=== PATIENT | male | born 1980 | race Caucasian/White ===

== ENCOUNTER 2016-04-21 20:40 | Inpatient (IN) | payer OTHER ==
[~2016-04-21] VITALS: Ht 172.7 cm; Wt 69.8 kg
[~2016-04-21 20:40] MED LIST: ATOR40TA49 PO; CONTOUR1 XX; GEMF600T PO; GLIP5 OR; HYDR50 PO; LANTUS2P SC; LISI-588 PO; METH750T2 PO; NOVORP2 SQ; TRAZ50TA4 PO; [UNRECOGNIZED DRUG - OTHER] SQ
[2016-04-21 20:42] VITALS: BP 148/93; PULSE 117; RESP 16; TEMP 97.6; O2SAT 99
[2016-04-21] MEDS ORDERED: LANTUS2P SQ (22:33)
[2016-04-21] MEDS ORDERED: NOVOLOGP2 SQ (22:33)
[2016-04-21] MEDS ORDERED: SODIUM CHLOR 0.9% 1000 ML INJ 1,000 ML IV SCH (22:53)
--- NOTE | 2016-04-21 22:57 | PD ---
HPI Chief Complaint: Abdominal Pain Time Seen by Provider: 22:53 Travel History International Travel<30 days: No Contact w/Intl Traveler<30days: No Traveled to known affect area: No History of Present Illness HPI Patient is a 35-year-old male with history of insulin-dependent diabetes, presents to emergency room with complaints of abdominal pain. Patient reports that he was discharged from [facility] about one week ago as he was admitted for hyperglycemia as well as an infection to his buttocks. Patient reports that he was sent home on antibiotics and completed a full course of antibiotics 3 days ago. Patient reports that ever since he was discharged from the hospital, he has been feeling nauseous. Reports that he has also been having increased abdominal pain. Patient reports that his blood sugars have been controlled, blood sugars have been in the 200s. Patient does report history of diabetes and is taking Lantus as well as NovoLog for his diabetes. Denies fevers or chills, denies chest pain or shortness of breath. Patient reports increased pains to his right lower abdomen. Denies dysuria, urinary urgency or frequency. PFSH Past Medical History Depression: Yes Cancer: No Cardiovascular Problems: Yes Diabetes: Yes Patient Takes Glucophage: No Genitourinary: No Hypertension: Yes Musculoskeletal: Yes Neurologic: No Psychiatric: No Reproductive: No Respiratory: No Past Surgical History Other Surgery: Yes (right knee ligament repaired) Social History Alcohol Use: No Tobacco Use: No Substance Use: No Allergies-Medications (Allergen,Severity, Reaction): Coded Allergies: Metformin (Verified Allergy, Intermediate, Hives, 04/21/16) Flexeril (Verified Adverse Reaction, Intermediate, syncope, 04/21/16) Reported Meds & Prescriptions Reported Meds & Active Scripts Active Reported Novolog Inj (Insulin Aspart) 1,000 Unit/10 Ml Vial 0 SQ DIRECTED Sliding Scale as directed. Lantus Inj (Insulin Glargine) 1,000 Unit/10 Ml Vial 20 Units SQ HS Review of Systems Except as stated in HPI: all other systems reviewed are Neg General / Constitutional: No: Fever Eyes: No: Visual changes HENT: No: Headaches Cardiovascular: No: Chest Pain or Discomfort Respiratory: No: Shortness of Breath Gastrointestinal: Positive: Nausea, Abdominal Pain Genitourinary: No: Dysuria Musculoskeletal: No: Pain Skin: No Rash Neurologic: No: Weakness Psychiatric: No: Depression Endocrine: No: Polydipsia Hematologic/Lymphatic: No: Easy Bruising Physical Exam Narrative GENERAL: No acute distress, nontoxic SKIN: Warm and dry. HEAD: Atraumatic. Normocephalic. EYES: Pupils equal and round. No scleral icterus. No injection or drainage. ENT: No nasal bleeding or discharge. Mucous membranes pink and moist. NECK: Trachea midline. No JVD. CARDIOVASCULAR: Regular rate and rhythm. No murmur appreciated. RESPIRATORY: No accessory muscle use. Clear to auscultation. Breath sounds equal bilaterally. GASTROINTESTINAL: Abdomen soft, patient with increased tenderness to right lower quadrant, no rebound or guarding on exam. Patient with healing bug bite to left buttocks, no signs of induration or cellulitis or drainage, exam performed with RN at bedside MUSCULOSKELETAL: No obvious deformities. No clubbing. No cyanosis. No edema. NEUROLOGICAL: Awake and alert. No obvious cranial nerve deficits. Motor grossly within normal limits. Normal speech. PSYCHIATRIC: Appropriate mood and affect; insight and judgment normal. Data Data Last Documented VS Vital Signs Date Time Temp Pulse Resp B/P Pulse Ox O2 Delivery O2 Flow Rate FiO2 04/21/16 23:12 16 04/21/16 20:42 97.6 117 148/93 99 Orders Complete Blood Count With Diff (04/21/16 22:53) Comprehensive Metabolic Panel (04/21/16 22:53) Lipase (04/21/16 22:53) Prothrombin Time / Inr (Pt) (04/21/16 22:53) Act Partial Throm Time (Ptt) (04/21/16 22:53) Urinalysis - C+S If Indicated (04/21/16 22:53) Ct Abd/Pel W Iv Contrast(Rout) (04/21/16 22:53) Iv Access Insert/Monitor (04/21/16 22:53) NPO (04/21/16 22:53) Morphine Inj (Morphine Inj) (04/21/16 23:00) Ondansetron Inj (Zofran Inj) (04/21/16 23:00) Sodium Chlor 0.9% 1000 Ml Inj (Ns 1000 M (04/21/16 22:53) Sodium Chloride 0.9% Flush (Ns Flush) (04/21/16 23:00) Arterial Blood Gas (Abg) (04/22/16 ) Beta Hydroxybutyrate (Acetone) (04/22/16 00:02) Sodium Chlor 0.9% 1000 Ml Inj (Ns 1000 M (04/22/16 00:15) Sodium Chlor 0.9% 1000 Ml Inj (Ns 1000 M (04/22/16 00:15) Iohexol 350 Inj (Omnipaque 350 Inj) (04/22/16 00:16) Morphine Inj (Morphine Inj) (04/22/16 00:45) Blood Glucose (04/22/16 01:25) Blood Glucose (04/22/16 02:25) Blood Glucose (04/22/16 01:25) Admit Order (Ed Use Only) (04/22/16 01:45) Labs Laboratory Tests Test 04/21/16 04/21/16 04/22/16 23:05 23:30 00:45 White Blood Count 8.3 TH/MM3 Red Blood Count 5.72 MIL/MM3 Hemoglobin 16.1 GM/DL Hematocrit 47.0 % Mean Corpuscular Volume 82.1 FL Mean Corpuscular Hemoglobin 28.1 PG Mean Corpuscular Hemoglobin 34.2 % Concent Red Cell Distribution Width 12.6 % Platelet Count 333 TH/MM3 Mean Platelet Volume 9.8 FL Neutrophils (%) (Auto) 48.9 % Lymphocytes (%) (Auto) 38.6 % Monocytes (%) (Auto) 10.8 % Eosinophils (%) (Auto) 0.8 % Basophils (%) (Auto) 0.9 % Neutrophils # (Auto) 4.1 TH/MM3 Lymphocytes # (Auto) 3.2 TH/MM3 Monocytes # (Auto) 0.9 TH/MM3 Eosinophils # (Auto) 0.1 TH/MM3 Basophils # (Auto) 0.1 TH/MM3 CBC Comment DIFF FINAL Differential Comment Prothrombin Time 10.9 SEC Prothromb Time International 1.0 RATIO Ratio Activated Partial 22.3 SEC Thromboplast Time Sodium Level 135 MEQ/L Potassium Level 4.5 MEQ/L Chloride Level 87 MEQ/L Carbon Dioxide Level 28.1 MEQ/L Anion Gap 20 MEQ/L Blood Urea Nitrogen 27 MG/DL Creatinine 1.10 MG/DL Estimat Glomerular Filtration 75 ML/MIN Rate Random Glucose 735 MG/DL Calcium Level 9.6 MG/DL Total Bilirubin 1.0 MG/DL Aspartate Amino Transf 44 U/L (AST/SGOT) Alanine Aminotransferase 59 U/L (ALT/SGPT) Alkaline Phosphatase 166 U/L Total Protein 8.0 GM/DL Albumin 3.6 GM/DL Lipase 138 U/L B-Hydroxybutyrate 3.67 MMOL/L Urine Color COLORLESS Urine Turbidity CLEAR Urine pH 5.0 Urine Specific [place] 1.028 Urine Protein TRACE mg/dL Urine Glucose (UA) 1000 mg/dL Urine Ketones 40 mg/dL Urine Occult Blood NEG Urine Nitrite NEG Urine Bilirubin NEG Urine Urobilinogen LESS THAN 2.0 MG/DL Urine Leukocyte Esterase NEG Urine WBC 1 /hpf Urine Transitional Epithelial <1 /hpf Cells Microscopic Urinalysis Comment CULT NOT INDICATED Blood Gas Puncture Site RT RADIAL Blood Gas Patient Temperature 98.6 Blood Gas HCO3 24 mmol/L Blood Gas Base Excess 0.6 mmol/L Blood Gas Oxygen Saturation 95 % Arterial Blood pH 7.44 Arterial Blood Partial 37 mmHg Pressure CO2 Arterial Blood Partial 88 mmHG Pressure O2 Arterial Blood Oxygen Content 19.1 Vol % Arterial Blood 1.6 % Carboxyhemoglobin Arterial Blood Methemoglobin 0.8 % Blood Gas Hemoglobin 14.3 G/DL Oxygen Delivery Device ROOM AIR Blood Gas Inspired Oxygen 21 % MDM Medical Decision Making Medical Screen Exam Complete: Yes Emergency Medical Condition: Yes Interpretation(s) Vital Signs Date Time Temp Pulse Resp B/P Pulse Ox O2 Delivery O2 Flow Rate FiO2 04/21/16 20:42 97.6 117 16 148/93 99 Laboratory Tests Test 04/21/16 04/21/16 04/22/16 23:05 23:30 00:45 White Blood Count 8.3 TH/MM3 (4.0-11.0) Red Blood Count 5.72 MIL/MM3 (4.50-5.90) Hemoglobin 16.1 GM/DL (13.0-17.0) Hematocrit 47.0 % (39.0-51.0) Mean Corpuscular Volume 82.1 FL (80.0-100.0) Mean Corpuscular Hemoglobin 28.1 PG (27.0-34.0) Mean Corpuscular Hemoglobin 34.2 % Concent (32.0-36.0) Red Cell Distribution Width 12.6 % (11.6-17.2) Platelet Count 333 TH/MM3 (150-450) Mean Platelet Volume 9.8 FL (7.0-11.0) Neutrophils (%) (Auto) 48.9 % (16.0-70.0) Lymphocytes (%) (Auto) 38.6 % (9.0-44.0) Monocytes (%) (Auto) 10.8 % (0.0-8.0) Eosinophils (%) (Auto) 0.8 % (0.0-4.0) Basophils (%) (Auto) 0.9 % (0.0-2.0) Neutrophils # (Auto) 4.1 TH/MM3 (1.8-7.7) Lymphocytes # (Auto) 3.2 TH/MM3 (1.0-4.8) Monocytes # (Auto) 0.9 TH/MM3 (0-0.9) Eosinophils # (Auto) 0.1 TH/MM3 (0-0.4) Basophils # (Auto) 0.1 TH/MM3 (0-0.2) CBC Comment DIFF FINAL Differential Comment Prothrombin Time 10.9 SEC (9.8-11.6) Prothromb Time International 1.0 RATIO Ratio Activated Partial 22.3 SEC Thromboplast Time (24.3-30.1) Sodium Level 135 MEQ/L (136-145) Potassium Level 4.5 MEQ/L (3.5-5.1) Chloride Level 87 MEQ/L (98-107) Carbon Dioxide Level 28.1 MEQ/L (21.0-32.0) Anion Gap 20 MEQ/L (5-15) Blood Urea Nitrogen 27 MG/DL (7-18) Creatinine 1.10 MG/DL (0.60-1.30) Estimat Glomerular Filtration 75 ML/MIN (>89) Rate Random Glucose 735 MG/DL (74-106) Calcium Level 9.6 MG/DL (8.5-10.1) Total Bilirubin 1.0 MG/DL (0.2-1.0) Aspartate Amino Transf 44 U/L (15-37) (AST/SGOT) Alanine Aminotransferase 59 U/L (12-78) (ALT/SGPT) Alkaline Phosphatase 166 U/L (45-117) Total Protein 8.0 GM/DL (6.4-8.2) Albumin 3.6 GM/DL (3.4-5.0) Lipase 138 U/L (73-393) B-Hydroxybutyrate 3.67 MMOL/L (0.00-0.39) Urine Color COLORLESS (YELLW/STRAW) Urine Turbidity CLEAR (CLEAR) Urine pH 5.0 (5.0-8.5) Urine Specific [place] 1.028 (1.002-1.035) Urine Protein TRACE mg/dL (NEG-TRACE) Urine Glucose (UA) 1000 mg/dL (NEG) Urine Ketones 40 mg/dL (NEG) Urine Occult Blood NEG (NEG) Urine Nitrite NEG (NEG) Urine Bilirubin NEG (NEG) Urine Urobilinogen LESS THAN 2.0 MG/DL (LESS THAN 2.0) Urine Leukocyte Esterase NEG (NEG) Urine WBC 1 /hpf (0-5) Urine Transitional Epithelial <1 /hpf (NONE) Cells Microscopic Urinalysis Comment CULT NOT INDICATED Blood Gas Puncture Site RT RADIAL Blood Gas Patient Temperature 98.6 Blood Gas HCO3 24 mmol/L (22-26) Blood Gas Base Excess 0.6 mmol/L (-2-2) Blood Gas Oxygen Saturation 95 % (90-100) Arterial Blood pH 7.44 (7.380-7.420) Arterial Blood Partial 37 mmHg (38-42) Pressure CO2 Arterial Blood Partial 88 mmHG Pressure O2 (61-120) Arterial Blood Oxygen Content 19.1 Vol % (12.0-20.0) Arterial Blood 1.6 % (0-4) Carboxyhemoglobin Arterial Blood Methemoglobin 0.8 % (0-2) Blood Gas Hemoglobin 14.3 G/DL (12.0-16.0) Oxygen Delivery Device ROOM AIR Blood Gas Inspired Oxygen 21 % Differential Diagnosis Appendicitis, hyperglycemia, electrolyte abnormality, DKA, UTI, cholecystitis Narrative Course Patient is a 35-year-old male who presents to emergency room with complaints of right lower quadrant abdominal pain. Patient reports that he has been having increased abdominal pain for the past week, reports that he has been feeling nauseous, denies vomiting. Reports pain diffusely but worse today right lower quadrant. reports that he was recently admitted and discharged from [facility] hospital 1 [facility] ago after he was admitted for hyperglycemia as well as infection to his buttocks. Reports that his infection has healed and he is currently not on any antibiotics at this time, reports that his blood sugar is also under control as been in the 200s. Patient does complain of abdominal pain, pain is located to the right lower quadrant. Labs as well as CAT scan of the abdomen and pelvis ordered to eval for possible appendicitis. Will hydrate patient with IV fluids and give him pain medications for pain. CBC & BMP Diagram 04/21/16 23:[address] nuñez who accepts pt to service Diagnosis Primary Impression: Hyperglycemia due to type 2 diabetes mellitus Qualified Code: E11.65 - Type 2 diabetes mellitus with hyperglycemia, with long-term current use of insulin Admitting Information Admitting Physician Requests: Observation Hannah Roper DO Apr 21, 2016 22:57
[2016-04-21] MEDS ORDERED: MORPHINE SULFATE 4 MG/ML INJ IV PUSH ONE (23:00)
[2016-04-21] MEDS ORDERED: ONDANSETRON HCL 4 MG/2 ML VIAL IVP ONE (23:00)
[2016-04-21] MEDS ORDERED: SODIUM CHLORIDE 0.9% FLUSH 5 ML FLUSH IVF PRN (23:00)
[2016-04-21 23:25] LABS: AUTOMATED NEUTROPHIL # 4.1 TH/MM3 (1.8-7.7); BASOPHIL # 0.1 TH/MM3 (0-0.2); BASOPHIL % 0.9 % (0.0-2.0); EOSINOPHIL # 0.1 TH/MM3 (0-0.4); EOSINOPHIL % 0.8 % (0.0-4.0); HEMO FLAGS DIFF FINAL; LYMPH % 38.6 % (9.0-44.0); LYMPHOCYTE # 3.2 TH/MM3 (1.0-4.8); MEAN CELL VOLUME 82.1 FL (80.0-100.0); MEAN CORPUSCULAR HEMOGLOBIN 28.1 PG (27.0-34.0); MEAN CORPUSCULAR HGB CONC 34.2 % (32.0-36.0); MONO % 10.8 % (0.0-8.0); NEUT % 48.9 % (16.0-70.0); PLATELET COUNT 333 TH/MM3 (150-450); RED BLOOD COUNT 5.72 MIL/MM3 (4.50-5.90); RED CELL DISTRIBUTION WIDTH 12.6 % (11.6-17.2); WHITE BLOOD COUNT 8.3 TH/MM3 (4.0-11.0)
[2016-04-21 23:34] LABS: APTT (PATIENT) 22.3 SEC (24.3-30.1); PROTHROMBIN TIME - PATIENT 10.9 SEC (9.8-11.6)
[2016-04-21 23:43] LABS: BLOOD, URINE NEG (NEG); GLUCOSE,URINE 1000 mg/dL (NEG); KETONE, URINE 40 mg/dL (NEG); NITRITE,URINE NEG (NEG); TRANSITIONAL EPI CELLS, URINE <1 /hpf; URINE COLOR COLORLESS (YELLW/STRAW)
[2016-04-21 23:49] LABS: COMMENT (UR) CULT NOT INDICATED; CULTURE IF INDICATED CULT NOT INDICATED
[2016-04-21 23:56] LABS: ALKALINE PHOSPHATASE 166 U/L (45-117); ALT (GPT) 59 U/L (12-78); ANION GAP 20 MEQ/L (5-15); AST (GOT) 44 U/L (15-37); BICARBONATE 28.1 MEQ/L (21.0-32.0); CHLORIDE 87 MEQ/L (98-107); GLOMERULAR FILTRATION RATE 75 ML/MIN (>89); SODIUM (NA) 135 MEQ/L (136-145)
[2016-04-22] VITALS (10 sets, daily range): BP systolic 123–154; BP diastolic 67–92; PULSE 85–106; RESP 18–22; TEMP 96.5–98.5; O2SAT 96–98
[2016-04-22] LABS: BLOOD UREA NITROGEN 27 MG/DL (7-18); POTASSIUM 4.5 MEQ/L (3.5-5.1)
[2016-04-22] MEDS ORDERED: SODIUM CHLOR 0.9% 1000 ML INJ 1,000 ML IV ONE ×2 (00:15)
[2016-04-22] MEDS ORDERED: IOHEXOL 350 MG/ML 10 ML VIAL (for RAD DIAG) IV ONE (00:16)
[2016-04-22] MEDS ORDERED: MORPHINE SULFATE 4 MG/ML INJ IV PUSH ONE (00:45)
[2016-04-22 00:56] LABS: BLOOD GAS BASE EXCESS 0.6 mmol/L (-2-2); BLOOD GAS CARBOXYHEMOGLOBIN 1.6 % (0-4); BLOOD GAS HCO3 24 mmol/L (22-26); BLOOD GAS METHEMOGLOBIN 0.8 % (0-2); BLOOD GAS O2 HGB SATURATION 95 % (90-100); BLOOD GAS OXYGEN CONTENT 19.1 Vol % (12.0-20.0); BLOOD GAS PCO2 37 mmHg (38-42); BLOOD GAS PO2 88 mmHG (61-120); BLOOD GAS TOTAL HGB 14.3 G/DL (12.0-16.0); CRITICAL VALUE NO; DRAW SITE RT RADIAL; FIO2 21 %; NUMBER OF ARTERIAL PUNCTURES 2; OXYGEN DEVICE ROOM AIR; STAT YES; TEMP CORR TO 98.6; ULNAR PULSE PRESENT
--- NOTE | 2016-04-22 01:27 | RADRPT ---
EXAM DATE/TIME: 04/22/2016 00:15 [place] COMPARISON: No previous studies available for comparison. INDICATIONS : Abdominal pain IV CONTRAST: 70 cc Omnipaque 350 (iohexol) IV ORAL CONTRAST: No oral contrast ingested. RADIATION DOSE: 6.97 CTDIvol (mGy) MEDICAL HISTORY : Cardiovascular disease. Hypertension. Diabetes mellitus type 2. SURGICAL HISTORY : None. ENCOUNTER: Initial ACUITY: 1 day PAIN SCALE: 3/10 LOCATION: Abdomen TECHNIQUE: Volumetric scanning of the abdomen and pelvis was performed. Using automated exposure control and ad justment of the mA and/or kV according to patient size, radiation dose was kept as low as reasonably achievable to obtain optimal diagnostic quality images. FINDINGS: LOWER LUNGS: The visualized lower lungs are clear. LIVER: 4.2 x 3.0 cm lesion in the posterior right lobe of the liver with peripheral nodular discontinuous en hancement indicating a hemangioma. The liver is otherwise within normal limits. Gallbladder within no rmal limits. SPLEEN: Normal size without lesion. PANCREAS: Within normal limits. KIDNEYS: 1.1 cm hypodensity in the lateral lower pole of the left kidney likely represents a cyst. Kidneys oth erwise within normal limits. No evidence of hydronephrosis. ADRENAL GLANDS: Within normal limits. VASCULAR: There is no aortic aneurysm. BOWEL/MESENTERY: Result of prominent wall thickening of the gastric antrum indicating possible gastritis. No evidence of bowel dilatation. No free air or free fluid. Appendix within normal limits. ABDOMINAL WALL: Within normal limits. RETROPERITONEUM: There is no lymphadenopathy. BLADDER: No wall thickening or mass. REPRODUCTIVE: Within normal limits. INGUINAL: There is no lymphadenopathy or hernia. MUSCULOSKELETAL: Within normal limits for patient age. CONCLUSION: 1. Mild wall thickening and mucosal enhancement of the distal stomach indicating possible gastritis. 2. Cavernous hemangiomas in the liver. Juan Ramon Brito MD on April 22, 2016 at 1:17 Board Certified Radiologist. This report was verified electronically.
--- NOTE | 2016-04-22 03:47 | HHI.HP ---
[facility] Service [facility] Primary Care Physician No Primary Care Physician Admission Diagnosis Diabetic Hyperglycemia Diagnoses: Chief Complaint: abdominal pain Travel History International Travel<30 Days: No Contact w/Intl Traveler <30 Da: No Traveled to Known Affected Are: No History of Present Illness 35 y/o male with a history of DM, neuropathy, and chronic back pain presented with abdominal cramping. Patient states he was seen in [facility] 1 week ago for hyperglycemia, and ever since he was discharge he has been having abdominal cramping. He states the pain is severe throughout his abdomen, and he has been unable to eat much. He although has been able to take in liquids. He complains of feeling dizzy, and states his blood sugars at home have been under 200 according to his meter. Because of the reading he has not been taking his short acting insulin because he states he will drop too much. He denies any chest pain, sob, fever or chills. Review of Systems Constitutional: COMPLAINS OF: Weight loss, Dizziness, DENIES: Fever, Chills Endocrine: COMPLAINS OF: Polydipsia, Polyuria Respiratory: DENIES: Cough, Shortness of breath Cardiovascular: DENIES: Chest pain, Lower Extremity Edema Gastrointestinal: COMPLAINS OF: Nausea, DENIES: Constipation, Diarrhea, Vomiting Genitourinary: DENIES: Dysuria Musculoskeletal: DENIES: Back pain, Neck pain Integumentary: DENIES: Rash Hematologic/lymphatic: DENIES: Lymphadenopathy Immunologic/allergic: DENIES: Urticaria Neurologic: COMPLAINS OF: Headache Past Family Social History Past Medical History Hypertension Diabetes Depression Hyperlipidemia Past Surgical History Right knee surgery Reported Medications Reported Meds & Active Scripts Active Reported Novolog Inj (Insulin Aspart) 1,000 Unit/10 Ml Vial 0 SQ DIRECTED Sliding Scale as directed. Lantus Inj (Insulin Glargine) 1,000 Unit/10 Ml Vial 20 Units SQ HS Allergies: Coded Allergies: Metformin (Verified Allergy, Intermediate, Hives, 04/21/16) Flexeril (Verified Adverse Reaction, Intermediate, syncope, 04/21/16) Active Ordered Medications Current Medications Medications (Trade) Dose Ordered Sig/Cuauhtemoc Route Start Time Stop Time Status Last Admin (NS Flush) 2 ml UNSCH PRN IVF 04/21/16 23:00 Family History Kidney disease Epilepsy Social History Tobacco use: quit 1 year ago Alcohol use: occasionally Illicit drug use: marijuana Physical Exam Vital Signs Vital Signs Date Time Temp Pulse Resp B/P Pulse Ox O2 Delivery O2 Flow Rate FiO2 04/22/16 00:54 16 04/21/16 23:12 16 04/21/16 20:42 97.6 117 16 148/93 99 Physical Exam GENERAL: This is a well-nourished, well-developed patient, in no apparent distress. SKIN: No rashes, ecchymoses or lesions. Cool and dry. HEAD: Atraumatic. Normocephalic. EYES: Pupils equal round and reactive. Extraocular motions intact. ENT: Nose without bleeding, purulent drainage or septal hematoma. Airway patent. NECK: Trachea midline. No JVD CARDIOVASCULAR: Regular rate and rhythm without murmurs, gallops, or rubs. RESPIRATORY: Clear to auscultation. Breath sounds equal bilaterally. No wheezes , rales, or rhonchi. GASTROINTESTINAL: Abdomen soft, diffuse tenderness, nondistended. No hepato- splenomegaly, or palpable masses. No guarding. MUSCULOSKELETAL: Extremities without clubbing, cyanosis, or edema. No calf tenderness. NEUROLOGICAL: Awake and alert. . Motor and sensory grossly within normal limits. . Normal speech. Laboratory Laboratory Tests Test 04/21/16 04/21/16 04/22/16 23:05 23:30 00:45 White Blood Count 8.3 Red Blood Count 5.72 Hemoglobin 16.1 Hematocrit 47.0 Mean Corpuscular Volume 82.1 Mean Corpuscular Hemoglobin 28.1 Mean Corpuscular Hemoglobin 34.2 Concent Red Cell Distribution Width 12.6 Platelet Count 333 Mean Platelet Volume 9.8 Neutrophils (%) (Auto) 48.9 Lymphocytes (%) (Auto) 38.6 Monocytes (%) (Auto) 10.8 Eosinophils (%) (Auto) 0.8 Basophils (%) (Auto) 0.9 Neutrophils # (Auto) 4.1 Lymphocytes # (Auto) 3.2 Monocytes # (Auto) 0.9 Eosinophils # (Auto) 0.1 Basophils # (Auto) 0.1 CBC Comment DIFF FINAL Differential Comment Prothrombin Time 10.9 Prothromb Time International 1.0 Ratio Activated Partial 22.3 Thromboplast Time Sodium Level 135 Potassium Level 4.5 Chloride Level 87 Carbon Dioxide Level 28.1 Anion Gap 20 Blood Urea Nitrogen 27 Creatinine 1.10 Estimat Glomerular Filtration 75 Rate Random Glucose 735 Calcium Level 9.6 Total Bilirubin 1.0 Aspartate Amino Transf 44 (AST/SGOT) Alanine Aminotransferase 59 (ALT/SGPT) Alkaline Phosphatase 166 Total Protein 8.0 Albumin 3.6 Lipase 138 B-Hydroxybutyrate 3.67 Urine Color COLORLESS Urine Turbidity CLEAR Urine pH 5.0 Urine Specific [place] 1.028 Urine Protein TRACE Urine Glucose (UA) 1000 Urine Ketones 40 Urine Occult Blood NEG Urine Nitrite NEG Urine Bilirubin NEG Urine Urobilinogen LESS THAN 2.0 Urine Leukocyte Esterase NEG Urine WBC 1 Urine Transitional Epithelial <1 Cells Microscopic Urinalysis Comment CULT NOT INDICATED Blood Gas Puncture Site RT RADIAL Blood Gas Patient Temperature 98.6 Blood Gas HCO3 24 Blood Gas Base Excess 0.6 Blood Gas Oxygen Saturation 95 Arterial Blood pH 7.44 Arterial Blood Partial 37 Pressure CO2 Arterial Blood Partial 88 Pressure O2 Arterial Blood Oxygen Content 19.1 Arterial Blood 1.6 Carboxyhemoglobin Arterial Blood Methemoglobin 0.8 Blood Gas Hemoglobin 14.3 Oxygen Delivery Device ROOM AIR Blood Gas Inspired Oxygen 21 Result Diagram: 04/21/165 04/21/162304 Imaging Last Impressions Abdomen/Pelvis CT 04/21/162252 Signed Impressions: Service Date/Time: Friday, April 22, 2016 00:15 - CONCLUSION: 1. Mild wall thickening and mucosal enhancement of the distal stomach indicating possible gastritis. 2. Cavernous hemangiomas in the liver. Juan Ramon Brito MD Assessment and Plan Problem List: (1) Gastroenteritis ICD Code: K52.9 Status: Acute (2) DKA (diabetic ketoacidoses) ICD Code: E13.10 Status: Acute Assessment and Plan 35 y/o male with a history of DM, neuropathy, and chronic back pain presented with abdominal cramping. Gastroenteritis Images reviewed: Abdominal CT shows mild wall thickening and mucosal enhancement of the distal stomach indicating possible gastritis. Cavernous hemangiomas in the liver. -Pain management with IV Morphine -IVF hydration DKA Labs: Glucose 735, anion gap 20, beta hydroxybutyrate 3.67 -DKA protocol -Admit to ICU DVT prophylaxis: Heparin Written by Darline DUMONT, acting as scribe for Dr. Blum on 04/22/16 at 0340. All or portions of this note were transcribed by TIM Choi. I, Dr. Taye Blum personally performed the history, physical exam, and medical decision making; and confirmed the accuracy of the information in the transcribed note. Authenticated by Dr. Taye Blum on 04/22/16 at 05:58. Code Status Full Discussed Condition With Patient and RN Physician Certification 2 Midnight Certification Type: Admission for Inpatient Services Order for Inpatient Services The services are ordered in accordance with Medicare regulations or non- Medicare payer requirements, as applicable. In the case of services not specified as inpatient-only, they are appropriately provided as inpatient services in accordance with the 2-midnight benchmark. Estimated LOS (days): 3 days is the estimated time the patient will need to remain in the hospital, assuming treatment plan goals are met and no additional complications. Post-Hospital Plan: Home Darline Hutton Apr 22, 2016 03:47 Taye Blum MD Apr 22, 2016 05:59
[2016-04-22] MEDS: DEXT 5%-NACL 0.9% 1000 ML INJ 1,000 ML IV SCH ×4 (03:53→23:53)
[2016-04-22] MEDS ORDERED: MORPHINE SULFATE 4 MG/ML INJ IV PUSH PRN (04:00)
[2016-04-22] MEDS: CHLORHEXIDINE GLUCONATE 2 % 1 PACK (2 CLOTHS) TOP SCH (04:00)
[2016-04-22] MEDS ORDERED: MISCELLANEOUS NURSING INFORMATION XX SCH (04:00)
[2016-04-22] MEDS ORDERED: INSULIN REGULAR (IV INFUSION) 100 UNITS in SODIUM CHLORIDE 0.9% INJ 99 ML IV SCH (04:00)
[2016-04-22] MEDS ORDERED: CHLORHEXIDINE GLUCONATE 2 % 1 PACK (2 CLOTHS) TOP PRN (04:00)
[2016-04-22] MEDS ORDERED: SODIUM PHOSPHATE INJ 15 MMOL in SODIUM CHLORIDE 0.9% INJ 100 ML IV PRN (04:00)
[2016-04-22] MEDS ORDERED: POTASSIUM CHLOR 40 MEQ PREMIX 100 ML IV PRN ×4 (04:00→11:45)
[2016-04-22] MEDS ORDERED: SODIUM BICARBONATE 8.4% SOLN 50 MEQ/50 ML VIAL IV PRN ×2 (04:00)
[2016-04-22] MEDS ORDERED: POTASSIUM CHLOR 20 MEQ PREMIX 100 ML IV PRN ×8 (04:00→11:45)
[2016-04-22] MEDS: MORPHINE SULFATE 4 MG/ML INJ IV PUSH PRN ×5 (04:38→21:11)
[2016-04-22] MEDS: SODIUM CHLOR 0.9% 1000 ML INJ 1,000 ML IV SCH (04:38)
[2016-04-22 08:29] LABS: BICARBONATE 30.3 MEQ/L (21.0-32.0); MAGNESIUM 1.2 MG/DL (1.5-2.5); POTASSIUM 3.2 MEQ/L (3.5-5.1)
[2016-04-22] MEDS: HEPARIN SODIUM - SQ 10,000 UNITS/ML VIAL SQ SCH ×2 (09:00→21:12)
[2016-04-22] MEDS: MAGNESIUM SULFATE 1 GM PREMIX 100 ML IV SCH ×2 (11:00→13:38)
[2016-04-22] MEDS ORDERED: POTASSIUM PHOSPHATE INJ 30 MMOL in SODIUM CHLOR 0.9% 250 ML INJ 250 ML IV ONE (11:00)
[2016-04-22] MEDS ORDERED: GLUCAGON 1 MG/ML VIAL OTHER PRN (11:30)
[2016-04-22] MEDS ORDERED: DEXTROSE 50% IN WATER 50 ML VIAL(D50) IV PUSH PRN (11:30)
[2016-04-22] MEDS ORDERED: POTASSIUM PHOSPHATE MONOBASIC 500 MG TAB PO PRN (11:45)
[2016-04-22] MEDS ORDERED: MAGNESIUM SULFATE INJ 2 GM in SODIUM CHLORIDE 0.9% INJ 96 ML IV PRN (11:45)
[2016-04-22] MEDS ORDERED: MAGNESIUM SULFATE INJ 4 GM in SODIUM CHLORIDE 0.9% INJ 92 ML IV PRN (11:45)
[2016-04-22] MEDS ORDERED: POTASSIUM PHOSPHATE INJ 30 MMOL in SODIUM CHLOR 0.9% 250 ML INJ 250 ML IV PRN (11:45)
[2016-04-22] MEDS ORDERED: MAGNESIUM OXIDE 400 MG TAB PO PRN (11:45)
[2016-04-22] MEDS ORDERED: SODIUM PHOSPHATE INJ 30 MMOL in SODIUM CHLOR 0.9% 250 ML INJ 240 ML IV PRN (11:45)
[2016-04-22] MEDS ORDERED: POTASSIUM PHOSPHATE MONOBASIC 500 MG TAB PO/TUBE PRN (11:45)
[2016-04-22] MEDS: MAGNESIUM OXIDE 400 MG TAB PO SCH (12:42)
[2016-04-22] MEDS: INSULIN ASPART SUPPLEMENTAL SCALE SQ SCH ×2 (13:27→16:54)
[2016-04-22 15:37] LABS: BETA-HYDROXYBUTYRATE 0.61 MMOL/L (0.00-0.39); BICARBONATE 25.7 MEQ/L (21.0-32.0); MAGNESIUM 1.8 MG/DL (1.5-2.5); POTASSIUM 4.1 MEQ/L (3.5-5.1)
[2016-04-22] MEDS ORDERED: INSULIN DETEMIR 100 UNITS/ML VIAL SQ ONE (17:45)
[2016-04-22] MEDS ORDERED: INSULIN DETEMIR 100 UNITS/ML VIAL SQ SCH (21:00)
[2016-04-22] MEDS: MEDIUM DOSE INSULIN NOVOLOG SUPPLEMENTAL SCALE SQ SCH (21:15)
[2016-04-22 21:18] LABS: BICARBONATE 25.3 MEQ/L (21.0-32.0); MAGNESIUM 1.5 MG/DL (1.5-2.5); POTASSIUM 3.9 MEQ/L (3.5-5.1)
[2016-04-22 23:39] LABS: POTASSIUM 3.5 MEQ/L (3.5-5.1)
[2016-04-23] VITALS (12 sets, daily range): BP systolic 135–158; BP diastolic 72–98; PULSE 83–107; RESP 17–22; TEMP 97.8–98.6; O2SAT 95–100
[2016-04-23] MEDS: MORPHINE SULFATE 4 MG/ML INJ IV PUSH PRN ×3 (02:27→11:45)
[2016-04-23] MEDS: DEXT 5%-NACL 0.9% 1000 ML INJ 1,000 ML IV SCH (02:41)
[2016-04-23] MEDS: SODIUM CHLOR 0.9% 1000 ML INJ 1,000 ML IV SCH ×2 (03:53→20:29)
[2016-04-23] MEDS: CHLORHEXIDINE GLUCONATE 2 % 1 PACK (2 CLOTHS) TOP SCH (04:00)
[2016-04-23 04:04] LABS: AUTOMATED NEUTROPHIL # 2.5 TH/MM3 (1.8-7.7); BASOPHIL # 0.1 TH/MM3 (0-0.2); EOSINOPHIL # 0.5 TH/MM3 (0-0.4); EOSINOPHIL % 5.9 % (0.0-4.0); HEMATOCRIT 37.3 % (39.0-51.0); HEMO FLAGS DIFF FINAL; LYMPH % 54.6 % (9.0-44.0); LYMPHOCYTE # 4.2 TH/MM3 (1.0-4.8); MEAN CELL VOLUME 81.2 FL (80.0-100.0); MEAN CORPUSCULAR HEMOGLOBIN 27.8 PG (27.0-34.0); MEAN CORPUSCULAR HGB CONC 34.3 % (32.0-36.0); MONO % 5.7 % (0.0-8.0); NEUT % 32.8 % (16.0-70.0); PLATELET COUNT 278 TH/MM3 (150-450); RED CELL DISTRIBUTION WIDTH 12.7 % (11.6-17.2); WHITE BLOOD COUNT 7.7 TH/MM3 (4.0-11.0)
[2016-04-23 04:28] LABS: BETA-HYDROXYBUTYRATE 0.1 MMOL/L (0.00-0.39); BICARBONATE 26.5 MEQ/L (21.0-32.0); MAGNESIUM 1.3 MG/DL (1.5-2.5); POTASSIUM 3.4 MEQ/L (3.5-5.1); POTASSIUM 3.5 MEQ/L (3.5-5.1)
[2016-04-23] MEDS: MEDIUM DOSE INSULIN NOVOLOG SUPPLEMENTAL SCALE SQ SCH ×4 (07:00→20:27)
[2016-04-23] MEDS: MAGNESIUM OXIDE 400 MG TAB PO SCH (08:42)
[2016-04-23] MEDS: HEPARIN SODIUM - SQ 10,000 UNITS/ML VIAL SQ SCH ×2 (08:42→20:27)
--- NOTE | 2016-04-23 10:38 | HHI.PR ---
Subjective Remarks Feels improving. Able to eat some breakfast no nausea or vomiting however complained of abd discomfort with breakfast. No fever or chills. Says she run out of meds. Objective Vitals Vital Signs Date Time Temp Pulse Resp B/P Pulse Ox O2 Delivery O2 Flow Rate FiO2 04/23/16 06:00 107 04/23/16 04:00 83 04/23/16 04:00 98.2 83 22 135/72 97 04/23/16 02:32 22 04/23/16 02:00 104 04/23/16 00:00 97.8 84 20 136/72 95 04/23/16 00:00 84 04/22/16 23:00 103 04/22/16 20:00 97.0 100 22 127/67 97 04/22/16 18:00 98 04/22/16 16:00 85 04/22/16 16:00 97.4 85 18 154/80 98 04/22/16 14:00 94 04/22/16 12:00 96.7 106 22 140/83 97 04/22/16 12:00 106 I/O 04/22/16 04/22/16 04/22/16 04/23/16 04/23/16 04/23/16 07:00 15:00 23:00 07:00 15:00 23:00 Intake Total 1000 ml 480 ml 673 ml Output Total 600 ml 600 ml 800 ml Balance 400 ml -120 ml -127 ml Intake Oral 1000 ml 480 ml 350 ml IV Total 323 ml Output Urine Total 600 ml 600 ml 800 ml # Bowel Movements 0 0 Result Diagram: 04/23/16 0319 04/23/16 0319 Imaging Last Impressions Abdomen/Pelvis CT 04/21/16 0583 Signed Impressions: Service Date/Time: Friday, April 22, 2016 00:15 - CONCLUSION: 1. Mild wall thickening and mucosal enhancement of the distal stomach indicating possible gastritis. 2. Cavernous hemangiomas in the liver. Juan Ramon Brito MD Objective Remarks GENERAL: Pleasant 35 yo male, in bed, not in acute distress. SKIN: Warm and dry. HEAD: Atraumatic. Normocephalic. EYES: Pupils equal and round. No scleral icterus. No injection or drainage. ENT: No nasal bleeding or discharge. Mucous membranes pink and moist. NECK: Trachea midline. No JVD. CARDIOVASCULAR: Regular rate and rhythm. RESPIRATORY: No accessory muscle use. Clear to auscultation. Breath sounds equal bilaterally. GASTROINTESTINAL: Abdomen soft, mild tenderness on epigastric area, nondistended. Hepatic and splenic margins not palpable. MUSCULOSKELETAL: Extremities without clubbing, cyanosis, or edema. No obvious deformities. NEUROLOGICAL: Awake and alert. No obvious cranial nerve deficits. Motor grossly within normal limits. Five out of 5 muscle strength in the arms and legs. Normal speech. PSYCHIATRIC: Appropriate mood and affect; insight and judgment normal. A/P Problem List: (1) Gastroenteritis ICD Code: K52.9 Status: Acute (2) DKA (diabetic ketoacidoses) ICD Code: E13.10 Status: Acute Assessment and Plan 35 y/o male with a history of DM, neuropathy, and chronic back pain presented with abdominal cramping. Gastroenteritis Images reviewed: Abdominal CT shows mild wall thickening and mucosal enhancement of the distal stomach indicating possible gastritis. Cavernous hemangiomas in the liver. -Pain management with IV Morphine. Add PO pain meds -IVF hydration -Consult GI if persistent abd pain and not able to tolerate food DKA Labs: Glucose 735, anion gap 20, beta hydroxybutyrate 3.67 -DKA protocol. BS better controlled. Start long acting insulin, ISS , accuchecks. -Admit to ICU DVT prophylaxis: Heparin Full Discussed Condition With Patient and the nurse Discharge when tolerates food, no abd pain and if BS stable Discharge Planning DC home in stable condition to follow up as OP with PCP Meds per med reconciliations. Diabetic diet. Adviced compliance with meds, diet and follow up appointments. Activity ad tika Edith Aggarwal MD Apr 23, 2016 10:38
[2016-04-23] MEDS ORDERED: LANTUS2P SQ (10:43)
[2016-04-23] MEDS ORDERED: NOVOLOGP2 SQ (10:43)
[2016-04-23] MEDS ORDERED: PANT40TA3 PO (10:43)
[2016-04-23] MEDS ORDERED: NALOXONE HCL 0.4 MG/ML AMP IV PRN (10:45)
[2016-04-23] MEDS ORDERED: PANTOPRAZOLE SOD 40 MG DELAYED RELEASE TAB PO ONE (11:00)
[2016-04-23] MEDS: ACETAMINOPHEN/HYDROcodone 325 MG/5 MG TAB PO PRN ×3 (14:42→22:57)
[2016-04-23] MEDS: INSULIN DETEMIR 100 UNITS/ML VIAL SQ SCH (20:27)
[2016-04-24] VITALS (9 sets, daily range): BP systolic 124–173; BP diastolic 67–91; PULSE 79–110; RESP 17–25; TEMP 97.8–99.1; O2SAT 98–100
[2016-04-24] MEDS: ACETAMINOPHEN/HYDROcodone 325 MG/5 MG TAB PO PRN ×6 (03:17→23:26)
[2016-04-24] MEDS: CHLORHEXIDINE GLUCONATE 2 % 1 PACK (2 CLOTHS) TOP SCH (04:00)
[2016-04-24] MEDS: MEDIUM DOSE INSULIN NOVOLOG SUPPLEMENTAL SCALE SQ SCH ×4 (07:00→20:04)
[2016-04-24] MEDS: PANTOPRAZOLE SOD 40 MG DELAYED RELEASE TAB PO SCH (08:10)
[2016-04-24] MEDS: MAGNESIUM OXIDE 400 MG TAB PO SCH ×4 (08:10→19:49)
[2016-04-24] MEDS: HEPARIN SODIUM - SQ 10,000 UNITS/ML VIAL SQ SCH ×2 (08:11→19:49)
[2016-04-24] MEDS: SODIUM CHLOR 0.9% 1000 ML INJ 1,000 ML IV SCH (09:30)
[2016-04-24 12:19] LABS: WHITE BLOOD COUNT 7.1 TH/MM3 (4.0-11.0)
[2016-04-24 12:20] LABS: AUTOMATED NEUTROPHIL # 3.2 TH/MM3 (1.8-7.7); BASOPHIL % 0.5 % (0.0-2.0); EOSINOPHIL # 0.3 TH/MM3 (0-0.4); EOSINOPHIL % 4.6 % (0.0-4.0); HEMATOCRIT 35.7 % (39.0-51.0); HEMO FLAGS DIFF FINAL; LYMPH % 41.8 % (9.0-44.0); MEAN CELL VOLUME 81.4 FL (80.0-100.0); MEAN CORPUSCULAR HEMOGLOBIN 27.4 PG (27.0-34.0); MEAN CORPUSCULAR HGB CONC 33.7 % (32.0-36.0); MONO % 7.8 % (0.0-8.0); NEUT % 45.3 % (16.0-70.0); PLATELET COUNT 254 TH/MM3 (150-450); RED BLOOD COUNT 4.38 MIL/MM3 (4.50-5.90); RED CELL DISTRIBUTION WIDTH 12.5 % (11.6-17.2)
[2016-04-24 12:49] LABS: BICARBONATE 27.6 MEQ/L (21.0-32.0); MAGNESIUM 1.1 MG/DL (1.5-2.5); POTASSIUM 3.7 MEQ/L (3.5-5.1)
--- NOTE | 2016-04-24 14:03 | HHI.PR ---
Subjective Remarks Patient doesn't have any nausea or vomiting he was able to eat . Abdominal pain is more epigastric area and say sis not controlled. No fever or chills. No diarrhea,. he did have 2normal colored BM in the morning. Will consult GI Objective Vitals Vital Signs Date Time Temp Pulse Resp B/P Pulse Ox O2 Delivery O2 Flow Rate FiO2 04/24/16 06:00 99 04/24/16 04:17 20 04/24/16 04:00 98.3 79 22 124/70 98 04/24/16 04:00 79 04/24/16 02:00 101 04/24/16 00:00 97.8 87 20 144/75 99 04/24/16 00:00 87 04/23/16 22:00 89 04/23/16 20:00 107 04/23/16 20:00 98.2 102 22 150/89 100 04/23/16 18:00 96 04/23/16 16:00 92 04/23/16 16:00 98.6 92 19 145/85 99 I/O 04/23/16 04/23/16 04/23/16 04/24/16 04/24/16 04/24/16 07:00 15:00 23:00 07:00 15:00 23:00 Intake Total 673 ml 1292 ml 1260 ml 1969 ml Output Total 800 ml Balance -127 ml 1292 ml 1260 ml 1969 ml Intake Oral 350 ml 720 ml 600 ml 800 ml IV Total 323 ml 572 ml 660 ml 1169 ml Output Urine Total 800 ml # Voids 1 2 4 # Bowel Movements 0 1 0 0 Result Diagram: 04/24/16 1135 04/24/16 1135 Imaging Last Impressions Abdomen/Pelvis CT 04/21/16 3920 Signed Impressions: Service Date/Time: Friday, April 22, 2016 00:15 - CONCLUSION: 1. Mild wall thickening and mucosal enhancement of the distal stomach indicating possible gastritis. 2. Cavernous hemangiomas in the liver. Juan Ramon Brito MD Objective Remarks GENERAL: Pleasant 35 yo male, in bed, not in acute distress. SKIN: Warm and dry. HEAD: Atraumatic. Normocephalic. EYES: Pupils equal and round. No scleral icterus. No injection or drainage. ENT: No nasal bleeding or discharge. Mucous membranes pink and moist. NECK: Trachea midline. No JVD. CARDIOVASCULAR: Regular rate and rhythm. RESPIRATORY: No accessory muscle use. Clear to auscultation. Breath sounds equal bilaterally. GASTROINTESTINAL: Abdomen soft, mild tenderness on epigastric area, nondistended. Hepatic and splenic margins not palpable. MUSCULOSKELETAL: Extremities without clubbing, cyanosis, or edema. No obvious deformities. NEUROLOGICAL: Awake and alert. No obvious cranial nerve deficits. Motor grossly within normal limits. Five out of 5 muscle strength in the arms and legs. Normal speech. PSYCHIATRIC: Appropriate mood and affect; insight and judgment normal. A/P Problem List: (1) Gastroenteritis ICD Code: K52.9 Status: Acute (2) DKA (diabetic ketoacidoses) ICD Code: E13.10 Status: Acute Assessment and Plan 35 y/o male with a history of DM, neuropathy, and chronic back pain presented with abdominal cramping. Gastroenteritis Abdominal pain Images reviewed: Abdominal CT shows mild wall thickening and mucosal enhancement of the distal stomach indicating possible gastritis. Cavernous hemangiomas in the liver. -Pain management with IV Morphine. PO pain meds per pain scale. Continue pantoprazole. Consider carafate -IVF hydration -Consult GI as patient with persistent abd pain DKA Labs on admission: Glucose 735, anion gap 20, beta hydroxybutyrate 3.67 -Was admitted to ICU and placed on DKA protocol. BS better controlled.Continue long acting insulin, ISS, accuchecks. BS better controlled. Hypomagnesemia: Replaced PO and IV. Monitor and replace as need. DVT prophylaxis: Heparin Full Discussed Condition With Patient and the nurse Discharge when improved tolerates food, no abd pain. Consulted GI as abd pain not improving. Transfer to med/surg floor Discharge Planning DC home in stable condition to follow up as OP with PCP Meds per med reconciliations. Diabetic diet. Adviced compliance with meds, diet and follow up appointments. Activity ad tika Edith Aggarwal MD Apr 24, 2016 14:03
[2016-04-24] MEDS: MAGNESIUM SULFATE 1 GM PREMIX 100 ML IV SCH ×2 (16:23→17:30)
[2016-04-24] MEDS: INSULIN DETEMIR 100 UNITS/ML VIAL SQ SCH (20:04)
[2016-04-25] VITALS (7 sets, daily range): BP systolic 111–142; BP diastolic 74–89; PULSE 68–105; RESP 16–22; TEMP 97.1–97.9; O2SAT 95–98
[2016-04-25] MEDS: SODIUM CHLOR 0.9% 1000 ML INJ 1,000 ML IV SCH ×2 (00:24→11:15)
[2016-04-25] MEDS: CHLORHEXIDINE GLUCONATE 2 % 1 PACK (2 CLOTHS) TOP SCH (04:00)
[2016-04-25] MEDS: ACETAMINOPHEN/HYDROcodone 325 MG/5 MG TAB PO PRN ×5 (05:05→23:04)
[2016-04-25] MEDS: MEDIUM DOSE INSULIN NOVOLOG SUPPLEMENTAL SCALE SQ SCH ×4 (05:07→20:28)
[2016-04-25] MEDS: MAGNESIUM OXIDE 400 MG TAB PO SCH ×3 (09:00→20:28)
[2016-04-25] MEDS: PANTOPRAZOLE SOD 40 MG DELAYED RELEASE TAB PO SCH (09:12)
[2016-04-25] MEDS: HEPARIN SODIUM - SQ 10,000 UNITS/ML VIAL SQ SCH ×2 (09:13→20:28)
[2016-04-25 11:31] LABS: BICARBONATE 28.2 MEQ/L (21.0-32.0); MAGNESIUM 1.3 MG/DL (1.5-2.5); POTASSIUM 3.7 MEQ/L (3.5-5.1)
--- NOTE | 2016-04-25 11:31 | HHI.PR ---
Subjective Remarks Still with abdominal pain. No nausea or vomiting. Pain is worse with eating but can occur at any time. No fever or chills. No diarrhea or constipation. Objective Vitals Vital Signs Date Time Temp Pulse Resp B/P Pulse Ox O2 Delivery O2 Flow Rate FiO2 04/25/16 08:30 97.1 100 18 141/81 98 04/25/16 04:00 97.3 91 22 142/89 98 04/25/16 00:00 97.6 95 18 132/81 95 04/24/16 22:00 98 04/24/16 20:00 99.1 110 20 169/79 98 04/24/16 20:00 110 04/24/16 16:00 99.1 100 20 173/91 99 04/24/16 12:00 98.5 95 17 154/87 99 I/O 04/24/16 04/24/16 04/24/16 04/25/16 04/25/16 04/25/16 07:00 15:00 23:00 07:00 15:00 23:00 Intake Total 1969 ml 1325 ml 1140 ml 240 ml Output Total 2000 ml 3250 ml Balance 1969 ml -675 ml -2110 ml 240 ml Intake Oral 800 ml 900 ml 540 ml 240 ml IV Total 1169 ml 425 ml 600 ml Output Urine Total 2000 ml 3250 ml # Voids 4 4 5 # Bowel Movements 0 1 Result Diagram: 04/24/16 1135 04/24/16 1135 Imaging Last Impressions Abdomen/Pelvis CT 04/21/16 9983 Signed Impressions: Service Date/Time: Friday, April 22, 2016 00:15 - CONCLUSION: 1. Mild wall thickening and mucosal enhancement of the distal stomach indicating possible gastritis. 2. Cavernous hemangiomas in the liver. Juan Ramon Brito MD Objective Remarks GENERAL: Pleasant 35 yo male, in bed, not in acute distress. SKIN: Warm and dry. HEAD: Atraumatic. Normocephalic. EYES: Pupils equal and round. No scleral icterus. No injection or drainage. ENT: No nasal bleeding or discharge. Mucous membranes pink and moist. NECK: Trachea midline. No JVD. CARDIOVASCULAR: Regular rate and rhythm. RESPIRATORY: No accessory muscle use. Clear to auscultation. Breath sounds equal bilaterally. GASTROINTESTINAL: Abdomen soft, mild tenderness on epigastric area, nondistended. Hepatic and splenic margins not palpable. MUSCULOSKELETAL: Extremities without clubbing, cyanosis, or edema. No obvious deformities. NEUROLOGICAL: Awake and alert. No obvious cranial nerve deficits. Motor grossly within normal limits. Five out of 5 muscle strength in the arms and legs. Normal speech. PSYCHIATRIC: Appropriate mood and affect; insight and judgment normal. A/P Problem List: (1) Gastroenteritis ICD Code: K52.9 Status: Acute (2) DKA (diabetic ketoacidoses) ICD Code: E13.10 Status: Acute Assessment and Plan 35 y/o male with a history of DM, neuropathy, and chronic back pain presented with abdominal cramping. Gastroenteritis Abdominal pain Images reviewed: Abdominal CT shows mild wall thickening and mucosal enhancement of the distal stomach indicating possible gastritis. Cavernous hemangiomas in the liver. -Pain management with IV Morphine. PO pain meds per pain scale. Continue pantoprazole. Consider carafate -IVF hydration -Consult GI as patient with persistent abd pain - Plan for EGD on Thursday 04/27 if doesn't improve DKA Labs on admission: Glucose 735, anion gap 20, beta hydroxybutyrate 3.67 -Was admitted to ICU and placed on DKA protocol. BS better controlled.Continue long acting insulin, ISS, accuchecks. BS better controlled. Hypomagnesemia: Replaced PO and IV. Monitor and replace as need. DVT prophylaxis: Heparin Full Discussed Condition With Patient and the nurse Discharge when improved tolerates food, no abd pain. Consulted GI as abd pain not improving. Transfer to med/surg floor Discharge Planning DC home when cleared by GI, plan for poss EGD on Wednesday Meds per med reconciliations. Diabetic diet. Adviced compliance with meds, diet and follow up appointments. Activity ad tika Edith Aggarwal MD Apr 25, 2016 11:31
--- NOTE | 2016-04-25 17:00 | PD.CONS ---
HPI History of Present Illness This is a 35 year old male with type 2 diabetes who is currently hospitalized for DKA and abdominal pain. His DKA has resolved, but he has continued to have abdominal pain and therefore GI has been consulted for further evaluation. The patient reports that he's had multiple hospitalizations for his diabetes and abdominal pain. He reports that in the past he was told that he needed to follow up with GI as outpatient, but that she becomes sick before he can ever be seen. He states that he was hospitalized a little over a week ago at [facility]. He has been having abdominal pain since he was released from that facility. He states that initially this was a diffuse abdominal pain that was sharp and constant with associated nausea and vomiting. He tried just taking jello/clear liquids/soups, but had no improvement. He came to this facility for further evaluation on 04/21/16. His LFTs were mildly elevated at that time with a total bilirubin of 1.0, AST 44, ALT 59, alkaline phosphatase 166. His lipase was normal at 138. CT scan abdomen and pelvis (04/21/16) revealed mild wall thickening and mucosal enhancement of the distal stomach indicating possible gastritis, cavernous hemangiomas in the liver. He was started on Protonix and he reports that his nausea and vomiting has subsided. He also states that his pain has improved and that he has no longer having diffuse abdominal pain. However he does continue to have intermittent abdominal pain in his left upper quadrant which she describes as a sharp pain that occasionally radiates to his back. This is associated with food intake at times, but at other times he has it at rest. He denies any heartburn or reflux. He denies any bowel changes such as constipation or diarrhea. He is not having any melena or hematochezia. He does report a remote history of peptic ulcer disease and reports that he had an EGD last about 2-3 years ago. He does not recall who did this. He does report that he's lost about 100 pounds over the past year. He reports that about 80 pounds of this was intentional, but the last 20 pounds was unintentional. Currently, he is tolerating his diet. However, he is very concerned that if he is discharged he will develop his symptoms again before he can be seen as outpatient and would like to have an endoscopy while he is here in the hospital. (Magalys Bateman) PFSH Past Medical History Hypertension Type II Diabetes Depression Hyperlipidemia Remote hx of PUD Past Surgical History Right knee surgery EGD (Magalys Bateman) Coded Allergies: Metformin (Verified Allergy, Intermediate, Hives, 04/21/16) Flexeril (Verified Adverse Reaction, Intermediate, syncope, 04/21/16) Medications Allergies Coded Allergies Type Severity Reaction Last Updated Verified Metformin Allergy Intermediate Hives 04/21/16 Yes Flexeril Adverse Reaction Intermediate syncope 04/21/16 Yes Active Scripts Medications Dose Route/Sig Days Date Category Dose Instructions Pantoprazole (Pantoprazole Sodium) 40 Mg Tab 40 Mg PO DAILY 04/23/16 Rx Novolog Inj (Insulin Aspart) 1,000 Unit/10 Ml Vial 0 SQ DIRECTED 04/21/16 Reported Sliding Scale as directed. Lantus Inj (Insulin Glargine) 1,000 Unit/10 Ml Vial 20 Units SQ HS 04/21/16 Reported Family History Kidney disease in brother and sister, both passed Epilepsy in mother Social History Tobacco use: quit 1 year ago Alcohol use: occasionally Illicit drug use: marijuana (Magalys Bateman) Review of Systems Constitutional: COMPLAINS OF: Fatigue, Weight loss, Change in appetite, DENIES : Fever, Chills Respiratory: DENIES: Cough Cardiovascular: DENIES: Chest pain Gastrointestinal: COMPLAINS OF: Abdominal pain, Nausea, Vomiting, DENIES: Black stools, Bloody stools, Constipation, Diarrhea, Swelling of Abdomen, Heartburn Musculoskeletal: COMPLAINS OF: Back pain Integumentary: DENIES: Rash, Jaundice Hematologic/lymphatic: DENIES: Bruising Neurologic: DENIES: Headache Psychiatric: DENIES: Confusion (Magalys Bateman) GI Exam Vitals I&O Vital Signs Date Time Temp Pulse Resp B/P Pulse Ox O2 Delivery O2 Flow Rate FiO2 04/25/16 16:02 97.4 96 16 132/82 98 04/25/16 12:30 97.9 105 18 131/74 98 04/25/16 08:30 97.1 100 18 141/81 98 04/25/16 04:00 97.3 91 22 142/89 98 04/25/16 00:00 97.6 95 18 132/81 95 04/24/16 22:00 98 04/24/16 20:00 99.1 110 20 169/79 98 04/24/16 20:00 110 I/O 04/24/16 04/24/16 04/24/16 04/25/16 04/25/16 04/25/16 07:00 15:00 23:00 07:00 15:00 23:00 Intake Total 1969 ml 1325 ml 1140 ml 240 ml Output Total 2000 ml 3250 ml Balance 1969 ml -675 ml -2110 ml 240 ml Intake Oral 800 ml 900 ml 540 ml 240 ml IV Total 1169 ml 425 ml 600 ml Output Urine Total 2000 ml 3250 ml # Voids 4 4 5 # Bowel Movements 0 1 Imaging Last Impressions Abdomen/Pelvis CT 04/21/16 0533 Signed Impressions: Service Date/Time: Friday, April 22, 2016 00:15 - CONCLUSION: 1. Mild wall thickening and mucosal enhancement of the distal stomach indicating possible gastritis. 2. Cavernous hemangiomas in the liver. Juan Ramon Brito MD Laboratory Test 04/25/16 09:50 Sodium Level 141 MEQ/L Potassium Level 3.7 MEQ/L Chloride Level 104 MEQ/L Carbon Dioxide Level 28.2 MEQ/L Anion Gap 9 MEQ/L Blood Urea Nitrogen 12 MG/DL Creatinine 0.62 MG/DL Estimat Glomerular Filtration 146 ML/MIN Rate Random Glucose 181 MG/DL Calcium Level 8.5 MG/DL Magnesium Level 1.3 MG/DL Physical Examination HEENT: Normocephalic; atraumatic; no jaundice. CHEST: CTA CARDIAC: RRR. ABDOMEN: Soft, nondistended, mild epigastric tenderness; no hepatosplenomegaly ; bowel sounds are present in all four quadrants. EXTREMITIES: No clubbing, cyanosis, or edema. SKIN: Normal; no rash; no jaundice. GROUNDS CLEANER: No focal deficits; alert and oriented times three. (Magalys Bateman) Assessment and Plan Plan ASSESSMENT: - Abdominal pain, nausea, vomiting. Was discharged from [facility] about a week ago for DKA. He has since had ongoing abdominal pain with nausea/ vomiting, only able to eat clear liquids and jello/soup. On admission, he was noted to have mildly elevated LFTs of 1.0, AST 44, ALT 59, alkaline phosphatase 166. His lipase was normal at 138. CT scan revealed mild wall thickening and mucosal enhancement of distal stomach, indicating possible gastritis. He was started on PPI and his nausea/ vomiting resolved and although his pain has improved some, he continues to have intermittent sharp pain in LUQ. This is aggravated by po intake although he also has it without food at times. He reports that he has been told to follow up with GI as outpatient, but can never stay out of the hospital long enough to have this done and therefore is requesting workup prior to d/c. Remote hx of PUD per patient. Of note, uncontrolled DM. Tolerating diet. PPI. Gastritis vs. gastroparesis vs. gb etiology vs. other. - Abn. imaging on CT. CT scan abdomen and pelvis (04/21/16) revealed mild wall thickening and mucosal enhancement of the distal stomach indicating possible gastritis, cavernous hemangiomas in the liver. - Mild elevation LFTs on admission. T. Bili 1.0, AST 44, ALT 59, alkaline phosphatase 166. CT unremarkable as far as biliary dilatation/gb. Will get US and repeat. - Weight loss. Pt reports a planned weight loss of 80 lbs, but states he has lost another additional 20 lbs without trying. - DKA, Type II DM. IMPROVED. PLAN: - Diabetic diet - Cont. PPI - RUQ US - LFT in am - Supportive care - Consider EGD on Wednesday if no improvement. This could be done as outpatient, but the patient states he can never stay out of the hospital long enough to follow up as outpatient and is requesting that this be done here. - Further recommendations to follow based on results of above - Pt seen and examined by Dr. Manzano and myself and this note is written on his behalf (Magalys Bateman) Physician Comments Patient seen and examined Agree with above Continue with current supportive care Monitor labs Plan for endoscopy on Wednesday And patient is advised tight diabetes control (Carlos Manuel Manzano MD) Magalys Bateman Apr 25, 2016 17:00 Carlos Manuel Manzano MD Apr 25, 2016 17:49
[2016-04-25] MEDS: INSULIN DETEMIR 100 UNITS/ML VIAL SQ SCH (20:28)
[2016-04-26] MEDS: ACETAMINOPHEN/HYDROcodone 325 MG/5 MG TAB PO PRN ×5 (03:25→20:52)
[2016-04-26 04:00] VITALS: BP_SYST 113; BP_SYST 118; BP_DIAS 72; BP_DIAS 76; PULSE 108; PULSE 98; RESP 18; RESP 20; TEMP 96.5; TEMP 97.1; O2SAT 97; O2SAT 98
[2016-04-26] MEDS: MEDIUM DOSE INSULIN NOVOLOG SUPPLEMENTAL SCALE SQ SCH ×4 (06:49→20:53)
[2016-04-26 08:00] VITALS: BP 107/67; PULSE 94; RESP 16; TEMP 96.1; O2SAT 97
[2016-04-26] MEDS: HEPARIN SODIUM - SQ 10,000 UNITS/ML VIAL SQ SCH ×2 (08:19→20:53)
[2016-04-26] MEDS: MAGNESIUM OXIDE 400 MG TAB PO SCH ×3 (08:19→20:51)
[2016-04-26] MEDS: PANTOPRAZOLE SOD 40 MG DELAYED RELEASE TAB PO SCH (08:19)
[2016-04-26 09:23] LABS: AUTOMATED NEUTROPHIL # 1.8 TH/MM3 (1.8-7.7); BASOPHIL # 0.1 TH/MM3 (0-0.2); EOSINOPHIL # 0.4 TH/MM3 (0-0.4); EOSINOPHIL % 6.4 % (0.0-4.0); HEMATOCRIT 39.6 % (39.0-51.0); HEMO FLAGS DIFF FINAL; LYMPH % 53.6 % (9.0-44.0); LYMPHOCYTE # 3.2 TH/MM3 (1.0-4.8); MEAN CORPUSCULAR HEMOGLOBIN 28.2 PG (27.0-34.0); MEAN CORPUSCULAR HGB CONC 34.8 % (32.0-36.0); MONO % 8.7 % (0.0-8.0); NEUT % 30.3 % (16.0-70.0); PLATELET COUNT 300 TH/MM3 (150-450); RED BLOOD COUNT 4.88 MIL/MM3 (4.50-5.90); RED CELL DISTRIBUTION WIDTH 12.6 % (11.6-17.2)
--- NOTE | 2016-04-26 09:36 | RADRPT ---
EXAM DATE/TIME: 04/26/2016 08:18 [facility] COMPARISON: CT ABDOMEN & PELVIS W CONTRAST, April 22, 2016, 0:15. INDICATIONS : Nausea and vomiting. MEDICAL HISTORY : Hypertension. Polyuria. Diabetes. Hyperlipidemia. SURGICAL HISTORY : Right knee ligament repair. ENCOUNTER: Initial ACUITY: 1 day PAIN SCORE: 6/10 LOCATION: Right upper quadrant MEASUREMENTS: LIVER: 16.9 cm length COMMON DUCT: 4 mm RIGHT KIDNEY: 9.7 x 4.5 x 5.1 cm FINDINGS: LIVER: Normal echotexture without ductal dilatation. Hyperechoic lesion right lobe measures 48 x 27 x 35 mm. COMMON DUCT: No intraluminal mass or stone visualized. GALLBLADDER: Contains no stones, demonstrates no wall thickening or pericholecystic fluid. PANCREAS: Not well seen due to overlying bowel gas. RIGHT KIDNEY: A simple cyst measures 8 x 6 x 8 mm in the upper pole. Echogenic focus right mid kidney likely renal sinus fat. CONCLUSION: 1. Echogenic lesion in the liver measures 4.8 cm consistent with hemangioma. 2. Right renal cyst. 3. Nonvisualization of pancreas. Mark Avilez MD on April 26, 2016 at 9:31 Board Certified Radiologist. This report was verified electronically.
--- NOTE | 2016-04-26 10:28 | HHI.PR ---
Subjective Remarks In bed. Still with epigastric pain. No n/v/d/c. No fever or chills. Had a normal BM no blood in it. Plan for EGD on Wednesday Objective Vitals Vital Signs Date Time Temp Pulse Resp B/P Pulse Ox O2 Delivery O2 Flow Rate FiO2 04/26/16 08:50 18 04/26/16 08:00 96.1 94 16 107/67 97 04/26/16 04:00 96.5 108 18 113/72 98 04/25/16 23:16 97.8 78 20 111/76 98 04/25/16 20:00 97.4 68 16 122/86 96 04/25/16 16:02 97.4 96 16 132/82 98 04/25/16 12:30 97.9 105 18 131/74 98 I/O 04/25/16 04/25/16 04/25/16 04/26/16 04/26/16 04/26/16 07:00 15:00 23:00 07:00 15:00 23:00 Intake Total 720 ml 240 ml Balance 720 ml 240 ml Intake Oral 720 ml 240 ml # Voids 5 3 1 # Bowel Movements 0 Result Diagram: 04/26/16 0732 04/25/16 0950 Imaging Last Impressions Gall Bladder Ultrasound 04/26/16 0000 Signed Impressions: Service Date/Time: Tuesday, April 26, 2016 08:18 - CONCLUSION: 1. Echogenic lesion in the liver measures 4.8 cm consistent with hemangioma. 2. Right renal cyst. 3. Nonvisualization of pancreas. Mark Avilez MD Abdomen/Pelvis CT 04/21/16 2255 Signed Impressions: Service Date/Time: Friday, April 22, 2016 00:15 - CONCLUSION: 1. Mild wall thickening and mucosal enhancement of the distal stomach indicating possible gastritis. 2. Cavernous hemangiomas in the liver. Juan Ramon Brito MD Objective Remarks GENERAL: Pleasant 35 yo male, in bed, not in acute distress. SKIN: Warm and dry. HEAD: Atraumatic. Normocephalic. EYES: Pupils equal and round. No scleral icterus. No injection or drainage. ENT: No nasal bleeding or discharge. Mucous membranes pink and moist. NECK: Trachea midline. No JVD. CARDIOVASCULAR: Regular rate and rhythm. RESPIRATORY: No accessory muscle use. Clear to auscultation. Breath sounds equal bilaterally. GASTROINTESTINAL: Abdomen soft, mild tenderness on epigastric area, nondistended. Hepatic and splenic margins not palpable. MUSCULOSKELETAL: Extremities without clubbing, cyanosis, or edema. No obvious deformities. NEUROLOGICAL: Awake and alert. No obvious cranial nerve deficits. Motor grossly within normal limits. Five out of 5 muscle strength in the arms and legs. Normal speech. PSYCHIATRIC: Appropriate mood and affect; insight and judgment normal. A/P Problem List: (1) Gastroenteritis ICD Code: K52.9 Status: Acute (2) DKA (diabetic ketoacidoses) ICD Code: E13.10 Status: Acute Assessment and Plan 35 y/o male with a history of DM, neuropathy, and chronic back pain presented with abdominal cramping. Gastroenteritis Abdominal pain Images reviewed: Abdominal CT shows mild wall thickening and mucosal enhancement of the distal stomach indicating possible gastritis. Cavernous hemangiomas in the liver. -Pain management with IV Morphine. PO pain meds per pain scale. Continue pantoprazole. Consider carafate -IVF hydration -Consult GI as patient with persistent abd pain - Plan for EGD on Thursday 04/27. DKA Labs on admission: Glucose 735, anion gap 20, beta hydroxybutyrate 3.67 -Was admitted to ICU and placed on DKA protocol. BS better controlled.Continue long acting insulin, ISS, accuchecks. BS better controlled. Hypomagnesemia: Replaced PO and IV. Monitor and replace as need. DVT prophylaxis: Heparin Full Discussed Condition With Patient and the nurse Discharge when improved tolerates food, no abd pain. Consulted GI as abd pain not improving. Plan for EGD on Wednesday, poss DC after EGD Discharge Planning DC home when cleared by GI, plan for poss EGD on Wednesday Meds per med reconciliations. Diabetic diet. Adviced compliance with meds, diet and follow up appointments. Activity ad tika Edith Aggarwal MD Apr 26, 2016 10:28
[2016-04-26 10:37] LABS: BICARBONATE 28.1 MEQ/L (21.0-32.0); MAGNESIUM 1.3 MG/DL (1.5-2.5); POTASSIUM 3.7 MEQ/L (3.5-5.1)
[2016-04-26 10:39] LABS: INDIRECT BILIRUBIN 0.5 MG/DL (0.0-0.8); TOTAL BILIRUBIN ADULT 0.6 MG/DL (0.2-1.0)
[2016-04-26 12:21] VITALS: BP 120/77; PULSE 109; RESP 18; TEMP 98.2; O2SAT 97
--- NOTE | 2016-04-26 14:38 | HHI.GIFU ---
Subjective Remarks Pt reports that he is still having LUQ abd pain sporadically. It is not necessarily related to food intake. Reports that he is moving his bowels without difficulty (Hannah Holman) Objective Vitals I&O Vital Signs Date Time Temp Pulse Resp B/P Pulse Ox O2 Delivery O2 Flow Rate FiO2 04/26/16 12:21 98.2 109 18 120/77 97 04/26/16 08:50 18 04/26/16 08:00 96.1 94 16 107/67 97 04/26/16 04:00 96.5 108 18 113/72 98 04/25/16 23:16 97.8 78 20 111/76 98 04/25/16 20:00 97.4 68 16 122/86 96 04/25/16 16:02 97.4 96 16 132/82 98 I/O 04/25/16 04/25/16 04/25/16 04/26/16 04/26/16 04/26/16 07:00 15:00 23:00 07:00 15:00 23:00 Intake Total 720 ml 240 ml 480 ml Balance 720 ml 240 ml 480 ml Intake Oral 720 ml 240 ml 480 ml # Voids 5 3 1 3 # Bowel Movements 0 2 Laboratory Laboratory Tests Test 04/26/16 07:32 White Blood Count 6.0 Red Blood Count 4.88 Hemoglobin 13.8 Hematocrit 39.6 Mean Corpuscular Volume 81.0 Mean Corpuscular Hemoglobin 28.2 Mean Corpuscular Hemoglobin 34.8 Concent Red Cell Distribution Width 12.6 Platelet Count 300 Mean Platelet Volume 9.8 Neutrophils (%) (Auto) 30.3 Lymphocytes (%) (Auto) 53.6 Monocytes (%) (Auto) 8.7 Eosinophils (%) (Auto) 6.4 Basophils (%) (Auto) 1.0 Neutrophils # (Auto) 1.8 Lymphocytes # (Auto) 3.2 Monocytes # (Auto) 0.5 Eosinophils # (Auto) 0.4 Basophils # (Auto) 0.1 CBC Comment DIFF FINAL Differential Comment Sodium Level 140 Potassium Level 3.7 Chloride Level 102 Carbon Dioxide Level 28.1 Anion Gap 10 Blood Urea Nitrogen 16 Creatinine 0.64 Estimat Glomerular Filtration 141 Rate Random Glucose 187 Calcium Level 9.0 Magnesium Level 1.3 Total Bilirubin 0.6 Direct Bilirubin 0.1 Indirect Bilirubin 0.5 Aspartate Amino Transf 43 (AST/SGOT) Alanine Aminotransferase 60 (ALT/SGPT) Alkaline Phosphatase 140 Total Protein 6.3 Albumin 2.7 Imaging Last Impressions Gall Bladder Ultrasound 04/26/16 0000 Signed Impressions: Service Date/Time: Tuesday, April 26, 2016 08:18 - CONCLUSION: 1. Echogenic lesion in the liver measures 4.8 cm consistent with hemangioma. 2. Right renal cyst. 3. Nonvisualization of pancreas. Mark Avilez MD Abdomen/Pelvis CT 04/21/16 2253 Signed Impressions: Service Date/Time: Friday, April 22, 2016 00:15 - CONCLUSION: 1. Mild wall thickening and mucosal enhancement of the distal stomach indicating possible gastritis. 2. Cavernous hemangiomas in the liver. Juan Ramon Brito MD Physical Exam HEENT: Pupils round and reactive to light; normocephalic; atraumatic; no jaundice. Throat is clear. NECK: Neck is supple, no JVD, no lymphadenopathy. CHEST: CTA CARDIAC: Regular, tachy ABDOMEN: +BS, soft, nondistended, left sided tenderness with voluntary guarding EXTREMITIES: No clubbing, cyanosis, or edema. SKIN: Normal; no rash; no jaundice. DISTRICT SUPERINTENDENT: No focal deficits; alert and oriented times three. (Hannah Holman) Assessment and Plan Plan ASSESSMENT: - Abdominal pain, nausea, vomiting. Gastritis vs. gastroparesis vs. other. Was discharged from [facility] about a week ago for DKA. He has since had ongoing abdominal pain with nausea/vomiting, only able to eat clear liquids and jello /soup. On admission, he was noted to have mildly elevated LFTs of 1.0, AST 44, ALT 59, alkaline phosphatase 166. His lipase was normal at 138. CT scan revealed mild wall thickening and mucosal enhancement of distal stomach, indicating possible gastritis. He was started on PPI and his nausea/vomiting resolved and although his pain has improved some, he continues to have intermittent sharp pain in LUQ. This is aggravated by po intake although he also has it without food at times. He reports that he has been told to follow up with GI as outpatient, but can never stay out of the hospital long enough to have this done and therefore is requesting workup prior to d/c. Remote hx of PUD per patient. GB US (04/26/16) --> 1. Echogenic lesion in the liver measures 4.8 cm consistent with hemangioma. 2. Right renal cyst. 3. Nonvisualization of pancreas. Of note, uncontrolled DM. Tolerating diet. PPI. - Abn. imaging on CT. CT scan abdomen and pelvis (04/21/16) revealed mild wall thickening and mucosal enhancement of the distal stomach indicating possible gastritis, cavernous hemangiomas in the liver. - Mild elevation LFTs on admission. T. Bili 1.0, AST 44, ALT 59, alkaline phosphatase 166. CT unremarkable as far as biliary dilatation/gb. GB US () --> 1. Echogenic lesion in the liver measures 4.8 cm consistent with hemangioma. 2. Right renal cyst. 3. Nonvisualization of pancreas. Repeat LFTs (04/26) have improved, Tbili 0.6, DBili 0.5, AST 43, ALT 60, AlkPhos 140. - Weight loss. Pt reports a planned weight loss of 80 lbs, but states he has lost another additional 20 lbs without trying. - DKA, Type II DM. IMPROVED. PLAN: - Diabetic diet - Cont. PPI - Supportive care - EGD planned for tomorrow - NPO after MN except meds - Further recommendations to follow based on results of above - Pt seen and examined by Dr. Manzano and myself and this note is written on his behalf (Hannah Holman) Physician Comments Patient seen and examined Agree with above Continue with current supportive care Monitor labs Plan for an EGD tomorrow (Carlos Manuel Manzano MD) Hannah Holman Apr 26, 2016 14:37 Carlos Manuel Manzano MD Apr 26, 2016 16:32
[2016-04-26 15:58] VITALS: BP 99/65; PULSE 117; RESP 17; TEMP 96.3; O2SAT 98
[2016-04-26 20:36] VITALS: BP 101/70; PULSE 107; RESP 20; TEMP 97.2; O2SAT 97
[2016-04-26] MEDS: INSULIN DETEMIR 100 UNITS/ML VIAL SQ SCH (20:52)
[2016-04-26 23:53] VITALS: BP 113/72; PULSE 83; RESP 18; TEMP 96.8; O2SAT 96
[2016-04-27] MEDS: ACETAMINOPHEN/HYDROcodone 325 MG/5 MG TAB PO PRN ×3 (01:27→13:01)
[2016-04-27 04:44] VITALS: BP 99/63; PULSE 103; RESP 18; TEMP 96.5; O2SAT 98
[2016-04-27] MEDS: MEDIUM DOSE INSULIN NOVOLOG SUPPLEMENTAL SCALE SQ SCH ×2 (05:53→10:56)
[2016-04-27 07:21] LABS: AUTOMATED NEUTROPHIL # 2.3 TH/MM3 (1.8-7.7); BASOPHIL # 0.1 TH/MM3 (0-0.2); BASOPHIL % 0.8 % (0.0-2.0); EOSINOPHIL # 0.4 TH/MM3 (0-0.4); EOSINOPHIL % 5.7 % (0.0-4.0); HEMATOCRIT 39.8 % (39.0-51.0); HEMO FLAGS DIFF FINAL; LYMPH % 50.8 % (9.0-44.0); LYMPHOCYTE # 3.5 TH/MM3 (1.0-4.8); MEAN CELL VOLUME 82.2 FL (80.0-100.0); MEAN CORPUSCULAR HEMOGLOBIN 27.7 PG (27.0-34.0); MEAN CORPUSCULAR HGB CONC 33.7 % (32.0-36.0); MONO % 9.1 % (0.0-8.0); NEUT % 33.6 % (16.0-70.0); PLATELET COUNT 308 TH/MM3 (150-450); RED BLOOD COUNT 4.84 MIL/MM3 (4.50-5.90); RED CELL DISTRIBUTION WIDTH 12.8 % (11.6-17.2); WHITE BLOOD COUNT 6.8 TH/MM3 (4.0-11.0)
[2016-04-27] MEDS: HEPARIN SODIUM - SQ 10,000 UNITS/ML VIAL SQ SCH (07:31)
[2016-04-27 08:10] LABS: BICARBONATE 28.5 MEQ/L (21.0-32.0); POTASSIUM 3.8 MEQ/L (3.5-5.1)
[2016-04-27 08:13] VITALS: BP 112/77; PULSE 109; RESP 18; TEMP 96.9; O2SAT 97
[2016-04-27] MEDS: MAGNESIUM OXIDE 400 MG TAB PO SCH ×2 (08:29→08:30)
[2016-04-27] MEDS: PANTOPRAZOLE SOD 40 MG DELAYED RELEASE TAB PO SCH (08:30)
[2016-04-27] MEDS ORDERED: METOPROLOL TARTRATE 25 MG TAB PO PRN (09:30)
[2016-04-27] MEDS ORDERED: INSULIN HUMAN REGULAR 1,000 UNITS/10 ML VIAL SQ PRN (09:30)
[2016-04-27 09:53] VITALS: BP 112/77; PULSE 109; RESP 18; TEMP 96.9; O2SAT 97
[2016-04-27] MEDS ORDERED: SODIUM CHLORID 0.9% 500 ML IV SCH (10:00)
[2016-04-27] MEDS ORDERED: LACTATED RINGER'S 1000 ML IV SCH (10:00)
--- NOTE | 2016-04-27 11:16 | HHI.PR ---
Subjective Remarks 1:15 pm - back from EGD- tolerated procedure well no pain, nausea or vomiting tolerating po Objective Vitals Vital Signs Date Time Temp Pulse Resp B/P Pulse Ox O2 Delivery O2 Flow Rate FiO2 04/27/16 09:53 96.9 109 18 112/77 97 04/27/16 08:13 96.9 109 18 112/77 97 04/27/16 04:44 96.5 103 18 99/63 98 04/26/16 23:53 96.8 83 18 113/72 96 04/26/16 20:36 97.2 107 20 101/70 97 04/26/16 15:58 96.3 117 17 99/65 98 04/26/16 12:21 98.2 109 18 120/77 97 I/O 04/26/16 04/26/16 04/26/16 04/27/16 04/27/16 04/27/16 07:00 15:00 23:00 07:00 15:00 23:00 Intake Total 240 ml 480 ml 720 ml Output Total 50 ml Balance 240 ml 480 ml 720 ml -50 ml Intake Oral 240 ml 480 ml 720 ml Emesis 50 ml # Voids 1 3 3 # Bowel Movements 0 2 2 Result Diagram: 04/27/16 0534 04/27/16 0534 Imaging Last Impressions Gall Bladder Ultrasound 04/26/16 0000 Signed Impressions: Service Date/Time: Tuesday, April 26, 2016 08:18 - CONCLUSION: 1. Echogenic lesion in the liver measures 4.8 cm consistent with hemangioma. 2. Right renal cyst. 3. Nonvisualization of pancreas. Mark Avilez MD Abdomen/Pelvis CT 04/21/16 2253 Signed Impressions: Service Date/Time: Friday, April 22, 2016 00:15 - CONCLUSION: 1. Mild wall thickening and mucosal enhancement of the distal stomach indicating possible gastritis. 2. Cavernous hemangiomas in the liver. Juan Ramon Brito MD Objective Remarks awake and alert, NAD anicteric lungs clear regular rhythm abdomen - soft good bowel sounds extremities no edema Procedures 04/27- EGD- gastritis, esophagitis, duodenitis, biopsy performed A/P Problem List: (1) Gastroenteritis ICD Code: K52.9 Status: Acute (2) DKA (diabetic ketoacidoses) ICD Code: E13.10 Status: Acute Assessment and Plan 35 y/o male with a history of DM, neuropathy, and chronic back pain presented with abdominal cramping. Abdominal pain - Gastritis/Esophagitis Images reviewed: Abdominal CT shows mild wall thickening and mucosal enhancement of the distal stomach indicating possible gastritis. Cavernous hemangiomas in the liver. -Pain management with IV Morphine. PO pain meds per pain scale. Continue pantoprazole. advised patient on EGD findings- no NSAIDs- Aleve, Motrin, Ibuprofen- etc states he takes Aleve for foot pain- -patient advised advised him to have his PCP- refer him to podiatry Protonix 40 mg daily OP ff up with GI Foot pain- good exam- good pulses advise to be refrred to Podiatry as OP -no NSAIDs, tylenol prn for pain. DKA- resolved Labs on admission: Glucose 735, anion gap 20, beta hydroxybutyrate 3.67 restarted on Lantus 40 units (as OP on 80 units) continue on Novolog sliding scale Hypomagnesemia: Replaced DC today PCP- ff up with Dr. Martinez FF up with GI in 2 weeks Juan F Kwok MD Apr 27, 2016 11:16
[2016-04-27 12:11] VITALS: TEMP 98.6
--- NOTE | 2016-04-27 12:22 | GIPROC ---
[facility] [address] [facility]. [facility] [place], [address] EGD PROCEDURE REPORT EXAM DATE: 04/27/2016 PATIENT NAME: Jose Messina MR #: [id number] BIRTHDATE: 1980 ATTENDING: Libby Mckenna MD ORDER #: [id number] HOUSING CASE MANAGER: Severino Keith and Antonia Mckeon STATUS: inpatient INDICATIONS: The patient is a 35 yr old male here for an EGD due to abdominal pain, abnormal ct, nausea, vomiting PROCEDURE PERFORMED: EGD w/ biopsy MEDICATIONS: None and Per Anesthesia. TOPICAL ANESTHETIC: none CONSENT: The patient understands the risks and benefits of the procedure and understands that these risks include, but are not limited to: sedation, allergic reaction, infection, perforation and/or bleeding. Alternative means of evaluation and treatment include, among others: physical exam, x-rays, and/or surgical intervention. The patient elects to proceed with this endoscopic procedure. medical equipment was checked for proper function. Hand hygiene and appropriate measures for infection prevention was taken. After the risks, benefits and alternatives of the procedure were thoroughly explained, Informed consent was verified, confirmed and timeout was successfully executed by the treatment team. The patient was anesthetized with topical anesthesia and the Pentax EG-[id number] endoscope was introduced through the mouth and advanced to the second portion of the duodenum. Retroflexed views revealed The gastroscope was then slowly withdrawn and removed. Gastritis antrum-biopsy esophagitis distal esophagus duodenitis second portion-biopsy. ADVERSE EVENTS: There were no complications. IMPRESSIONS: 1. Gastritis antrum-biopsy esophagitis distal esophagus duodenitis second portion-biopsy 2. Retroflexed views revealed a hiatal hernia RECOMMENDATIONS: 1. Await biopsy results. Biopsy results will not be ready for 7-10 days. If you don't hear from us in two weeks, call our office for biopsy results. 2. Anti-reflux regimen 3. Continue PPI 4. Avoid NSAIDS 5. Ok to dc home from gi point PATIENT CONDITION: stable DISPOSITION: Inpatient REPEAT EXAM: EGD pending biopsy results Libby Mckenna MD eSigned: Libby Mckenna MD 04/27/2016 12:22 PM cc: PATIENT NAME: Jose Messina MR#: [id number]
[2016-04-27 12:31] VITALS: BP 102/78; PULSE 103
--- NOTE | 2016-04-27 13:31 | HHI.DS ---
Discharge Summary Admission Date Apr 22, 2016 at 01:46 Discharge Date: Apr 27, 2016 Admitting Diagnosis Diabetic Hyperglycemia (1) DKA (diabetic ketoacidoses) ICD Code: E13.10 Diagnosis: Principal (2) Gastritis and duodenitis ICD Code: K29.90 Diagnosis: Principal Procedures 04/27- EGD- gastritis, esophagitis, duodenitis, biopsy performed Brief History - From Admission 35 y/o male with a history of DM, neuropathy, and chronic back pain presented with abdominal cramping. Patient states he was seen in [facility] 1 week ago for hyperglycemia, and ever since he was discharge he has been having abdominal cramping. He states the pain is severe throughout his abdomen, and he has been unable to eat much. He although has been able to take in liquids. He complains of feeling dizzy, and states his blood sugars at home have been under 200 according to his meter. Because of the reading he has not been taking his short acting insulin because he states he will drop too much. He denies any chest pain, sob, fever or chills. CBC/BMP: 04/27/16 0534 04/27/16 0534 Significant Findings Laboratory Tests Test 04/25/16 04/26/16 04/27/16 09:50 07:32 05:34 Random Glucose 181 MG/DL 187 MG/DL 267 MG/DL (74-106) (74-106) (74-106) Magnesium Level 1.3 MG/DL 1.3 MG/DL (1.5-2.5) (1.5-2.5) Lymphocytes (%) (Auto) 53.6 % 50.8 % (9.0-44.0) (9.0-44.0) Monocytes (%) (Auto) 8.7 % (0.0-8.0) 9.1 % (0.0-8.0) Eosinophils (%) (Auto) 6.4 % (0.0-4.0) 5.7 % (0.0-4.0) Aspartate Amino Transf 43 U/L (15-37) (AST/SGOT) Alkaline Phosphatase 140 U/L (45-117) Total Protein 6.3 GM/DL (6.4-8.2) Albumin 2.7 GM/DL (3.4-5.0) Blood Urea Nitrogen 20 MG/DL (7-18) Imaging Last Impressions Gall Bladder Ultrasound 04/26/16 0000 Signed Impressions: Service Date/Time: Tuesday, April 26, 2016 08:18 - CONCLUSION: 1. Echogenic lesion in the liver measures 4.8 cm consistent with hemangioma. 2. Right renal cyst. 3. Nonvisualization of pancreas. aMrk Avilez MD Abdomen/Pelvis CT 04/21/16 2253 Signed Impressions: Service Date/Time: Friday, April 22, 2016 00:15 - CONCLUSION: 1. Mild wall thickening and mucosal enhancement of the distal stomach indicating possible gastritis. 2. Cavernous hemangiomas in the liver. Juan Ramon Brito MD PE at Discharge awake and alert, NAD anicteric lungs clear regular rhythm abdomen - soft good bowel sounds extremities no edema, good peripheral pulses, no open wounds Pt update on day of discharge tolerating po well d/w goals of blood glucose OP ff up with PCP with referral to podiatry Hospital Course 35 y/o male with a history of DM, neuropathy, and chronic back pain presented with abdominal cramping. Abdominal pain - Gastritis/Esophagitis Images reviewed: Abdominal CT shows mild wall thickening and mucosal enhancement of the distal stomach indicating possible gastritis. Cavernous hemangiomas in the liver. -Pain management with IV Morphine. PO pain meds per pain scale. Continue pantoprazole. advised patient on EGD findings- no NSAIDs- Aleve, Motrin, Ibuprofen- etc states he takes Aleve for foot pain- -patient advised advised him to have his PCP- refer him to podiatry Protonix 40 mg daily OP ff up with GI Foot pain- good exam- good pulses advise to be refrred to Podiatry as OP -no NSAIDs, tylenol prn for pain. DKA- resolved Labs on admission: Glucose 735, anion gap 20, beta hydroxybutyrate 3.67 restarted on Lantus 40 units (as OP on 80 units) continue on Novolog sliding scale Hypomagnesemia: Replaced DC today PCP- ff up with Dr. Martinez FF up with GI in 2 weeks Pt Condition on Discharge: Stable Discharge Disposition: Discharge Home Discharge Time: <= 30 minutes Discharge Instructions DIET: Follow Instructions for: Diabetic Diet Speech Therapy-Diet Recommends: Regular Activities you can perform: Regular-No Restrictions, Weight Bearing as Suresh Follow up Referrals: Gastroenterology - 2 Weeks with Libby Mckenna MD PCP Follow-up - 3-5 Days New Medications: Pantoprazole (Pantoprazole) 40 Mg Tab 40 MG PO DAILY Reflux #30 Ref 0 TAB Changed Medications: Insulin Glargine Inj (Lantus Inj) 1,000 Unit/10 Ml Vial 40 UNITS SQ HS Blood Sugar Management #30 Ref 0 VIAL (Changed from: 20 UNITS) Continued Medications: Insulin Aspart Inj (Novolog Inj) 1,000 Unit/10 Ml Vial 0 SQ DIRECTED Sliding Scale as directed. Blood Sugar Management #10 Ref 0 ML (This prescription has been renewed) Juan F Kwok MD Apr 27, 2016 13:31
[2016-04-27] MEDS ORDERED: ACURKIT (13:36)
[2016-04-27] MEDS ORDERED: PROPOFOL 200 MG/20 ML AMP IV ONE (13:52)
[2016-04-27 13:57] VITALS: RESP 16; O2SAT 99
[2016-04-27] MEDS ORDERED: ULTR37.55 PO (15:51)
[2016-08-06] MEDS ORDERED: VIST50CA PO (11:06)
[2016-08-06] MEDS ORDERED: ATOR40TA16 PO (11:06)
[2016-08-06] MEDS ORDERED: GABA800T PO (11:06)
[2016-08-06] MEDS ORDERED: ROBA750T PO (11:10)
== END 2016-04-27 16:50 | disposition home or self-care (01) | DRG 639 ==
LOC: NEPE 20:40 → NEDA 04-22 01:46 → NEDH 04-22 07:51 → HIMW 04-22 09:00 → N05A 04-24 23:42
PROVIDERS: ADMIT Internal Medicine; ATTEND Internal Medicine
PROC: 0DB68ZX Excision of Stomach, Via Natural or Artificial Opening Endoscopic, Diagnostic (ICD-10-PCS; 2016-04-27)
PROC: 0DB38ZX Excision of Lower Esophagus, Via Natural or Artificial Opening Endoscopic, Diagnostic (ICD-10-PCS; 2016-04-27)
PROC: 0DB98ZX Excision of Duodenum, Via Natural or Artificial Opening Endoscopic, Diagnostic (ICD-10-PCS; principal; 2016-04-27 12:00)
DX: E13.10 Other specified diabetes mellitus with ketoacidosis without coma (principal); E83.42 Hypomagnesemia; I10 Essential (primary) hypertension; E11.40 Type 2 diabetes mellitus with diabetic neuropathy, unspecified; Z79.4 Long term (current) use of insulin; M54.9 Dorsalgia, unspecified; K44.9 Diaphragmatic hernia without obstruction or gangrene; K20.9 Esophagitis, unspecified; K29.70 Gastritis, unspecified, without bleeding; K29.80 Duodenitis without bleeding; G89.29 Other chronic pain; E78.5 Hyperlipidemia, unspecified; Z88.8 Allergy status to other drugs, medicaments and biological substances; Z87.891 Personal history of nicotine dependence; F12.90 Cannabis use, unspecified, uncomplicated; K52.9 Noninfective gastroenteritis and colitis, unspecified; D18.03 Hemangioma of intra-abdominal structures; Z87.11 Personal history of peptic ulcer disease; F32.9 Major depressive disorder, single episode, unspecified; N28.1 Cyst of kidney, acquired
CPT/HCPCS: 36600; 74177; 76705; 80048; 80053; 80076; 81001; 82010; 82805; 82948; 83690; 83735; 84100; 84132; 85025; 85610; 85730; 87641; 88305; 88312; 96361; 96374; 96375; 96376; J1644; J1815; J1817; J2270; J2405; J3475; J3480; J7030; J7042; J7050; J7120; Q9967

== ENCOUNTER 2016-06-08 10:16 | Inpatient (IN) | payer OTHER ==
[~2016-06-08] VITALS: Ht 177.8 cm; Wt 68.1 kg
[~2016-06-08 10:16] MED LIST changes: +ACURKIT; -ATOR40TA49 PO; -CONTOUR1 XX; -GEMF600T PO; -GLIP5 OR; -HYDR50 PO; -LANTUS2P SC; +LANTUS2P SQ; -LISI-588 PO; -METH750T2 PO; +NOVOLOGP2 SQ; -NOVORP2 SQ; +PANT40TA3 PO; -TRAZ50TA4 PO; +ULTR37.55 PO; -[UNRECOGNIZED DRUG - OTHER] SQ
[2016-06-08 10:18] VITALS: BP 133/90; PULSE 140; RESP 20; TEMP 98.8; O2SAT 99
[2016-06-08 11:36] VITALS: BP 117/83; PULSE 125; RESP 14; TEMP 98.4; O2SAT 100
--- NOTE | 2016-06-08 11:50 | PD ---
HPI Chief Complaint: Diabetic Time Seen by Provider: 11:45 Travel History International Travel<30 days: No Contact w/Intl Traveler<30days: No Traveled to known affect area: No History of Present Illness HPI 35-year-old male presents to the emergency department for evaluation of hyperglycemia. Patient stated 2 diabetic. He states that his blood sugar has been running high for the past week. He states he had 2 syncopal episodes, 1 week ago and one this morning. He states they were witnessed and he did not hit his head. He states that when his blood glucose gets high, he will get syncopal episodes. He does complain of left rib pain from hitting his ribs during the syncopal episodes. Patient also reports history of hypertension. He states that he took his insulin this morning at 8 AM, 30 units of NovoLog. He also took his Lantus last night. The patient states that he feels dizzy which is typical when his blood sugar becomes high. Patient denies any weakness. No fevers or chills. No shortness of breath. Patient states that he is trying to get back in to see the community clinic and get financial assistance to get better management of his blood glucose. He states that he has changed his diet in hopes to better maintain his blood sugars. PFSH Past Medical History Bipolar Disorder: Yes Depression: Yes Cancer: No Cardiovascular Problems: Yes High Cholesterol: Yes Diabetes: Yes Patient Takes Glucophage: No Genitourinary: No Hypertension: Yes Insomnia: Yes Musculoskeletal: Yes Neurologic: No Psychiatric: No Reproductive: No Respiratory: No Tetanus Vaccination: Unknown Influenza Vaccination: No Past Surgical History Abdominal Surgery: No Other Surgery: Yes (right knee ligament repaired) Social History Alcohol Use: No Tobacco Use: No Substance Use: No Allergies-Medications (Allergen,Severity, Reaction): Coded Allergies: Metformin (Verified Allergy, Intermediate, Hives, 06/08/16) Flexeril (Verified Adverse Reaction, Intermediate, syncope, 06/08/16) Reported Meds & Prescriptions Reported Meds & Active Scripts Active Ultracet (Tramadol-Acetaminophen) 37.5-325 mg Tab 1 Tab PO Q6HR PRN [employer] Blood Glucose Monit W/Device (Device) 1 Kit Kit 1 Kit .ROUTE DIRECTED Pantoprazole (Pantoprazole Sodium) 40 Mg Tab 40 Mg PO DAILY Novolog Inj (Insulin Aspart) 1,000 Unit/10 Ml Vial 0 SQ DIRECTED Sliding Scale as directed. Lantus Inj (Insulin Glargine) 1,000 Unit/10 Ml Vial 40 Units SQ HS Review of Systems Except as stated in HPI: all other systems reviewed are Neg Physical Exam Narrative GENERAL: Well-nourished, well-developed male patient, ambulatory. Afebrile. SKIN: Focused skin assessment warm/dry. HEAD: Normocephalic. Atraumatic. ENT: Mucosa pink and moist. No erythema or exudates. No uvular edema. No uvular , palatal, or tonsillar deviation. Airway patent. Nasal turbinates appear normal without nasal blood, purulent drainage or septal hematoma. EYES: No scleral icterus. No injection or drainage. PERRLA. EOM intact. NECK: Supple, trachea midline. No JVD or lymphadenopathy. CARDIOVASCULAR: Regular rate and rhythm without murmurs, gallops, or rubs. RESPIRATORY: Breath sounds equal bilaterally. No accessory muscle use. Lungs sounds are clear to auscultation. GASTROINTESTINAL: Abdomen soft, non-tender, nondistended. No abdominal pain to palpation. MUSCULOSKELETAL: No cyanosis, or edema. Patient has tenderness over left lateral ribs. BACK: Nontender without obvious deformity. No CVA tenderness. Data Data Last Documented VS Vital Signs Date Time Temp Pulse Resp B/P Pulse Ox O2 Delivery O2 Flow Rate FiO2 06/08/16 11:36 98.4 125 14 117/83 100 Room Air Orders Complete Blood Count With Diff (06/08/16 11:42) Comprehensive Metabolic Panel (06/08/16 11:42) Magnesium (Mg) (06/08/16 11:42) Beta Hydroxybutyrate (Acetone) (06/08/16 11:42) Sodium Chlor 0.9% 1000 Ml Inj (Ns 1000 M (06/08/16 11:42) Urinalysis - C+S If Indicated (06/08/16 11:42) Chest, Single Ap (06/08/16 ) Blood Gas Venous (Vbg) (06/08/16 11:42) Electrocardiogram (06/08/16 ) Insulin Human Regular Inj (Novolin R Inj (06/08/16 13:00) Sodium Chlor 0.9% 1000 Ml Inj (Ns 1000 M (06/08/16 13:00) Ketorolac Inj (Toradol Inj) (06/08/16 13:00) Labs Laboratory Tests Test 06/08/16 06/08/16 06/08/16 11:43 11:50 12:20 Blood Gas Puncture Site RN Blood Gas Patient Temperature 98.6 Venous Blood pH 7.44 Venous Blood Partial Pressure 32 mmHg CO2 Venous Blood Partial Pressure 45 mmHg O2 Venous Blood HCO3 21 mmol/L Venous Blood Oxygen Saturation 82 % Venous Blood Oxygen Content 17.3 Vol % Venous Blood Base Excess -2.2 mmol/L Blood Gas Inspired Oxygen 21 % White Blood Count 9.2 TH/MM3 Red Blood Count 5.61 MIL/MM3 Hemoglobin 15.5 GM/DL Hematocrit 46.0 % Mean Corpuscular Volume 82.0 FL Mean Corpuscular Hemoglobin 27.7 PG Mean Corpuscular Hemoglobin 33.7 % Concent Red Cell Distribution Width 12.8 % Platelet Count 308 TH/MM3 Mean Platelet Volume 9.8 FL Neutrophils (%) (Auto) 64.0 % Lymphocytes (%) (Auto) 27.1 % Monocytes (%) (Auto) 7.7 % Eosinophils (%) (Auto) 0.7 % Basophils (%) (Auto) 0.5 % Neutrophils # (Auto) 5.9 TH/MM3 Lymphocytes # (Auto) 2.5 TH/MM3 Monocytes # (Auto) 0.7 TH/MM3 Eosinophils # (Auto) 0.1 TH/MM3 Basophils # (Auto) 0.0 TH/MM3 CBC Comment DIFF FINAL Differential Comment Sodium Level 131 MEQ/L Potassium Level 4.0 MEQ/L Chloride Level 90 MEQ/L Carbon Dioxide Level 24.4 MEQ/L Anion Gap 17 MEQ/L Blood Urea Nitrogen 16 MG/DL Creatinine 1.00 MG/DL Estimat Glomerular Filtration 84 ML/MIN Rate Random Glucose 599 MG/DL Calcium Level 9.2 MG/DL Magnesium Level 1.1 MG/DL Total Bilirubin 1.4 MG/DL Aspartate Amino Transf 11 U/L (AST/SGOT) Alanine Aminotransferase 23 U/L (ALT/SGPT) Alkaline Phosphatase 93 U/L Total Protein 7.5 GM/DL Albumin 3.8 GM/DL B-Hydroxybutyrate 2.95 MMOL/L Urine Color LIGHT-YELLOW Urine Turbidity CLEAR Urine pH 5.0 Urine Specific [place] 1.031 Urine Protein NEG mg/dL Urine Glucose (UA) 1000 mg/dL Urine Ketones 40 mg/dL Urine Occult Blood NEG Urine Nitrite NEG Urine Bilirubin NEG Urine Urobilinogen LESS THAN 2.0 MG/DL Urine Leukocyte Esterase NEG Urine RBC LESS THAN 1 /hpf Urine WBC 1 /hpf Urine Mucus FEW /lpf Microscopic Urinalysis Comment CULT NOT INDICATED MDM Medical Decision Making Medical Screen Exam Complete: Yes Emergency Medical Condition: Yes Medical Record Reviewed: Yes Interpretation(s) Last Impressions Chest X-Ray 06/08/16 0000 Signed Impressions: Service Date/Time: Wednesday, June 08, 2016 12:15 - CONCLUSION: No acute disease. Mark Avilez MD Differential Diagnosis Diabetic hyperglycemia versus DKA versus dehydration versus electrolyte abnormality Narrative Course 35-year-old male presents to the emergency department for evaluation of elevated blood glucose for 1 week. Patient is type II diabetic. He has multiple admissions for hyperglycemia/DKA. Blood glucose in triage was 509. EKG, CBC, CMP, magnesium, beta hydroxybutyrate, UA are ordered and pending. VBG is ordered and pending. Chest x-ray is ordered and pending. Patient is given normal saline 1 L IV bolus 2. EKG shows ST, HR 112. CBC shows no acute abnormality. CMP shows hyponatremia 131, anion gap 17, glucose 599. Magnesium is 1.1. Beta hydroxybutyrate is 2.95. VBG shows pH 7.44, CO2 32, bicarbonate 21. UA shows 1000 glucose, 40 ketones. Chest x-ray shows no acute disease. Patient is given 10 units of regular insulin subcutaneous and a third liter normal saline IV bolus. I discussed the case with my attending physician, Dr. Thomas, who recommends admission for diabetic hyperglycemia. Dr. Valdes accepted admission. Diagnosis Primary Impression: Hyperglycemia due to type 2 diabetes mellitus Qualified Code: E11.65 - Type 2 diabetes mellitus with hyperglycemia, with long-term current use of insulin Additional Impression: Syncopal episodes Qualified Code: R55 - Syncope, unspecified syncope type Admitting Information Admitting Physician Requests: Admit Delmy Hernandez June 08, 2016 11:50
[2016-06-08 11:54] LABS: BLOOD GAS VENOUS BASE EXCESS -2.2 mmol/L (-2-2); BLOOD GAS VENOUS HCO3 21 mmol/L (22-26); BLOOD GAS VENOUS O2 CONTENT 17.3 Vol % (9.0-17.0); BLOOD GAS VENOUS O2 HGB SAT 82 % (70-76); BLOOD GAS VENOUS PCO2 32 mmHg (44-48); BLOOD GAS VENOUS PO2 45 mmHg (35-40); BLOOD GAS VENOUS pH 7.44 (7.360-7.400); CRITICAL VALUE NO; DRAW SITE RN; FIO2 21 %; STAT YES; TEMP CORR TO 98.6
[2016-06-08] MEDS: SODIUM CHLOR 0.9% 1000 ML INJ 1,000 ML IV SCH ×2 (11:55→13:38)
[2016-06-08 12:13] LABS: AUTOMATED NEUTROPHIL # 5.9 TH/MM3 (1.8-7.7); BASOPHIL % 0.5 % (0.0-2.0); EOSINOPHIL # 0.1 TH/MM3 (0-0.4); EOSINOPHIL % 0.7 % (0.0-4.0); HEMO FLAGS DIFF FINAL; LYMPH % 27.1 % (9.0-44.0); LYMPHOCYTE # 2.5 TH/MM3 (1.0-4.8); MEAN CORPUSCULAR HEMOGLOBIN 27.7 PG (27.0-34.0); MEAN CORPUSCULAR HGB CONC 33.7 % (32.0-36.0); MONO % 7.7 % (0.0-8.0); PLATELET COUNT 308 TH/MM3 (150-450); RED BLOOD COUNT 5.61 MIL/MM3 (4.50-5.90); RED CELL DISTRIBUTION WIDTH 12.8 % (11.6-17.2); WHITE BLOOD COUNT 9.2 TH/MM3 (4.0-11.0)
[2016-06-08 12:35] LABS: ALKALINE PHOSPHATASE 93 U/L (45-117); ALT (GPT) 23 U/L (12-78); ANION GAP 17 MEQ/L (5-15); AST (GOT) 11 U/L (15-37); BETA-HYDROXYBUTYRATE 2.95 MMOL/L (0.00-0.39); BICARBONATE 24.4 MEQ/L (21.0-32.0); BLOOD UREA NITROGEN 16 MG/DL (7-18); CHLORIDE 90 MEQ/L (98-107); GLOMERULAR FILTRATION RATE 84 ML/MIN (>89); MAGNESIUM 1.1 MG/DL (1.5-2.5); SODIUM (NA) 131 MEQ/L (136-145); TOTAL BILIRUBIN ADULT 1.4 MG/DL (0.2-1.0)
--- NOTE | 2016-06-08 12:35 | RADRPT ---
EXAM DATE/TIME: 06/08/2016 12:15 [facility] COMPARISON: No previous studies available for comparison. INDICATIONS : Pain left anterior ribs, short of breath, fell today, fell one week ago MEDICAL HISTORY : diabetic SURGICAL HISTORY : None. ENCOUNTER: Initial ACUITY: 1 week PAIN SCORE: 6/10 LOCATION: Left chest FINDINGS: A single view of the chest demonstrates the lungs to be symmetrically aerated without evidence of mas s, infiltrate or effusion. The cardiomediastinal contours are unremarkable. Osseous structures are intact. CONCLUSION: No acute disease. Mark Avilez MD on June 08, 2016 at 12:33 Board Certified Radiologist. This report was verified electronically.
[2016-06-08 12:39] LABS: BLOOD, URINE NEG (NEG); COMMENT (UR) CULT NOT INDICATED; CULTURE IF INDICATED CULT NOT INDICATED; GLUCOSE,URINE 1000 mg/dL (NEG); KETONE, URINE 40 mg/dL (NEG); MUCUS URINE FEW /lpf (OCC); NITRITE,URINE NEG (NEG); URINE COLOR LIGHT-YELLOW (YELLW/STRAW)
[2016-06-08] MEDS ORDERED: INSULIN HUMAN REGULAR 1,000 UNITS/10 ML VIAL SQ ONE (13:00)
[2016-06-08] MEDS ORDERED: SODIUM CHLOR 0.9% 1000 ML INJ 1,000 ML IV ONE (13:00)
[2016-06-08] MEDS ORDERED: KETOROLAC TROMETHAMINE 30 MG/ML (IVP) VIAL IV PUSH ONE (13:00)
[2016-06-08] MEDS ORDERED: SODIUM BICARBONATE 8.4% SOLN 50 MEQ/50 ML VIAL IV PRN ×2 (13:30)
[2016-06-08] MEDS ORDERED: CHLORHEXIDINE GLUCONATE 2 % 1 PACK (2 CLOTHS) TOP PRN (13:30)
[2016-06-08] MEDS ORDERED: SODIUM PHOSPHATE INJ 15 MMOL in SODIUM CHLORIDE 0.9% INJ 100 ML IV PRN (13:30)
[2016-06-08] MEDS ORDERED: POTASSIUM CHLOR 20 MEQ PREMIX 100 ML IV PRN ×6 (13:30)
[2016-06-08] MEDS ORDERED: SODIUM CHLOR 0.9% 1000 ML INJ 1,000 ML IV SCH (13:30)
[2016-06-08] MEDS ORDERED: INSULIN HUMAN REGULAR 1,000 UNITS/10 ML VIAL IV PUSH ONE (13:30)
[2016-06-08] MEDS ORDERED: POTASSIUM CHLOR 40 MEQ PREMIX 100 ML IV PRN ×2 (13:30)
[2016-06-08] MEDS ORDERED: DEXT 5%-NACL 0.9% 1000 ML INJ 1,000 ML IV SCH (13:30)
[2016-06-08] MEDS ORDERED: INSULIN REGULAR (IV INFUSION) 100 UNITS in SODIUM CHLORIDE 0.9% INJ 99 ML IV SCH (13:30)
[2016-06-08] MEDS ORDERED: MISCELLANEOUS NURSING INFORMATION XX SCH (13:30)
[2016-06-08] MEDS ORDERED: NOVORP2 SQ (13:43)
[2016-06-08 13:44] VITALS: BP 123/91; PULSE 90; RESP 14; O2SAT 100
[2016-06-08] MEDS ORDERED: ATOR40TA16 PO (13:47)
[2016-06-08] MEDS ORDERED: VIST50CA PO (13:47)
[2016-06-08] MEDS ORDERED: GEMF600T PO (13:47)
[2016-06-08] MEDS ORDERED: TRAZ100T4 PO (13:47)
[2016-06-08] MEDS ORDERED: LISI2.5T3 PO (13:47)
[2016-06-08] MEDS ORDERED: ROBA750T PO (13:47)
--- NOTE | 2016-06-08 15:42 | HHI.HP ---
HPI Service [facility] Hospitalists Primary Care Physician Taryn Martinez MD Admission Diagnosis diabetic hyperglycemia, syncopal episodes Diagnoses: Chief Complaint: Dizziness Recurrent falls Rib pain Hyperglycemia Travel History International Travel<30 Days: No Contact w/Intl Traveler <30 Da: No Traveled to Known Affected Are: No History of Present Illness This is a 35-year-old male with past medical history significant for type 2 diabetes mellitus, diabetic neuropathy, hypertension and dyslipidemia who presents to [facility] with complaints of elevated blood sugar readings on his meter for the past 3-4 days. He also reports recurrent dizziness with subsequent falls x 2 and injury to the left sided ribs. Patient reports 2 falls the first of which was a week and a half ago and the other which was today. Both times he has fallen onto his left side injuring his ribs. Patient's normal insulin regimen at home consist of 30 units of NovoLog TID and 40 units of Lantus each evening. Patient denies any recent illness. He does however admit that he has been out of his medications for the past several months due to insurance issues. He denies any fever/chills, nausea/vomiting, diarrhea, shortness of breath, chest pain or abdominal pain. He states that he is hungry and is requesting to eat. In the ED, his blood sugar was 599, anion gap is 17 and beta hydroxybutyrate is 2.95. Review of Systems Except as stated in HPI: all other systems reviewed are Neg Past Family Social History Past Medical History DM type 2 HTN Dyslipidemia Diabetic neuropathy Chronic back pain Past Surgical History Right knee surgery Reported Medications Ultracet (Tramadol-Acetaminophen) 37.5-325 mg Tab 1 Tab PO Q6HR PRN [employer] Blood Glucose Monit W/Device (Device) 1 Kit Kit 1 Kit .ROUTE DIRECTED Pantoprazole (Pantoprazole Sodium) 40 Mg Tab 40 Mg PO DAILY Novolog Inj (Insulin Aspart) 1,000 Unit/10 Ml Vial SQ DIRECTED Sliding Scale as directed. Lantus Inj (Insulin Glargine) 1,000 Unit/10 Ml Vial 40 Units SQ HS Lisinopril 2.5mg po daily Trazodone 100mg po qhs Vistaril 50mg BID Robaxin 750mg po QID Gemfibrozil 600mg po BIDAC Atorvastatin 40mg po qhs Allergies: Coded Allergies: Metformin (Verified Allergy, Intermediate, Hives, 06/08/16) Flexeril (Verified Adverse Reaction, Intermediate, syncope, 06/08/16) Active Ordered Medications Current Medications Medications (Trade) Dose Ordered Sig/Cuauhtemoc Route Start Time Stop Time Status Last Admin Sodium Chloride 1,000 ml @ 250 mls/hr Q4H IV 06/08/16 13:30 Dextrose/Sodium Chloride 1,000 ml @ 200 mls/hr Q5H IV 06/08/16 13:30 Insulin Human Regular 100 units/ Sodium Chloride 100 ml @ 0 mls/hr TITRATE IV 06/08/16 13:30 Potassium Chloride 100 ml @ 100 mls/hr Q1H PRN IV 06/08/16 13:30 Potassium Chloride 100 ml @ 50 mls/hr Q2H PRN IV 06/08/16 13:30 Potassium Chloride 100 ml @ 100 mls/hr Q1H PRN IV 06/08/16 13:30 Potassium Chloride 100 ml @ 100 mls/hr Q1H PRN IV 06/08/16 13:30 Potassium Chloride 100 ml @ 50 mls/hr Q2H PRN IV 06/08/16 13:30 Potassium Chloride 100 ml @ 50 mls/hr Q2H PRN IV 06/08/16 13:30 Potassium Chloride 100 ml @ 50 mls/hr Q2H PRN IV 06/08/16 13:30 (KCl 20 Meq Premix Inj) 100 ml @ 50 mls/hr Q2H PRN IV 06/08/16 13:30 (Sodium Bicarbonate 8.4% Inj) 100 meq UNSCH PRN IV 06/08/16 13:30 Sodium Bicarbonate 50 meq 50 meq UNSCH PRN IV 06/08/16 13:30 (Sodium Phosphate Inj/NS Inj) 105 ml @ 25 mls/hr UNSCH PRN IV 06/08/16 13:30 Miscellaneous Information 1 Q361D XX 06/08/16 13:30 (Chlorhexidine 2% Cloth) 3 pack Taper DAILY@04 TOP 06/09/16 04:00 06/05/17 03:59 (Chlorhexidine 2% Cloth) 3 pack UNSCH PRN TOP 06/08/16 13:30 Family History Mom, , seizure, DM Brother and sister, , DM and kidney failure Social History Quit smoking 9 months ago Denies any EtOH consumption Denies any illicit drug use Physical Exam Vital Signs Vital Signs Date Time Temp Pulse Resp B/P Pulse Ox O2 Delivery O2 Flow Rate FiO2 06/08/16 13:44 90 14 123/91 100 Room Air 06/08/16 11:36 98.4 125 14 117/83 100 Room Air 06/08/16 11:36 120 14 100 Room Air 06/08/16 10:18 98.8 140 20 133/90 99 Room Air Physical Exam GENERAL: This is a well-nourished, well-developed patient, in no apparent distress. SKIN: No rashes, ecchymoses or lesions. Cool and dry. HEAD: Atraumatic. Normocephalic. No temporal or scalp tenderness. EYES: Pupils equal round and reactive. Extraocular motions intact. No scleral icterus. No injection or drainage. ENT: Nose without bleeding, purulent drainage or septal hematoma. Throat without erythema, tonsillar hypertrophy or exudate. Uvula midline. Airway patent. NECK: Trachea midline. No JVD or lymphadenopathy. Supple, nontender, no meningeal signs. CARDIOVASCULAR: Regular rate and rhythm without murmurs, gallops, or rubs. RESPIRATORY: Clear to auscultation. Breath sounds equal bilaterally. No wheezes , rales, or rhonchi. GASTROINTESTINAL: Abdomen soft, non-tender, nondistended. No hepato-splenomegaly , or palpable masses. No guarding. MUSCULOSKELETAL: Extremities without clubbing, cyanosis, or edema. No joint tenderness, effusion, or edema noted. No calf tenderness. Negative Homans sign bilaterally. NEUROLOGICAL: Awake and alert. Cranial nerves II through XII intact. Motor and sensory grossly within normal limits. Five out of 5 muscle strength in all muscle groups. Normal speech. Laboratory Laboratory Tests Test 06/08/16 06/08/16 06/08/16 11:43 11:50 12:20 Blood Gas Puncture Site RN Blood Gas Patient Temperature 98.6 Venous Blood pH 7.44 Venous Blood Partial Pressure 32 CO2 Venous Blood Partial Pressure 45 O2 Venous Blood HCO3 21 Venous Blood Oxygen Saturation 82 Venous Blood Oxygen Content 17.3 Venous Blood Base Excess -2.2 Blood Gas Inspired Oxygen 21 White Blood Count 9.2 Red Blood Count 5.61 Hemoglobin 15.5 Hematocrit 46.0 Mean Corpuscular Volume 82.0 Mean Corpuscular Hemoglobin 27.7 Mean Corpuscular Hemoglobin 33.7 Concent Red Cell Distribution Width 12.8 Platelet Count 308 Mean Platelet Volume 9.8 Neutrophils (%) (Auto) 64.0 Lymphocytes (%) (Auto) 27.1 Monocytes (%) (Auto) 7.7 Eosinophils (%) (Auto) 0.7 Basophils (%) (Auto) 0.5 Neutrophils # (Auto) 5.9 Lymphocytes # (Auto) 2.5 Monocytes # (Auto) 0.7 Eosinophils # (Auto) 0.1 Basophils # (Auto) 0.0 CBC Comment DIFF FINAL Differential Comment Sodium Level 131 Potassium Level 4.0 Chloride Level 90 Carbon Dioxide Level 24.4 Anion Gap 17 Blood Urea Nitrogen 16 Creatinine 1.00 Estimat Glomerular Filtration 84 Rate Random Glucose 599 Calcium Level 9.2 Magnesium Level 1.1 Total Bilirubin 1.4 Aspartate Amino Transf 11 (AST/SGOT) Alanine Aminotransferase 23 (ALT/SGPT) Alkaline Phosphatase 93 Total Protein 7.5 Albumin 3.8 B-Hydroxybutyrate 2.95 Urine Color LIGHT-YELLOW Urine Turbidity CLEAR Urine pH 5.0 Urine Specific L[place]in 1.031 Urine Protein NEG Urine Glucose (UA) 1000 Urine Ketones 40 Urine Occult Blood NEG Urine Nitrite NEG Urine Bilirubin NEG Urine Urobilinogen LESS THAN 2.0 Urine Leukocyte Esterase NEG Urine RBC LESS THAN 1 Urine WBC 1 Urine Mucus FEW Microscopic Urinalysis Comment CULT NOT INDICATED Result Diagram: 06/08/16 1150 06/08/16 1150 Assessment and Plan Assessment and Plan 35-year-old male with past medical history significant for type 2 diabetes mellitus, diabetic neuropathy, hypertension and dyslipidemia who presents to [facility] with complaints of elevated blood sugar readings on his meter for the past 3-4 days. He also reports recurrent dizziness with subsequent falls x 2 and injury to the left sided ribs. //DKA Admit Repeat BMP reveals anion gap is closed at 10 Studies including chemistry panel and ABG indicative of acidosis with underlying respiratory alkalosis 1800 ADA diabetic diet Aggressive IV fluids with potassium Continue to monitor electrolytes Serial BMPs Accuchecks ISS Begin Levemir 25u nightly and Novolog 6u before meals Diabetic education //Hypokalemia Potassium repletion continue to monitor K //Pseudohyponatremia Secondary to DKA Sodium 131 in ED, repeat BMP shows sodium of 140 //HTN Resume previously prescribed lisinopril Monitor BP Adjust treatment as indicated //Diabetic neuropathy Gabapentin //Left-sided rib pain status post fall Falls likely related to orthostatic hypotension from hyperglycemia Chest x-ray personally interpreted unremarkable including no evidence of osseous abnormality Tramadol when necessary pain //Dyslipidemia Resume home atorvastatin and gemfibrozil //DVT prophylaxis SCD/REN hose Written by Danay Sheikh PA-C acting as scribe for Dr. Valdes on 06/08/16 at 17 :34. This note was transcribed by scribe Danay Sheikh PA-C. I, Dr. Dov Valdes personally performed the history, physical exam, and medical decision making; and confirmed the accuracy of the information in the transcribed note. Authenticated by Dr. Dov Valdes on 06/09/16 at 00:53. Discussed Condition With patient, nursing staff and ED physician Physician Certification 2 Midnight Certification Type: Admission for Inpatient Services Order for Inpatient Services The services are ordered in accordance with Medicare regulations or non- Medicare payer requirements, as applicable. In the case of services not specified as inpatient-only, they are appropriately provided as inpatient services in accordance with the 2-midnight benchmark. Estimated LOS (days): 2 days is the estimated time the patient will need to remain in the hospital, assuming treatment plan goals are met and no additional complications. Post-Hospital Plan: Home Alta Valdes DO June 08, 2016 15:42 Danay Sheikh June 08, 2016 16:29
[2016-06-08 16:13] VITALS: BP 138/92; PULSE 109; RESP 18; O2SAT 100
[2016-06-08 17:10] VITALS: BP 153/88; PULSE 110; RESP 20; TEMP 97.7; O2SAT 100
[2016-06-08 17:14] LABS: BICARBONATE 25.5 MEQ/L (21.0-32.0); POTASSIUM 3.3 MEQ/L (3.5-5.1)
[2016-06-08] MEDS ORDERED: PILL SPLITTER OTHER PRN (17:45)
[2016-06-08] MEDS: GABAPENTIN 100 MG CAP PO SCH (17:56)
[2016-06-08] MEDS: traMADol HCL 50 MG TAB PO PRN (17:56)
[2016-06-08] MEDS ORDERED: DEXTROSE 50% IN WATER 50 ML VIAL(D50) IV PUSH PRN (18:15)
[2016-06-08] MEDS ORDERED: POTASSIUM CHLORIDE 10 MEQ CONTROLLED RELEASE TAB PO SCH (18:15)
[2016-06-08] MEDS ORDERED: GLUCAGON 1 MG/ML VIAL OTHER PRN (18:15)
--- NOTE | 2016-06-08 18:26 | EKG ---
Date Performed: 06/08/2016 Time Performed: 12:00:00 PTAGE: 35 years EKG: SINUS TACHYCARDIA ABNORMAL RHYTHM ECG PREVIOUS TRACING : 03/10/2015 14.47 No significant change from previous tracing noted. DOCTOR: Luke Manzano Interpretating Date/Time 06/08/2016 18:24:43
[2016-06-08] MEDS ORDERED: POTASSIUM CHLORIDE INJ 20 MEQ in SODIUM CHLOR 0.9% 1000 ML INJ 1,000 ML IV SCH (19:00)
[2016-06-08] MEDS ORDERED: POTASSIUM CHLORIDE 10 MEQ CONTROLLED RELEASE TAB PO ONE (19:00)
[2016-06-08 20:00] VITALS: BP 127/85; PULSE 103; RESP 18; TEMP 97.9; O2SAT 99
[2016-06-08] MEDS: INSULIN ASPART SUPPLEMENTAL SCALE SQ SCH (21:00)
[2016-06-08] MEDS ORDERED: ATORVASTATIN 40 MG TAB PO SCH (21:00)
[2016-06-08] MEDS ORDERED: traZODone HCL 100 MG TAB PO SCH (21:00)
[2016-06-08] MEDS ORDERED: INSULIN DETEMIR 100 UNITS/ML VIAL SQ SCH (21:00)
[2016-06-08 21:22] LABS: MAGNESIUM 0.9 MG/DL (1.5-2.5); POTASSIUM 3.3 MEQ/L (3.5-5.1)
[2016-06-08] MEDS: NS + KCL 20 MEQ INJ 1,000 ML IV SCH (22:58)
[2016-06-09] VITALS: BP 142/77; PULSE 96; RESP 18; TEMP 98; O2SAT 96
[2016-06-09] MEDS: traMADol HCL 50 MG TAB PO PRN ×3 (00:36→13:19)
[2016-06-09 02:02] LABS: BETA-HYDROXYBUTYRATE 1.12 MMOL/L (0.00-0.39); MAGNESIUM 0.9 MG/DL (1.5-2.5); POTASSIUM 3.7 MEQ/L (3.5-5.1)
[2016-06-09 02:23] LABS: CALCIUM-PROTEIN CORRECTED 8.3 MG/DL (8.5-10.1)
[2016-06-09 04:00] VITALS: BP 125/71; PULSE 90; RESP 16; TEMP 97.5; O2SAT 99
[2016-06-09] MEDS ORDERED: CHLORHEXIDINE GLUCONATE 2 % 1 PACK (2 CLOTHS) TOP SCH (04:00)
[2016-06-09] MEDS: NS + KCL 20 MEQ INJ 1,000 ML IV SCH (05:43)
[2016-06-09] MEDS: INSULIN ASPART SUPPLEMENTAL SCALE SQ SCH ×2 (06:47→11:00)
[2016-06-09] MEDS ORDERED: GEMFIBROZIL 600 MG TAB PO SCH (07:00)
[2016-06-09 08:00] VITALS: BP 124/80; PULSE 101; RESP 22; TEMP 97.3; O2SAT 99
[2016-06-09] MEDS: INSULIN ASPART 1,000 UNITS/10 ML VIAL SQ SCH ×2 (08:00→12:00)
[2016-06-09 08:40] VITALS: PULSE 96
[2016-06-09] MEDS: GABAPENTIN 100 MG CAP PO SCH ×2 (09:00→13:20)
[2016-06-09] MEDS ORDERED: LISINOPRIL 5 MG TAB PO SCH (09:00)
[2016-06-09 09:22] LABS: BICARBONATE 24.9 MEQ/L (21.0-32.0); POTASSIUM 3.7 MEQ/L (3.5-5.1)
[2016-06-09] MEDS ORDERED: TRAZ100T4 PO (10:11)
[2016-06-09] MEDS ORDERED: NOVOLOGP2 SQ ×2 (10:11)
[2016-06-09] MEDS ORDERED: ROBA750T PO (10:11)
[2016-06-09] MEDS ORDERED: LEVEMIR SQ (10:11)
[2016-06-09] MEDS ORDERED: ATOR40TA16 PO (10:11)
[2016-06-09] MEDS ORDERED: LISI2.5T3 PO (10:11)
[2016-06-09] MEDS ORDERED: GEMF600T PO (10:11)
[2016-06-09] MEDS ORDERED: VIST50CA PO (10:11)
--- NOTE | 2016-06-09 10:12 | HHI.DS ---
Discharge Summary Admission Date June 08, 2016 at 13:26 Discharge Date: June 09, 2016 Admitting Diagnosis diabetic hyperglycemia, syncopal episodes (1) Syncopal episodes ICD Code: R55 (2) Diabetes mellitus ICD Code: E11.9 (3) DKA (diabetic ketoacidoses) ICD Code: E13.10 Diagnosis: Principal Procedures None. Brief History - From Admission This is a 35-year-old male with past medical history significant for type 2 diabetes mellitus, diabetic neuropathy, hypertension and dyslipidemia who presents to [facility] with complaints of elevated blood sugar readings on his meter for the past 3-4 days. He also reports recurrent dizziness with subsequent falls x 2 and injury to the left sided ribs. Patient reports 2 falls the first of which was a week and a half ago and the other which was today. Both times he has fallen onto his left side injuring his ribs. Patient's normal insulin regimen at home consist of 30 units of NovoLog TID and 40 units of Lantus each evening. Patient denies any recent illness. He does however admit that he has been out of his medications for the past several months due to insurance issues. He denies any fever/chills, nausea/vomiting, diarrhea, shortness of breath, chest pain or abdominal pain. He states that he is hungry and is requesting to eat. In the ED, his blood sugar was 599, anion gap is 17 and beta hydroxybutyrate is 2.95. CBC/BMP: 06/08/16 1150 06/09/16 0818 Significant Findings Laboratory Tests Test 06/08/16 06/08/16 06/08/16 06/08/16 11:43 11:50 12:20 16:12 Venous Blood pH 7.44 (7.360-7.400) Venous Blood Partial Pressure 32 mmHg (44-48) CO2 Venous Blood Partial Pressure 45 mmHg (35-40) O2 Venous Blood HCO3 21 mmol/L (22-26) Venous Blood Oxygen Saturation 82 % (70-76) Venous Blood Oxygen Content 17.3 Vol % (9.0-17.0) Venous Blood Base Excess -2.2 mmol/L (-2-2) Sodium Level 131 MEQ/L (136-145) Chloride Level 90 MEQ/L (98-107) Anion Gap 17 MEQ/L (5-15) Estimat Glomerular Filtration 84 ML/MIN (>89) Rate Random Glucose 599 MG/DL 210 MG/DL (74-106) (74-106) Magnesium Level 1.1 MG/DL (1.5-2.5) Total Bilirubin 1.4 MG/DL (0.2-1.0) Aspartate Amino Transf 11 U/L (15-37) (AST/SGOT) B-Hydroxybutyrate 2.95 MMOL/L (0.00-0.39) Urine Glucose (UA) 1000 mg/dL (NEG) Urine Ketones 40 mg/dL (NEG) Urine Mucus FEW /lpf (OCC) Potassium Level 3.3 MEQ/L (3.5-5.1) Calcium Level 8.1 MG/DL (8.5-10.1) Test 06/08/16 06/09/16 06/09/16 19:44 00:33 08:18 Potassium Level 3.3 MEQ/L (3.5-5.1) Random Glucose 135 MG/DL 285 MG/DL (74-106) (74-106) Calcium Level 7.8 MG/DL 7.4 MG/DL 7.9 MG/DL (8.5-10.1) (8.5-10.1) (8.5-10.1) Magnesium Level 0.9 MG/DL 0.9 MG/DL 1.0 MG/DL (1.5-2.5) (1.5-2.5) (1.5-2.5) Chloride Level 109 MEQ/L (98-107) Protein Corrected Calcium 8.3 MG/DL (8.5-10.1) Total Protein 5.4 GM/DL (6.4-8.2) B-Hydroxybutyrate 1.12 MMOL/L (0.00-0.39) Imaging Last Impressions Chest X-Ray 06/08/16 0000 Signed Impressions: Service Date/Time: Wednesday, June 08, 2016 12:15 - CONCLUSION: No acute disease. Mark Avilez MD PE at Discharge GENERAL: AOx3, NAD. SKIN: Warm and dry. HEAD: Normocephalic. EYES: No scleral icterus. No injection or drainage. NECK: Supple, trachea midline. No JVD or lymphadenopathy. CARDIOVASCULAR: Regular rate and rhythm without murmurs, gallops, or rubs. RESPIRATORY: Breath sounds equal bilaterally. No accessory muscle use. GASTROINTESTINAL: Abdomen soft, non-tender, nondistended. MUSCULOSKELETAL: No cyanosis, or edema. BACK: Nontender without obvious deformity. No CVA tenderness. Pt update on day of discharge Patient is currently doing well. Tolerating diet well. No acute concerns. Anion gap improved from 17 to 6. Glucose is well controlled. Hospital Course 35-year-old male with past medical history significant for type 2 diabetes mellitus, diabetic neuropathy, hypertension and dyslipidemia who presents to [facility] with complaints of elevated blood sugar readings on his meter for the past 3-4 days. He also reports recurrent dizziness with subsequent falls x 2 and injury to the left sided ribs. //Syncope //DKA Repeat BMP reveals anion gap is closed at 10 Studies including chemistry panel and ABG indicative of acidosis with underlying respiratory alkalosis 1800 ADA diabetic diet Aggressive IV fluids with potassium Continue to monitor electrolytes Levemir 25u nightly and Novolog 6u before meals Diabetic education Syncopal episode maybe due to volume depletion from hyperglycemia. No further syncope. //Hypokalemia Potassium repletion. Hypokalemia resolved. //Pseudohyponatremia Secondary to DKA Sodium 131 in ED, repeat BMP shows sodium of 140 //HTN Resume previously prescribed lisinopril //Diabetic neuropathy Gabapentin //Left-sided rib pain status post fall Falls likely related to orthostatic hypotension from hyperglycemia Chest x-ray personally interpreted unremarkable including no evidence of osseous abnormality Tramadol when necessary pain //Dyslipidemia Resume home atorvastatin and gemfibrozil //DVT prophylaxis SCD/REN hose Pt Condition on Discharge: Good Discharge Disposition: Discharge Home Discharge Time: > 30 minutes Discharge Instructions DIET: Follow Instructions for: Diabetic Diet Activities you can perform: Regular-No Restrictions Follow up Referrals: PCP Follow-up - 1 Week New Medications: Insulin Aspart Inj (Novolog Inj) 1,000 Unit/10 Ml Vial 1-9 UNITS SQ ACHS Max dose at bedtime:( )units; sugars less than 70,(0)units; sugars 150-199,(1) unit; sugars 200-249,(3) units; sugars 250-299,(5) units; sugars 300-349,(7) units; sugars greater than 349,(9) units Blood Sugar Management #10 Ref 0 ML Tramadol (Tramadol) 50 Mg Tab 50 MG PO Q8H PRN PAIN #21 Ref 0 TAB Insulin Aspart Inj (Novolog Inj) 1,000 Unit/10 Ml Vial 6 UNITS SQ TIDAC Blood Sugar Management #30 INJECTION Insulin Detemir Inj (Levemir Inj) 1,000 unit/ 10 ML Vial 25 UNITS SQ HS Blood Sugar Management #30 INJECTION Changed Medications: Hydroxyzine Pamoate (Vistaril) 50 Mg Cap 50 MG PO BID PRN ALLERGIES #30 Ref 0 CAP (Medication details modified) Continued Medications: Atorvastatin (Atorvastatin) 40 Mg Tab 40 MG PO HS Cholesterol Management #30 Ref 0 TAB (This prescription has been renewed) Gemfibrozil (Gemfibrozil) 600 Mg Tab 600 MG PO BIDAC Take 30 minutes prior to breakfast and dinner. neuropathy #60 Ref 0 TAB (This prescription has been renewed) Lisinopril (Lisinopril) 2.5 Mg Tab 2.5 MG PO DAILY #30 Ref 0 TAB (This prescription has been renewed) Methocarbamol (Robaxin) 750 Mg Tab 750 MG PO QID Muscle Spasm #20 Ref 0 TAB (This prescription has been renewed) Trazodone (Trazodone) 100 Mg Tab 100 MG PO HS Control Depression #30 Ref 0 TAB (This prescription has been renewed) Discontinued Medications: Insulin Glargine Inj (Lantus Inj) 1,000 Unit/10 Ml Vial 40 UNITS SQ HS Blood Sugar Management #30 Ref 0 VIAL Insulin Human Regular Inj (Novolin R Inj) 1,000 Unit/10 Ml Vial 30 UNITS SQ TIDAC Blood Sugar Management #1 Ref 0 INJECTION Alta Valdes DO June 09, 2016 10:12
[2016-06-09 11:54] VITALS: BP 126/78; PULSE 100; RESP 20; TEMP 97.3; O2SAT 99
[2016-06-09] MEDS ORDERED: TRAM50TA PO (12:23)
[2016-06-09 14:10] LABS: BETA-HYDROXYBUTYRATE 0.12 MMOL/L (0.00-0.39); BICARBONATE 26.7 MEQ/L (21.0-32.0); MAGNESIUM 0.9 MG/DL (1.5-2.5); POTASSIUM 3.8 MEQ/L (3.5-5.1)
[2016-08-06] MEDS ORDERED: VIST50CA PO (11:06)
[2016-08-06] MEDS ORDERED: GABA800T PO (11:06)
[2016-08-06] MEDS ORDERED: ATOR40TA16 PO (11:06)
[2016-08-06] MEDS ORDERED: ROBA750T PO (11:10)
== END 2016-06-09 18:49 | disposition home or self-care (01) | DRG 639 ==
LOC: NEPC 10:16 → NEDA 13:26 → N04B 17:02
PROVIDERS: ADMIT Hospitalist; ATTEND Hospitalist
DX: E13.10 Other specified diabetes mellitus with ketoacidosis without coma (principal); E11.40 Type 2 diabetes mellitus with diabetic neuropathy, unspecified; Z91.14 Patient's other noncompliance with medication regimen; Z79.4 Long term (current) use of insulin; E78.5 Hyperlipidemia, unspecified; I10 Essential (primary) hypertension; R42 Dizziness and giddiness; M54.9 Dorsalgia, unspecified; G89.29 Other chronic pain; E87.6 Hypokalemia; R07.81 Pleurodynia; R29.6 Repeated falls; Z87.891 Personal history of nicotine dependence
CPT/HCPCS: 71010; 80048; 80053; 81001; 82010; 82805; 82948; 83735; 84100; 84155; 85025; 93005; 96360; J1815; J1885; J3480; J7030

== ENCOUNTER 2016-07-14 17:43 | Inpatient (IN) | payer OTHER ==
[~2016-07-14] VITALS: Ht 172.7 cm; Wt 65.0 kg
[~2016-07-14 17:43] MED LIST changes: -ACURKIT; +ATOR40TA16 PO; +GEMF600T PO; -LANTUS2P SQ; +LEVEMIR SQ; +LISI2.5T3 PO; -PANT40TA3 PO; +ROBA750T PO; +TRAM50TA PO; +TRAZ100T4 PO; -ULTR37.55 PO; +VIST50CA PO
[2016-07-14 17:47] VITALS: BP 156/78; PULSE 122; RESP 20; TEMP 98.2; O2SAT 99
[2016-07-14] MEDS ORDERED: SODIUM CHLOR 0.9% 1000 ML INJ 1,000 ML IV SCH ×3 (18:19→19:27)
[2016-07-14] MEDS ORDERED: TRAZ50TA12 PO (18:28)
--- NOTE | 2016-07-14 18:28 | PD ---
HPI Chief Complaint: Diabetic Time Seen by Provider: 18:28 Travel History International Travel<30 days: No Contact w/Intl Traveler<30days: No Traveled to known affect area: No History of Present Illness HPI 35-year-old male with a history of diabetes, hypertension, dyslipidemia, diabetic neuropathy presents to the emergency department for evaluation of elevated blood sugars and abdominal pain for 3 days. Patient states that he has had a difficult time controlling his blood sugar. He was recently prescribed Levemir at night but was unable to afford this medication and was waiting for an authorization for the medication to be paid for. States he supposed to pecan picker his Levemir tomorrow but could not wait as his abdominal pain and sugars have worsened. Complains of nausea but no vomiting. He also complains of lightheadedness and weakness. States that over the past 2 days he has had intermittent tingling in the left arm, states that the last time he had this it was associated with chest pain. He denies any chest pain, shortness of breath, difficulty breathing, vomiting, diarrhea, constipation, dysuria. Denies any prior abdominal surgeries. No other complaints. PCP Dr. Martinez. [facility] Past Medical History Arthritis: Yes Bipolar Disorder: Yes Anxiety: Yes Depression: Yes Cancer: No Cardiovascular Problems: Yes High Cholesterol: Yes Diabetes: Yes Patient Takes Glucophage: No Endocrine: Yes Genitourinary: No Hypertension: Yes Immune Disorder: No Implanted Vascular Access Dvce: No Insomnia: Yes Musculoskeletal: Yes Neurologic: Yes Psychiatric: No Reproductive: No Respiratory: Yes Migraines: Yes Thyroid Disease: No Tetanus Vaccination: > 5 Years Past Surgical History Abdominal Surgery: No Other Surgery: Yes (right knee ligament repaired) Social History Alcohol Use: No Tobacco Use: No Substance Use: No Allergies-Medications (Allergen,Severity, Reaction): Coded Allergies: Metformin (Verified Allergy, Intermediate, Hives, 07/14/16) Flexeril (Verified Adverse Reaction, Intermediate, syncope, 07/14/16) Reported Meds & Prescriptions Reported Meds & Active Scripts Active Novolog Inj (Insulin Aspart) 1,000 Unit/10 Ml Vial 1-9 Units SQ ACHS Max dose at bedtime:( )units; sugars less than 70,(0)units; sugars 150-199,(1) unit; sugars 200-249,(3) units; sugars 250-299,(5) units; sugars 300-349,(7) units; sugars greater than 349,(9) units Levemir Inj (Insulin Detemir) 1,000 unit/ 10 ML Vial 25 Units SQ HS Robaxin (Methocarbamol) 750 Mg Tab 750 Mg PO QID Vistaril (Hydroxyzine Pamoate) 50 Mg Cap 50 Mg PO BID PRN Gemfibrozil 600 Mg Tab 600 Mg PO BIDAC Take 30 minutes prior to breakfast and dinner. Atorvastatin (Atorvastatin Calcium) 40 Mg Tab 40 Mg PO HS Lisinopril 2.5 Mg Tab 2.5 Mg PO DAILY Reported Trazodone (Trazodone HCl) 50 Mg Tab 100 Mg PO HS Review of Systems Except as stated in HPI: all other systems reviewed are Neg Physical Exam Narrative GENERAL: Well-nourished and well-developed pleasant male patient in no acute distress who is nontoxic appearing. SKIN: Warm and dry. HEAD: Normocephalic and atraumatic. EYES: No injection, drainage, or hyphema noted. PERRLA. EOMI. ENT: No nasal drainage noted. Oropharynx is clear. NECK: Supple and the trachea is midline. CARDIOVASCULAR: Regular rate and rhythm. RESPIRATORY: Breath sounds are equal bilaterally with no accessory muscle use, wheezing, rhonchi, or crackles. GASTROINTESTINAL: Mild generalized tenderness to palpation of abdomen. No rebound tenderness or guarding. Abdomen is soft and nondistended. MUSCULOSKELETAL: No obvious deformities, swelling, cyanosis, or ecchymosis is present throughout the upper and lower extremities. Patient has full range of motion without any signs of neurovascular compromise. NEUROLOGICAL: Awake, alert, and oriented. Normal speech and gait. Cranial nerves are grossly intact. Data Data Last Documented VS Vital Signs Date Time Temp Pulse Resp B/P Pulse Ox O2 Delivery O2 Flow Rate FiO2 07/14/16 18:30 98 Room Air 07/14/16 17:47 98.2 122 20 156/78 Orders Complete Blood Count With Diff (07/14/16 18:19) Comprehensive Metabolic Panel (07/14/16 18:19) Lipase (07/14/16 18:19) Urinalysis - C+S If Indicated (07/14/16 18:19) Iv Access Insert/Monitor (07/14/16 18:19) Ecg Monitoring (07/14/16 18:19) Oximetry (07/14/16 18:19) Sodium Chlor 0.9% 1000 Ml Inj (Ns 1000 M (07/14/16 18:19) Sodium Chloride 0.9% Flush (Ns Flush) (07/14/16 18:30) Electrocardiogram (07/14/16 18:26) Ckmb (Isoenzyme) Profile (07/14/16 18:26) Troponin I (07/14/16 18:26) Chest, Single Ap (07/14/16 18:26) Sodium Chloride 0.9% Flush (Ns Flush) (07/14/16 18:30) Sodium Chlor 0.9% 1000 Ml Inj (Ns 1000 M (07/14/16 19:20) Dext 5%-Nacl 0.9% 1000 Ml Inj (D5w-Ns 10 (07/14/16 19:20) Insulin Human Regular Inj (Novolin R Inj (07/14/16 19:30) Insulin Regular (Iv Infusion) (Novolin R (07/14/16 19:30) Potassium Chlor 20 Meq Premix (Kcl 20 Me (07/14/16 19:30) Potassium Chlor 20 Meq Premix (Kcl 20 Me (07/14/16 19:30) Potassium Chlor 20 Meq Premix (Kcl 20 Me (07/14/16 19:30) Potassium Chlor 20 Meq Premix (Kcl 20 Me (07/14/16 19:30) Sodium Chlor 0.9% 1000 Ml Inj (Ns 1000 M (07/14/16 19:27) Admit Order (Ed Use Only) (07/14/16 19:48) Labs Laboratory Tests Test 07/14/16 18:20 White Blood Count 7.6 TH/MM3 Red Blood Count 5.80 MIL/MM3 Hemoglobin 16.1 GM/DL Hematocrit 48.7 % Mean Corpuscular Volume 84.0 FL Mean Corpuscular Hemoglobin 27.8 PG Mean Corpuscular Hemoglobin 33.1 % Concent Red Cell Distribution Width 12.4 % Platelet Count 347 TH/MM3 Mean Platelet Volume 10.7 FL Neutrophils (%) (Auto) 50.8 % Lymphocytes (%) (Auto) 39.0 % Monocytes (%) (Auto) 8.9 % Eosinophils (%) (Auto) 0.8 % Basophils (%) (Auto) 0.5 % Neutrophils # (Auto) 3.8 TH/MM3 Lymphocytes # (Auto) 2.9 TH/MM3 Monocytes # (Auto) 0.7 TH/MM3 Eosinophils # (Auto) 0.1 TH/MM3 Basophils # (Auto) 0.0 TH/MM3 CBC Comment DIFF FINAL Differential Comment Urine Color STRAW Urine Turbidity CLEAR Urine pH 5.0 Urine Specific [place] 1.027 Urine Protein NEG mg/dL Urine Glucose (UA) 1000 mg/dL Urine Ketones TRACE mg/dL Urine Occult Blood NEG Urine Nitrite NEG Urine Bilirubin NEG Urine Urobilinogen LESS THAN 2.0 MG/DL Urine Leukocyte Esterase NEG Urine RBC LESS THAN 1 /hpf Urine WBC LESS THAN 1 /hpf Microscopic Urinalysis Comment CULT NOT INDICATED Sodium Level 120 MEQ/L Potassium Level 4.2 MEQ/L Chloride Level 81 MEQ/L Carbon Dioxide Level 28.8 MEQ/L Anion Gap 10 MEQ/L Blood Urea Nitrogen 27 MG/DL Creatinine 1.48 MG/DL Estimat Glomerular Filtration 53 ML/MIN Rate Random Glucose 927 MG/DL Calcium Level 10.1 MG/DL Total Bilirubin 0.8 MG/DL Aspartate Amino Transf 6 U/L (AST/SGOT) Alanine Aminotransferase 16 U/L (ALT/SGPT) Alkaline Phosphatase 102 U/L Total Creatine Kinase 26 U/L Troponin I LESS THAN 0.02 NG/ML Total Protein 8.4 GM/DL Albumin 4.1 GM/DL Lipase 1057 U/L [facility] Medical Decision Making Medical Screen Exam Complete: Yes Emergency Medical Condition: Yes Differential Diagnosis Hyperglycemia versus DKA versus dehydration versus electrolyte abnormality versus neuropathy Narrative Course 35-year-old male presents to the emergency department for evaluation of hyperglycemia and abdominal pain for 3 days. Patient is afebrile, vital signs are stable. He has generalized abdominal tenderness but no peritoneal signs. Likely secondary to hyperglycemia or DKA. IV access is obtained, labs were drawn and sent. Patient is administered IV fluids. EKG shows normal sinus tachycardia with ventricular rate of 118 bpm, no acute ST elevations or depressions. Chest x-ray is negative. CBC is unremarkable. CMP shows sodium of 120 which corrected based on glucose is 132. Significant hyperglycemia with glucose of 927. Acute kidney injury with a creatinine of 1.48, BUN 27, GFR 53. Lipase is elevated at 1057. Cardiac enzymes are negative. Urinalysis shows glucosuria and trace ketones. Based on the labs patient has pancreatitis, acute kidney injury and hyperosmolar nonketotic hyperglycemia. Patient has been administered 2 L of IV fluid, is on maintenance fluid, 6 units of insulin IV and is placed on an insulin drip. He will be admitted to medicine service. I discussed the case with my attending physician Dr. Rico who is aware of the patients history, physical examination findings, and treatment plan. Physician Communication Physician Communication I spoke with Dr. Dumont [facility] who agrees to admit the patient to his service. Diagnosis Primary Impression: Uncontrolled type 2 DM with hyperosmolar nonketotic hyperglycemia Additional Impression: Pancreatitis Qualified Code: K85.90 - Acute pancreatitis, unspecified complication status, unspecified pancreatitis type Admitting Information Admitting Physician Requests: Admit Ursula Dan Jul 14, 2016 18:28
[2016-07-14 18:30] VITALS: O2SAT 98
[2016-07-14] MEDS ORDERED: SODIUM CHLORIDE 0.9% FLUSH 10 ML FLUSH IVF PRN ×2 (18:30→20:00)
[2016-07-14] MEDS ORDERED: SODIUM CHLORIDE 0.9% FLUSH 10 ML FLUSH IV FLUSH PRN (18:30)
[2016-07-14 18:40] LABS: AUTOMATED NEUTROPHIL # 3.8 TH/MM3 (1.8-7.7); BASOPHIL % 0.5 % (0.0-2.0); EOSINOPHIL # 0.1 TH/MM3 (0-0.4); EOSINOPHIL % 0.8 % (0.0-4.0); HEMATOCRIT 48.7 % (39.0-51.0); HEMO FLAGS DIFF FINAL; LYMPHOCYTE # 2.9 TH/MM3 (1.0-4.8); MEAN CORPUSCULAR HEMOGLOBIN 27.8 PG (27.0-34.0); MEAN CORPUSCULAR HGB CONC 33.1 % (32.0-36.0); MONO % 8.9 % (0.0-8.0); NEUT % 50.8 % (16.0-70.0); PLATELET COUNT 347 TH/MM3 (150-450); RED CELL DISTRIBUTION WIDTH 12.4 % (11.6-17.2); WHITE BLOOD COUNT 7.6 TH/MM3 (4.0-11.0)
[2016-07-14 18:51] LABS: BLOOD, URINE NEG (NEG); GLUCOSE,URINE 1000 mg/dL (NEG); KETONE, URINE TRACE mg/dL (NEG); NITRITE,URINE NEG (NEG)
[2016-07-14 18:52] LABS: COMMENT (UR) CULT NOT INDICATED; CULTURE IF INDICATED CULT NOT INDICATED; URINE COLOR STRAW (YELLW/STRAW)
[2016-07-14 19:11] LABS: ALKALINE PHOSPHATASE 102 U/L (45-117); ALT (GPT) 16 U/L (12-78); ANION GAP 10 MEQ/L (5-15); AST (GOT) 6 U/L (15-37); BICARBONATE 28.8 MEQ/L (21.0-32.0); BLOOD UREA NITROGEN 27 MG/DL (7-18); CHLORIDE 81 MEQ/L (98-107); GLOMERULAR FILTRATION RATE 53 ML/MIN (>89); POTASSIUM 4.2 MEQ/L (3.5-5.1); TOTAL BILIRUBIN ADULT 0.8 MG/DL (0.2-1.0)
[2016-07-14 19:14] LABS: SODIUM (NA) 120 MEQ/L (136-145)
--- NOTE | 2016-07-14 19:16 | RADRPT ---
EXAM DATE/TIME: 07/14/2016 19:07 [place] COMPARISON: CHEST SINGLE AP, June 08, 2016, 12:15. INDICATIONS : Epigastric pain and high blood sugar levels for several days. MEDICAL HISTORY : Hypertension. Polyuria. Diabetes. Hyperlipidemia. SURGICAL HISTORY : Right knee ligament repair. ENCOUNTER: Initial ACUITY: 2 days PAIN SCORE: 3/10 LOCATION: Bilateral chest FINDINGS: A single view of the chest demonstrates the lungs to be symmetrically aerated without evidence of mas s, infiltrate or effusion. The cardiomediastinal contours are unremarkable. Osseous structures are intact. CONCLUSION: No acute disease. Mark Avilez MD on July 14, 2016 at 19:14 Board Certified Radiologist. This report was verified electronically.
[2016-07-14] MEDS ORDERED: DEXT 5%-NACL 0.9% 1000 ML INJ 1,000 ML IV SCH (19:20)
[2016-07-14 19:21] LABS: CREATINE KINASE 26 U/L (39-308)
[2016-07-14] MEDS ORDERED: INSULIN REGULAR (IV INFUSION) 100 UNITS in SODIUM CHLORIDE 0.9% INJ 99 ML IV SCH (19:30)
[2016-07-14] MEDS ORDERED: INSULIN HUMAN REGULAR 1,000 UNITS/10 ML VIAL IV PUSH ONE (19:30)
[2016-07-14] MEDS ORDERED: POTASSIUM CHLOR 20 MEQ PREMIX 100 ML IV PRN ×4 (19:30)
--- NOTE | 2016-07-14 19:46 | PD ---
Physical Exam Narrative I, Dr. Rico, have reviewed the advance practice practitioner's documentation and am in agreement, met with the patient face to face, made the diagnosis, and the medical decision making was done by me. *My assessment and Findings: DKA vs. hyperosmolar nonketonic hyperglycemia vs. dehydration 35yo M with IDDM, diabetic neuropathy here with c/o high sugar. States he has not been taking levemir because of insurance issues. Pt has been feeling dizzy , generalized weakness and knows that his sugar is really high from his previous experience. Labs reviewed, no leukocytosis. Glucose is elevated at 927 and corrected sodium is 132. BUN/creatinine also elevated at 27/1.48 which is elevated from baseline. CO2 is normal at 28.8 with no increased anion gap. K: 4.2. Impression is more hyperosmolar nonketonic hyperglycemia although urine had trace ketone. Pt given NS IVF x2. Will give pt 6 units of insulin and start pt on insulin drip and potassium replacement since he is still not eating. Abdominal exam is unremarkable and abdominal pain may be due to elevated glucose. Lipase elevated at 1057, cannot exclude pancreatitis although exam was not too remarkable. Accepted to Dr. Dumont's service. Data Data Last Documented VS Vital Signs Date Time Temp Pulse Resp B/P Pulse Ox O2 Delivery O2 Flow Rate FiO2 07/14/16 18:30 98 Room Air 07/14/16 17:47 98.2 122 20 156/78 Orders Complete Blood Count With Diff (07/14/16 18:19) Comprehensive Metabolic Panel (07/14/16 18:19) Lipase (07/14/16 18:19) Urinalysis - C+S If Indicated (07/14/16 18:19) Iv Access Insert/Monitor (07/14/16 18:19) Ecg Monitoring (07/14/16 18:19) Oximetry (07/14/16 18:19) Sodium Chlor 0.9% 1000 Ml Inj (Ns 1000 M (07/14/16 18:19) Sodium Chloride 0.9% Flush (Ns Flush) (07/14/16 18:30) Electrocardiogram (07/14/16 18:26) Ckmb (Isoenzyme) Profile (07/14/16 18:26) Troponin I (07/14/16 18:26) Chest, Single Ap (07/14/16 18:26) Sodium Chloride 0.9% Flush (Ns Flush) (07/14/16 18:30) Sodium Chlor 0.9% 1000 Ml Inj (Ns 1000 M (07/14/16 19:20) Dext 5%-Nacl 0.9% 1000 Ml Inj (D5w-Ns 10 (07/14/16 19:20) Insulin Human Regular Inj (Novolin R Inj (07/14/16 19:30) Insulin Regular (Iv Infusion) (Novolin R (07/14/16 19:30) Potassium Chlor 20 Meq Premix (Kcl 20 Me (07/14/16 19:30) Potassium Chlor 20 Meq Premix (Kcl 20 Me (07/14/16 19:30) Potassium Chlor 20 Meq Premix (Kcl 20 Me (07/14/16 19:30) Potassium Chlor 20 Meq Premix (Kcl 20 Me (07/14/16 19:30) Sodium Chlor 0.9% 1000 Ml Inj (Ns 1000 M (07/14/16 19:27) Admit Order (Ed Use Only) (07/14/16 19:48) Labs Laboratory Tests Test 07/14/16 18:20 White Blood Count 7.6 TH/MM3 Red Blood Count 5.80 MIL/MM3 Hemoglobin 16.1 GM/DL Hematocrit 48.7 % Mean Corpuscular Volume 84.0 FL Mean Corpuscular Hemoglobin 27.8 PG Mean Corpuscular Hemoglobin 33.1 % Concent Red Cell Distribution Width 12.4 % Platelet Count 347 TH/MM3 Mean Platelet Volume 10.7 FL Neutrophils (%) (Auto) 50.8 % Lymphocytes (%) (Auto) 39.0 % Monocytes (%) (Auto) 8.9 % Eosinophils (%) (Auto) 0.8 % Basophils (%) (Auto) 0.5 % Neutrophils # (Auto) 3.8 TH/MM3 Lymphocytes # (Auto) 2.9 TH/MM3 Monocytes # (Auto) 0.7 TH/MM3 Eosinophils # (Auto) 0.1 TH/MM3 Basophils # (Auto) 0.0 TH/MM3 CBC Comment DIFF FINAL Differential Comment Urine Color STRAW Urine Turbidity CLEAR Urine pH 5.0 Urine Specific [place] 1.027 Urine Protein NEG mg/dL Urine Glucose (UA) 1000 mg/dL Urine Ketones TRACE mg/dL Urine Occult Blood NEG Urine Nitrite NEG Urine Bilirubin NEG Urine Urobilinogen LESS THAN 2.0 MG/DL Urine Leukocyte Esterase NEG Urine RBC LESS THAN 1 /hpf Urine WBC LESS THAN 1 /hpf Microscopic Urinalysis Comment CULT NOT INDICATED Sodium Level 120 MEQ/L Potassium Level 4.2 MEQ/L Chloride Level 81 MEQ/L Carbon Dioxide Level 28.8 MEQ/L Anion Gap 10 MEQ/L Blood Urea Nitrogen 27 MG/DL Creatinine 1.48 MG/DL Estimat Glomerular Filtration 53 ML/MIN Rate Random Glucose 927 MG/DL Calcium Level 10.1 MG/DL Phosphorus Level 4.1 MG/DL Magnesium Level 1.5 MG/DL Total Bilirubin 0.8 MG/DL Aspartate Amino Transf 6 U/L (AST/SGOT) Alanine Aminotransferase 16 U/L (ALT/SGPT) Alkaline Phosphatase 102 U/L Total Creatine Kinase 26 U/L Troponin I LESS THAN 0.02 NG/ML Total Protein 8.4 GM/DL Albumin 4.1 GM/DL Lipase 1057 U/L B-Hydroxybutyrate 0.31 MMOL/L MDM Supervised Visit with KATERINE: Yes Critical Care Narrative Aggregate critical care time was 35 minutes. Time to perform other separately billable procedures was not included in the critical care time. My time did not include minutes spent treating any other patients simultaneously or on activities that did not directly contribute to the patient's treatment. The services I provided to this patient were to treat and/or prevent clinically significant deterioration that could result in: cardiovascular collapse or . I provided critical care services requiring my management, as noted below: Chart data review, documentation time, medication orders and management, vital sign assessments/reviewing monitor data, ordering and reviewing lab tests, ordering and interpreting/reviewing x-rays and diagnostic studies, care of the patient and discussion of the patient with the admitting physicians. Diagnosis Primary Impression: Uncontrolled type 2 DM with hyperosmolar nonketotic hyperglycemia Additional Impression: Pancreatitis Qualified Code: K85.90 - Acute pancreatitis, unspecified complication status, unspecified pancreatitis type Admitting Information Admitting Physician Requests: it Denise Rico DO Jul 14, 2016 19:46
[2016-07-14] MEDS ORDERED: ONDANSETRON HCL 4 MG/2 ML VIAL IV PUSH ONE (20:00)
[2016-07-14] MEDS ORDERED: SODIUM CHLOR 0.9% 1000 ML INJ 1,000 ML IV ONE (20:00)
[2016-07-14 21:20] VITALS: BP 152/88; PULSE 112; RESP 16; O2SAT 98
[2016-07-14] MEDS ORDERED: NALOXONE HCL 0.4 MG/ML AMP IV PRN (21:45)
[2016-07-14 21:48] LABS: BETA-HYDROXYBUTYRATE 0.31 MMOL/L (0.00-0.39); MAGNESIUM 1.5 MG/DL (1.5-2.5)
[2016-07-14 21:49] VITALS: O2SAT 97
--- NOTE | 2016-07-14 22:46 | HHI.HP ---
HPI Service [facility] Primary Care Physician Taryn Martinez MD Admission Diagnosis Hyperosmolar Nonketotic Hyperglycemia, Pancreatitis, PEDRO Diagnoses: Chief Complaint: Abdominal pain nausea vomiting, elevated blood sugar Travel History International Travel<30 Days: No Contact w/Intl Traveler <30 Da: No Traveled to Known Affected Are: No History of Present Illness 5 years old male with history of diabetes mellitus hypertension dyslipidemia diabetic neuropathy presented to the ED with elevation of his blood sugar 927 about 3 days ago along with nausea vomiting and abdominal pain, difficulty can controlling his blood sugar which he attributed it to not being able to get his prescription of Levemir due to insurance issue. Patient stated he has a appointment with Dr. Santo tomorrow morning to get prescription since he got his insurance now. Patient denied any chest pain short of breath diarrhea or constipation or dysuria. Patient started on profuse iv fluid then insulin drip , patient did not have an anion gap or positive ketones Review of Systems Except as stated in HPI: all other systems reviewed are Neg All systems reviewed and was positive for what is mentioned in history of present illness otherwise negative Past Family Social History Past Medical History DM type 2 HTN Dyslipidemia Diabetic neuropathy Chronic back pain Allergies: Coded Allergies: Metformin (Verified Allergy, Intermediate, Hives, 07/14/16) Flexeril (Verified Adverse Reaction, Intermediate, syncope, 07/14/16) Family History Brother and father had diabetes mellitus and kidney failure Social History Quit smoking 10 months ago, denied alcohol or illicit drug abuse Physical Exam Vital Signs Vital Signs Date Time Temp Pulse Resp B/P Pulse Ox O2 Delivery O2 Flow Rate FiO2 07/14/16 21:49 97 07/14/16 21:20 112 16 152/88 98 Room Air 07/14/16 18:30 98 Room Air 07/14/16 17:47 98.2 122 20 156/78 99 Physical Exam GENERAL: This is a well-nourished, well-developed patient, in no apparent distress. SKIN: No rashes, warm and dry HEAD: Atraumatic. Normocephalic. EYES: Pupils equal round and reactive. Extraocular motions intact. No scleral icterus. ENT: Nose without bleeding, or drainage, Airway patent. NECK: Trachea midline. Supple CARDIOVASCULAR: Regular rate and rhythm without murmurs, gallops, or rubs. RESPIRATORY: Fair air entry bilaterally. No wheezes, rales, or rhonchi. GASTROINTESTINAL: Abdomen soft, tender to palpation mostly in the epigastric area, nondistended. Positive bowel sounds MUSCULOSKELETAL: Extremities without clubbing, cyanosis, or edema. Pedal pulses appreciated NEUROLOGICAL: Awake and alert. Moves all extremity. Normal speech.no focal neurological deficit Laboratory Laboratory Tests Test 07/14/16 18:20 White Blood Count 7.6 Red Blood Count 5.80 Hemoglobin 16.1 Hematocrit 48.7 Mean Corpuscular Volume 84.0 Mean Corpuscular Hemoglobin 27.8 Mean Corpuscular Hemoglobin 33.1 Concent Red Cell Distribution Width 12.4 Platelet Count 347 Mean Platelet Volume 10.7 Neutrophils (%) (Auto) 50.8 Lymphocytes (%) (Auto) 39.0 Monocytes (%) (Auto) 8.9 Eosinophils (%) (Auto) 0.8 Basophils (%) (Auto) 0.5 Neutrophils # (Auto) 3.8 Lymphocytes # (Auto) 2.9 Monocytes # (Auto) 0.7 Eosinophils # (Auto) 0.1 Basophils # (Auto) 0.0 CBC Comment DIFF FINAL Differential Comment Urine Color STRAW Urine Turbidity CLEAR Urine pH 5.0 Urine Specific [place] 1.027 Urine Protein NEG Urine Glucose (UA) 1000 Urine Ketones TRACE Urine Occult Blood NEG Urine Nitrite NEG Urine Bilirubin NEG Urine Urobilinogen LESS THAN 2.0 Urine Leukocyte Esterase NEG Urine RBC LESS THAN 1 Urine WBC LESS THAN 1 Microscopic Urinalysis Comment CULT NOT INDICATED Sodium Level 120 Potassium Level 4.2 Chloride Level 81 Carbon Dioxide Level 28.8 Anion Gap 10 Blood Urea Nitrogen 27 Creatinine 1.48 Estimat Glomerular Filtration 53 Rate Random Glucose 927 Calcium Level 10.1 Phosphorus Level 4.1 Magnesium Level 1.5 Total Bilirubin 0.8 Aspartate Amino Transf 6 (AST/SGOT) Alanine Aminotransferase 16 (ALT/SGPT) Alkaline Phosphatase 102 Total Creatine Kinase 26 Troponin I LESS THAN 0.02 Total Protein 8.4 Albumin 4.1 Lipase 1057 B-Hydroxybutyrate 0.31 Result Diagram: 07/14/16181907/14/161819 Imaging Last Impressions Chest X-Ray 07/14/161825 Signed Impressions: Service Date/Time: Thursday, July 14, 2016 19:07 - CONCLUSION: No acute disease. Mark Avilez MD Assessment and Plan Assessment and Plan 35 years old male with history of hypertension diabetes mellitus type, hyperlipidemia came with HHS: Blood sugar 990 Abdominal epigastric pain with nausea and vomiting due to HHS and acute pancreatitis Severe dehydration due to HHS Pseudohyponatremia Prerenal azotemia with PEDRO Acute pancreatitis with increased lipase 1057 Hypertension Hyperlipidemia Diabetic neuropathy DVT prophylaxis Plan: Patient admitted to the ICU for close monitoring Started on bolus normal saline iv fluid 2 L, then maintenance 1 50 cc/h BG every hour BMP mag and phosphorus every 6 hours Close monitoring with replacement of the electrolyte with iv magnesium sulfate and K-Phos Keep on clear liquid due to acute pancreatitis Patient was discharged recently on 25 of Levemir daily at bedtime, will give only 5 units and cover with high-level insulin sliding scale considering patient is only on clear liquid Repeat lipase in a.m. Critical care time 60 minutes Discussed Condition With Patient in ED physician Physician Certification 2 Midnight Certification Type: Admission for Inpatient Services Order for Inpatient Services The services are ordered in accordance with Medicare regulations or non- Medicare payer requirements, as applicable. In the case of services not specified as inpatient-only, they are appropriately provided as inpatient services in accordance with the 2-midnight benchmark. Estimated LOS (days): 2 days is the estimated time the patient will need to remain in the hospital, assuming treatment plan goals are met and no additional complications. Post-Hospital Plan: Not yet determined Radha Dumont MD Jul 14, 2016 22:46
[2016-07-14 23:02] LABS: BICARBONATE 26.2 MEQ/L (21.0-32.0); MAGNESIUM 1.3 MG/DL (1.5-2.5); POTASSIUM 3.8 MEQ/L (3.5-5.1)
[2016-07-14] MEDS: MAGNESIUM SULFATE 1 GM PREMIX 100 ML IV SCH (23:19)
[2016-07-14] MEDS: SODIUM CHLOR 0.9% 1000 ML INJ 1,000 ML IV SCH (23:19)
[2016-07-15] VITALS (14 sets, daily range): BP systolic 110–141; BP diastolic 67–91; PULSE 84–116; RESP 15–18; TEMP 97–98.6; O2SAT 95–100
[2016-07-15] MEDS ORDERED: POTASSIUM PHOSPHATE INJ 30 MMOL in SODIUM CHLOR 0.9% 250 ML INJ 250 ML IV ONE ×2
[2016-07-15] MEDS: MAGNESIUM SULFATE 1 GM PREMIX 100 ML IV SCH (00:40)
[2016-07-15] MEDS ORDERED: MORPHINE SULFATE 4 MG/ML INJ IV PUSH ONE (04:30)
[2016-07-15] MEDS ORDERED: DEXTROSE 50% IN WATER 50 ML VIAL(D50) IV PRN (04:30)
[2016-07-15] MEDS: INSULIN DETEMIR 100 UNITS/ML VIAL SQ SCH ×3 (04:30→20:18)
[2016-07-15] MEDS ORDERED: GLUCAGON 1 MG/ML VIAL OTHER PRN (04:30)
[2016-07-15] MEDS: SODIUM CHLOR 0.9% 1000 ML INJ 1,000 ML IV SCH ×3 (04:54→20:24)
[2016-07-15] MEDS: HEPARIN SODIUM - SQ 10,000 UNITS/ML VIAL SQ SCH ×3 (05:09→23:26)
[2016-07-15] MEDS ORDERED: CHLORHEXIDINE GLUCONATE 2 % 1 PACK (2 CLOTHS)(extra cloths) TOPICAL PRN (05:15)
[2016-07-15 05:40] LABS: AUTOMATED NEUTROPHIL # 2.1 TH/MM3 (1.8-7.7); BASOPHIL # 0.1 TH/MM3 (0-0.2); BASOPHIL % 0.8 % (0.0-2.0); EOSINOPHIL # 0.1 TH/MM3 (0-0.4); EOSINOPHIL % 1.8 % (0.0-4.0); HEMATOCRIT 36.2 % (39.0-51.0); LYMPH % 57.3 % (9.0-44.0); LYMPHOCYTE # 3.7 TH/MM3 (1.0-4.8); MEAN CELL VOLUME 80.5 FL (80.0-100.0); MEAN CORPUSCULAR HEMOGLOBIN 27.6 PG (27.0-34.0); MEAN CORPUSCULAR HGB CONC 34.3 % (32.0-36.0); MONO % 7.4 % (0.0-8.0); NEUT % 32.7 % (16.0-70.0); PLATELET COUNT 237 TH/MM3 (150-450); RED BLOOD COUNT 4.49 MIL/MM3 (4.50-5.90); RED CELL DISTRIBUTION WIDTH 12.5 % (11.6-17.2); WHITE BLOOD COUNT 6.5 TH/MM3 (4.0-11.0)
[2016-07-15 05:44] LABS: HEMO FLAGS AUTO DIFF
[2016-07-15 06:03] LABS: BICARBONATE 25.6 MEQ/L (21.0-32.0); POTASSIUM 4.2 MEQ/L (3.5-5.1)
[2016-07-15 06:59] LABS: SCAN/DIFF AUTO DIFF CONFIRMED
[2016-07-15] MEDS ORDERED: INSULIN ASPART SUPPLEMENTAL SCALE SQ SCH (07:00)
[2016-07-15] MEDS: POTASSIUM PHOSPHATE MONOBASIC 500 MG TAB PO SCH ×2 (08:08→20:15)
[2016-07-15] MEDS: MORPHINE SULFATE 4 MG/ML INJ IV PUSH PRN ×4 (08:57→23:29)
[2016-07-15 09:36] LABS: BICARBONATE 25.7 MEQ/L (21.0-32.0); MAGNESIUM 1.3 MG/DL (1.5-2.5); POTASSIUM 3.5 MEQ/L (3.5-5.1)
[2016-07-15] MEDS: INSULIN ASPART SUPPLEMENTAL SCALE SQ SCH ×3 (11:18→20:18)
[2016-07-15] MEDS ORDERED: POTASSIUM PHOSPHATE MONOBASIC 500 MG TAB PO/TUBE PRN (12:45)
[2016-07-15] MEDS ORDERED: MAGNESIUM SULFATE INJ 4 GM in SODIUM CHLORIDE 0.9% INJ 92 ML IV PRN (12:45)
[2016-07-15] MEDS ORDERED: MAGNESIUM SULFATE INJ 2 GM in SODIUM CHLORIDE 0.9% INJ 96 ML IV PRN (12:45)
[2016-07-15] MEDS ORDERED: POTASSIUM CHLORIDE 25 MEQ EFFERVESCENT TAB PO PRN (12:45)
[2016-07-15] MEDS ORDERED: SODIUM PHOSPHATE INJ 30 MMOL in SODIUM CHLOR 0.9% 250 ML INJ 240 ML IV PRN (12:45)
[2016-07-15] MEDS ORDERED: MAGNESIUM OXIDE 400 MG TAB PO PRN (12:45)
[2016-07-15] MEDS ORDERED: POTASSIUM PHOSPHATE MONOBASIC 500 MG TAB PO PRN (12:45)
[2016-07-15] MEDS ORDERED: POTASSIUM CHLOR 40 MEQ PREMIX 100 ML IV PRN ×2 (12:45)
[2016-07-15] MEDS ORDERED: POTASSIUM CHLOR 20 MEQ PREMIX 100 ML IV PRN ×2 (12:45)
[2016-07-15] MEDS ORDERED: POTASSIUM PHOSPHATE INJ 30 MMOL in SODIUM CHLOR 0.9% 250 ML INJ 250 ML IV PRN (12:45)
[2016-07-15 13:29] LABS: POTASSIUM 3.5 MEQ/L (3.5-5.1)
--- NOTE | 2016-07-15 14:04 | HHI.PR ---
Subjective Remarks Patient stated his abdominal pain is improving. Deny nausea vomiting. He stated that he wants to try a more solid diet. He stated that pain does not worsen with his clear liquid diet Patient stated that he was not able to get Levemir because he could not afford it. He stated that he needs a refill on all his medication and diet diabetes supply. 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 Objective Vitals Vital Signs Date Time Temp Pulse Resp B/P Pulse Ox O2 Delivery O2 Flow Rate FiO2 07/15/16 12:00 98.6 95 15 130/89 95 07/15/16 12:00 95 07/15/16 10:00 103 07/15/16 09:45 98 07/15/16 09:30 18 07/15/16 08:00 97.6 102 15 130/86 98 07/15/16 08:00 102 07/15/16 06:00 101 07/15/16 04:00 98.4 96 18 124/74 99 07/15/16 04:00 96 07/15/16 02:28 98.4 99 16 139/85 100 07/15/16 01:15 96 17 110/67 96 Room Air 07/14/16 21:49 97 07/14/16 21:20 112 16 152/88 98 Room Air 07/14/16 18:30 98 Room Air 07/14/16 17:47 98.2 122 20 156/78 99 I/O 07/14/16 07/14/16 07/14/16 07/15/16 07/15/16 07/15/16 07:00 15:00 23:00 07:00 15:00 23:00 Intake Total 1510 ml Output Total 1000 ml 550 ml Balance -1000 ml 960 ml Intake Oral 240 ml IV Total 1270 ml Output Urine Total 1000 ml 550 ml # Voids 2 Result Diagram: 07/15/16 0513 07/15/16 1230 Objective Remarks GENERAL: in NAD CARDIOVASCULAR: Regular rate and rhythm without murmurs, gallops, or rubs. RESPIRATORY: Breath sounds equal bilaterally. No accessory muscle use. GASTROINTESTINAL: Abdomen soft, mild epigastric pain, nondistended. MUSCULOSKELETAL: No cyanosis, or edema. BACK: Nontender without obvious deformity. No CVA tenderness. A/P Assessment and Plan 35 years old male with history of hypertension diabetes mellitus type, hyperlipidemia came with HHS mild: - Blood sugar 990 and improved drastically with insulin. -Secondary to noncompliance with medication. Per patient he did not have money just got assistance. He stated he is not able to get Levemir. -Will adjust insulin and dose Levemir 5 units SQ twice a day. Will also continue with high-dose insulin sliding scale and adjust accordingly. -Extensive education given on compliance. Acute pancreatitis -Improving. -Advanced diet as tolerated. -Continue supportive care. Continue with IV fluids. Hypomagnesemia/hypophosphatemia -Replaced as needed. Pseudohyponatremia -Resolved. Prerenal azotemia with PEDRO -Resolved quickly after giving IV fluids. Hypertension/Hyperlipidemia/Diabetic neuropathy -Resume home medication. DVT prophylaxis -On heparin Discharge Planning Clinically patient is improving. He can be transferred out of the ICU. Britni Lainez MD Jul 15, 2016 14:03
[2016-07-15] MEDS ORDERED: PILL SPLITTER OTHER PRN (14:15)
[2016-07-15] MEDS: GEMFIBROZIL 600 MG TAB PO SCH (16:00)
--- NOTE | 2016-07-15 19:15 | EKG ---
Date Performed: 07/14/2016 Time Performed: 18:37:06 PTAGE: 35 years EKG: SINUS TACHYCARDIA NON-SPECIFIC ST/T WAVE CHANGES ABNORMAL RHYTHM ECG Compared to the PREVIOUS TRACING from 06/08/16, no significant change DOCTOR: Bert Pierce Interpretating Date/Time 07/15/2016 19:14:46
[2016-07-15] MEDS: traZODone HCL 100 MG TAB PO SCH (20:14)
[2016-07-15] MEDS: ATORVASTATIN 40 MG TAB PO SCH (20:15)
[2016-07-16] VITALS (9 sets, daily range): BP systolic 117–128; BP diastolic 71–83; PULSE 86–108; RESP 14–20; TEMP 96.5–98.8; O2SAT 97–99
[2016-07-16] MEDS: CHLORHEXIDINE GLUCONATE 2 % 1 PACK (2 CLOTHS)(taper/protocol) TOPICAL SCH (04:00)
[2016-07-16] MEDS: MORPHINE SULFATE 4 MG/ML INJ IV PUSH PRN ×5 (04:01→21:53)
[2016-07-16] MEDS: HEPARIN SODIUM - SQ 10,000 UNITS/ML VIAL SQ SCH ×3 (05:48→21:53)
[2016-07-16] MEDS: GEMFIBROZIL 600 MG TAB PO SCH ×2 (05:48→18:12)
[2016-07-16] MEDS: INSULIN ASPART SUPPLEMENTAL SCALE SQ SCH ×4 (05:55→21:56)
[2016-07-16] MEDS: SODIUM CHLOR 0.9% 1000 ML INJ 1,000 ML IV SCH ×3 (06:46→21:56)
[2016-07-16] MEDS: LISINOPRIL 5 MG TAB PO SCH (08:03)
[2016-07-16] MEDS: INSULIN DETEMIR 100 UNITS/ML VIAL SQ SCH ×2 (08:11→21:55)
[2016-07-16 08:54] LABS: MEAN CELL VOLUME 81.6 FL (80.0-100.0); MEAN CORPUSCULAR HEMOGLOBIN 28.2 PG (27.0-34.0); MEAN CORPUSCULAR HGB CONC 34.6 % (32.0-36.0); PLATELET COUNT 271 TH/MM3 (150-450); RED BLOOD COUNT 4.53 MIL/MM3 (4.50-5.90); RED CELL DISTRIBUTION WIDTH 12.6 % (11.6-17.2); REVIEW FLAG FINAL; WHITE BLOOD COUNT 7.2 TH/MM3 (4.0-11.0)
[2016-07-16 09:20] LABS: BICARBONATE 26.6 MEQ/L (21.0-32.0); MAGNESIUM 1.1 MG/DL (1.5-2.5); POTASSIUM 3.4 MEQ/L (3.5-5.1)
[2016-07-16] MEDS ORDERED: POTASSIUM CHLORIDE 10 MEQ CONTROLLED RELEASE TAB PO ONE (16:00)
--- NOTE | 2016-07-16 16:01 | HHI.PR ---
Subjective Remarks Follow-up for uncontrolled diabetes and pancreatitis Patient stated that he wasn't able to tolerate regular diet and that he had to go back to soft diet. He continues abdominal pain with oral intake. Denied nausea or vomiting. He remains afebrile. Otherwise he has no complaints. Objective Vitals Vital Signs Date Time Temp Pulse Resp B/P Pulse Ox O2 Delivery O2 Flow Rate FiO2 07/16/16 13:07 18 07/16/16 12:00 97.7 100 14 128/83 98 07/16/16 10:30 97 21 07/16/16 08:11 89 07/16/16 08:00 97.4 86 20 124/82 99 07/16/16 04:00 96.5 92 16 120/74 98 07/16/16 00:22 98 07/16/16 00:00 97.3 89 16 117/71 98 07/15/16 20:54 116 07/15/16 19:34 99 21 07/15/16 18:55 97.0 100 18 141/83 99 07/15/16 18:00 84 07/15/16 16:00 98.4 85 15 127/91 99 07/15/16 16:00 85 I/O 07/15/16 07/15/16 07/15/16 07/16/16 07/16/16 07/16/16 07:00 15:00 23:00 07:00 15:00 23:00 Intake Total 1510 ml 2359 ml 480 ml 360 ml 960 ml Output Total 550 ml 1125 ml 1700 ml 2660 ml 1925 ml Balance 960 ml 1234 ml -1220 ml -2300 ml -965 ml Intake Oral 240 ml 1200 ml 480 ml 360 ml 960 ml IV Total 1270 ml 1159 ml Output Urine Total 550 ml 1125 ml 1700 ml 2660 ml 1925 ml # Bowel Movements 0 1 1 Result Diagram: 07/16/1683207/16/1633 Objective Remarks GENERAL: in NAD CARDIOVASCULAR: Regular rate and rhythm without murmurs, gallops, or rubs. RESPIRATORY: Breath sounds equal bilaterally. No accessory muscle use. GASTROINTESTINAL: Abdomen soft, mild epigastric pain, nondistended. MUSCULOSKELETAL: No cyanosis, or edema. BACK: Nontender without obvious deformity. No CVA tenderness. Medications and IVs Current Medications Sodium Chloride (NS 1000 ml Inj) 1,000 ml @ 1,000 mls/hr Q1H IV Last administered on 07/14/16 18:30; Start 07/14/16 at 18:19; Stop 07/14/16 at 19:18; Status DC Sodium Chloride (NS Flush) 2 ml UNSCH PRN IV FLUSH FLUSH AFTER USING IV ACCESS ; Start 07/14/16 at 18:30; Stop 07/15/16 at 00:05; Status DC Sodium Chloride 2 ml 2 ml UNSCH PRN IVF FLUSH AFTER USING IV ACCESS; Start 07/14 at 18:30 Sodium Chloride 1,000 ml @ 250 mls/hr Q4H IV Last administered on 07/14/16 19: 39; Start 07/14/16 at 19:20; Stop 07/14/16 at 22:36; Status DC Dextrose/Sodium Chloride (D5W-NS 1000 ml Inj) 1,000 ml @ 200 mls/hr Q5H IV ; Start 07/14/16 at 19:20; Stop 07/14/16 at 22:36; Status DC Insulin Human Regular 6 units 6 units BOLUS ONCE IV PUSH Last administered on 07/14/16 19:40; Start 07/14/16 at 19:30; Stop 07/15/16 at 10:27; Status DC Insulin Human Regular 100 units/ Sodium Chloride 100 ml @ 0 mls/hr TITRATE IV Last administered on 07/14/16 20:01; Start 07/14/16 at 19:30; Stop 07/14/16 at 22: 37; Status DC Potassium Chloride 100 ml @ 50 mls/hr Q2H PRN IV SEE LABEL COMMENTS; Start 07/14/16 at 19:30; Stop 07/14/16 at 22:37; Status DC Potassium Chloride 100 ml @ 50 mls/hr Q2H PRN IV SEE LABEL COMMENTS; Start 07/14/16 at 19:30; Stop 07/14/16 at 22:37; Status DC Potassium Chloride 100 ml @ 50 mls/hr Q2H PRN IV SEE LABEL COMMENTS Last administered on 07/14/16 20:25; Start 07/14/16 at 19:30; Stop 07/14/16 at 22:38; Status DC Potassium Chloride 100 ml @ 50 mls/hr Q2H PRN IV SEE LABEL COMMENTS; Start 07/14/16 at 19:30; Stop 07/14/16 at 22:38; Status DC Sodium Chloride (NS 1000 ml Inj) 1,000 ml @ 1,000 mls/hr Q1H IV Last administered on 07/14/16 19:38; Start 07/14/16 at 19:27; Stop 07/14/16 at 20:26; Status DC Ondansetron HCl 4 mg 4 mg ONCE ONCE IV PUSH Last administered on 07/14/16 20: 00; Start 07/14/16 at 20:00; Stop 07/14/16 at 20:01; Status DC Sodium Chloride (NS 1000 ml Inj) 1,000 ml @ 2,000 mls/hr Q30M ONCE IV Last administered on 07/14/16 20:38; Start 07/14/16 at 20:00; Stop 07/14/16 at 20:29; Status DC Sodium Chloride (NS Flush) 2 ml UNSCH PRN IVF FLUSH AFTER USING IV ACCESS; Start 07/14/16 at 20:00 Heparin Sodium (Porcine) (Heparin Inj) 5,000 units Q8HR SQ Last administered on 07/16/16 05:48; Start 07/15/16 at 06:00 Naloxone HCl 0.4 mg 0.4 mg UNSCH PRN IV SEE LABEL COMMENTS; Start 07/14/16 at 21 :45 Magnesium Sulfate/ Dextrose 100 ml @ 100 mls/hr Q1H IV Last administered on 00:40; Start 07/14/16 at 22:15; Stop 07/15/16 at 00:14; Status DC Sodium Chloride 1,000 ml @ 200 mls/hr Q5H IV Last administered on 07/16/16 06: 46; Start 07/14/16 at 23:00 Potassium Phosphate/Sodium Chloride (Potassium Phosphate Inj/NS 250 ml Inj) 260 ml @ 43.333 mls/ hr ONCE ONCE IV Last administered on 07/15/16 01:15; Start 07/15/16 at 00:00; Stop 07/15/16 at 05:59; Status DC Potassium Phosphate (K-Phos) 500 mg Q12HR PO Last administered on 07/15/16 20: 15; Start 07/15/16 at 09:00; Stop 07/16/16 at 08:59; Status DC Dextrose (D50w (Vial) Inj) 50 ml UNSCH PRN IV HYPOGLYCEMIA-SEE COMMENTS; Start 07/15/16 at 04:30 Glucagon (Glucagon Inj) 1 mg UNSCH PRN OTHER HYPOGLYCEMIA-SEE COMMENTS; Start 07/15/16 at 04:30 Insulin Aspart (NovoLOG SUPPLEMENTAL SCALE) 1 ACHS SLIDING SCALE SQ Last administered on 07/15/16 07:05; Start 07/15/16 at 07:00; Stop 07/15/16 at 10:51; Status DC Insulin Detemir (Levemir Inj) 5 units DAILY SQ Last administered on 07/15/16 08 :09; Start 07/15/16 at 04:30; Stop 07/15/16 at 10:27; Status DC Morphine Sulfate (Morphine Inj) 2 mg Q4H PRN IV PUSH PAIN 1-10 Last administered on 07/16/16 13:01; Start 07/15/16 at 04:30 Morphine Sulfate (Morphine Inj) 4 mg ONCE ONCE IV PUSH Last administered on 04:48; Start 07/15/16 at 04:30; Stop 07/15/16 at 04:35; Status DC Miscellaneous Information Patient in critical care unit? Ass... [id number] .XX Last administered on 07/15/16 05:09; Start 07/15/16 at 05:15 Chlorhexidine Gluconate (Chlorhexidine 2% Cloth) 3 pack DAILY@04 TOPICAL Last administered on 07/16/16 04:00; Start 07/16/16 at 04:00; Stop 07/20/16 at 04:01 Chlorhexidine Gluconate (Chlorhexidine 2% Cloth) 3 pack UNSCH PRN TOPICAL HYGIENIC CARE; Start 07/15/16 at 05:15; Stop 07/20/16 at 05:06 Insulin Aspart (NovoLOG SUPPLEMENTAL SCALE) 1 ACHS SLIDING SCALE SQ Last administered on 07/16/16 13:04; Start 07/15/16 at 11:00 Insulin Detemir 5 units 5 units Q12HR SQ Last administered on 07/16/16 08:11; Start 07/15/16 at 21:00; Stop 07/16/16 at 15:14; Status DC Potassium Chloride 100 ml @ 50 mls/hr Q2H PRN IV For Potassium 2.8 - 3.2 mEq/L ; Start 07/15/16 at 12:45 Potassium Chloride (KCl 20 Meq Premix Inj) 100 ml @ 50 mls/hr Q2H PRN IV For Potassium 2.8 - 3.2 mEq/L; Start 07/15/16 at 12:45 Potassium Bicarb/ Potassium Chloride 50 meq 50 meq UNSCH PRN PO For Potassium 3.3 - 3.5 mEq/L Last administered on 07/15/16 13:43; Start 07/15/16 at 12:45 Potassium Chloride 100 ml @ 25 mls/hr UNSCH PRN IV For Potassium 3.3 - 3.5 mEq /L; Start 07/15/16 at 12:45 Potassium Chloride 100 ml @ 50 mls/hr Q2H PRN IV For Potassium 3.3 - 3.5 mEq/L ; Start 07/15/16 at 12:45 Magnesium Sulfate/ Sodium Chloride (Magnesium Sulfate Inj/NS Inj) 100 ml @ 50 mls/hr UNSCH PRN IV For Magnesium 0.9 - 1.1 mg/dL; Start 07/15/16 at 12:45 Magnesium Oxide 800 mg 800 mg UNSCH PRN PO For Magnesium 1.2 - 1.6 mg/dL Last administered on 07/15/16 13:42; Start 07/15/16 at 12:45 Magnesium Sulfate/ Sodium Chloride (Magnesium Sulfate Inj/NS Inj) 100 ml @ 50 mls/hr UNSCH PRN IV For Magnesium 1.2 - 1.6 mg/dL; Start 07/15/16 at 12:45 Potassium Phosphate 2000 mg 2,000 mg Q4H PRN PO For Phosphorus < 2.5 mg/dL Last administered on 07/15/16 13:42; Start 07/15/16 at 12:45 Sodium Phosphate/ Sodium Chloride (Sodium Phosphate Inj/NS 250 ml Inj) 250 ml @ 42 mls/hr UNSCH PRN IV For Phosphorus < 2.5 mg/dL; Start 07/15/16 at 12:45 Potassium Phosphate 2000 mg 2,000 mg UNSCH PRN PO/TUBE SEE LABEL COMMENTS; Start 07/15/16 at 12:45 Potassium Phosphate/Sodium Chloride (Potassium Phosphate Inj/NS 250 ml Inj) 260 ml @ 42 mls/hr UNSCH PRN IV SEE LABEL COMMENTS; Start 07/15/16 at 12:45; Stop 07/15/16 at 12:45; Status DC Atorvastatin Calcium (Lipitor) 40 mg HS PO Last administered on 07/15/16 20:15 ; Start 07/15/16 at 21:00 Gemfibrozil (Lopid) 600 mg BIDAC PO Last administered on 07/16/16 05:48; Start 07/15/16 at 16:00 Trazodone HCl (Desyrel) 100 mg HS PO Last administered on 07/15/16 20:14; Start 07/15/16 at 21:00 Lisinopril (Prinivil) 2.5 mg DAILY PO Last administered on 07/16/16 08:03; Start 07/16/16 at 09:00 Miscellaneous 1 ea 1 ea UNSCH PRN OTHER SEE LABEL COMMENTS; Start 07/15/16 at 14 :15 Magnesium Sulfate/ Dextrose (Magnesium Sulfate 1 Gm Premix) 100 ml @ 100 mls/ hr Q1H IV ; Start 07/16/16 at 16:00; Stop 07/16/16 at 17:59 Potassium Chloride (KCl) 30 meq ONCE ONCE PO ; Start 07/16/16 at 16:00; Stop 07/16/16 at 16:01 Insulin Detemir (Levemir Inj) 10 units Q12HR SQ ; Start 07/16/16 at 21:00 A/P Assessment and Plan 35 years old male with history of hypertension diabetes mellitus type, hyperlipidemia came with HHS mild: - Blood sugar 990 and improved drastically with insulin. -Secondary to noncompliance with medication. Per patient he did not have money and he just got assistance. He stated he is not able to get Levemir. -Increase Levemir to 10 units SQ twice a day. Will also continue with high- dose insulin sliding scale and adjust accordingly. -Extensive education given on compliance. Acute pancreatitis -Improving but not able to tolerate a solid diet. -Will continue with soft diet and try to advance tomorrow. -Continue supportive care. Continue with IV fluids. Hypomagnesemia/hypophosphatemia -Replaced as needed. Pseudohyponatremia -Resolved. Prerenal azotemia with PEDRO -Resolved quickly after giving IV fluids. Hypertension/Hyperlipidemia/Diabetic neuropathy -Continue home medication. DVT prophylaxis -On heparin Discharge Planning Patient continues to be symptomatic with abdominal pain and unable to tolerate regular diet. He will require continual hospitalization due to decreased oral intake. Britni Lainez MD Jul 16, 2016 16:01
[2016-07-16] MEDS: MAGNESIUM SULFATE 1 GM PREMIX 100 ML IV SCH ×2 (18:12→19:00)
[2016-07-16] MEDS: traZODone HCL 100 MG TAB PO SCH (21:53)
[2016-07-16] MEDS: ATORVASTATIN 40 MG TAB PO SCH (21:53)
[2016-07-17] VITALS (7 sets, daily range): BP systolic 111–128; BP diastolic 67–96; PULSE 62–101; RESP 14–18; TEMP 97.7–98; O2SAT 98–99
[2016-07-17] MEDS: SODIUM CHLOR 0.9% 1000 ML INJ 1,000 ML IV SCH ×2 (03:15→03:45)
[2016-07-17] MEDS: CHLORHEXIDINE GLUCONATE 2 % 1 PACK (2 CLOTHS)(taper/protocol) TOPICAL SCH (03:15)
[2016-07-17] MEDS: MORPHINE SULFATE 4 MG/ML INJ IV PUSH PRN ×3 (03:45→14:34)
[2016-07-17] MEDS: HEPARIN SODIUM - SQ 10,000 UNITS/ML VIAL SQ SCH ×2 (06:26→13:08)
[2016-07-17] MEDS: INSULIN ASPART SUPPLEMENTAL SCALE SQ SCH ×3 (06:26→17:17)
[2016-07-17] MEDS: GEMFIBROZIL 600 MG TAB PO SCH ×2 (06:26→17:16)
[2016-07-17 06:56] LABS: BICARBONATE 24.8 MEQ/L (21.0-32.0); MAGNESIUM 1.2 MG/DL (1.5-2.5); POTASSIUM 3.7 MEQ/L (3.5-5.1)
[2016-07-17] MEDS: LISINOPRIL 5 MG TAB PO SCH (09:31)
[2016-07-17] MEDS: INSULIN DETEMIR 100 UNITS/ML VIAL SQ SCH (09:33)
[2016-07-17] MEDS ORDERED: MAGNESIUM SULFATE 1 GM PREMIX 100 ML IV ONE (13:45)
[2016-07-17] MEDS ORDERED: LISI2.5T3 PO (13:58)
[2016-07-17] MEDS ORDERED: GEMF600T PO (13:58)
[2016-07-17] MEDS ORDERED: LEVEMIR SQ (13:58)
[2016-07-17] MEDS ORDERED: GLUCTES12 (13:58)
[2016-07-17] MEDS ORDERED: TRAZ50TA12 PO (13:58)
[2016-07-17] MEDS ORDERED: LANCETS1 MI1 (13:58)
[2016-07-17] MEDS ORDERED: NOVORP2 SQ (13:58)
[2016-07-17] MEDS ORDERED: ATOR40TA16 PO (13:58)
[2016-07-17] MEDS ORDERED: INSU1MIS15 (13:58)
[2016-07-17] MEDS ORDERED: NORC5TAB PO (14:00)
--- NOTE | 2016-07-17 14:01 | HHI.DCPOC ---
Discharge Care Plan Diagnosis: (1) DKA (diabetic ketoacidoses) (2) Hyperglycemia due to type 2 diabetes mellitus (3) Pancreatitis Goals to Promote Your Health * To prevent worsening of your condition and complications * To maintain your health at the optimal level Directions to Meet Your Goals Take your medications as prescribed Follow your dietary instruction Follow activity as directed Keep your appointments as scheduled Take your immunizations and boosters as scheduled If your symptoms worsen call your PCP, if no PCP go to Urgent Care Center or Emergency Room Smoking is Dangerous to Your Health. Avoid second hand smoke Call the 24-hour hour crisis hotline for domestic abuse at Ida Garduno MD Jul 17, 2016 14:01
--- NOTE | 2016-07-17 14:01 | HHI.DS ---
Discharge Summary Admission Date Jul 14, 2016 at 19:50 Discharge Date: Jul 17, 2016 Admitting Diagnosis Hyperosmolar Nonketotic Hyperglycemia, Pancreatitis, PEDRO (1) Hyperglycemia due to type 2 diabetes mellitus ICD Code: E11.65 (2) DM (diabetes mellitus) ICD Code: E11.9 (3) Pancreatitis ICD Code: K85.90 Procedures None Brief History - From Admission History of present illness from the admitting physician 35 years old male with history of diabetes mellitus hypertension dyslipidemia diabetic neuropathy presented to the ED with elevation of his blood sugar 927 about 3 days ago along with nausea vomiting and abdominal pain, difficulty can controlling his blood sugar which he attributed it to not being able to get his prescription of Levemir due to insurance issue. Patient stated he has a appointment with Dr. Santo tomorrow morning to get prescription since he got his insurance now. Patient denied any chest pain short of breath diarrhea or constipation or dysuria. Patient started on profuse iv fluid then insulin drip , patient did not have an anion gap or positive ketones CBC/BMP: 07/16/16 0833 07/17/16 0615 Significant Findings Laboratory Tests Test 07/14/16 07/14/16 07/15/16 07/15/16 18:20 20:25 05:13 08:49 Monocytes (%) (Auto) 8.9 % (0.0-8.0) Urine Glucose (UA) 1000 mg/dL (NEG) Urine Ketones TRACE mg/dL (NEG) Sodium Level 120 MEQ/L (136-145) Chloride Level 81 MEQ/L 108 MEQ/L (98-107) (98-107) Blood Urea Nitrogen 27 MG/DL (7-18) 20 MG/DL (7-18) Creatinine 1.48 MG/DL 0.57 MG/DL (0.60-1.30) (0.60-1.30) Estimat Glomerular Filtration 53 ML/MIN (>89) Rate Random Glucose 927 MG/DL 260 MG/DL 285 MG/DL 176 MG/DL (74-106) (74-106) (74-106) (74-106) Aspartate Amino Transf 6 U/L (15-37) (AST/SGOT) Total Creatine Kinase 26 U/L (39-308) Troponin I LESS THAN 0.02 NG/ML (0.02-0.05) Total Protein 8.4 GM/DL (6.4-8.2) Lipase 1057 U/L 844 U/L (73-393) (73-393) Calcium Level 7.9 MG/DL 7.8 MG/DL 7.9 MG/DL (8.5-10.1) (8.5-10.1) (8.5-10.1) Phosphorus Level 2.3 MG/DL 2.4 MG/DL (2.5-4.9) (2.5-4.9) Magnesium Level 1.3 MG/DL 1.3 MG/DL (1.5-2.5) (1.5-2.5) Red Blood Count 4.49 MIL/MM3 (4.50-5.90) Hemoglobin 12.4 GM/DL (13.0-17.0) Hematocrit 36.2 % (39.0-51.0) Lymphocytes (%) (Auto) 57.3 % (9.0-44.0) Test 07/15/16 07/16/16 07/17/16 12:30 08:33 06:15 Phosphorus Level 2.4 MG/DL (2.5-4.9) Hemoglobin 12.8 GM/DL (13.0-17.0) Hematocrit 37.0 % (39.0-51.0) Potassium Level 3.4 MEQ/L (3.5-5.1) Creatinine 0.56 MG/DL (0.60-1.30) Random Glucose 112 MG/DL 240 MG/DL (74-106) (74-106) Magnesium Level 1.1 MG/DL 1.2 MG/DL (1.5-2.5) (1.5-2.5) Calcium Level 7.9 MG/DL (8.5-10.1) Imaging Last Impressions Chest X-Ray 07/14/16 6179 Signed Impressions: Service Date/Time: Thursday, July 14, 2016 19:07 - CONCLUSION: No acute disease. Mark Avilez MD PE at Discharge GENERAL: in NAD CARDIOVASCULAR: Regular rate and rhythm without murmurs, gallops, or rubs. RESPIRATORY: Breath sounds equal bilaterally. No accessory muscle use. GASTROINTESTINAL: Abdomen soft, mild epigastric pain, nondistended. MUSCULOSKELETAL: No cyanosis, or edema. BACK: Nontender without obvious deformity. No CVA tenderness. Pt update on day of discharge Patient reports is feeling much better. He tolerated all his mail. Abdominal pain much improved. Lipase have normalized. Hospital Course 35 years old male with history of hypertension diabetes mellitus type, hyperlipidemia admitted with severe hyperglycemia and pancreatitis. Evaluation and treatment course detailed below: HHS mild: - Blood sugar 990 and improved drastically with insulin. -Secondary to noncompliance with medication. Per patient he did not have money and he just got assistance. He stated he is not able to get Levemir. -The patient's insulin were adjusted accordingly. He was seen by the parent educator. He is discharged on Levemir 15 units twice a day and a sliding scale regimen. Patient is to follow-up with Dr. Martinez outpatient for further titration of insulin. He now has patient assistance and should be able to get his medications. Acute pancreatitis: Likely secondary to severe hyperglycemia. Patient treated with supportive care including IV fluid and pain control. Symptoms improved and lipase normalized. Hypomagnesemia/hypophosphatemia -Replaced Pseudohyponatremia -Resolved. Prerenal azotemia with PEDRO -Resolved quickly after giving IV fluids. Hypertension/Hyperlipidemia/Diabetic neuropathy -Continue home medication. Pt Condition on Discharge: Good Discharge Disposition: Discharge Home Discharge Time: <= 30 minutes Discharge Instructions DIET: Follow Instructions for: Diabetic Diet Activities you can perform: Regular-No Restrictions New Medications: Glucocom Test Strips (Glucocom Test Strips) 1 Lorene Lorene 1 EA .ROUTE DIRECTED Blood Sugar Management #1 BOX Hydrocodone-Acetaminophen (Gilman) 5-325 mg Tab 1 TAB PO Q6H PRN severe pain #5 Ref 0 TAB Insulin Human Regular Inj (Novolin R Inj) 1,000 Unit/10 Ml Vial 2-10 UNITS SQ DIRECTED Blood Sugar Management #10 Ref 0 ML Insulin Syringe/U-100/31G X 5/16" 1 ml (Insulin Syringe/U-100/31G X 5/16" 1 ml) 1 Mis Mis 1 EA .ROUTE DIRECTED Blood Sugar Management #1 Ref 0 BOX Lancets (Lancets) 1 Mis Mis 1 EA .ROUTE DIRECTED Blood Sugar Management #1 Ref 0 BOX Changed Medications: Insulin Detemir Inj (Levemir Inj) 1,000 unit/ 10 ML Vial 15 UNITS SQ BID Blood Sugar Management #30 INJECTION (Changed from: 25 UNITS; HS ) Continued Medications: Atorvastatin (Atorvastatin) 40 Mg Tab 40 MG PO HS Cholesterol Management #30 Ref 0 TAB (This prescription has been renewed) Gemfibrozil (Gemfibrozil) 600 Mg Tab 600 MG PO BIDAC Take 30 minutes prior to breakfast and dinner. neuropathy #60 Ref 0 TAB (This prescription has been renewed) Hydroxyzine Pamoate (Vistaril) 50 Mg Cap 50 MG PO BID PRN ALLERGIES #30 Ref 0 CAP Lisinopril (Lisinopril) 2.5 Mg Tab 2.5 MG PO DAILY #30 Ref 0 TAB (This prescription has been renewed) Trazodone (Trazodone) 50 Mg Tab 100 MG PO HS SLEEP #30 Ref 0 TAB (This prescription has been renewed) Discontinued Medications: Insulin Aspart Inj (Novolog Inj) 1,000 Unit/10 Ml Vial 1-9 UNITS SQ ACHS Max dose at bedtime:( )units; sugars less than 70,(0)units; sugars 150-199,(1) unit; sugars 200-249,(3) units; sugars 250-299,(5) units; sugars 300-349,(7) units; sugars greater than 349,(9) units Blood Sugar Management #10 Ref 0 ML Methocarbamol (Robaxin) 750 Mg Tab 750 MG PO QID Muscle Spasm #20 Ref 0 TAB Ida Garduno MD Jul 17, 2016 14:01
[2016-07-18 12:43] LABS: HEMOGLOBIN A1a 1.3 %; HEMOGLOBIN A1b 1.2 %; HEMOGLOBIN Ao 71.4 %; HEMOGLOBIN F 2.5 %; HEMOGLOBIN LA1C 3.7 %; HEMOGLOBIN P3 5.2 %
[2016-08-06] MEDS ORDERED: ATOR40TA16 PO (11:06)
[2016-08-06] MEDS ORDERED: VIST50CA PO (11:06)
[2016-08-06] MEDS ORDERED: GABA800T PO (11:06)
[2016-08-06] MEDS ORDERED: ROBA750T PO (11:10)
== END 2016-07-17 17:30 | disposition home or self-care (01) | DRG 637 ==
LOC: NEPC 17:43 → NEDA 19:50 → HIME 07-15 02:15 → HOCB 07-15 18:49
PROVIDERS: ADMIT Family Medicine; ATTEND Family Medicine
DX: E11.00 Type 2 diabetes mellitus with hyperosmolarity without nonketotic hyperglycemic-hyperosmolar coma (NKHHC) (principal); K85.90 Acute pancreatitis without necrosis or infection, unspecified; N17.9 Acute kidney failure, unspecified; Z79.4 Long term (current) use of insulin; E11.65 Type 2 diabetes mellitus with hyperglycemia; E11.40 Type 2 diabetes mellitus with diabetic neuropathy, unspecified; Z91.120 Patient's intentional underdosing of medication regimen due to financial hardship; I10 Essential (primary) hypertension; E78.5 Hyperlipidemia, unspecified; E83.42 Hypomagnesemia; E83.39 Other disorders of phosphorus metabolism; G89.29 Other chronic pain; Z87.891 Personal history of nicotine dependence
CPT/HCPCS: 71010; 80048; 80053; 81001; 82010; 82550; 82948; 83036; 83690; 83735; 84100; 84132; 84484; 85025; 85027; 87641; 93005; 96374; J1644; J1815; J1817; J2270; J2405; J3475; J3480; J7030; J7050

== ENCOUNTER 2016-09-03 11:20 | Emergency (ER) | payer OTHER ==
[~2016-09-03] VITALS: Ht 172.7 cm; Wt 62.5 kg
[~2016-09-03 11:20] MED LIST changes: +GABA800T PO; +GLUCTES12; +INSU1MIS15; +LANCETS1 MI1; +NORC5TAB PO; -NOVOLOGP2 SQ; +NOVORP2 SQ; -TRAM50TA PO; -TRAZ100T4 PO; +TRAZ50TA12 PO
[2016-09-03 11:21] VITALS: BP 131/85; PULSE 127; RESP 20; TEMP 98.8; O2SAT 99
--- NOTE | 2016-09-03 11:37 | PD ---
Physical Exam Time Seen by Provider: 11:36 Narrative 35 y/o male here with nausea, vomiting, abdominal pain for 3 days. Hx of DM, gastroparesis, he hasn't been checking blood sugar. Vital signs reviewed. Seen at triage desk. Awaiting bed placement. Data Data Last Documented VS Vital Signs Date Time Temp Pulse Resp B/P Pulse Ox O2 Delivery O2 Flow Rate FiO2 09/03/16 11:21 98.8 127 20 131/[address] [facility] Medical Record Reviewed: Yes Supervised Visit with KATERINE: Rodney Paniagua Sep 03, 2016 11:37
--- NOTE | 2016-09-03 11:59 | PD ---
HPI . gastroparesis Chief Complaint: GI Complaint Time Seen by Provider: 11:58 Travel History International Travel<30 days: No Contact w/Intl Traveler<30days: No Traveled to known affect area: No History of Present Illness HPI 35-year-old male with history of diabetes and gastroparesis here with complaints of gastroparesis flare for the past 3 days. Patient tells me that he was unable to keep anything down for the past 3 days. He says that he has not been using his insulin nor has he been eating. Patient denies any vomiting. He says that he feels the urge to vomit, but nothing makes it past his throat. He has follow-up with his primary care provider on Wednesday. He has no other complaints. He is accompanied by his soon to be caregiver Mary. SABA Past Medical History Arthritis: Yes Bipolar Disorder: Yes Anxiety: Yes Depression: Yes Cancer: No Cardiovascular Problems: Yes High Cholesterol: Yes Diabetes: Yes Endocrine: Yes Genitourinary: No Hypertension: Yes Immune Disorder: No Implanted Vascular Access Dvce: No Insomnia: Yes Musculoskeletal: Yes Neurologic: Yes Psychiatric: No Reproductive: No Respiratory: Yes Migraines: Yes Thyroid Disease: No Past Surgical History Abdominal Surgery: No Other Surgery: Yes (right knee ligament repaired) Social History Alcohol Use: No Tobacco Use: No Substance Use: No Allergies-Medications (Allergen,Severity, Reaction): Coded Allergies: Metformin (Verified Allergy, Intermediate, Hives, 09/03/16) Flexeril (Verified Adverse Reaction, Intermediate, syncope, 09/03/16) Reported Meds & Prescriptions Reported Meds & Active Scripts Active Gabapentin 800 Mg Tab 800 Mg PO TID Atorvastatin (Atorvastatin Calcium) 40 Mg Tab 40 Mg PO HS Vistaril (Hydroxyzine Pamoate) 50 Mg Cap 50 Mg PO BID PRN Novolin R Inj (Insulin Human Regular) 1,000 Unit/10 Ml Vial 2-10 Units SQ DIRECTED Glucocom Test Strips (Blood Glucose Test Strips) 1 Lorene Lorene 1 Ea .ROUTE DIRECTED Lancets 1 Mis Mis 1 Ea .ROUTE DIRECTED Insulin Syringe/U-100/31G X 5/16" 1 ml 1 Mis Mis 1 Ea .ROUTE DIRECTED Trazodone (Trazodone HCl) 50 Mg Tab 100 Mg PO HS Levemir Inj (Insulin Detemir) 1,000 unit/ 10 ML Vial 15 Units SQ BID Gemfibrozil 600 Mg Tab 600 Mg PO BIDAC Take 30 minutes prior to breakfast and dinner. Lisinopril 2.5 Mg Tab 2.5 Mg PO DAILY Review of Systems General / Constitutional: No: Fever Eyes: No: Visual changes HENT: No: Headaches Cardiovascular: No: Chest Pain or Discomfort Respiratory: No: Shortness of Breath Gastrointestinal: Positive: Nausea, Vomiting, Abdominal Pain Genitourinary: No: Dysuria Musculoskeletal: No: Pain Skin: No Rash Neurologic: No: Weakness Psychiatric: No: Depression Endocrine: No: Polydipsia Hematologic/Lymphatic: No: Easy Bruising Physical Exam Narrative GENERAL: AAO x 3, no acute distress, Well-nourished, well-developed patient. SKIN: Warm and dry. No visible rashes or bruising. HEAD: Normocephalic and atraumatic. EYES: No scleral icterus. No injection or drainage. EOM intact, PERRLA ENT: No nasal drainage noted. Mucous membranes pink. Airway patent. moist mucous membranes NECK: Supple, trachea midline. No JVD. CARDIOVASCULAR: Regular rate and rhythm without murmurs, gallops, or rubs. RESPIRATORY: Breath sounds equal bilaterally. No accessory muscle use. No rhonchi or rales. GASTROINTESTINAL: Abdomen soft, non-tender, nondistended. EXTREMITIES: No cyanosis or edema. BACK: No obvious deformity. 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 Data Data Last Documented VS Vital Signs Date Time Temp Pulse Resp B/P Pulse Ox O2 Delivery O2 Flow Rate FiO2 09/03/16 15:03 16 09/03/16 15:02 115 119/58 99 Room Air 09/03/16 11:21 98.8 Orders Complete Blood Count With Diff (09/03/16 11:59) Comprehensive Metabolic Panel (09/03/16 11:59) Iv Access Insert/Monitor (09/03/16 11:59) Ecg Monitoring (09/03/16 11:59) Oximetry (09/03/16 11:59) Sodium Chloride 0.9% Flush (Ns Flush) (09/03/16 12:00) Blood Glucose (09/03/16 11:59) Beta Hydroxybutyrate (Acetone) (09/03/16 11:59) Phosphorus (Po4) (09/03/16 11:59) Magnesium (Mg) (09/03/16 11:59) Metoclopramide Inj (Reglan Inj) (09/03/16 12:15) Sodium Chlor 0.9% 1000 Ml Inj (Ns 1000 M (09/03/16 13:15) Ketorolac Inj (Toradol Inj) (09/03/16 13:45) Sodium Chlor 0.9% 1000 Ml Inj (Ns 1000 M (09/03/16 13:45) Electrocardiogram (09/03/16 ) Insulin Human Regular Inj (Novolin R Inj (09/03/16 14:15) Labs Laboratory Tests Test 09/03/16 12:39 White Blood Count 12.4 TH/MM3 Red Blood Count 5.05 MIL/MM3 Hemoglobin 14.1 GM/DL Hematocrit 40.6 % Mean Corpuscular Volume 80.3 FL Mean Corpuscular Hemoglobin 28.0 PG Mean Corpuscular Hemoglobin 34.8 % Concent Red Cell Distribution Width 12.5 % Platelet Count 381 TH/MM3 Mean Platelet Volume 8.7 FL Neutrophils (%) (Auto) 76.5 % Lymphocytes (%) (Auto) 16.1 % Monocytes (%) (Auto) 6.8 % Eosinophils (%) (Auto) 0.1 % Basophils (%) (Auto) 0.5 % Neutrophils # (Auto) 9.5 TH/MM3 Lymphocytes # (Auto) 2.0 TH/MM3 Monocytes # (Auto) 0.8 TH/MM3 Eosinophils # (Auto) 0.0 TH/MM3 Basophils # (Auto) 0.1 TH/MM3 CBC Comment DIFF FINAL Differential Comment Sodium Level 131 MEQ/L Potassium Level 3.6 MEQ/L Chloride Level 95 MEQ/L Carbon Dioxide Level 22.5 MEQ/L Anion Gap 14 MEQ/L Blood Urea Nitrogen 14 MG/DL Creatinine 0.98 MG/DL Estimat Glomerular Filtration 86 ML/MIN Rate Random Glucose 453 MG/DL Calcium Level 8.9 MG/DL Phosphorus Level 3.3 MG/DL Magnesium Level 0.9 MG/DL Total Bilirubin 1.3 MG/DL Aspartate Amino Transf 10 U/L (AST/SGOT) Alanine Aminotransferase 18 U/L (ALT/SGPT) Alkaline Phosphatase 78 U/L Total Protein 7.7 GM/DL Albumin 3.9 GM/DL B-Hydroxybutyrate 1.60 MMOL/L MDM Medical Decision Making Medical Screen Exam Complete: Yes Emergency Medical Condition: Yes Medical Record Reviewed: Yes Differential Diagnosis Gastroparesis, gastroenteritis, uncontrolled diabetic, Narrative Course 35-year-old male here with complaints of gastroparesis. On examination patient is very comfortable and in no signs of distress. IV access has been obtained. Labs have been drawn. Patient given Reglan here in the emergency department for nausea. Laboratory Tests Test 09/03/16 12:39 White Blood Count 12.4 TH/MM3 Red Blood Count 5.05 MIL/MM3 Hemoglobin 14.1 GM/DL Hematocrit 40.6 % Mean Corpuscular Volume 80.3 FL Mean Corpuscular Hemoglobin 28.0 PG Mean Corpuscular Hemoglobin 34.8 % Concent Red Cell Distribution Width 12.5 % Platelet Count 381 TH/MM3 Mean Platelet Volume 8.7 FL Neutrophils (%) (Auto) 76.5 % Lymphocytes (%) (Auto) 16.1 % Monocytes (%) (Auto) 6.8 % Eosinophils (%) (Auto) 0.1 % Basophils (%) (Auto) 0.5 % Neutrophils # (Auto) 9.5 TH/MM3 Lymphocytes # (Auto) 2.0 TH/MM3 Monocytes # (Auto) 0.8 TH/MM3 Eosinophils # (Auto) 0.0 TH/MM3 Basophils # (Auto) 0.1 TH/MM3 CBC Comment DIFF FINAL Differential Comment Sodium Level 131 MEQ/L Potassium Level 3.6 MEQ/L Chloride Level 95 MEQ/L Carbon Dioxide Level 22.5 MEQ/L Anion Gap 14 MEQ/L Blood Urea Nitrogen 14 MG/DL Creatinine 0.98 MG/DL Estimat Glomerular Filtration 86 ML/MIN Rate Random Glucose 453 MG/DL Calcium Level 8.9 MG/DL Phosphorus Level 3.3 MG/DL Magnesium Level 0.9 MG/DL Total Bilirubin 1.3 MG/DL Aspartate Amino Transf 10 U/L (AST/SGOT) Alanine Aminotransferase 18 U/L (ALT/SGPT) Alkaline Phosphatase 78 U/L Total Protein 7.7 GM/DL Albumin 3.9 GM/DL B-Hydroxybutyrate 1.60 MMOL/L Labs have been reviewed. Case has been discussed with Dr. Sena. I went to discuss patient's results with him. He is feeling well, but would like something for pain control. He has an appointment with his primary care provider on Wednesday and will be following up regarding his gastroparesis.He also tells me he is taking reglan. Patient's heart rate remained elevated, I have reviewed his records. His last two heart rates with PCP 116 and 128. He has some rates in the 90-80s. There are additional heart rates > 100. 1414: HR 113 per monitor I provided a total of 2 L of NS. He was also given 5 units SQ insulin. He was instructed to resume his home meds. 1507: case discussed with patient's PCP Dr Martinez. She will follow up with the patient. Patient verbalized understanding of instructions, questions were answered, and thanked me for their care. I advised them if their condition worsens, please return to the nearest emergency room for further care. Diagnosis Primary Impression: Gastroparesis Patient Instructions: General Instructions Additional Instructions: Please follow-up with Dr. Martinez in the community clinic. Continue taking your home medications as prescribed. Disposition: 01 DISCHARGE HOME Condition: Stable Ailyn Sullivan Sep 03, 2016 11:59
[2016-09-03] MEDS ORDERED: SODIUM CHLORIDE 0.9% FLUSH 10 ML FLUSH IV FLUSH PRN (12:00)
[2016-09-03] MEDS ORDERED: METOCLOPRAMIDE HCL 10 MG/2 ML VIAL IV PUSH ONE (12:15)
[2016-09-03 12:25] VITALS: RESP 18; O2SAT 99
[2016-09-03 12:52] LABS: AUTOMATED NEUTROPHIL # 9.5 TH/MM3 (1.8-7.7); BASOPHIL # 0.1 TH/MM3 (0-0.2); BASOPHIL % 0.5 % (0.0-2.0); EOSINOPHIL % 0.1 % (0.0-4.0); HEMATOCRIT 40.6 % (39.0-51.0); HEMO FLAGS DIFF FINAL; LYMPH % 16.1 % (9.0-44.0); MEAN CELL VOLUME 80.3 FL (80.0-100.0); MEAN CORPUSCULAR HGB CONC 34.8 % (32.0-36.0); MONO % 6.8 % (0.0-8.0); NEUT % 76.5 % (16.0-70.0); PLATELET COUNT 381 TH/MM3 (150-450); RED BLOOD COUNT 5.05 MIL/MM3 (4.50-5.90); RED CELL DISTRIBUTION WIDTH 12.5 % (11.6-17.2); WHITE BLOOD COUNT 12.4 TH/MM3 (4.0-11.0)
[2016-09-03 13:15] LABS: ALKALINE PHOSPHATASE 78 U/L (45-117); ALT (GPT) 18 U/L (12-78); ANION GAP 14 MEQ/L (5-15); AST (GOT) 10 U/L (15-37); BICARBONATE 22.5 MEQ/L (21.0-32.0); BLOOD UREA NITROGEN 14 MG/DL (7-18); CHLORIDE 95 MEQ/L (98-107); GLOMERULAR FILTRATION RATE 86 ML/MIN (>89); MAGNESIUM 0.9 MG/DL (1.5-2.5); POTASSIUM 3.6 MEQ/L (3.5-5.1); SODIUM (NA) 131 MEQ/L (136-145); TOTAL BILIRUBIN ADULT 1.3 MG/DL (0.2-1.0)
[2016-09-03] MEDS ORDERED: SODIUM CHLOR 0.9% 1000 ML INJ 1,000 ML IV ONE ×2 (13:15→13:45)
[2016-09-03] MEDS ORDERED: KETOROLAC TROMETHAMINE 30 MG/ML (IVP) VIAL IV PUSH ONE (13:45)
[2016-09-03] MEDS ORDERED: INSULIN HUMAN REGULAR 1,000 UNITS/10 ML VIAL SQ ONE (14:15)
[2016-09-03 15:02] VITALS: BP 119/58; PULSE 115; RESP 22; O2SAT 99
[2016-09-03 15:03] VITALS: RESP 16
--- NOTE | 2016-09-03 17:11 | EKG ---
Date Performed: 09/03/2016 Time Performed: 14:10:09 PTAGE: 35 years EKG: SINUS TACHYCARDIA NONSPECIFIC T-WAVE ABNORMALITY ABNORMAL RHYTHM ECG No significant change from prior electrocardiogram. PREVIOUS TRACING : 07/14/2016 18.37 DOCTOR: Sung Wood Interpretating Date/Time 09/03/2016 17:09:28
== END 2016-09-03 16:19 | disposition home or self-care (01) ==
LOC: NEPC 11:20
DX: E11.43 Type 2 diabetes mellitus with diabetic autonomic (poly)neuropathy (principal); K31.84 Gastroparesis; M13.88 Other specified arthritis, other site; F31.9 Bipolar disorder, unspecified; F41.9 Anxiety disorder, unspecified; E78.00 Pure hypercholesterolemia, unspecified; I10 Essential (primary) hypertension; R00.0 Tachycardia, unspecified; R94.31 Abnormal electrocardiogram [ECG] [EKG]
CPT/HCPCS: 80053; 82010; 83735; 84100; 85025; 93005; 96361; 96372; 96374; 96375; 99284; J1815; J1885; J2765; J7030

== ENCOUNTER 2016-09-17 15:20 | Emergency (ER) | payer OTHER ==
[~2016-09-17] VITALS: Ht 167.6 cm; Wt 65.0 kg
[~2016-09-17 15:20] MED LIST changes: -NORC5TAB PO; -ROBA750T PO
[2016-09-17 15:23] VITALS: BP 123/78; PULSE 123; RESP 18; TEMP 98.7; O2SAT 98
[2016-09-17] MEDS ORDERED: CELE10TA PO (16:32)
[2016-09-17] MEDS ORDERED: SODIUM CHLORIDE 0.9% FLUSH 10 ML FLUSH IVF PRN (16:45)
[2016-09-17] MEDS ORDERED: PHENYTOIN INJ 1,000 MG in SODIUM CHLORIDE 0.9% INJ 100 ML IV ONE (16:45)
[2016-09-17] MEDS ORDERED: MORPHINE SULFATE 4 MG/ML INJ IV PUSH ONE (16:45)
[2016-09-17 16:50] VITALS: RESP 18; O2SAT 100
--- NOTE | 2016-09-17 16:50 | PD ---
HPI Chief Complaint: Fall Time Seen by Provider: 16:47 Travel History International Travel<30 days: No Contact w/Intl Traveler<30days: No Traveled to known affect area: No History of Present Illness HPI 35-year-old male presents to emergency Department with reported possible seizure last evening. Patient does not recall it but states his roommate thought that he may have fallen and had reported seizure-like activity. Patient then got himself back up into his lazy boy chair which she has been sleeping in. She has no history of seizure disorder in the past, but has had seizures secondary to Flexeril in the past. Patient is a type II diabetic on insulin as well as EpiPen 800 mg 3 times a day for lower extremity neuropathy from the diabetes. He now is complaining of right upper shoulder pain and left anterior rib pain with difficulty taking deep breaths due to pain. Patient denies true shortness of breath or difficulty breathing. He is able to speak in normal sentences. States his pain is worse with any type of movement of the trunk. Patient reports headache that he has chronic migraines and this is his typical headache according to the patient. He does not take any specific medication for his migraines. Patient has not been worked up by a neurologist, although he states that is pending for his neuropathy and migraines. He normally sees Dr. Martinez at the community clinic. Patient has known nausea or vomiting. PFSH Past Medical History Arthritis: Yes Bipolar Disorder: Yes Anxiety: Yes Depression: Yes Cancer: No Cardiovascular Problems: Yes High Cholesterol: Yes Diabetes: Yes Patient Takes Glucophage: No Diminished Hearing: No Endocrine: Yes Genitourinary: No Hypertension: Yes Immune Disorder: No Implanted Vascular Access Dvce: No Insomnia: Yes Musculoskeletal: Yes Neurologic: Yes Psychiatric: No Reproductive: No Respiratory: Yes Migraines: Yes Thyroid Disease: No Tetanus Vaccination: > 5 Years Influenza Vaccination: No Past Surgical History Abdominal Surgery: No Other Surgery: Yes (right knee ligament repaired) Social History Alcohol Use: No (pt denies ) Tobacco Use: No (pt denies ) Substance Use: No (pt denies ) Allergies-Medications (Allergen,Severity, Reaction): Coded Allergies: Metformin (Verified Allergy, Intermediate, Hives, 09/17/16) Flexeril (Verified Adverse Reaction, Intermediate, syncope, 09/17/16) Reported Meds & Prescriptions Reported Meds & Active Scripts Active Zofran Odt (Ondansetron Odt) 4 Mg Tab 4 Mg SL Q6HR PRN Lortab (Hydrocodone-Acetaminophen) 5-325 Mg Tab 1 Tab PO Q6H PRN Dilantin (Phenytoin Extended) 100 Mg Cap 100 Mg PO TID Gabapentin 800 Mg Tab 800 Mg PO TID Atorvastatin (Atorvastatin Calcium) 40 Mg Tab 40 Mg PO HS Vistaril (Hydroxyzine Pamoate) 50 Mg Cap 50 Mg PO BID PRN Novolin R Inj (Insulin Human Regular) 1,000 Unit/10 Ml Vial 2-10 Units SQ DIRECTED Trazodone (Trazodone HCl) 50 Mg Tab 100 Mg PO HS Levemir Inj (Insulin Detemir) 1,000 unit/ 10 ML Vial 15 Units SQ BID Gemfibrozil 600 Mg Tab 600 Mg PO BIDAC Take 30 minutes prior to breakfast and dinner. Lisinopril 2.5 Mg Tab 2.5 Mg PO DAILY Reported Celexa (Citalopram Hydrobromide) 10 Mg Tab 10 Mg PO DAILY Review of Systems Except as stated in HPI: all other systems reviewed are Neg General / Constitutional: No: Fever Eyes: No: Visual changes HENT: Positive: Headaches Cardiovascular: No: Chest Pain or Discomfort Respiratory: Positive: Pleuritic Pain, No: Cough, Shortness of Breath, Wheezing Gastrointestinal: No: Abdominal Pain Genitourinary: No: Dysuria Musculoskeletal: No: Pain Skin: No Rash Neurologic: No: Weakness Psychiatric: No: Depression Endocrine: No: Polydipsia Hematologic/Lymphatic: No: Easy Bruising Physical Exam Narrative GENERAL: Patient appears in [id number] distress. No obvious respiratory distress noted. SKIN: Warm and dry. Normal color. Normal turgor. No signs of trauma. No ecchymosis HEAD: Atraumatic. Normocephalic. EYES: Pupils equal and round. No scleral icterus. No injection or drainage. ENT: No nasal bleeding or discharge. Mucous membranes pink and moist. Pharynx is clear. Airway is patent. No dental injury. Injury to the buccal membrane or time. NECK: Trachea midline. Supple and nontender. CARDIOVASCULAR: Regular rate and rhythm. RESPIRATORY: No accessory muscle use. Clear to auscultation. Breath sounds equal bilaterally. Patient has severe tenderness with palpation to the anterior left thorax at the 10 level. No obvious deformity or subcutaneous emphysema noted. No crepitus. GASTROINTESTINAL: Abdomen soft, non-tender, nondistended. Hepatic and splenic margins not palpable. MUSCULOSKELETAL: Extremities without clubbing, cyanosis, or edema. No obvious deformities. Patient has mild tenderness along the right upper shoulder but no other signs of a formerly or fracture. NEUROLOGICAL: Awake and alert. No obvious cranial nerve deficits. Motor grossly within normal limits. Five out of 5 muscle strength in the arms and legs. Normal speech. PSYCHIATRIC: Appropriate mood and affect; insight and judgment normal. Data Data Last Documented VS Vital Signs Date Time Temp Pulse Resp B/P Pulse Ox O2 Delivery O2 Flow Rate FiO2 09/17/16 18:32 97.8 102 17 112/77 98 Room Air Orders Complete Blood Count With Diff (09/17/16 16:42) Drug Screen, Random Urine (09/17/16 16:42) Ct Brain W/O Iv Contrast(Rout) (09/17/16 ) Blood Glucose (09/17/16 16:42) Ecg Monitoring (09/17/16 16:42) Iv Access Insert/Monitor (09/17/16 16:42) Oximetry (09/17/16 16:42) Comprehensive Metabolic Panel (09/17/16 16:42) Sodium Chloride 0.9% Flush (Ns Flush) (09/17/16 16:45) Phenytoin Inj (Dilantin Inj) (09/17/16 16:45) Urinalysis - C+S If Indicated (09/17/16 16:42) Morphine Inj (Morphine Inj) (09/17/16 16:45) Ribs, Uni (W/Exp Cxr-Min 3vw) (09/17/16 16:42) Ondansetron Inj (Zofran Inj) (09/17/16 18:30) Ketorolac Inj (Toradol Inj) (09/17/16 18:45) Labs Laboratory Tests Test 09/17/16 09/17/16 17:00 19:00 White Blood Count 11.6 TH/MM3 Red Blood Count 5.11 MIL/MM3 Hemoglobin 14.2 GM/DL Hematocrit 40.9 % Mean Corpuscular Volume 79.9 FL Mean Corpuscular Hemoglobin 27.9 PG Mean Corpuscular Hemoglobin 34.9 % Concent Red Cell Distribution Width 12.5 % Platelet Count 327 TH/MM3 Mean Platelet Volume 9.2 FL Neutrophils (%) (Auto) 67.0 % Lymphocytes (%) (Auto) 24.5 % Monocytes (%) (Auto) 7.3 % Eosinophils (%) (Auto) 0.7 % Basophils (%) (Auto) 0.5 % Neutrophils # (Auto) 7.8 TH/MM3 Lymphocytes # (Auto) 2.8 TH/MM3 Monocytes # (Auto) 0.8 TH/MM3 Eosinophils # (Auto) 0.1 TH/MM3 Basophils # (Auto) 0.1 TH/MM3 CBC Comment DIFF FINAL Differential Comment Sodium Level 136 MEQ/L Potassium Level 4.1 MEQ/L Chloride Level 98 MEQ/L Carbon Dioxide Level 25.0 MEQ/L Anion Gap 13 MEQ/L Blood Urea Nitrogen 14 MG/DL Creatinine 0.84 MG/DL Estimat Glomerular Filtration 103 ML/MIN Rate Random Glucose 336 MG/DL Calcium Level 9.3 MG/DL Total Bilirubin 1.1 MG/DL Aspartate Amino Transf 14 U/L (AST/SGOT) Alanine Aminotransferase 24 U/L (ALT/SGPT) Alkaline Phosphatase 98 U/L Total Protein 7.9 GM/DL Albumin 3.8 GM/DL Urine Color YELLOW Urine Turbidity CLEAR Urine pH 5.5 Urine Specific [place] 1.035 Urine Protein TRACE mg/dL Urine Glucose (UA) 1000 mg/dL Urine Ketones 40 mg/dL Urine Occult Blood NEG Urine Nitrite NEG Urine Bilirubin NEG Urine Urobilinogen LESS THAN 2.0 MG/DL Urine Leukocyte Esterase NEG Urine WBC 1 /hpf Urine Squamous Epithelial <1 /hpf Cells Microscopic Urinalysis Comment CULT NOT INDICATED MDM Medical Decision Making Medical Screen Exam Complete: Yes Emergency Medical Condition: Yes Medical Record Reviewed: Yes Differential Diagnosis Possible new onset seizures. Right shoulder contusion. Left thoracic rib pain. Possible rib fracture. Narrative Course Patient appears in pain but medically stable. Labs ordered including CBC, CMP. Urine drug screen and also this is ordered. Head CT is ordered. Chest x-ray and rib films are ordered on the left. IV access is obtained patient is given 1000 mg Dilantin IV. Patient is given 4 mg morphine IV. Rib films shows a fracture to the anterior 10th left rib per radiologist. There is no pneumothorax. CBC shows slight leukocytosis of 11.6. There is no shift. Chemistries significant for random glucose of 336 and known diabetic. Total bilirubin is 1.1 and AST is 14. Head CT is negative for acute process. 1825 hrs. patient asked for something for nausea, and he is given 4 mg Zofran IV. Patient is also given Toradol 30 mg IV. Urinalysis is positive for sugar and ketones the patient is a known diabetic. Patient is felt stable for discharge. Patient will be continued on Dilantin 100 mg 3 times a day #90. Patient also given Lortab 5/325 one every 6 hours #20. Patient is given Zofran 4 mg one every 6 hours when necessary 15. Patient is given a mandatory referral to neurology for question new onset seizure. Patient can also follow with Dr. Martinez as needed for his rib fracture. Diagnosis Primary Impression: New onset seizure Additional Impression: Left rib fracture Qualified Code: S22.32XA - Closed fracture of one rib of left side, initial encounter Referrals: [facility] Patient Instructions: General Instructions, Narcotic given in the ED, New- Onset Seizure in Adults (ED), Rib Fracture (ED) Additional Instructions: Patient is felt stable for discharge. Patient will be continued on Dilantin 100 mg 3 times a day #90. Patient also given Lortab 5/325 one every 6 hours #20. Patient is given Zofran 4 mg one every 6 hours when necessary 15. Patient is given a mandatory referral to neurology for question new onset seizure. Patient can also follow with Dr. Martinez as needed for his rib fracture. Med/Other Pt SpecificInfo: Prescription(s) given Scripts Ondansetron Odt (Zofran Odt)4 Mg Tab4 Mg SL Q6HR PRN (Nausea/Vomiting) #15 TAB Prov:Thomas Riddle MD 09/17/16 Hydrocodone-Acetaminophen (Lortab)5-325 Mg Tab1 Tab PO Q6H PRN (PAIN) #20 TAB Ref 0 Prov:Thomas Riddle MD 09/17/16 Phenytoin Extended (Dilantin)100 Mg [id number] Mg PO TID #90 CAP Ref 0 Prov:Thomas Riddle MD 09/17/16 Disposition: 01 DISCHARGE HOME Condition: Stable Bello Ravi Sep 17, 2016 16:50
--- NOTE | 2016-09-17 17:23 | RADRPT ---
EXAM DATE/TIME: 09/17/2016 17:01 [facility] COMPARISON: No previous studies available for comparison. INDICATIONS : Fell last night having left rib pain. MEDICAL HISTORY : None. SURGICAL HISTORY : Heart valve cleaned out. ENCOUNTER: Initial ACUITY: 1 day PAIN SCORE: 10/10 LOCATION: Left Ribs FINDINGS: Multiple views of the left ribs were performed. Probable nondisplaced fracture costochondral junctio n 10th rib. There is no pneumothorax. CONCLUSION: 10th rib fracture without pneumothorax. Matthew Khan MD FACR on September 17, 2016 at 17:20 Board Certified Radiologist. This report was verified electronically.
[2016-09-17 17:24] LABS: AUTOMATED NEUTROPHIL # 7.8 TH/MM3 (1.8-7.7); BASOPHIL # 0.1 TH/MM3 (0-0.2); BASOPHIL % 0.5 % (0.0-2.0); EOSINOPHIL # 0.1 TH/MM3 (0-0.4); EOSINOPHIL % 0.7 % (0.0-4.0); HEMATOCRIT 40.9 % (39.0-51.0); HEMO FLAGS DIFF FINAL; LYMPH % 24.5 % (9.0-44.0); LYMPHOCYTE # 2.8 TH/MM3 (1.0-4.8); MEAN CELL VOLUME 79.9 FL (80.0-100.0); MEAN CORPUSCULAR HEMOGLOBIN 27.9 PG (27.0-34.0); MEAN CORPUSCULAR HGB CONC 34.9 % (32.0-36.0); MONO % 7.3 % (0.0-8.0); PLATELET COUNT 327 TH/MM3 (150-450); RED BLOOD COUNT 5.11 MIL/MM3 (4.50-5.90); RED CELL DISTRIBUTION WIDTH 12.5 % (11.6-17.2); WHITE BLOOD COUNT 11.6 TH/MM3 (4.0-11.0)
[2016-09-17 17:37] LABS: ALT (GPT) 24 U/L (12-78); ANION GAP 13 MEQ/L (5-15); AST (GOT) 14 U/L (15-37); BLOOD UREA NITROGEN 14 MG/DL (7-18); CHLORIDE 98 MEQ/L (98-107); GLOMERULAR FILTRATION RATE 103 ML/MIN (>89); POTASSIUM 4.1 MEQ/L (3.5-5.1); SODIUM (NA) 136 MEQ/L (136-145)
[2016-09-17 17:40] LABS: ALKALINE PHOSPHATASE 98 U/L (45-117); TOTAL BILIRUBIN ADULT 1.1 MG/DL (0.2-1.0)
--- NOTE | 2016-09-17 18:05 | RADRPT ---
EXAM DATE/TIME: 09/17/2016 17:47 [facility] COMPARISON: No previous studies available for comparison. INDICATIONS : Seizure last night. RADIATION DOSE: 56.35 CTDIvol (mGy) MEDICAL HISTORY : Hypertension. Diabetes mellitus type 2. SURGICAL HISTORY : None. ENCOUNTER: Initial ACUITY: 2 days PAIN SCALE: 4/10 LOCATION: Bilateral cranial TECHNIQUE: Multiple contiguous axial images were obtained of the head. Using automated exposure control and adj ustment of the mA and/or kV according to patient size, radiation dose was kept as low as reasonably a chievable to obtain optimal diagnostic quality images. DICOM format image data is available electro nically for review and comparison. FINDINGS: CEREBRUM: The ventricles are normal for age. No evidence of midline shift, mass lesion, hemorrhage or acute in farction. No extra-axial fluid collections are seen. POSTERIOR FOSSA: The cerebellum and brainstem are intact. The 4th ventricle is midline. The cerebellopontine angle i s unremarkable. EXTRACRANIAL: The visualized portion of the orbits is intact. SKULL: The calvaria is intact. No evidence of skull fracture. CONCLUSION: Negative for acute process. Given the history MRI may be of benefit Matthew Khan MD FACR on September 17, 2016 at 18:03 Board Certified Radiologist. This report was verified electronically.
[2016-09-17] MEDS ORDERED: ONDANSETRON HCL 4 MG/2 ML VIAL IV PUSH ONE (18:30)
[2016-09-17 18:32] VITALS: BP 112/77; PULSE 102; RESP 17; TEMP 97.8; O2SAT 98
[2016-09-17] MEDS ORDERED: KETOROLAC TROMETHAMINE 30 MG/ML (IVP) VIAL IV PUSH ONE (18:45)
[2016-09-17] MEDS ORDERED: HYDR-3533 PO ×2 (19:11→19:12)
[2016-09-17] MEDS ORDERED: ZOFR4TAB3 SL ×2 (19:11→19:13)
[2016-09-17] MEDS ORDERED: DILA100C PO ×2 (19:11→19:12)
[2016-09-17 19:14] LABS: BLOOD, URINE NEG (NEG); GLUCOSE,URINE 1000 mg/dL (NEG); KETONE, URINE 40 mg/dL (NEG); NITRITE,URINE NEG (NEG); PH, URINE 5.5 (5.0-8.5); SQUAMOUS EPITHELIAL CELL URINE <1 /hpf (0-5); URINE COLOR YELLOW (YELLW/STRAW)
[2016-09-17 19:15] LABS: COMMENT (UR) CULT NOT INDICATED; CULTURE IF INDICATED CULT NOT INDICATED
[2016-09-17 19:58] VITALS: RESP 16
[2016-09-17 20:03] VITALS: BP 121/63; TEMP 98.4
== END 2016-09-17 20:04 | disposition home or self-care (01) ==
LOC: NEPD 15:20
DX: R56.9 Unspecified convulsions (principal); S22.32XA Fracture of one rib, left side, initial encounter for closed fracture; E11.9 Type 2 diabetes mellitus without complications; W19.XXXA Unspecified fall, initial encounter; Z79.4 Long term (current) use of insulin
CPT/HCPCS: 70450; 71101; 80053; 80307; 81001; 85025; 96365; 96375; 99285; J1165; J1885; J2270; J2405

== ENCOUNTER 2016-09-21 13:16 | Emergency (ER) | payer OTHER ==
[~2016-09-21] VITALS: Ht 172.7 cm; Wt 59.0 kg
[~2016-09-21 13:16] MED LIST changes: +CELE10TA PO; +DILA100C PO; -GLUCTES12; +HYDR-3533 PO; -INSU1MIS15; -LANCETS1 MI1; +ZOFR4TAB3 SL
[2016-09-21 13:17] VITALS: BP 145/91; PULSE 133; RESP 20; TEMP 98.4; O2SAT 98
[2016-09-21] MEDS ORDERED: [UNRECOGNIZED DRUG - REMARK] (13:30)
[2016-09-21] MEDS ORDERED: oxyCODONE/ACETAMINOPHEN 5 MG/325 MG TAB PO ONE (14:00)
[2016-09-21] MEDS ORDERED: SODIUM CHLOR 0.9% 1000 ML INJ 1,000 ML IV ONE (14:00)
[2016-09-21 14:02] VITALS: BP 152/80; PULSE 127; RESP 20; O2SAT 99
[2016-09-21] MEDS ORDERED: ONDANSETRON HCL 4 MG/2 ML VIAL IV ONE (14:15)
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
[2016-09-21 14:24] LABS: AUTOMATED NEUTROPHIL # 5.7 TH/MM3 (1.8-7.7); BASOPHIL # 0.1 TH/MM3 (0-0.2); BASOPHIL % 0.7 % (0.0-2.0); EOSINOPHIL # 0.1 TH/MM3 (0-0.4); EOSINOPHIL % 0.7 % (0.0-4.0); HEMATOCRIT 41.9 % (39.0-51.0); HEMO FLAGS DIFF FINAL; LYMPH % 29.5 % (9.0-44.0); LYMPHOCYTE # 2.7 TH/MM3 (1.0-4.8); MEAN CELL VOLUME 80.5 FL (80.0-100.0); MEAN CORPUSCULAR HEMOGLOBIN 27.5 PG (27.0-34.0); MEAN CORPUSCULAR HGB CONC 34.2 % (32.0-36.0); MONO % 7.2 % (0.0-8.0); NEUT % 61.9 % (16.0-70.0); PLATELET COUNT 372 TH/MM3 (150-450); RED BLOOD COUNT 5.21 MIL/MM3 (4.50-5.90); RED CELL DISTRIBUTION WIDTH 12.5 % (11.6-17.2); WHITE BLOOD COUNT 9.1 TH/MM3 (4.0-11.0)
[2016-09-21 14:39] LABS: BICARBONATE 22.6 MEQ/L (21.0-32.0); POTASSIUM 3.2 MEQ/L (3.5-5.1)
[2016-09-21] MEDS ORDERED: PHENYTOIN INJ 1,000 MG in SODIUM CHLORIDE 0.9% INJ 100 ML IV ONE (15:00)
[2016-09-21] MEDS ORDERED: ONDANSETRON HCL 4 MG/2 ML VIAL IV PUSH ONE (16:15)
== END 2016-09-21 16:41 | disposition home or self-care (01) ==
LOC: NEPD 13:16
DX: R56.9 Unspecified convulsions (principal)
CPT/HCPCS: 80048; 80185; 85025; 96361; 96365; 96375; 96376; 99284; J1165; J2405; J7030

== ENCOUNTER 2016-10-10 02:42 | Observation (INO) | payer OTHER ==
[~2016-10-10 02:42] MED LIST changes: +[UNRECOGNIZED DRUG - REMARK]
[2016-10-10 02:44] VITALS: BP 140/95; PULSE 105; RESP 16; TEMP 98.7; O2SAT 95
[2016-10-10] MEDS ORDERED: METH750T PO (03:20)
[2016-10-10] MEDS ORDERED: SODIUM CHLOR 0.9% 1000 ML INJ 1,000 ML IV ONE ×3 (03:28→03:58)
[2016-10-10] MEDS ORDERED: SODIUM CHLORIDE 0.9% FLUSH 10 ML FLUSH IVF PRN (03:30)
[2016-10-10 03:31] VITALS: O2SAT 99
[2016-10-10 03:43] LABS: BLOOD GAS BASE EXCESS 2.7 mmol/L (-2-2); BLOOD GAS CARBOXYHEMOGLOBIN 1.5 % (0-4); BLOOD GAS HCO3 26 mmol/L (22-26); BLOOD GAS METHEMOGLOBIN 0.5 % (0-2); BLOOD GAS O2 HGB SATURATION 96 % (90-100); BLOOD GAS OXYGEN CONTENT 17.9 Vol % (12.0-20.0); BLOOD GAS PCO2 36 mmHg (38-42); BLOOD GAS PO2 102 mmHG (61-120); BLOOD GAS TOTAL HGB 13.1 G/DL (12.0-16.0); CRITICAL VALUE NO; DRAW SITE LT RADIAL; FIO2 21 %; NUMBER OF ARTERIAL PUNCTURES 1; STAT YES; TEMP CORR TO 98.6; ULNAR PULSE PRESENT
[2016-10-10 03:55] LABS: AUTOMATED NEUTROPHIL # 3.4 TH/MM3 (1.8-7.7); BASOPHIL % 0.6 % (0.0-2.0); EOSINOPHIL # 0.1 TH/MM3 (0-0.4); EOSINOPHIL % 1.6 % (0.0-4.0); HEMATOCRIT 41.5 % (39.0-51.0); HEMO FLAGS DIFF FINAL; LYMPH % 44.2 % (9.0-44.0); LYMPHOCYTE # 3.5 TH/MM3 (1.0-4.8); MEAN CELL VOLUME 81.8 FL (80.0-100.0); MEAN CORPUSCULAR HEMOGLOBIN 27.6 PG (27.0-34.0); MEAN CORPUSCULAR HGB CONC 33.7 % (32.0-36.0); MONO % 10.1 % (0.0-8.0); NEUT % 43.5 % (16.0-70.0); PLATELET COUNT 298 TH/MM3 (150-450); RED BLOOD COUNT 5.08 MIL/MM3 (4.50-5.90); RED CELL DISTRIBUTION WIDTH 12.7 % (11.6-17.2); WHITE BLOOD COUNT 7.9 TH/MM3 (4.0-11.0)
[2016-10-10 04:04] LABS: ALT (GPT) 15 U/L (12-78); ANION GAP 14 MEQ/L (5-15); AST (GOT) 5 U/L (15-37); BICARBONATE 26.2 MEQ/L (21.0-32.0); BLOOD UREA NITROGEN 11 MG/DL (7-18); CHLORIDE 93 MEQ/L (98-107); GLOMERULAR FILTRATION RATE 85 ML/MIN (>89); POTASSIUM 3.4 MEQ/L (3.5-5.1); SODIUM (NA) 133 MEQ/L (136-145)
--- NOTE | 2016-10-10 04:18 | PD ---
HPI Chief Complaint: Diabetic Time Seen by Provider: 03:28 Travel History International Travel<30 days: No Contact w/Intl Traveler<30days: No Traveled to known affect area: No History of Present Illness HPI 35 yo M. Patient is diabetic. He has been noncompliant with insulin for 5 days. He reports his blood glucose was high at home. He reports additionally that he feels suicidal and has access to a gun. He reports prior suicide attempt. Location endocrine neuropsychiatric. Timing constant. He's had no chest pain shortness of breath nausea vomiting or dizziness. Severity moderate. PFSH Past Medical History Arthritis: Yes Bipolar Disorder: Yes Anxiety: Yes Depression: Yes Cancer: No Cardiovascular Problems: Yes High Cholesterol: Yes Diabetes: Yes Patient Takes Glucophage: No Diminished Hearing: No Endocrine: Yes Genitourinary: No Hypertension: Yes Immune Disorder: No Implanted Vascular Access Dvce: No Insomnia: Yes Musculoskeletal: Yes Neurologic: Yes Psychiatric: No Reproductive: No Respiratory: Yes Migraines: Yes Seizures: Yes (started Dilantin last week ) Thyroid Disease: No Past Surgical History Abdominal Surgery: No Other Surgery: Yes (right knee ligament repaired) Social History Alcohol Use: No ( ) Tobacco Use: No ( ) Substance Use: No ( ) Allergies-Medications (Allergen,Severity, Reaction): Coded Allergies: metformin (Unverified Allergy, Intermediate, Hives, 10/10/16) cyclobenzaprine (Unverified Adverse Reaction, Intermediate, syncope, ) Reported Meds & Prescriptions Reported Meds & Active Scripts Active Zofran Odt (Ondansetron Odt) 4 Mg Tab 4 Mg SL Q6HR PRN Dilantin (Phenytoin Extended) 100 Mg Cap 100 Mg PO TID Gabapentin 800 Mg Tab 800 Mg PO TID Atorvastatin (Atorvastatin Calcium) 40 Mg Tab 40 Mg PO HS Novolin R Inj (Insulin Human Regular) 1,000 Unit/10 Ml Vial 2-10 Units SQ DIRECTED Trazodone (Trazodone HCl) 50 Mg Tab 100 Mg PO HS Levemir Inj (Insulin Detemir) 1,000 unit/ 10 ML Vial 15 Units SQ BID Gemfibrozil 600 Mg Tab 600 Mg PO BIDAC Take 30 minutes prior to breakfast and dinner. Lisinopril 2.5 Mg Tab 2.5 Mg PO DAILY Reported Methocarbamol 750 Mg Tab 750 Mg PO QID [unk muscle relaxer] QID Celexa (Citalopram Hydrobromide) 10 Mg Tab 10 Mg PO DAILY Review of Systems Except as stated in HPI: all other systems reviewed are Neg Physical Exam Narrative GENERAL: 35 yo M, WNWD, NAD SKIN: Warm and dry. Occasional try lesions about the face, up to 1cm. HEAD: Atraumatic. Normocephalic. EYES: Pupils equal and round. No scleral icterus. No injection or drainage. ENT: No nasal bleeding or discharge. Mucous membranes pink and moist. NECK: Trachea midline. No JVD. CARDIOVASCULAR: Regular rate and rhythm. RESPIRATORY: No accessory muscle use. Clear to auscultation. Breath sounds equal bilaterally. GASTROINTESTINAL: Abdomen soft, non-tender, nondistended. Hepatic and splenic margins not palpable. MUSCULOSKELETAL: Extremities without clubbing, cyanosis, or edema. No obvious deformities. NEUROLOGICAL: Awake and alert. No obvious cranial nerve deficits. Motor grossly within normal limits. Five out of 5 muscle strength in the arms and legs. Normal speech. PSYCHIATRIC: Appropriate mood and affect; insight and judgment normal. Data Data Last Documented VS Vital Signs Date Time Temp Pulse Resp B/P (MAP) Pulse Ox O2 Delivery O2 Flow Rate FiO2 10/10/16 03:31 99 Room Air 10/10/16 02:44 98.7 105 16 140/95 Orders Orders Electrocardiogram (10/10/16 03:28) Complete Blood Count With Diff (10/10/16 03:28) Comprehensive Metabolic Panel (10/10/16 03:28) Magnesium (Mg) (10/10/16 03:28) Phosphorus (Po4) (10/10/16 03:28) Beta Hydroxybutyrate (Acetone) (10/10/16 03:28) Urinalysis - C+S If Indicated (10/10/16 03:28) Arterial Blood Gas (Abg) (10/10/16 03:28) Blood Glucose (10/10/16 03:28) Blood Glucose (10/10/16 04:28) Ecg Monitoring (10/10/16 03:28) Iv Access Insert/Monitor (10/10/16 03:28) Oximetry (10/10/16 03:28) NPO (10/10/16 03:28) Sodium Chlor 0.9% 1000 Ml Inj (Ns 1000 M (10/10/16 03:28) Sodium Chlor 0.9% 1000 Ml Inj (Ns 1000 M (10/10/16 03:58) Sodium Chloride 0.9% Flush (Ns Flush) (10/10/16 03:30) Sodium Chlor 0.9% 1000 Ml Inj (Ns 1000 M (10/10/16 03:28) Psych Screen (10/10/16 03:31) Consult Psychiatry (10/10/16 ) Admit Order (Ed Use Only) (10/10/16 05:36) Labs Laboratory Tests Test 10/10/16 03:28 10/10/16 03:31 10/10/16 04:15 Blood Gas Puncture Site LT RADIAL Blood Gas Patient Temperature 98.6 Blood Gas HCO3 26 mmol/L Blood Gas Base Excess 2.7 mmol/L Blood Gas Oxygen Saturation 96 % Arterial Blood pH 7.47 Arterial Blood Partial Pressure CO2 36 mmHg Arterial Blood Partial Pressure O2 102 mmHG Arterial Blood Oxygen Content 17.9 Vol % Arterial Blood Carboxyhemoglobin 1.5 % Arterial Blood Methemoglobin 0.5 % Blood Gas Hemoglobin 13.1 G/DL Blood Gas Inspired Oxygen 21 % White Blood Count 7.9 TH/MM3 Red Blood Count 5.08 MIL/MM3 Hemoglobin 14.0 GM/DL Hematocrit 41.5 % Mean Corpuscular Volume 81.8 FL Mean Corpuscular Hemoglobin 27.6 PG Mean Corpuscular Hemoglobin Concent 33.7 % Red Cell Distribution Width 12.7 % Platelet Count 298 TH/MM3 Mean Platelet Volume 9.3 FL Neutrophils (%) (Auto) 43.5 % Lymphocytes (%) (Auto) 44.2 % Monocytes (%) (Auto) 10.1 % Eosinophils (%) (Auto) 1.6 % Basophils (%) (Auto) 0.6 % Neutrophils # (Auto) 3.4 TH/MM3 Lymphocytes # (Auto) 3.5 TH/MM3 Monocytes # (Auto) 0.8 TH/MM3 Eosinophils # (Auto) 0.1 TH/MM3 Basophils # (Auto) 0.0 TH/MM3 CBC Comment DIFF FINAL Differential Comment Blood Urea Nitrogen 11 MG/DL Creatinine 0.99 MG/DL Random Glucose 623 MG/DL Total Protein 7.1 GM/DL Albumin 3.5 GM/DL Calcium Level 8.5 MG/DL Phosphorus Level 3.6 MG/DL Magnesium Level 1.0 MG/DL Alkaline Phosphatase 99 U/L Aspartate Amino Transf (AST/SGOT) 5 U/L Alanine Aminotransferase (ALT/SGPT) 15 U/L Total Bilirubin 0.6 MG/DL Sodium Level 133 MEQ/L Potassium Level 3.4 MEQ/L Chloride Level 93 MEQ/L Carbon Dioxide Level 26.2 MEQ/L Anion Gap 14 MEQ/L Estimat Glomerular Filtration Rate 85 ML/MIN B-Hydroxybutyrate 0.22 MMOL/L Urine Color COLORLESS Urine Turbidity CLEAR Urine pH 6.0 Urine Specific Portia 1.033 Urine Protein NEG mg/dL Urine Glucose (UA) 1000 mg/dL Urine Ketones NEG mg/dL Urine Occult Blood NEG Urine Nitrite NEG Urine Bilirubin NEG Urine Urobilinogen LESS THAN 2.0 MG/DL Urine Leukocyte Esterase NEG Urine RBC LESS THAN 1 /hpf Urine WBC LESS THAN 1 /hpf Microscopic Urinalysis Comment CULT NOT INDICATED MDM Medical Decision Making Medical Screen Exam Complete: Yes Emergency Medical Condition: Yes Medical Record Reviewed: Yes Differential Diagnosis Hyperglycemia, DKA, suicidal ideation Narrative Course CBC & BMP Diagram 10/10/16 03:31 Total Protein 7.1, Albumin 3.5, Calcium Level 8.5, Phosphorus Level 3.6, Magnesium Level 1.0 L, Alkaline Phosphatase 99, Aspartate Amino Transf (AST/SGOT ) 5 L, Alanine Aminotransferase (ALT/SGPT) 15, Total Bilirubin 0.6 AG 14 7. Stoner act completed by the undersigned. Patient will be admitted for hypoglycemia and suicidal ideation. Significant consult placed. Case d/w Dr Miranda. Critical Care Narrative Aggregate critical care time was 35 minutes. Time to perform other separately billable procedures was not included in the critical care time. My time did not include minutes spent treating any other patients simultaneously or on activities that did not directly contribute to the patient's treatment. The services I provided to this patient were to treat and/or prevent clinically significant deterioration that could result in: Cardiopulmonary arrest, arrhythmia, suicide risk I provided critical care services requiring my management, as noted below: Chart data review, documentation time, medication orders and management, vital sign assessments/reviewing monitor data, ordering and reviewing lab tests, ordering and interpreting/reviewing x-rays and diagnostic studies, care of the patient and discussion of the patient with the admitting physicians. Diagnosis Primary Impression: HYPERGLYCEMIA, UNSPECIFIED Additional Impression: SUICIDAL IDEATIONS Admitting Information Admitting Physician Requests: Admit Nelson Pierce. MD Oct 10, 2016 04:18
[2016-10-10 04:36] LABS: BLOOD, URINE NEG (NEG); GLUCOSE,URINE 1000 mg/dL (NEG); KETONE, URINE NEG (NEG); NITRITE,URINE NEG (NEG); URINE COLOR COLORLESS (YELLW/STRAW)
[2016-10-10 04:40] LABS: ALKALINE PHOSPHATASE 99 U/L (45-117); BETA-HYDROXYBUTYRATE 0.22 MMOL/L (0.00-0.39); TOTAL BILIRUBIN ADULT 0.6 MG/DL (0.2-1.0)
[2016-10-10 04:47] LABS: COMMENT (UR) CULT NOT INDICATED; CULTURE IF INDICATED CULT NOT INDICATED
[2016-10-10] MEDS ORDERED: DEXTROSE 50% IN WATER 50 ML VIAL(D50) IV PRN (06:00)
[2016-10-10] MEDS ORDERED: SENNOSIDES 8.6 MG TAB PO PRN (06:00)
[2016-10-10] MEDS ORDERED: GLUCAGON 1 MG/ML VIAL OTHER PRN (06:00)
[2016-10-10] MEDS ORDERED: MAGNESIUM HYDROXIDE SUSP 30 ML CUP PO PRN (06:00)
[2016-10-10] MEDS ORDERED: INSULIN DETEMIR 100 UNITS/ML VIAL SQ ONE (06:00)
[2016-10-10] MEDS ORDERED: SODIUM CHLORIDE 0.9% FLUSH 10 ML FLUSH IV FLUSH PRN (06:00)
[2016-10-10] MEDS ORDERED: BISACODYL 10 MG SUPP RECTAL PRN (06:00)
[2016-10-10] MEDS ORDERED: LACTULOSE SYRUP 20 GM/30 ML CUP PO PRN (06:00)
[2016-10-10] MEDS ORDERED: ONDANSETRON HCL 4 MG/2 ML VIAL IVP PRN (06:00)
[2016-10-10] MEDS: INSULIN ASPART SUPPLEMENTAL SCALE SQ SCH ×3 (07:23→18:19)
[2016-10-10 07:24] VITALS: BP 132/87; PULSE 87; RESP 16; O2SAT 99
--- NOTE | 2016-10-10 09:14 | EKG ---
Date Performed: 10/10/2016 Time Performed: 06:04:31 PTAGE: 35 years EKG: Sinus rhythm NORMAL ECG PREVIOUS TRACING : 09/03/2016 14.10 DOCTOR: Camden William Interpretating Date/Time 10/10/2016 09:13:19
[2016-10-10] MEDS: DOCUSATE SODIUM 50 MG/SENNA 8.6 MG TAB PO SCH ×2 (09:34→21:30)
[2016-10-10] MEDS: PHENYTOIN SODIUM 100 MG CAP PO SCH ×3 (09:34→18:15)
[2016-10-10] MEDS: CITALOPRAM HYDROBROMIDE 20 MG TAB PO SCH (09:35)
[2016-10-10] MEDS: SODIUM CHLORIDE 0.9% FLUSH 10 ML FLUSH IV FLUSH SCH ×2 (09:35→21:00)
--- NOTE | 2016-10-10 10:39 | PD.PSY.CON ---
Provisional Diagnosis Admission Date Oct 10, 2016 at 05:39 [place]. 1. Bipolar depression 2. Cannabis use rule out use disorder [place]. Deferred History of Present Illness Service Psychiatry Consult Requested By Dr. Pierce Reason for Consult Suicidal ideation Primary Care Physician Taryn Martinez MD HPI Mr. Messina is a 35-year-old male with a reported history of bipolar illness who presented voluntarily to the emergency department with hyperglycemia and suicidal ideation. Per the ED provider notes, he was placed under a Stoner act although I see none on the chart. He has been admitted to the CDU for management of his hyperglycemia. Reviewing the electronic medical record, I see no prior psychiatric contact within our system. Patient seen and examined. Chart reviewed. Case discussed with nurse in the CDU. On my examination today, the patient reports that he has been feeling severely depressed for more than a year. He ruminates on a variety of losses including his mother and sister as well as 3 pets. 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 In addition to low mood, the patient endorses sleep disturbance. He appears fatigued and anhedonic. No hypomanic or manic symptoms at this time. Denies audiovisual hallucinations. No delusional material. He is somewhat hopeful about the future. The remainder of the psychiatric ROS is negative. Past psychiatric history: The patient reports a history of bipolar illness. He follows at [facility] and is reportedly prescribed Celexa 10 mg daily. He has done well with Seroquel in the past but says that he has struggled to take this medication more recently secondary to gastroparesis. He denies a history of psychiatric admissions. Most recently he attempted suicide on the first of this year by stopping his antihyperglycemic's and drinking a case of Mountain Dew. Family history: The patient reports a family history of bipolar illness. Chemical dependency history: The patient endorses use of cannabis. Social history: The patient reports that he lives alone. He completed some college studying computer programming. 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 He is single with 2 children although he has no contact with them. Access to gun as noted above. Review of Systems Except as stated in HPI: all other systems reviewed are Neg Past Family Social History Coded Allergies: metformin (Unverified Allergy, Intermediate, Hives, 10/10/16) cyclobenzaprine (Unverified Adverse Reaction, Intermediate, syncope, ) Past Medical History See electronic medical record Active Scripts Ondansetron Odt (Zofran Odt) 4 Mg Tab, 4 MG SL Q6HR Y for Nausea/Vomiting, #15 TAB Prov:Thomas Riddle MD 09/17/16 Phenytoin Extended (Dilantin) 100 Mg Cap, 100 MG PO TID for Control Seizures, # 90 CAP 0 Refills Prov:Thomas Riddle MD 09/17/16 Gabapentin (Gabapentin) 800 Mg Tab, 800 MG PO TID, #90 TAB 4 Refills Prov:Taryn Martinez MD 08/06/16 Atorvastatin (Atorvastatin) 40 Mg Tab, 40 MG PO HS for Cholesterol Management, # 30 TAB 4 Refills Prov:Taryn Martinez MD 08/06/16 Insulin Human Regular Inj (Novolin R Inj) 1,000 Unit/10 Ml Vial, 2-10 UNITS SQ DIRECTED for Blood Sugar Management, #10 ML 0 Refills Prov:Ida Garduno MD 07/17/16 Trazodone (Trazodone) 50 Mg Tab, 100 MG PO HS for SLEEP, #30 TAB 0 Refills Prov:Ida Garduno MD 07/17/16 Insulin Detemir Inj (Levemir Inj) 1,000 unit/ 10 ML Vial, 15 UNITS SQ BID for Blood Sugar Management, #30 INJECTION Prov:Ida Garduno MD 07/17/16 Gemfibrozil (Gemfibrozil) 600 Mg Tab, 600 MG PO BIDAC for neuropathy, #60 TAB 0 Refills Take 30 minutes prior to breakfast and dinner. Prov:Ida Garduno MD 07/17/16 Lisinopril (Lisinopril) 2.5 Mg Tab, 2.5 MG PO DAILY, #30 TAB 0 Refills Prov:Ida Garduno MD 07/17/16 Reported Medications Methocarbamol (Methocarbamol) 750 Mg Tab, 750 MG PO QID for Muscle Spasm, #120 TAB 0 Refills 10/10/16 [unk muscle relaxer] No Conflict Check, QID 09/21/16 Citalopram (Celexa) 10 Mg Tab, 10 MG PO DAILY for Control Depression, #30 TAB 0 Refills 09/17/16 Discontinued Scripts Hydrocodone-Acetaminophen (Lortab) 5-325 Mg Tab, 1 TAB PO Q6H Y for PAIN, #20 TAB 0 Refills Prov:Thomas Riddle MD 09/17/16 Hydroxyzine Pamoate (Vistaril) 50 Mg Cap, 50 MG PO BID Y for ALLERGIES, #60 CAP 3 Refills Prov:Taryn Martinez MD 08/06/16 Current Medications Medications (Trade) Dose Ordered Sig/Cuauhtemoc Route Start Time Stop Time Status Last Admin (D50w (Vial) Inj) 50 ml UNSCH PRN IV 10/10/16 06:00 (Glucagon Inj) 1 mg UNSCH PRN OTHER 10/10/16 06:00 (NovoLOG SUPPLEMENTAL SCALE) 1 ACHS SLIDING SCALE SQ 10/10/16 07:00 10/10/16 07:23 (NS Flush) 2 ml UNSCH PRN IV FLUSH 10/10/16 06:00 (NS Flush) 2 ml BID IV FLUSH 10/10/16 09:00 10/10/16 09:35 (Zofran Inj) 4 mg Q6H PRN IVP 10/10/16 06:00 (Tylenol) 650 mg Q6H PRN PO 10/10/16 06:00 (Sarah-Colace) 1 tab BID PO 10/10/16 09:00 10/10/16 09:34 (Milk Of Magnesia Liq) 30 ml Q12H PRN PO 10/10/16 06:00 (Senokot) 17.2 mg Q12H PRN PO 10/10/16 06:00 (Dulcolax Supp) 10 mg DAILY PRN RECTAL 10/10/16 06:00 (Lactulose Liq) 30 ml DAILY PRN PO 10/10/16 06:00 (CeleXA) 10 mg DAILY PO 10/10/16 09:00 10/10/16 09:35 (Levemir Inj) 15 units BID SQ 10/10/16 21:00 (Dilantin) 100 mg TID PO 10/10/16 09:00 10/10/16 09:34 (Desyrel) 100 mg HS PO 10/10/16 21:00 Patient's Strengths (min. 2) In a monitored setting. Verbally fluent. Physical Exam Physical exam completed by ED provider. On my examination today, the patient appears to be in no acute physical distress. No motor abnormalities noted. Left and vitals reviewed: Vital Signs Vital Signs Date Time Temp Pulse Resp B/P (MAP) Pulse Ox O2 Delivery O2 Flow Rate FiO2 10/10/16 08:02 10/10/16 07:24 87 16 99 Room Air 10/10/16 02:44 98.7 I/O 10/10/16 10/10/16 10/11/16 08:00 16:00 00:00 Intake Total 3000 ml Balance 3000 ml Lab Results Test 10/10/16 03:28 10/10/16 03:31 10/10/16 04:15 Blood Gas Puncture Site LT RADIAL Blood Gas Patient Temperature 98.6 Blood Gas HCO3 26 mmol/L Blood Gas Base Excess 2.7 mmol/L Blood Gas Oxygen Saturation 96 % Arterial Blood pH 7.47 Arterial Blood Partial Pressure CO2 36 mmHg Arterial Blood Partial Pressure O2 102 mmHG Arterial Blood Oxygen Content 17.9 Vol % Arterial Blood Carboxyhemoglobin 1.5 % Arterial Blood Methemoglobin 0.5 % Blood Gas Hemoglobin 13.1 G/DL Blood Gas Inspired Oxygen 21 % White Blood Count 7.9 TH/MM3 Red Blood Count 5.08 MIL/MM3 Hemoglobin 14.0 GM/DL Hematocrit 41.5 % Mean Corpuscular Volume 81.8 FL Mean Corpuscular Hemoglobin 27.6 PG Mean Corpuscular Hemoglobin Concent 33.7 % Red Cell Distribution Width 12.7 % Platelet Count 298 TH/MM3 Mean Platelet Volume 9.3 FL Neutrophils (%) (Auto) 43.5 % Lymphocytes (%) (Auto) 44.2 % Monocytes (%) (Auto) 10.1 % Eosinophils (%) (Auto) 1.6 % Basophils (%) (Auto) 0.6 % Neutrophils # (Auto) 3.4 TH/MM3 Lymphocytes # (Auto) 3.5 TH/MM3 Monocytes # (Auto) 0.8 TH/MM3 Eosinophils # (Auto) 0.1 TH/MM3 Basophils # (Auto) 0.0 TH/MM3 CBC Comment DIFF FINAL Differential Comment Blood Urea Nitrogen 11 MG/DL Creatinine 0.99 MG/DL Random Glucose 623 MG/DL Total Protein 7.1 GM/DL Albumin 3.5 GM/DL Calcium Level 8.5 MG/DL Phosphorus Level 3.6 MG/DL Magnesium Level 1.0 MG/DL Alkaline Phosphatase 99 U/L Aspartate Amino Transf (AST/SGOT) 5 U/L Alanine Aminotransferase (ALT/SGPT) 15 U/L Total Bilirubin 0.6 MG/DL Sodium Level 133 MEQ/L Potassium Level 3.4 MEQ/L Chloride Level 93 MEQ/L Carbon Dioxide Level 26.2 MEQ/L Anion Gap 14 MEQ/L Estimat Glomerular Filtration Rate 85 ML/MIN B-Hydroxybutyrate 0.22 MMOL/L Urine Color COLORLESS Urine Turbidity CLEAR Urine pH 6.0 Urine Specific [place] 1.033 Urine Protein NEG mg/dL Urine Glucose (UA) 1000 mg/dL Urine Ketones NEG mg/dL Urine Occult Blood NEG Urine Nitrite NEG Urine Bilirubin NEG Urine Urobilinogen LESS THAN 2.0 MG/DL Urine Leukocyte Esterase NEG Urine RBC LESS THAN 1 /hpf Urine WBC LESS THAN 1 /hpf Microscopic Urinalysis Comment CULT NOT INDICATED Mental Status Examination No motor abnormalities noted. Appearance In hospital gown. Somewhat ill appearing. Speech: Unremarkable Orientation: x3 Memory: Unremarkable Thought Process: Logical, Linear Thought Content: Unremarkable Language Average Fund of Knowledge Average Hallucination Type: None Attention and Concentration: Easily Distracted Suicidal Ideation: Yes Previous Suicide Attempts: Yes Homicidal Ideation: No Previous Homicide Attempts: No Insight: Fair Judgment: Poor Affect: Other (dysphoric, restricted) Mood: Other (depressed) Assessment & Plan Problem List: (1) Bipolar depression ICD Codes: F31.30 - Bipolar disorder, current episode depressed, mild or moderate severity, unspecified (2) Use of cannabis ICD Codes: F12.90 - Cannabis use, unspecified, uncomplicated Assessment & Plan 35-year-old male with psychiatric history as detailed above who is presently admitted to the CDU. Psychiatry is consulted for suicidal ideation. The patient reports one year of depressive symptomatology in the setting of a reported bipolar illness. Has experienced a variety of losses. Contemplating shooting himself with a friend's gun. Patient certainly requires inpatient psychiatric stabilization. As noted above, I do not see a Stoner act on the chart, and so I have initiated a Stoner act and placed on the patient's chart. Patient would likely be a good candidate for medical psychiatric unit so long as he does not require telemetry monitoring and is otherwise appropriate for the unit. Case discussed with RN. Thank you very much for this consultation. Discharge Planning Stoner act initiated. Transfer to inpatient psychiatry, possibly [facility] Papi Arriaga MD Oct 10, 2016 10:39
--- NOTE | 2016-10-10 11:29 | HHI.HP ---
[facility]ician Taryn Martinez MD Admission Diagnosis Hyperglycemia; Suicidal Ideation Diagnoses: Chief Complaint: high sugars and suicidal thoughts Travel History International Travel<30 Days: No Contact w/Intl Traveler <30 Da: No Traveled to Known Affected Are: No History of Present Illness 35-year-old white male being admitted for hyperglycemia and suicidal ideation. Patient was in his usual state of health until about one week ago when he ran out of his medications and cannot get them refilled due to financial strain. Says that his morning sugars were in the 500s to 600s after running out of his insulin later in the week. He attempts to get his prescriptions filled yesterday after seeking financial help from his roommate but while he was in her apartment he began having suicidal thoughts after he accidentally and unknowingly felt her gun between the pillows while he was lying on her couch. At that point he describes having images of pulling the trigger and envisioning blood splattered on the wall. He said this scared him enough to proceed to the emergency room. Says that he has chronic numbness and tingling pains in his feet and occasionally has to use a cane due to the pain even though he does weight-bear on his own otherwise. Says that he has a diagnosis of gastroparesis but denies any frequent nausea or vomiting, eats meals otherwise without issue. Says that he's lost substantial weight since March and used to be on a 5 units of Lantus at night with sugars still ranging between 400s to 600s in the mornings, says he weighed twice as much then. Says now whenever he has his Levemir 15 units twice a day, his morning sugars are from 200s to 300s. Says that he's a type II diabetic in that he can't take metformin because it gives him hives and swells his throat. He says he falls a lot due to the pain in his feet and has a number of bruises over him including his face head and lower legs. Review of Systems Except as stated in HPI: all other systems reviewed are Neg Past Family Social History Past Medical History Diabetes, hypertension, hypercholesterolemia, muscle spasms, peripheral diabetic neuropathy, seizures Allergies: Coded Allergies: metformin (Unverified Allergy, Intermediate, Hives, 10/10/16) cyclobenzaprine (Unverified Adverse Reaction, Intermediate, syncope, ) Family History Diabetes in multiple family members Social History Lives with a roommate, does not work, seeking disability due to diabetes, says he smokes marijuana, denies cigarettes, denies other illicit drug use, denies alcohol Physical Exam Vital Signs Vital Signs Date Time Temp Pulse Resp B/P (MAP) Pulse Ox O2 Delivery O2 Flow Rate FiO2 10/10/16 08:02 10/10/16 07:24 87 16 132/87 (102) 99 Room Air 10/10/16 03:31 99 Room Air 10/10/16 02:44 98.7 105 16 140/95 (110) 95 Room Air Physical Exam VS: reviewed, stable, afebrile GENERAL: NAD, first seen ambulating towards the bathroom but then ambulated back towards the room when he met me SKIN: Healing scabs on face and lower legs EYES: Pupils equal and round. No scleral icterus. No injection or drainage. ENT: No nasal bleeding or discharge. Mucous membranes pink and moist. CARDIOVASCULAR: Regular rate and rhythm. no murmurs RESPIRATORY: No accessory muscle use. Clear to auscultation. Breath sounds equal bilaterally. GASTROINTESTINAL: Abdomen soft, Mild tenderness noted on left subcostal area, mild diffuse abdominal tenderness noted, no rebound, no distention MUSCULOSKELETAL: Extremities without clubbing, cyanosis, or edema. grossly intact ROM with 5/5 strength in upper and lower extremities proximally NEUROLOGICAL: Awake and alert. No obvious cranial nerve deficits. No facial droop nor slurred speech noted. intact sensation to light touch on pressure points of both feet but appears to have a hyperactive flinching response when he does. Unable to diminished reflexes on both patellas bilaterally, PSYCHIATRIC: Appropriate mood and affect; insight and judgment normal. Laboratory Laboratory Tests Test 10/10/16 03:28 10/10/16 03:31 10/10/16 04:15 Blood Gas Puncture Site LT RADIAL Blood Gas Patient Temperature 98.6 Blood Gas HCO3 26 Blood Gas Base Excess 2.7 Blood Gas Oxygen Saturation 96 Arterial Blood pH 7.47 Arterial Blood Partial Pressure CO2 36 Arterial Blood Partial Pressure O2 102 Arterial Blood Oxygen Content 17.9 Arterial Blood Carboxyhemoglobin 1.5 Arterial Blood Methemoglobin 0.5 Blood Gas Hemoglobin 13.1 Blood Gas Inspired Oxygen 21 White Blood Count 7.9 Red Blood Count 5.08 Hemoglobin 14.0 Hematocrit 41.5 Mean Corpuscular Volume 81.8 Mean Corpuscular Hemoglobin 27.6 Mean Corpuscular Hemoglobin Concent 33.7 Red Cell Distribution Width 12.7 Platelet Count 298 Mean Platelet Volume 9.3 Neutrophils (%) (Auto) 43.5 Lymphocytes (%) (Auto) 44.2 Monocytes (%) (Auto) 10.1 Eosinophils (%) (Auto) 1.6 Basophils (%) (Auto) 0.6 Neutrophils # (Auto) 3.4 Lymphocytes # (Auto) 3.5 Monocytes # (Auto) 0.8 Eosinophils # (Auto) 0.1 Basophils # (Auto) 0.0 CBC Comment DIFF FINAL Differential Comment Blood Urea Nitrogen 11 Creatinine 0.99 Random Glucose 623 Total Protein 7.1 Albumin 3.5 Calcium Level 8.5 Phosphorus Level 3.6 Magnesium Level 1.0 Alkaline Phosphatase 99 Aspartate Amino Transf (AST/SGOT) 5 Alanine Aminotransferase (ALT/SGPT) 15 Total Bilirubin 0.6 Sodium Level 133 Potassium Level 3.4 Chloride Level 93 Carbon Dioxide Level 26.2 Anion Gap 14 Estimat Glomerular Filtration Rate 85 B-Hydroxybutyrate 0.22 Urine Color COLORLESS Urine Turbidity CLEAR Urine pH 6.0 Urine Specific [place] 1.033 Urine Protein NEG Urine Glucose (UA) 1000 Urine Ketones NEG Urine Occult Blood NEG Urine Nitrite NEG Urine Bilirubin NEG Urine Urobilinogen LESS THAN 2.0 Urine Leukocyte Esterase NEG Urine RBC LESS THAN 1 Urine WBC LESS THAN 1 Microscopic Urinalysis Comment CULT NOT INDICATED Result Diagram: 10/10/1633010/10/16330 Caprini VTE Risk Assessment Caprini VTE Risk Assessment: No/Low Risk (score <= 1) Caprini Risk Assessment Model Point Value = 1 Point Value = 2 Point Value = 3 Point Value = 5 Age 41-60 Minor surgery BMI > 25 kg/m2 Swollen legs Varicose veins or History of unexplained or recurrent spontaneous Oral contraceptives or hormone replacement Sepsis (< 1 month) Serious lung disease, including pneumonia (< 1 month) Abnormal pulmonary function Acute myocardial infarction Congestive heart failure (< 1 month) History of inflammatory bowel disease Medical patient at bed rest Age 61-74 Arthroscopic surgery Major open surgery (> 45 min) Laparoscopic surgery (> 45 min) Malignancy Confined to bed (> 72 hours) Immobilizing plaster cast Central venous access Age >= 75 History of VTE Family history of VTE Factor V Leiden Prothrombin [id number] Lupus anticoagulant Anticardiolipin antibodies Elevated serum homocysteine Heparin-induced thrombocytopenia Other congenital or acquired thrombophilia Stroke (< 1 month) Elective arthroplasty Hip, pelvis, or leg fracture Acute spinal cord injury (< 1 month) Prophylaxis Regimen Total Risk Factor Score Risk Level Prophylaxis Regimen 0-1 Low Early ambulation 2 Moderate Order ONE of the following: *Sequential Compression Device (SCD) *Heparin 5000 units SQ BID 3-4 Higher Order ONE of the following medications: *Heparin 5000 units SQ TID *Enoxaparin/Lovenox 40 mg SQ daily (WT < 150 kg, CrCl > 30 mL/min) *Enoxaparin/Lovenox 30 mg SQ daily (WT < 150 kg, CrCl > 10-29 mL/min) *Enoxaparin/Lovenox 30 mg SQ BID (WT < 150 kg, CrCl > 30 mL/min) AND/OR *Sequential Compression Device (SCD) 5 or more Highest Order ONE of the following medications: *Heparin 5000 units SQ TID (Preferred with Epidurals) *Enoxaparin/Lovenox 40 mg SQ daily (WT < 150 kg, CrCl > 30 mL/min) *Enoxaparin/Lovenox 30 mg SQ daily (WT < 150 kg, CrCl > 10-29 mL/min) *Enoxaparin/Lovenox 30 mg SQ BID (WT < 150 kg, CrCl > 30 mL/min) AND *Sequential Compression Device (SCD) Assessment and Plan Problem List: (1) Hyperglycemia due to type 2 diabetes mellitus ICD Code: E11.65 - Type 2 diabetes mellitus with hyperglycemia Status: Acute (2) Gastroparesis ICD Code: K31.84 - Gastroparesis Status: Chronic (3) Seizures ICD Code: R56.9 - Convulsions Status: Chronic Assessment and Plan 35-year-old white male being admitted for suicidal ideation and concurrent hyperglycemia 1) uncontrolled diabetes - significantly improved since admission to the ER after receiving sliding scale being administered 10 units of Levemir. went from 401 to 173 by this morning. We'll continue with 15 units of Levemir twice a day as he is at home and trend his morning sugars to see if he truly does reach the 200s, if not we will maintain this insulin dose. We'll continue with low-dose sliding scale w/ accuchecks. Anion gap of 14, no need for insulin drip. ordering A1c. Received ~ 3 L of fluids. 2) suicidal ideation - consulting psychiatry, meets Stoner act, appreciate recommendations. 3) diabetic peripheral neuropathy - continue gabapentin. We'll consult physical therapy to see if patient needs ambulatory assistive devices or any therapy given hx of falls per patient. Independently reviewed the EKG which shows sinus rhythm. 4) muscle spasms - continue Robaxin 5) mood disorder - continue the citalopram unless indicated otherwise by psychiatry 6) insomnia - continue trazodone unless indicated otherwise by psychiatry. 7) seizures - restart home Dilantin Given low risk, will proceed with early ambulation. Anticipate transfer to med psych today with stabilizing sugars. Physician Certification 2 Midnight Certification Type: Continued Stay Order for Inpatient Services The services are ordered in accordance with Medicare regulations or non- Medicare payer requirements, as applicable. In the case of services not specified as inpatient-only, they are appropriately provided as inpatient services in accordance with the 2-midnight benchmark. Estimated LOS (days): 2 2 days is the estimated time the patient will need to remain in the hospital, assuming treatment plan goals are met and no additional complications. Post-Hospital Plan: Home Tejas Castillo MD Oct 10, 2016 11:29
[2016-10-10] MEDS ORDERED: NON-FORMULARY DRUG (Lisinopril 2.5 MG) PO SCH (11:30)
[2016-10-10] MEDS ORDERED: PILL SPLITTER OTHER PRN (12:15)
[2016-10-10] MEDS: METHOCARBAMOL 500 MG TAB PO SCH ×3 (13:48→21:29)
[2016-10-10] MEDS: GABAPENTIN 400 MG CAP PO SCH ×2 (13:48→18:15)
[2016-10-10] MEDS: GEMFIBROZIL 600 MG TAB PO SCH ×2 (15:31→16:48)
[2016-10-10] MEDS: ACETAMINOPHEN 325 MG TAB PO PRN (15:32)
[2016-10-10 20:14] VITALS: BP 114/73; PULSE 94; RESP 18; TEMP 98.3; O2SAT 99
[2016-10-10] MEDS ORDERED: traZODone HCL 50 MG TAB PO SCH (21:00)
[2016-10-10] MEDS ORDERED: ATORVASTATIN 40 MG TAB PO SCH (21:00)
[2016-10-10] MEDS: INSULIN DETEMIR 100 UNITS/ML VIAL SQ SCH (22:40)
[2016-10-10] MEDS: INSULIN NovoLIN REGULAR SUPPLEMENTAL SCALE SQ SCH (22:41)
[2016-10-11] VITALS: BP 106/70; PULSE 88; RESP 20; TEMP 98.3; O2SAT 99
[2016-10-11 06:33] VITALS: BP 120/93; PULSE 78; RESP 48; TEMP 98.1; O2SAT 100
[2016-10-11] MEDS: GEMFIBROZIL 600 MG TAB PO SCH ×2 (06:35→15:06)
[2016-10-11] MEDS: INSULIN NovoLIN REGULAR SUPPLEMENTAL SCALE SQ SCH ×2 (06:44→12:25)
[2016-10-11 07:53] VITALS: BP 134/83; PULSE 96; RESP 18; TEMP 98.9; O2SAT 98
[2016-10-11] MEDS: ACETAMINOPHEN 325 MG TAB PO PRN (08:42)
[2016-10-11] MEDS: GABAPENTIN 400 MG CAP PO SCH ×2 (08:42→12:28)
[2016-10-11] MEDS: CITALOPRAM HYDROBROMIDE 20 MG TAB PO SCH (08:45)
[2016-10-11] MEDS: METHOCARBAMOL 500 MG TAB PO SCH ×2 (08:48→12:27)
[2016-10-11] MEDS: DOCUSATE SODIUM 50 MG/SENNA 8.6 MG TAB PO SCH (08:48)
[2016-10-11] MEDS: PHENYTOIN SODIUM 100 MG CAP PO SCH ×2 (08:49→12:29)
[2016-10-11] MEDS: SODIUM CHLORIDE 0.9% FLUSH 10 ML FLUSH IV FLUSH SCH (08:49)
[2016-10-11] MEDS: INSULIN DETEMIR 100 UNITS/ML VIAL SQ SCH (08:53)
[2016-10-11] MEDS ORDERED: LISINOPRIL 5 MG TAB PO SCH (09:00)
[2016-10-11] MEDS ORDERED: LEVEMIR SQ (11:40)
--- NOTE | 2016-10-11 11:43 | HHI.DCPOC ---
Discharge Care Plan Diagnosis: (1) Diabetic neuropathy (2) Uncontrolled type 2 DM with hyperosmolar nonketotic hyperglycemia (3) Suicidal ideation (4) Seizures Goals to Promote Your Health * To prevent worsening of your condition and complications * To maintain your health at the optimal level Directions to Meet Your Goals Take your medications as prescribed Follow your dietary instruction Follow activity as directed Keep your appointments as scheduled Take your immunizations and boosters as scheduled If your symptoms worsen call your PCP, if no PCP go to Urgent Care Center or Emergency Room Smoking is Dangerous to Your Health. Avoid second hand smoke Call the 24-hour hour crisis hotline for domestic abuse at Danay Sheikh Oct 11, 2016 11:43
[2016-10-11] MEDS ORDERED: POTASSIUM CHLORIDE 10 MEQ CONTROLLED RELEASE TAB PO ONE (12:00)
[2016-10-11] MEDS ORDERED: diphenhydrAMINE HCL 25 MG CAP PO ONE (12:00)
[2016-10-11] MEDS ORDERED: METOCLOPRAMIDE HCL 10 MG/2 ML VIAL IV PUSH ONE (12:00)
[2016-10-11 12:05] VITALS: BP 117/85; PULSE 82; RESP 16; TEMP 97.9; O2SAT 96
--- NOTE | 2016-10-11 12:05 | HHI.DS ---
Discharge Summary Admission Date Oct 10, 2016 at 05:39 Discharge Date: Oct 11, 2016 Admitting Diagnosis Hyperglycemia; Suicidal Ideation (1) Hyperglycemia due to type 2 diabetes mellitus ICD Code: E11.65 - Type 2 diabetes mellitus with hyperglycemia Status: Acute (2) Suicidal ideation ICD Code: R45.851 - Suicidal ideations (3) Gastroparesis ICD Code: K31.84 - Gastroparesis Status: Chronic (4) Seizures ICD Code: R56.9 - Convulsions Status: Chronic (5) Diabetic neuropathy ICD Code: E11.40 - Type 2 diabetes mellitus with diabetic neuropathy, unspecified Procedures None Brief History - From Admission 35-year-old white male being admitted for hyperglycemia and suicidal ideation. Patient was in his usual state of health until about one week ago when he ran out of his medications and cannot get them refilled due to financial strain. Says that his morning sugars were in the 500s to 600s after running out of his insulin later in the week. He attempts to get his prescriptions filled yesterday after seeking financial help from his roommate but while he was in her apartment he began having suicidal thoughts after he accidentally and unknowingly felt her gun between the pillows while he was lying on her couch. At that point he describes having images of pulling the trigger and envisioning blood splattered on the wall. He said this scared him enough to proceed to the emergency room. Says that he has chronic numbness and tingling pains in his feet and occasionally has to use a cane due to the pain even though he does weight-bear on his own otherwise. Says that he has a diagnosis of gastroparesis but denies any frequent nausea or vomiting, eats meals otherwise without issue. Says that he's lost substantial weight since March and used to be on a 5 units of Lantus at night with sugars still ranging between 400s to 600s in the mornings, says he weighed twice as much then. Says now whenever he has his Levemir 15 units twice a day, his morning sugars are from 200s to 300s. Says that he's a type II diabetic in that he can't take metformin because it gives him hives and swells his throat. He says he falls a lot due to the pain in his feet and has a number of bruises over him including his face head and lower legs. CBC/BMP: 10/10/16 0331 10/10/16 0331 Significant Findings Laboratory Tests Test 10/10/16 03:28 10/10/16 03:31 10/10/16 04:15 Blood Gas Base Excess 2.7 mmol/L (-2-2) Arterial Blood pH 7.47 (7.380-7.420) Arterial Blood Partial Pressure CO2 36 mmHg (38-42) Lymphocytes (%) (Auto) 44.2 % (9.0-44.0) Monocytes (%) (Auto) 10.1 % (0.0-8.0) Random Glucose 623 MG/DL (74-106) Magnesium Level 1.0 MG/DL (1.5-2.5) Aspartate Amino Transf (AST/SGOT) 5 U/L (15-37) Sodium Level 133 MEQ/L (136-145) Potassium Level 3.4 MEQ/L (3.5-5.1) Chloride Level 93 MEQ/L (98-107) Estimat Glomerular Filtration Rate 85 ML/MIN (>89) Urine Glucose (UA) 1000 mg/dL (NEG) PE at Discharge VS: reviewed, stable, afebrile GENERAL: Awake and alert. INAD. Sitting up in hospital bed. SKIN: Healing scabs on face and lower legs EYES: Pupils equal and round. No scleral icterus. No injection or drainage. ENT: No nasal bleeding or discharge. Mucous membranes pink and moist. CARDIOVASCULAR: Regular rate and rhythm. no murmurs RESPIRATORY: No accessory muscle use. Clear to auscultation. Breath sounds equal bilaterally. GASTROINTESTINAL: Abdomen soft, Mild tenderness noted on left subcostal area, no abdominal tenderness noted, no rebound, no distention MUSCULOSKELETAL: Extremities without clubbing, cyanosis, or edema. grossly intact ROM with 5/5 strength in upper and lower extremities proximally NEUROLOGICAL: Awake and alert. Able to move all extremities spontaneously. Normal speech. Pt update on day of discharge Patient seen and examined. Awake and alert. Complaining of migraine headache. Unable to take Ibuprofen secondary to gastroparesis. Patient reports he is chronic migraine sufferer and gets 4 or 5 per month. He denies any fever or chills. Denies any chest pain or shortness of breath. Denies any N/V or abdominal pain. Reports good appetite. Hospital Course 35-year-old white male being admitted for suicidal ideation and concurrent hyperglycemia 1) uncontrolled diabetes - significantly improved since admission to the ER after receiving sliding scale being administered 10 units of Levemir. went from 401 to 173 by this morning. We'll continue with 15 units of Levemir twice a day as he is at home and trend his morning sugars to see if he truly does reach the 200s, if not we will maintain this insulin dose. We'll continue with low-dose sliding scale w/ accuchecks. Anion gap of 14, no need for insulin drip. ordering A1c. Received ~ 3 L of fluids. 10/11 - Blood sugars improved - 238 this am. Continue on increase dose of Levemir 20u BID. Continue with accucheks and ISS. Hgb A1c ordered/pending. 2) suicidal ideation - consulting psychiatry, meets Stoner act, appreciate recommendations. Patient stable to be discharged to med/psych. 3) diabetic peripheral neuropathy - continue gabapentin. We'll consult physical therapy to see if patient needs ambulatory assistive devices or any therapy given hx of falls per patient. PT recs home with no PT. 4) muscle spasms - continue Robaxin 5) mood disorder - continue the citalopram unless indicated otherwise by psychiatry 6) insomnia - continue trazodone unless indicated otherwise by psychiatry. 7) seizures - continue home Dilantin. No seizure activity reported 8) hypokalemia - po repletion given. Monitor response. 9) Migraine - Trial of IV Reglan 5mg and Benadryl 25mg po x 1 Pt Condition on Discharge: Stable Discharge Disposition: Disc to Psych Care Fac Discharge Time: > 30 minutes Discharge Instructions DIET: Follow Instructions for: Heart Healthy Diet, Diabetic Diet Activities you can perform: Regular-No Restrictions Follow up Referrals: PCP Follow-up - 1 Week New Medications: Insulin Detemir Inj (Levemir Inj) 1,000 unit/ 10 ML Vial 20 UNITS SQ BID for DIABETES for 30 Days, #100 INJECTION Do not mix with any other Insulin. Continued Medications: Atorvastatin (Atorvastatin) 40 Mg Tab 40 MG PO HS for Cholesterol Management, #30 TAB 4 Refills Citalopram (Celexa) 10 Mg Tab 10 MG PO DAILY for Control Depression, #30 TAB 0 Refills Gabapentin (Gabapentin) 800 Mg Tab 800 MG PO TID, #90 TAB 4 Refills Gemfibrozil (Gemfibrozil) 600 Mg Tab 600 MG PO BIDAC for neuropathy, #60 TAB 0 Refills Take 30 minutes prior to breakfast and dinner. Lisinopril (Lisinopril) 2.5 Mg Tab 2.5 MG PO DAILY, #30 TAB 0 Refills Methocarbamol (Methocarbamol) 750 Mg Tab 750 MG PO QID for Muscle Spasm, #120 TAB 0 Refills Ondansetron Odt (Zofran Odt) 4 Mg Tab 4 MG SL Q6HR PRN for Nausea/Vomiting, #15 TAB Phenytoin Extended (Dilantin) 100 Mg Cap 100 MG PO TID for Control Seizures, #90 CAP 0 Refills Trazodone (Trazodone) 50 Mg Tab 100 MG PO HS for SLEEP, #30 TAB 0 Refills Discontinued Medications: Insulin Detemir Inj (Levemir Inj) 1,000 unit/ 10 ML Vial 15 UNITS SQ BID for Blood Sugar Management, #30 INJECTION Insulin Human Regular Inj (Novolin R Inj) 1,000 Unit/10 Ml Vial 2-10 UNITS SQ DIRECTED for Blood Sugar Management, #10 ML 0 Refills Danay Sheikh Oct 11, 2016 12:05
[2016-10-11 12:46] LABS: AUTOMATED NEUTROPHIL # 3.1 TH/MM3 (1.8-7.7); BASOPHIL # 0.1 TH/MM3 (0-0.2); EOSINOPHIL # 0.1 TH/MM3 (0-0.4); EOSINOPHIL % 1.4 % (0.0-4.0); HEMATOCRIT 38.9 % (39.0-51.0); HEMO FLAGS DIFF FINAL; LYMPH % 44.8 % (9.0-44.0); LYMPHOCYTE # 3.1 TH/MM3 (1.0-4.8); MEAN CELL VOLUME 80.6 FL (80.0-100.0); MEAN CORPUSCULAR HEMOGLOBIN 28.4 PG (27.0-34.0); MEAN CORPUSCULAR HGB CONC 35.2 % (32.0-36.0); MONO % 8.2 % (0.0-8.0); NEUT % 44.6 % (16.0-70.0); PLATELET COUNT 282 TH/MM3 (150-450); RED BLOOD COUNT 4.83 MIL/MM3 (4.50-5.90); RED CELL DISTRIBUTION WIDTH 12.6 % (11.6-17.2); WHITE BLOOD COUNT 6.8 TH/MM3 (4.0-11.0)
[2016-10-11 13:11] LABS: ANION GAP 9 MEQ/L (5-15); AST (GOT) 8 U/L (15-37); BICARBONATE 25.1 MEQ/L (21.0-32.0); BLOOD UREA NITROGEN 11 MG/DL (7-18); CHLORIDE 102 MEQ/L (98-107); GLOMERULAR FILTRATION RATE 136 ML/MIN (>89); POTASSIUM 3.4 MEQ/L (3.5-5.1); SODIUM (NA) 136 MEQ/L (136-145)
[2016-10-11 13:12] LABS: ALT (GPT) 15 U/L (12-78)
[2016-10-11 13:17] LABS: ALKALINE PHOSPHATASE 86 U/L (45-117); TOTAL BILIRUBIN ADULT 0.6 MG/DL (0.2-1.0)
[2016-10-11] MEDS ORDERED: INSULIN DETEMIR 100 UNITS/ML VIAL SQ SCH (21:00)
[2016-10-12 10:59] LABS: HEMOGLOBIN A1a 1.1 %; HEMOGLOBIN A1b 0.9 %; HEMOGLOBIN Ao 76.5 %; HEMOGLOBIN F 1.9 %; HEMOGLOBIN LA1C 3.3 %
== END 2016-10-11 15:33 ==
LOC: NEPE 02:42 → INTOOBSV 05:39 → NEDA 05:39 → NEPHCDU 08:21
PROVIDERS: ADMIT Hospitalist; ATTEND Hospitalist
DX: E11.65 Type 2 diabetes mellitus with hyperglycemia (principal); R45.851 Suicidal ideations; K31.84 Gastroparesis; R56.9 Unspecified convulsions; E11.40 Type 2 diabetes mellitus with diabetic neuropathy, unspecified; E87.6 Hypokalemia; M62.838 Other muscle spasm; F31.9 Bipolar disorder, unspecified; G43.909 Migraine, unspecified, not intractable, without status migrainosus; G47.00 Insomnia, unspecified; I10 Essential (primary) hypertension; E78.00 Pure hypercholesterolemia, unspecified; R29.6 Repeated falls; Z79.4 Long term (current) use of insulin; Z91.14 Patient's other noncompliance with medication regimen; Z91.5 Personal history of self-harm
CPT/HCPCS: 36600; 80053; 81001; 82010; 82805; 82948; 83036; 83735; 84100; 85025; 93005; 96360; 97161; 99291; G8987; G8988; J1815; J2765; J7030; 96361; 96372; 96374; G0378

== ENCOUNTER 2016-10-11 16:06 | Inpatient (IN) | payer SELFPAY ==
[~2016-10-11] VITALS: Ht 172.7 cm; Wt 64.8 kg
[~2016-10-11 16:06] MED LIST changes: -HYDR-3533 PO; +METH750T PO; -VIST50CA PO
[2016-10-11 17:35] VITALS: BP 119/71; PULSE 92; RESP 16; TEMP 98; O2SAT 99
[2016-10-11 18:00] VITALS: BP 111/63; PULSE 80; RESP 16; TEMP 97.9; O2SAT 96
[2016-10-11] MEDS ORDERED: LORazepam 1 MG TAB PO PRN (18:00)
[2016-10-11] MEDS ORDERED: LORazepam 2 MG/ML VIAL IM PRN (18:00)
[2016-10-11] MEDS ORDERED: ONDANSETRON ODT 4 MG TAB SL PRN (18:00)
[2016-10-11] MEDS ORDERED: MAGNESIUM HYDROXIDE SUSP 30 ML CUP PO PRN (18:00)
[2016-10-11] MEDS ORDERED: diphenhydrAMINE HCL 50 MG CAP PO PRN ×2 (18:00)
[2016-10-11] MEDS ORDERED: DEXTROSE 50% IN WATER 50 ML VIAL(D50) IV PRN (18:00)
[2016-10-11] MEDS ORDERED: diphenhydrAMINE HCL 50 MG/ML VIAL IM PRN (18:00)
[2016-10-11] MEDS ORDERED: GLUCAGON 1 MG/ML VIAL OTHER PRN (18:00)
[2016-10-11] MEDS ORDERED: ALUMINUM/MAGNESIUM/SIMETH 30 ML CUP PO PRN (18:00)
[2016-10-11] MEDS ORDERED: PILL SPLITTER OTHER PRN (19:00)
[2016-10-11] MEDS: GABAPENTIN 400 MG CAP PO SCH (20:12)
[2016-10-11] MEDS: METHOCARBAMOL 500 MG TAB PO SCH ×2 (20:12→20:20)
[2016-10-11] MEDS: PHENYTOIN SODIUM 100 MG CAP PO SCH (20:13)
[2016-10-11] MEDS: METOCLOPRAMIDE HCL 10 MG/2 ML VIAL IV PUSH PRN (20:14)
[2016-10-11] MEDS: ATORVASTATIN 40 MG TAB PO SCH (20:20)
[2016-10-11] MEDS: INSULIN DETEMIR 100 UNITS/ML VIAL SQ SCH (20:27)
[2016-10-11] MEDS: INSULIN ASPART SUPPLEMENTAL SCALE SQ SCH (20:29)
[2016-10-11] MEDS ORDERED: traZODone HCL 50 MG TAB PO SCH (21:00)
[2016-10-12 05:11] VITALS: BP 105/60; PULSE 115; RESP 16; TEMP 97.6; O2SAT 97
[2016-10-12] MEDS: METOCLOPRAMIDE HCL 10 MG/2 ML VIAL IV PUSH PRN (05:31)
[2016-10-12] MEDS: GEMFIBROZIL 600 MG TAB PO SCH ×2 (06:29→16:00)
[2016-10-12] MEDS: INSULIN ASPART SUPPLEMENTAL SCALE SQ SCH ×4 (06:30→21:00)
--- NOTE | 2016-10-12 08:37 | PD.CONS ---
HPI Service [facility] Hospitalists Consult Requested By Psychiatric services Reason for Consult Medical management Primary Care Physician Taryn Martinez MD Diagnoses: History of Present Illness This is a 35yo male with PMHX of HTN, DM, diabetic neuropathy, HLD, chronic migraines, seizure disorder and muscle spasms who was admitted for hyperglycemia and suicidal ideation. Patient reports one week ago he was unable to refill his medications due to financial strain. He unwittingly came across a gun while over at a friends apartment and envisioned himself pulling the trigger and seeing blood splatter on the wall. This prompted him to come into the ED. In the ED, he was noted to have elevated blood sugars of 623. His Levemir dose was adjusted and blood sugars improved to 200-300 range. He is unable to tolerate Metformin due to hives and throat swelling. He was seen in consultation for psychiatry and accepted to their service. Patient has been transferred to [facility] psych and hospitalist services have been consulted for medical management. Patient seen and examined today. Patient denies any complaints at this time. He states he feels well. He likes it much better up in this room compared to be down in the ED. He denies any headache/migraine. Denies any fever or chills. Denies any chest pain or shortness of breath. Denies any N/V or abdominal pain. Review of Systems Except as stated in HPI: all other systems reviewed are Neg Past Family Social History Allergies: Coded Allergies: metformin (Unverified Allergy, Intermediate, Hives, 10/10/16) cyclobenzaprine (Unverified Adverse Reaction, Intermediate, syncope, ) Past Medical History HTN DM HLD Muscle spasms Peripheral diabetic neuropathy Seizures Past Surgical History Right knee sx for ligament repair Reported Medications Zofran Odt (Ondansetron Odt) 4 Mg Tab 4 Mg SL Q6HR PRN Dilantin (Phenytoin Extended) 100 Mg Cap 100 Mg PO TID Gabapentin 800 Mg Tab 800 Mg PO TID Atorvastatin (Atorvastatin Calcium) 40 Mg Tab 40 Mg PO HS Novolin R Inj (Insulin Human Regular) 1,000 Unit/10 Ml Vial 2-10 Units SQ DIRECTED Trazodone (Trazodone HCl) 50 Mg Tab 100 Mg PO HS Levemir Inj (Insulin Detemir) 1,000 unit/ 10 ML Vial 15 Units SQ BID Gemfibrozil 600 Mg Tab 600 Mg PO BIDAC Take 30 minutes prior to breakfast and dinner. Lisinopril 2.5 Mg Tab 2.5 Mg PO DAILY Methocarbamol 750 Mg Tab 750 Mg PO QID [unk muscle relaxer] QID Celexa (Citalopram Hydrobromide) 10 Mg Tab 10 Mg PO DAILY Active Ordered Medications Current Medications Medications (Trade) Dose Ordered Sig/Cuauhtemoc Route Start Time Stop Time Status Last Admin (Ativan) 1 mg Q6H PRN PO 10/11/16 18:00 (Ativan Inj) 1 mg Q6H PRN IM 10/11/16 18:00 (Benadryl) 50 mg Q6H PRN PO 10/11/16 18:00 (Benadryl Inj) 50 mg Q6H PRN IM 10/11/16 18:00 (Benadryl) 50 mg HS PRN PO 10/11/16 18:00 (Tylenol) 650 mg Q4H PRN PO 10/11/16 18:00 (Milk Of Magnesia Liq) 30 ml DAILY PRN PO 10/11/16 18:00 (Mag-Al Plus Susp Liq) 30 ml Q6H PRN PO 10/11/16 18:00 (Habitrol 21 Mg Patch.24 Hr) 1 patch DAILY T-DERMAL 10/12/16 09:00 Miscellaneous Information 1 DAILY T-DERMAL 10/12/16 09:00 (D50w (Vial) Inj) 50 ml UNSCH PRN IV 10/11/16 18:00 (Glucagon Inj) 1 mg UNSCH PRN OTHER 10/11/16 18:00 (NovoLOG SUPPLEMENTAL SCALE) 1 ACHS SLIDING SCALE SQ 10/11/16 21:00 10/12/16 06:30 (Lipitor) 40 mg HS PO 10/11/16 21:00 10/11/16 20:20 (CeleXA) 10 mg DAILY PO 10/12/16 09:00 (Neurontin) 800 mg TID PO 10/11/16 18:00 10/11/16 20:12 (Lopid) 600 mg BIDAC PO 10/12/16 07:00 10/12/16 06:29 (Robaxin) 750 mg QID PO 10/11/16 18:00 10/11/16 20:12 (Zofran Odt) 4 mg Q6HR PRN SL 10/11/16 18:00 (Dilantin) 100 mg TID PO 10/11/16 18:00 10/11/16 20:13 (Desyrel) 100 mg HS PO 10/11/16 21:00 10/11/16 20:20 (Prinivil) 2.5 mg DAILY PO 10/12/16 09:00 (Levemir Inj) 20 units BID SQ 10/11/16 21:00 10/11/16 20:27 (Pill Splitter) 1 ea UNSCH PRN OTHER 10/11/16 19:00 (Reglan Inj) 5 mg Q8HR PRN IV PUSH 10/11/16 20:00 10/12/16 05:31 (Motrin) 400 mg Q8H PRN PO 10/11/16 20:00 Family History Brother and father had diabetes mellitus and kidney failure Social History History of previous tobacco use Denies any EtOH use Denies any illicit drug use however urine drug screen 09/17/16 positive for cannabis Physical Exam Vital Signs Vital Signs Date Time Temp Pulse Resp B/P (MAP) Pulse Ox O2 Delivery O2 Flow Rate FiO2 10/12/16 05:11 97.6 115 16 105/60 (75) 97 10/11/16 18:00 97.9 80 16 111/63 (79) 96 10/11/16 17:35 98.0 92 16 119/71 (87) 99 Physical Exam GENERAL: This is a well-nourished, well-developed patient, in no apparent distress. Awake and alert. SKIN: (+)healing abrasions on face below right nare and over right side of chin. Cool and dry. HEAD: Atraumatic. Normocephalic. No temporal or scalp tenderness. EYES: Pupils equal round and reactive. Extraocular motions intact. No scleral icterus. No injection or drainage. ENT: Nose without bleeding or purulent drainage. Throat without erythema, tonsillar hypertrophy or exudate. Uvula midline. Airway patent. NECK: Trachea midline. No lymphadenopathy. Supple, nontender, no meningeal signs. CARDIOVASCULAR: Regular rate and rhythm without murmurs, gallops, or rubs. RESPIRATORY: Clear to auscultation. Breath sounds equal bilaterally. No wheezes , rales, or rhonchi. GASTROINTESTINAL: Abdomen soft, non-tender, nondistended. No hepato-splenomegaly , or palpable masses. No guarding. MUSCULOSKELETAL: Extremities without clubbing, cyanosis, or edema. No joint tenderness, effusion, or edema noted. No calf tenderness. (+)Tenderness to palpation over tops of both feet and lower legs. NEUROLOGICAL: Awake and alert. Able to move all extremities. Motor and sensory function grossly intact. Normal speech. Assessment and Plan Assessment and Plan 35yo male with PMHX of HTN, DM, diabetic neuropathy, HLD, chronic migraines, seizure disorder and muscle spasms who was admitted for hyperglycemia and suicidal ideation. Suicidal ideation Bipolar disorder - Management per psychiatric team DM, uncontrolled Diabetic peripheral neuropathy - Blood sugars are improving but not optimal - Adjust Levemir dose to 25mg BID - last HgbA1c in the system 14.7 07/17. Repeat level pending. - continue with accucheks and ISS - continue on Gabapentin - diabetic diet Muscle spasms - Continue on Robaxin Seizures - continue home Dilantin - obtain Dilantin level - no seizure activity reported Migraines, chronic - Fioricet prn Hypokalemia - given po repletion - am lab pending to monitor response DVT prophylaxis - Patient is ambulatory Discussed with patient, nursing staff and Dr. Castillo The exam, history, and the medical decision-making described in the above note were completed with the assistance of the mid-level provider. I reviewed and agree with the findings presented. I attest that I had a [id number] encounter with the patient on the same day, and personally performed and documented my assessment and findings in the medical record. On exam the patient is ambulatory, no acute distress, very conversive with appropriate appearing mood. Agree with plan to increase insulin dosing on a day by day basis for better control. Danay Sheikh Oct 12, 2016 08:37 Tejas Castillo MD Oct 12, 2016 14:56
[2016-10-12] MEDS ORDERED: INSULIN DETEMIR 100 UNITS/ML VIAL SQ ONE (09:00)
[2016-10-12] MEDS: NICOTINE 21 MG/24 HR PATCH T-DERMAL SCH (09:00)
[2016-10-12] MEDS: INSULIN DETEMIR 100 UNITS/ML VIAL SQ SCH ×2 (09:00→21:00)
[2016-10-12] MEDS: REMOVE OLD PATCH T-DERMAL SCH (09:00)
[2016-10-12] MEDS: GABAPENTIN 400 MG CAP PO SCH ×3 (09:04→17:49)
[2016-10-12] MEDS: PHENYTOIN SODIUM 100 MG CAP PO SCH ×3 (09:05→17:49)
[2016-10-12] MEDS: CITALOPRAM HYDROBROMIDE 20 MG TAB PO SCH (09:05)
[2016-10-12] MEDS: METHOCARBAMOL 500 MG TAB PO SCH ×4 (09:05→21:11)
[2016-10-12] MEDS: LISINOPRIL 5 MG TAB PO SCH (09:05)
[2016-10-12 11:35] LABS: ANION GAP 8 MEQ/L (5-15); BICARBONATE 26.7 MEQ/L (21.0-32.0); BLOOD UREA NITROGEN 12 MG/DL (7-18); CHLORIDE 101 MEQ/L (98-107); GLOMERULAR FILTRATION RATE 121 ML/MIN (>89); SODIUM (NA) 136 MEQ/L (136-145)
[2016-10-12 11:37] LABS: HDL CHOLESTEROL 51.1 MG/DL (40.0-60.0); LDL CHOLESTEROL 120 MG/DL (0-99)
[2016-10-12 11:58] LABS: HEMOGLOBIN A1a 1.1 %; HEMOGLOBIN A1b 0.9 %; HEMOGLOBIN Ao 77.4 %; HEMOGLOBIN F 1.8 %; HEMOGLOBIN LA1C 2.9 %; HEMOGLOBIN P3 4.7 %
[2016-10-12] MEDS: IBUPROFEN 400 MG TAB PO PRN (12:24)
--- NOTE | 2016-10-12 15:44 | HHI.HP ---
Provisional Diagnosis Admission Date Oct 11, 2016 at 16:06 Vendor I. Bipolar disorder current episode depressed, rule out complicated bereavement, , THC use disorder Vendor II. Deferred Vendor III. Diabetes and hyperlipidemia, seizure disorder Vendor IV. Recent family losses, unemployed, limited social support, chemical dependence Vendor V. 35 Certification of Person's Competence To Provide Express and Informed Consent I have personally examined Jose Messina II , a person being served at [facility] on, Oct 12, 2016 15:09. Express and informed consent means consent voluntarily given in writing, by a competent person, after sufficient explanation and disclosure of the subject matter involved to enable the person to make a knowing and willful decision without any element of force, fraud, deceit, duress, or other form of constraint or coercion. This person is 18 years of age or older, is not now known to be incompetent to consent to treatment with a guardian advocate, and does not have a health care surrogate or proxy currently making medical treatment decisions. I have found this person to be one of the following: [x] Competent to provide express and informed consent, as defined above, for voluntary admission to this facility and is competent to provide express and informed consent for treatment. He/she has the consistent capacity to make well reasoned, willful, and knowing decisions concerning his or her medical or mental health treatment. The person fully and consistently understands the purpose of the admission for examination/placement and is fully capable of personally exercising all rights assured [place] Incompetent to provide express and informed consent to voluntary admission, and this is incompetent to provide express and informed consent to treatment. The person must be transferred to involuntary status and a petition for a guardian advocate filed with the Circuit Court. [] Refusing to provide express and informed consent to voluntary admission but is competent to provide express and informed consent for treatment. The person must be discharged or transferred to involuntary status. Form shall be completed within 24 hours of a person's arrival at the receiving facility and filed in the clinical record of each person: 1. Admitted on a voluntary basis 2. Permitted to provide express and informed consent to his/her own treatment 3. Allowed to transfer from involuntary to voluntary status 4. Prior to permitting a person to consent to his or her own treatment after having been previously found incompetent to consent to treatment. History of Present Illness Capacity: Has Capacity HPI Patient is a 35-year-old man, single, has 2 children currently do not live with him, unemployed, past psychiatric history of bipolar disorder as per patient, no psychiatric hospitalizations, reported 2 previous suicide attempts ( 1 aborted suicide attempt and other attempts to induce hyperglycemic via ingestion of large amounts of Mountain Dew), no previous self-injurious behavior , significant marijuana use processes were milligrams daily), past medical history of diabetes and hyperlipidemia was brought into the inpatient medical/ psychiatry unit after being put under Stoner act after having suicidal ideations of wanting to shoot self with friends handgun. Patient found lying in hospital bed, cooperative interview. Patient states that he is in the hospital because I ran out of medicine. Patient states he has been having nightmares of killing himself but also reports having had suicidal ideations since the passing of his mother one year ago. Patient states that recently prior to admission he has suicide ideation of using his friends handgun after he had founded under the pillow in the friends bedroom. He states that after he had gone home the next day he had thought about using the gun to kill himself for which she then asked his friend to bring to the hospital to get help. Patient reports that last year (2015) his mother and sister and a brother 5 years ago. He also reports that he was feeling stress lately as he has not been able to see his children. Patient reports having had decreased sleep, appetite, energy, no change in concentration, feeling depressed for the past couple of weeks, feeling difficulty getting out of bed, feeling helpless and hopeless and having suicidal ideations couple times a week but with no plan. Patient reports that his admission he has been feeling fine, feels that his mood is slightly improved and has not had suicidal ideation since admission. Patient reports that his current medication regimen has been helpful. Patient states that his 3 reasons to live now are to potentially start a new relationship with someone he has been speaking with, wanting to reconnect with his children and for his friends. Patient denies any manic or psychotic symptoms, denies HI, AVH or delusions at this time. Past psychiatric history: Bipolar disorder as per patient, THC use disorder, no prior psychiatric hospitalizations, 2 previous suicide attempts (aborted suicide attempt after driving in a vehicle with plan to run into traffic but friend had "talked him out of it" and second as stated above) no previous suicidal and his behavior, denies previous abuse, reports outpatient psychiatrist at [facility] act will be continues to follow with. Substance use history: Marijuana use daily, about 1 g per day, last use was prior to his admission. Patient denies use of any alcohol or illicit drug use denies any previous detox rehabilitation program. Past medical history: Diabetes and hyperlipidemia Allergies: Metformin and Flexeril Legal history: Denies Social history: Single, has 2 children he has no contact with at this time, unemployed. Review of Systems Except as stated in HPI: all other systems reviewed are Neg Past Psych History Psychological trauma history Denies any history of trauma or abuse Violence risk - others (6 mos) Low Violence risk - self (6 mos) Moderate to high Substance Abuse History Drugs/Alcohol past 12 months Denies any alcohol or illicit drug use with the exception of marijuana use on a daily basis about 1 g per day last use was prior to admission. No prior detox or rehabilitation programs. Past Family Social History Coded Allergies: metformin (Unverified Allergy, Intermediate, Hives, 10/10/16) cyclobenzaprine (Unverified Adverse Reaction, Intermediate, syncope, ) Active Scripts Ondansetron Odt (Zofran Odt) 4 Mg Tab, 4 MG SL Q6HR Y for Nausea/Vomiting, #15 TAB Prov:Thomas Riddle MD 09/17/16 Phenytoin Extended (Dilantin) 100 Mg Cap, 100 MG PO TID for Control Seizures, # 90 CAP 0 Refills Prov:Thomas Riddle MD 09/17/16 Gabapentin (Gabapentin) 800 Mg Tab, 800 MG PO TID, #90 TAB 4 Refills Prov:Taryn Martinez MD 08/06/16 Atorvastatin (Atorvastatin) 40 Mg Tab, 40 MG PO HS for Cholesterol Management, # 30 TAB 4 Refills Prov:Taryn Martinez MD 08/06/16 Insulin Human Regular Inj (Novolin R Inj) 1,000 Unit/10 Ml Vial, 2-10 UNITS SQ DIRECTED for Blood Sugar Management, #10 ML 0 Refills Prov:Ida Garduno MD 07/17/16 Trazodone (Trazodone) 50 Mg Tab, 100 MG PO HS for SLEEP, #30 TAB 0 Refills Prov:Ida Garduno MD 07/17/16 Insulin Detemir Inj (Levemir Inj) 1,000 unit/ 10 ML Vial, 15 UNITS SQ BID for Blood Sugar Management, #30 INJECTION Prov:Ida Garduno MD 07/17/16 Gemfibrozil (Gemfibrozil) 600 Mg Tab, 600 MG PO BIDAC for neuropathy, #60 TAB 0 Refills Take 30 minutes prior to breakfast and dinner. Prov:Ida Garduno MD 07/17/16 Lisinopril (Lisinopril) 2.5 Mg Tab, 2.5 MG PO DAILY, #30 TAB 0 Refills Prov:Ida Garduno MD 07/17/16 Reported Medications Methocarbamol (Methocarbamol) 750 Mg Tab, 750 MG PO QID for Muscle Spasm, #120 TAB 0 Refills 10/10/16 [unk muscle relaxer] No Conflict Check, QID 09/21/16 Citalopram (Celexa) 10 Mg Tab, 10 MG PO DAILY for Control Depression, #30 TAB 0 Refills 09/17/16 Discontinued Scripts Hydrocodone-Acetaminophen (Lortab) 5-325 Mg Tab, 1 TAB PO Q6H Y for PAIN, #20 TAB 0 Refills Prov:Thomas Riddle MD 09/17/16 Hydroxyzine Pamoate (Vistaril) 50 Mg Cap, 50 MG PO BID Y for ALLERGIES, #60 CAP 3 Refills Prov:Taryn Martinez MD 08/06/16 Current Medications Medications (Trade) Dose Ordered Sig/Cuauhtemoc Route Start Time Stop Time Status Last Admin (Ativan) 1 mg Q6H PRN PO 10/11/16 18:00 (Ativan Inj) 1 mg Q6H PRN IM 10/11/16 18:00 (Benadryl) 50 mg Q6H PRN PO 10/11/16 18:00 (Benadryl Inj) 50 mg Q6H PRN IM 10/11/16 18:00 (Benadryl) 50 mg HS PRN PO 10/11/16 18:00 (Tylenol) 650 mg Q4H PRN PO 10/11/16 18:00 (Milk Of Magnesia Liq) 30 ml DAILY PRN PO 10/11/16 18:00 (Mag-Al Plus Susp Liq) 30 ml Q6H PRN PO 10/11/16 18:00 (Habitrol 21 Mg Patch.24 Hr) 1 patch DAILY T-DERMAL 10/12/16 09:00 Miscellaneous Information 1 DAILY T-DERMAL 10/12/16 09:00 (D50w (Vial) Inj) 50 ml UNSCH PRN IV 10/11/16 18:00 (Glucagon Inj) 1 mg UNSCH PRN OTHER 10/11/16 18:00 (NovoLOG SUPPLEMENTAL SCALE) 1 ACHS SLIDING SCALE SQ 10/11/16 21:00 10/12/16 11:00 (Lipitor) 40 mg HS PO 10/11/16 21:00 10/11/16 20:20 (CeleXA) 10 mg DAILY PO 10/12/16 09:00 10/12/16 09:05 (Neurontin) 800 mg TID PO 10/11/16 18:00 10/12/16 13:11 (Lopid) 600 mg BIDAC PO 10/12/16 07:00 10/12/16 06:29 (Robaxin) 750 mg QID PO 10/11/16 18:00 10/12/16 13:11 (Zofran Odt) 4 mg Q6HR PRN SL 10/11/16 18:00 (Dilantin) 100 mg TID PO 10/11/16 18:00 10/12/16 13:11 (Desyrel) 100 mg HS PO 10/11/16 21:00 10/11/16 20:20 (Prinivil) 2.5 mg DAILY PO 10/12/16 09:00 10/12/16 09:05 (Pill Splitter) 1 ea UNSCH PRN OTHER 10/11/16 19:00 (Reglan Inj) 5 mg Q8HR PRN IV PUSH 10/11/16 20:00 10/12/16 05:31 (Motrin) 400 mg Q8H PRN PO 10/11/16 20:00 10/12/16 12:24 (Fioricet 325-50-40) 1 tab Q8H PRN PO 10/12/16 08:30 (Levemir Inj) 25 units BID SQ 10/12/16 21:00 Family History Reports sister and brother having had diagnosed with bipolar disorder denies any completed suicides in the family Social History Single, has 2 children he has no contact with at this time, unemployed. Patient's Strengths (min. 2) Verbal and communicative Physical Exam On my examination patient not noted to be in acute distress, no gross motor abnormalities, no tremor noted EPS, no psychomotor agitation or retardation. Vital Signs Vital Signs Date Time Temp Pulse Resp B/P (MAP) Pulse Ox O2 Delivery O2 Flow Rate FiO2 10/12/16 05:11 97.6 115 16 105/60 (75) 97 I/O 10/12/16 10/12/16 10/13/16 08:00 16:00 00:00 Intake Total 1440 ml Balance 1440 ml Lab Results Laboratory. Test 10/12/16 10:19 Blood Urea Nitrogen 12 MG/DL Creatinine 0.73 MG/DL Random Glucose 219 MG/DL Calcium Level 9.3 MG/DL Sodium Level 136 MEQ/L Potassium Level 4.0 MEQ/L Chloride Level 101 MEQ/L Carbon Dioxide Level 26.7 MEQ/L Anion Gap 8 MEQ/L Estimat Glomerular Filtration Rate 121 ML/MIN Hemoglobin A1c 11.0 % Triglycerides Level 176 MG/DL Cholesterol Level 206 MG/DL LDL Cholesterol 120 MG/DL HDL Cholesterol 51.1 MG/DL Cholesterol/HDL Ratio 4.03 RATIO Thyroid Stimulating Hormone 3rd Gen 0.553 uIU/ML Mental Status Examination Appearance Appears stated age, noted some abrasions to the right upper lip and right lower cheek, in casual clothing, lying in hospital bed, cooperative interview. Fair eye contact. Speech: Unremarkable Orientation: x3 Memory: Unremarkable Thought Process: Logical, Organized, Linear Thought Content: Unremarkable Language Fluent and spontaneous Fund of Knowledge Average Hallucination Type: None Attention and Concentration: Good Suicidal Ideation: Yes (but denies at time of interview) Previous Suicide Attempts: Yes Homicidal Ideation: No Previous Homicide Attempts: No Insight: Fair Judgment: Poor Affect: Other (slightly constricted) Mood: Other (slightly guarded) Assessment & Plan Problem List: (1) Bipolar depression ICD Codes: F31.30 - Bipolar disorder, current episode depressed, mild or moderate severity, unspecified Assessment & Plan Patient is a 35-year-old man who carries a diagnosis of bipolar disorder, marijuana use disorder was admitted to the inpatient psychiatry unit under Stoner act for having had suicidal ideations of using friends gun to shoot himself for which she brought himself into the hospital for help. Patient this time endorses depressive symptoms and suicidal ideations in the context of multiple family losses recently along with unemployment, chronic marijuana use, and having lost custody of his children. Patient will continue to be managed by primary medical team for current medical issues. Continue citalopram 10 mg by mouth daily with upper titration as needed, discontinue trazodone for now, add Abilify as adjunct to antidepressant and to decrease risk antidepressant to induce patient into ismael if patient is truly bipolar, continue Dilantin for seizure control. Monitor for medication response adverse drug reactions. Supportive psychotherapy provided. Discharge planning in progress. Discharge Planning In progress Mark Toney MD Oct 12, 2016 15:44
[2016-10-12 18:20] VITALS: BP 91/58; PULSE 105; RESP 18; TEMP 98.1; O2SAT 99
[2016-10-12] MEDS: ARIPiprazole 5 MG TAB PO SCH (21:11)
[2016-10-12] MEDS: ATORVASTATIN 40 MG TAB PO SCH (21:11)
[2016-10-13 05:48] VITALS: BP 112/71; PULSE 108; RESP 18; TEMP 97.6; O2SAT 96
[2016-10-13] MEDS: INSULIN ASPART SUPPLEMENTAL SCALE SQ SCH ×4 (06:28→21:00)
[2016-10-13] MEDS: NICOTINE 21 MG/24 HR PATCH T-DERMAL SCH (09:00)
[2016-10-13] MEDS: REMOVE OLD PATCH T-DERMAL SCH (09:00)
[2016-10-13] MEDS: INSULIN DETEMIR 100 UNITS/ML VIAL SQ SCH ×2 (09:00→21:00)
[2016-10-13] MEDS: METHOCARBAMOL 500 MG TAB PO SCH ×4 (09:17→21:00)
[2016-10-13] MEDS: GABAPENTIN 400 MG CAP PO SCH ×3 (09:17→17:25)
[2016-10-13] MEDS: PHENYTOIN SODIUM 100 MG CAP PO SCH ×3 (09:18→17:25)
[2016-10-13] MEDS: LISINOPRIL 5 MG TAB PO SCH (09:18)
[2016-10-13] MEDS: CITALOPRAM HYDROBROMIDE 20 MG TAB PO SCH (09:20)
[2016-10-13] MEDS: GEMFIBROZIL 600 MG TAB PO SCH ×2 (09:20→15:21)
--- NOTE | 2016-10-13 09:32 | HHI.PYPN ---
Subjective Remarks Patient is seen for follow, chart reviewed. As per nursing report patient slept well overnight. Patient is found lying in hospital bed, cooperative interview. Patient states that he was wanting to have more food as he continues to feel very hungry after each meal. Patient states that she slept "up and down" last night although as per nursing patient had no issues overnight. Patient states that he had gone to groups and activities yesterday pleasant visit his aunt today. Patient states that his mood is "fine" denies feeling sad or depressed lately denies any suicidal ideations stating the last and he had these thoughts was when he first came in. Patient states that he had been visited by a group yesterday which went well. Review of Systems Except as stated in HPI: all other systems reviewed are Neg Objective Alert: Yes [place]: Person, Place, Date Mood: Calm Affect: Appropriate Memory Intact: Comment (intact) Hallucinations: Other (denies) Delusions: No Delusion Type: Other (denies) Suicidal: Ideation (denies) Homicidal: Ideation (denies) Insight/Judgment limited insight, impulse control and judgment Labs Test 10/12/16 10:19 10/12/16 19:37 Blood Urea Nitrogen 12 MG/DL Creatinine 0.73 MG/DL Random Glucose 219 MG/DL Calcium Level 9.3 MG/DL Sodium Level 136 MEQ/L Potassium Level 4.0 MEQ/L Chloride Level 101 MEQ/L Carbon Dioxide Level 26.7 MEQ/L Anion Gap 8 MEQ/L Estimat Glomerular Filtration Rate 121 ML/MIN Hemoglobin A1c 11.0 % Triglycerides Level 176 MG/DL Cholesterol Level 206 MG/DL LDL Cholesterol 120 MG/DL HDL Cholesterol 51.1 MG/DL Cholesterol/HDL Ratio 4.03 RATIO Thyroid Stimulating Hormone 3rd Gen 0.553 uIU/ML Phenytoin (Dilantin) Level 4.6 MCG/ML Vitals/IOs Vital Signs Date Time Temp Pulse Resp B/P (MAP) Pulse Ox O2 Delivery O2 Flow Rate FiO2 10/13/16 05:48 97.6 108 18 112/71 (85) 96 Intake and Output 10/13/16 10/13/16 10/14/16 08:00 16:00 00:00 Intake Total 241 ml 720 ml Balance 241 ml 720 ml Assessment & Plan Problem List: (1) Bipolar depression ICD Codes: F31.30 - Bipolar disorder, current episode depressed, mild or moderate severity, unspecified Assessment & Plan Patient at this time appears to be responding well to current treatment. Patient denies any suicidal ideation since admission. Patient continues to report feeling satiated with the amount of food he is receiving per meal. Nutritional consult will be requested. Patient also reports having inconsistent sleep although as per nursing report patient slept well. We'll continue current treatment for now. Patient likely be discharged to later this week. Justification for Cont. Inpt. At risk for decompensation if it lower level of care Mark Toney MD Oct 13, 2016 09:32
[2016-10-13] MEDS: ACETAMINOPHEN 325 MG TAB PO PRN (09:42)
[2016-10-13] MEDS: ACETAMIN 325 MG/BUTALBITAL 50 MG/CAFFEINE 40 MG TAB PO PRN (10:14)
[2016-10-13] MEDS: IBUPROFEN 400 MG TAB PO PRN (16:01)
[2016-10-13 17:24] VITALS: BP 90/64; PULSE 110; RESP 17; TEMP 97.9; O2SAT 98
[2016-10-13] MEDS: ARIPiprazole 5 MG TAB PO SCH (21:00)
[2016-10-13] MEDS: ATORVASTATIN 40 MG TAB PO SCH (21:00)
[2016-10-14 05:14] VITALS: BP 114/69; PULSE 112; RESP 16; TEMP 97.3; O2SAT 98
[2016-10-14] MEDS: INSULIN ASPART SUPPLEMENTAL SCALE SQ SCH ×4 (07:00→21:00)
[2016-10-14] MEDS: REMOVE OLD PATCH T-DERMAL SCH (09:00)
[2016-10-14] MEDS: NICOTINE 21 MG/24 HR PATCH T-DERMAL SCH (09:00)
[2016-10-14] MEDS: INSULIN DETEMIR 100 UNITS/ML VIAL SQ SCH ×2 (09:00→21:00)
[2016-10-14] MEDS: METHOCARBAMOL 500 MG TAB PO SCH ×4 (09:01→20:52)
[2016-10-14] MEDS: GEMFIBROZIL 600 MG TAB PO SCH ×2 (09:01→16:00)
[2016-10-14] MEDS: GABAPENTIN 400 MG CAP PO SCH ×3 (09:02→17:05)
[2016-10-14] MEDS: LISINOPRIL 5 MG TAB PO SCH (09:02)
[2016-10-14] MEDS: PHENYTOIN SODIUM 100 MG CAP PO SCH ×4 (09:02→20:53)
[2016-10-14] MEDS: CITALOPRAM HYDROBROMIDE 20 MG TAB PO SCH (09:02)
[2016-10-14] MEDS: ACETAMINOPHEN 325 MG TAB PO PRN (09:56)
--- NOTE | 2016-10-14 10:48 | HHI.PR ---
Subjective Remarks Patient reports doing okay. However nursing says that there was an event where the patient became unresponsive for 15 minutes, per report patient was awake he could hear the nurse but could not respond. He told the nurse that this happens to him all the time at home. He spontaneously came out of it Blood sugars reviewed, noted a.m. blood sugars in the 140s which is good while on Levemir 25 units twice a day and on medium dose sliding scale. Objective Vital Signs Date Time Temp Pulse Resp B/P (MAP) Pulse Ox O2 Delivery O2 Flow Rate FiO2 10/14/16 05:14 97.3 112 16 114/69 (84) 98 10/13/16 17:24 97.9 110 17 90/64 (73) 98 I/O 10/13/16 10/13/16 10/13/16 10/14/16 10/14/16 10/14/16 06:59 14:59 22:59 06:59 14:59 22:59 Intake Total 241 ml 2880 ml 960 ml 60 ml 240 ml Balance 241 ml 2880 ml 960 ml 60 ml 240 ml Intake Oral 241 ml 2880 ml 960 ml 60 ml 240 ml # Voids 1 2 2 2 Result Diagram: 10/12/16 1019 Objective Remarks Gen.: No acute distress, sleeping, easily awoken Respiratory: No coughing, no respiratory distress, unlabored breathing Neurological: Alert and oriented 3, pupils symmetrical bilaterally, extraocular motions intact, no facial droop, no slurred speech, tongue in midline, no tremors noted A/P Assessment and Plan Diabetes type II uncontrolled - improved control since admission, continue Levemir 25 units twice a day, is stable on medium dose sliding scale. AM sugars 140s. Patient is stable to transfer to psychiatry. will likely benefit from low dose novolog or novolin at breakfast so that pre-lunch sugars are better controlled (currently top out at 200-300s which respond nicely w/ sliding scale. ) Can be fine-tuned over time, especially outpatient. Will order diabetes education. diabetic diet, repeat a1c 11 - improved from 14. Suicidal ideation Bipolar disorder - Management per psychiatric team Diabetic peripheral neuropathy - continue on Gabapentin Muscle spasms - Continue on Robaxin Seizures - possible seizure since last night, neurology being consulted, continue dilantin, suboptimal level, I anticipate dose will be either increased or 2nd agent will be added, currently stable. seizure precautions. Migraines, chronic - Fioricet prn DVT prophylaxis - Patient is ambulatory Tejas Castillo MD Oct 14, 2016 10:48
--- NOTE | 2016-10-14 13:53 | HHI.PYPN ---
Subjective Remarks Patient seen for follow-up, chart reviewed. Patient reports having slept better last evening but reported having had "dizzy spells". Patient also reports less evening having had an episode which he was required assisted by nursing back to his room and was not responsive for about 15 seconds although patient reports having an able to recall the episode and denied any loss of consciousness. He states that he's been eating well with good appetite, tolerating medication regimen well. Patient denies any suicidal ideations denies feeling sad or depressed and his mood being "okay". Patient also mentions having had headache recently in the context of a history of migraines in the past. Review of Systems Except as stated in HPI: all other systems reviewed are Neg Objective Alert: Yes [place]: Person, Place, Date Mood: Calm Affect: Appropriate Memory Intact: Comment (intact) Hallucinations: Other (denies) Delusions: No Delusion Type: Other (denies) Suicidal: Ideation (denies) Homicidal: Ideation (denies) Insight/Judgment Fair insight, impulse control and judgment Vitals/IOs Vital Signs Date Time Temp Pulse Resp B/P (MAP) Pulse Ox O2 Delivery O2 Flow Rate FiO2 10/14/16 05:14 97.3 112 16 114/69 (84) 98 Intake and Output 10/14/16 10/14/16 10/15/16 08:00 16:00 00:00 Intake Total 60 ml 1920 ml Balance 60 ml 1920 ml Assessment & Plan Problem List: (1) Bipolar depression ICD Codes: F31.30 - Bipolar disorder, current episode depressed, mild or moderate severity, unspecified Assessment & Plan Patient appears to responding well to current treatment, denies any suicidal ideations. Patient with improved sleep, having moments of feeling dizzy which may be due to orthostasis. Neurology consult was placed by the primary medical team as recent episode as stated in history of present illness may have possibly been seizure. Patient likely to be discharged from psychiatric services tomorrow and will continue medical management as per primary medical team. Continue current treatment. Discharge planning in progress Justification for Cont. Inpt. At risk for decompensation if it lower level of care Mark Toney MD Oct 14, 2016 13:53
[2016-10-14] MEDS ORDERED: PHENYTOIN SODIUM 100 MG CAP PO ONE (18:30)
[2016-10-14] MEDS: ATORVASTATIN 40 MG TAB PO SCH (20:52)
[2016-10-14] MEDS: ARIPiprazole 5 MG TAB PO SCH (20:52)
[2016-10-14] MEDS: ACETAMIN 325 MG/BUTALBITAL 50 MG/CAFFEINE 40 MG TAB PO PRN (22:42)
[2016-10-14] MEDS: traZODone HCL 50 MG TAB PO PRN (22:45)
[2016-10-15] MEDS: ACETAMIN 325 MG/BUTALBITAL 50 MG/CAFFEINE 40 MG TAB PO PRN ×2 (01:45→15:34)
[2016-10-15 05:29] VITALS: BP 99/62; PULSE 116; RESP 16; TEMP 98; O2SAT 97
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
[2016-10-15] MEDS: INSULIN ASPART SUPPLEMENTAL SCALE SQ SCH ×4 (07:00→21:37)
[2016-10-15] MEDS: LISINOPRIL 5 MG TAB PO SCH (08:15)
[2016-10-15] MEDS: METHOCARBAMOL 500 MG TAB PO SCH ×4 (08:15→21:33)
[2016-10-15] MEDS: PHENYTOIN SODIUM 100 MG CAP PO SCH ×2 (08:16→21:32)
[2016-10-15] MEDS: GEMFIBROZIL 600 MG TAB PO SCH ×2 (08:16→15:33)
[2016-10-15] MEDS: GABAPENTIN 400 MG CAP PO SCH ×3 (08:16→18:10)
[2016-10-15] MEDS: CITALOPRAM HYDROBROMIDE 20 MG TAB PO SCH (08:16)
[2016-10-15] MEDS: NICOTINE 21 MG/24 HR PATCH T-DERMAL SCH (08:20)
[2016-10-15] MEDS: REMOVE OLD PATCH T-DERMAL SCH (08:20)
[2016-10-15] MEDS: INSULIN DETEMIR 100 UNITS/ML VIAL SQ SCH ×2 (08:37→21:00)
--- NOTE | 2016-10-15 10:07 | HHI.PR ---
Subjective Remarks Follow-up for uncontrolled diabetes. Blood sugars running in the upper 100s. Otherwise patient has no complaints. Objective Vitals Vital Signs Date Time Temp Pulse Resp B/P (MAP) Pulse Ox O2 Delivery O2 Flow Rate FiO2 10/15/16 05:29 98.0 116 16 99/62 (74) 97 I/O 10/14/16 10/14/16 10/14/16 10/15/16 10/15/16 10/15/16 07:00 15:00 23:00 07:00 15:00 23:00 Intake Total 60 ml 1920 ml 480 ml 720 ml 720 ml Balance 60 ml 1920 ml 480 ml 720 ml 720 ml Intake Oral 60 ml 1920 ml 480 ml 720 ml 720 ml # Voids 2 2 1 1 1 Result Diagram: 10/12/16 1019 Objective Remarks GENERAL: in NAD SKIN: Warm and dry. HEAD: Normocephalic. EYES: No scleral icterus. No injection or drainage. NECK: Supple, trachea midline. No JVD or lymphadenopathy. CARDIOVASCULAR: Regular rate and rhythm without murmurs, gallops, or rubs. RESPIRATORY: Breath sounds equal bilaterally. No accessory muscle use. GASTROINTESTINAL: Abdomen soft, non-tender, nondistended. MUSCULOSKELETAL: No cyanosis, or edema. BACK: Nontender without obvious deformity. No CVA tenderness. Medications and IVs Current Medications Lorazepam (Ativan) 1 mg Q6H PRN PO MODERATE TO SEVERE ANXIETY Last administered on 10/13/16 21:51; Start 10/11/16 at 18:00 Lorazepam (Ativan Inj) 1 mg Q6H PRN IM MODERATE TO SEVERE ANXIETY; Start at 18:00 Diphenhydramine HCl (Benadryl) 50 mg Q6H PRN PO For mild anxiety and/or EPS Last administered on 10/14/16 05:10; Start 10/11/16 at 18:00 Diphenhydramine HCl (Benadryl Inj) 50 mg Q6H PRN IM For mild anxiety and/or EPS ; Start 10/11/16 at 18:00 Diphenhydramine HCl (Benadryl) 50 mg HS PRN PO INSOMNIA; Start 10/11/16 at 18:00 ; Stop 10/12/16 at 15:46; Status DC Acetaminophen (Tylenol) 650 mg Q4H PRN PO Pain 1-5 or Temp >101F Last administered on 10/14/16 09:56; Start 10/11/16 at 18:00 Magnesium Hydroxide (Milk Of Magnesia Liq) 30 ml DAILY PRN PO CONSTIPATION; Start 10/11/16 at 18:00 Al Hydrox/Mg Hydrox/Simethicone (Mag-Al Plus Susp Liq) 30 ml Q6H PRN PO DYSPEPSIA; Start 10/11/16 at 18:00 Nicotine (Habitrol 21 Mg Patch.24 Hr) 1 patch DAILY T-DERMAL ; Start 10/12/16 at 09:00 Miscellaneous Information 1 DAILY T-DERMAL ; Start 10/12/16 at 09:00 Dextrose (D50w (Vial) Inj) 50 ml UNSCH PRN IV HYPOGLYCEMIA-SEE COMMENTS; Start 10/11/16 at 18:00 Glucagon (Glucagon Inj) 1 mg UNSCH PRN OTHER HYPOGLYCEMIA-SEE COMMENTS; Start 10/11/16 at 18:00 Insulin Aspart (NovoLOG SUPPLEMENTAL SCALE) 1 ACHS SLIDING SCALE SQ Last administered on 10/13/16 11:48; Start 10/11/16 at 21:00; Stop 10/13/16 at 11:32; Status DC Atorvastatin Calcium (Lipitor) 40 mg HS PO Last administered on 10/14/16 20:52 ; Start 10/11/16 at 21:00 Citalopram Hydrobromide (CeleXA) 10 mg DAILY PO Last administered on 10/15/16 08:16; Start 10/12/16 at 09:00 Gabapentin (Neurontin) 800 mg TID PO Last administered on 10/15/16 08:16; Start 10/11/16 at 18:00 Gemfibrozil (Lopid) 600 mg BIDAC PO Last administered on 10/15/16 08:16; Start 10/12/16 at 07:00 Methocarbamol (Robaxin) 750 mg QID PO Last administered on 10/15/16 08:15; Start 10/11/16 at 18:00 Ondansetron HCl (Zofran Odt) 4 mg Q6HR PRN SL Nausea/Vomiting; Start 10/11/16 at 18:00 Phenytoin (Dilantin) 100 mg TID PO Last administered on 10/14/16 17:05; Start 10/11/16 at 18:00; Stop 10/14/16 at 18:21; Status DC Trazodone HCl (Desyrel) 100 mg HS PO Last administered on 10/11/16 20:20; Start 10/11/16 at 21:00; Stop 10/12/16 at 15:46; Status DC Lisinopril (Prinivil) 2.5 mg DAILY PO Last administered on 10/15/16 08:15; Start 10/12/16 at 09:00 Insulin Detemir (Levemir Inj) 20 units BID SQ Last administered on 10/12/16 09: 00; Start 10/11/16 at 21:00; Stop 10/12/16 at 09:33; Status DC Miscellaneous (Pill Splitter) 1 ea UNSCH PRN OTHER SEE LABEL COMMENTS; Start at 19:00 Metoclopramide HCl (Reglan Inj) 5 mg Q8HR PRN IV PUSH nausea Last administered on 10/12/16 05:31; Start 10/11/16 at 20:00 Ibuprofen (Motrin) 400 mg Q8H PRN PO pain 1-5 Last administered on 10/13/16 16: 01; Start 10/11/16 at 20:00 Acetaminophen/ Butalbital/ Caffeine (Fioricet 325-50-40) 1 tab Q8H PRN PO HEADACHES/MIGRAINES Last administered on 10/14/16 22:42; Start 10/12/16 at 08:30 Insulin Detemir (Levemir Inj) 5 units NOW ONCE SQ Last administered on 09:00; Start 10/12/16 at 09:00; Stop 10/12/16 at 09:13; Status DC Insulin Detemir (Levemir Inj) 25 units BID SQ Last administered on 10/15/16 08: 37; Start 10/12/16 at 21:00 Trazodone HCl (Desyrel) 50 mg HS PRN PO INSOMNIA Last administered on 10/14/16 22:45; Start 10/12/16 at 15:45 Aripiprazole (Abilify) 5 mg HS PO Last administered on 10/14/16 20:52; Start at 21:00 Insulin Aspart (NovoLOG SUPPLEMENTAL SCALE) 1 ACHS SLIDING SCALE SQ Last administered on 10/14/16 16:00; Start 10/13/16 at 16:00 Phenytoin (Dilantin) 200 mg BID PO Last administered on 10/15/16 08:16; Start 10/14/16 at 21:00 Phenytoin (Dilantin) 300 mg ONCE ONCE PO Last administered on 10/14/16 18:30; Start 10/14/16 at 18:30; Stop 10/14/16 at 18:31; Status DC A/P Assessment and Plan Diabetes type II uncontrolled - improved control since admission, continue Levemir 25 units twice a day, is stable on medium dose sliding scale. Continue her current regimen. Suicidal ideation Bipolar disorder - Management per psychiatric team Diabetic peripheral neuropathy - continue on Gabapentin Muscle spasms - Continue on Robaxin Seizures - Patient on Dilantin. Unsure if patient had a true seizure during hospitalization. Patient shows no sign of being post ictal. Neurologist was consulted. Management per neurologist. Migraines, chronic - Fioricet prn DVT prophylaxis - Patient is ambulatory Britni Lainez MD Oct 15, 2016 10:07
[2016-10-15] MEDS ORDERED: GADODIAMIDE PF 287 MG/ML 5 ML VIAL (for RAD MRI) IVCONTRAST ONE (10:17)
[2016-10-15] MEDS ORDERED: ARIP1TAB11 PO (12:25)
[2016-10-15] MEDS ORDERED: CELE20TA PO (12:25)
--- NOTE | 2016-10-15 12:42 | RADRPT ---
EXAM DATE/TIME: 10/15/2016 09:59 [facility] COMPARISON: No previous studies available for comparison. INDICATIONS : Seizures. CONTRAST: 12 cc Omniscan (gadodiamide) IV MEDICAL HISTORY : Seizures. SURGICAL HISTORY : Right knee ligament repair. ENCOUNTER: Initial ACUITY: 4-6 days PAIN SCORE: 0/10 LOCATION: head. TECHNIQUE: Multiplanar, multisequence MRI of the brain was performed both prior to and following the administrat ion of paramagnetic contrast. FINDINGS: CEREBRUM: The ventricles are normal for age. No evidence of midline shift, mass lesion, hemorrhage or acute in farction. No extraaxial fluid collections are seen. The pituitary gland and suprasellar cistern are normal in configuration. WHITE MATTER: No significant signal abnormalities are seen in the white matter. POSTERIOR FOSSA: The cerebellum and brainstem are intact. The 4th ventricle is midline. The cerebellopontine angle is unremarkable. The cerebellar tonsils are normal in position. DIFFUSION IMAGING: No focal areas of restricted diffusion are seen. No evidence of acute infarction. EXTRACRANIAL: The visualized portions of the orbits and paranasal sinuses are unremarkable. POST-CONTRAST: No abnormal areas of parenchymal or dural enhancement. No evidence of blood-brain barrier breakdown. CONCLUSION: Normal examination. Chris Dickerson MD on October 15, 2016 at 12:36 Board Certified Radiologist. This report was verified electronically.
--- NOTE | 2016-10-15 13:09 | HHI.DS ---
Psychiatry Discharge Summary Inpatient Psychiatric care?: Yes Advance Directive: No Reason Not Provided: Declined at this time. Mental Health AdvanceDirective: No Health Care Proxy: No Admission Admission Date Oct 11, 2016 at 16:06 Admission Diagnosis: (1) Bipolar depression ICD Code: F31.30 - Bipolar disorder, current episode depressed, mild or moderate severity, unspecified Brief History Patient is a 35-year-old man, single, has 2 children currently do not live with him, unemployed, past psychiatric history of bipolar disorder as per patient, no psychiatric hospitalizations, reported 2 previous suicide attempts ( 1 aborted suicide attempt and other attempts to induce hyperglycemic via ingestion of large amounts of Mountain Dew), no previous self-injurious behavior , significant marijuana use processes were milligrams daily), past medical history of diabetes and hyperlipidemia was brought into the inpatient medical/ psychiatry unit after being put under Stoner act after having suicidal ideations of wanting to shoot self with friends handgun. Patient found lying in hospital bed, cooperative interview. Patient states that he is in the hospital because I ran out of medicine. Patient states he has been having nightmares of killing himself but also reports having had suicidal ideations since the passing of his mother one year ago. Patient states that recently prior to admission he has suicide ideation of using his friends handgun after he had founded under the pillow in the friends bedroom. He states that after he had gone home the next day he had thought about using the gun to kill himself for which she then asked his friend to bring to the hospital to get help. Patient reports that last year (2015) his mother and sister and a brother 5 years ago. He also reports that he was feeling stress lately as he has not been able to see his children. Patient reports having had decreased sleep, appetite, energy, no change in concentration, feeling depressed for the past couple of weeks, feeling difficulty getting out of bed, feeling helpless and hopeless and having suicidal ideations couple times a week but with no plan. Patient reports that his admission he has been feeling fine, feels that his mood is slightly improved and has not had suicidal ideation since admission. Patient reports that his current medication regimen has been helpful. Patient states that his 3 reasons to live now are to potentially start a new relationship with someone he has been speaking with, wanting to reconnect with his children and for his friends. Patient denies any manic or psychotic symptoms, denies HI, AVH or delusions at this time. Past psychiatric history: Bipolar disorder as per patient, THC use disorder, no prior psychiatric hospitalizations, 2 previous suicide attempts (aborted suicide attempt after driving in a vehicle with plan to run into traffic but friend had "talked him out of it" and second as stated above) no previous suicidal and his behavior, denies previous abuse, reports outpatient psychiatrist at [facility] act will be continues to follow with. Substance use history: Marijuana use daily, about 1 g per day, last use was prior to his admission. Patient denies use of any alcohol or illicit drug use denies any previous detox rehabilitation program. Past medical history: Diabetes and hyperlipidemia Allergies: Metformin and Flexeril Legal history: Denies Social history: Single, has 2 children he has no contact with at this time, unemployed. Tobacco Use In Past 30 Days: No Tobacco Past 30 Days Alcohol Use: Never Hospital Course Patient is a 35-year-old man, single, has 2 children currently do not live with him, unemployed, past psychiatric history of bipolar disorder as per patient, no psychiatric hospitalizations, reported 2 previous suicide attempts ( 1 aborted suicide attempt and other attempts to induce hyperglycemic via ingestion of large amounts of Mountain Dew), no previous self-injurious behavior , significant marijuana use processes were milligrams daily), past medical history of diabetes and hyperlipidemia was brought into the inpatient medical/ psychiatry unit after being put under Stoner act after having suicidal ideations of wanting to shoot self with friends handgun. Patient was admitted to the medical/psychiatry unit for further evaluation and management. Patient was started on citalopram 10mg and aripiprazole 5mg PO daily. Patient was continued on Dilantin for seizure control and managed medically by primary medical team. Patient continued to have improved mood, no longer endorsing feeling depressed, is future oriented and goal-directed, and no longer endorsing suicidal ideations. Patient continues to be managed by primary medical team for diabetes, peripheral neuropathy, migraines and seizure control. Patient psychiatrically cleared to continue medical management as per primary medical team. Results Blood Pressure 99 / 62 Vital Signs Date Time Temp Pulse Resp B/P (MAP) Pulse Ox O2 Delivery O2 Flow Rate FiO2 10/15/16 05:29 98.0 116 16 99/62 (74) 97 Laboratory Tests Test 10/12/16 19:37 10/14/16 20:35 Phenytoin (Dilantin) Level 4.6 MCG/ML (10.0-20.0) 6.2 MCG/ML (10.0-20.0) Laboratory Results Test 10/12/16 10:19 Cholesterol Level 206 MG/DL (120-200) HDL Cholesterol 51.1 MG/DL (40.0-60.0) Hemoglobin A1c 11.0 % (4.3-6.0) LDL Cholesterol 120 MG/DL (0-99) Triglycerides Level 176 MG/DL (42-150) Summary of Procedures None Imaging Last Impressions Brain MRI 10/15/16 0000 Signed Impressions: Service Date/Time: October 09:59 - CONCLUSION: Normal examination. Chris Dickerson MD Pending results at discharge: No Medications # of Antipsychotic meds at D/C: 1 Approp Antipsych med options 1 - Minimum of three failed multiple trials of monotherapy. 2 - Documented plan to taper to monotherapy due to previous use of multiple meds OR cross-taper in progress at D/C. 3 - Documentation of augmentation of Clozapine. 4 - Justification other than those listed in allowable values 1-3, document here : Discharge Discharge Date: Oct 15, 2016 Discharge Diagnosis: (1) Bipolar depression Diagnosis: Principal ICD Code: F31.30 - Bipolar disorder, current episode depressed, mild or moderate severity, unspecified Mental Status Exam at Disch Appearance/Behavior: appears stated age, in casual clothing, noted to be calm and cooperative with interview, fair eye contact Speech: normal rate, tone and prosody Mood: "good" Affect: euthymic TP: linear, future oriented TC: denies SI, HI, AVH or delusions Insight/Impulse control/Judgment: Fair Alert and oriented x 3 Pt Condition on Discharge: Stable Discharge Disposition: Discharge Home (Patient will be transferred to the medical floor for further medical management) Discharge Instructions Diet Instructions: Diabetic Diet Activities you can perform: Regular-No Restrictions Discharge Time > 30 minutes Discharge/Advance Care Plan Health Problems: (1) Bipolar depression Goals to promote your health * To prevent worsening of your condition and complications * To maintain your health at the optimal level Directions to meet your goals Take your medications as prescribed Follow your dietary instruction Follow activity as directed Keep your appointments as scheduled Take your immunizations and boosters as scheduled If your symptoms worsen call your PCP, if no PCP go to Urgent Care Center or Emergency Room For 31/08 questions related to your inpatient stay or results of tests pending at discharge, please contact Dr. Mark Toney at Smoking is Dangerous to Your Health. Avoid second hand smoking Mark Toney MD Oct 15, 2016 13:09
--- NOTE | 2016-10-15 17:39 | MG ---
cc: SAMREEN LIAO MD Lab No: [id number] Date: 10/15/2016 Age: Sex: 35 M Race: DATE OF : 1980. HISTORY: A 35 year-old with some mental status changes. PROCEDURE: 68 Hz posterior rhythm 20-50 microvolts, low amplitude beta theta in the frontal channels, high blink and movement artifact noted. Good EEG variability reactivity, driving with photic stimulation. Single EKG. This shows sinus tachycardia. INTERPRETATION Minimal encephalopathy. Clinical correlation Samreen Liao MD MG/ /5:20 PM /5:28 PM
[2016-10-15 18:17] VITALS: BP 97/58; PULSE 104; RESP 16; TEMP 97.9; O2SAT 98
[2016-10-15] MEDS: ARIPiprazole 5 MG TAB PO SCH (21:31)
[2016-10-15] MEDS: ATORVASTATIN 40 MG TAB PO SCH (21:32)
[2016-10-15] MEDS: traZODone HCL 50 MG TAB PO PRN (21:32)
[2016-10-16 03:21] VITALS: BP 98/54; PULSE 111; RESP 16; TEMP 97.4; O2SAT 97
[2016-10-16] MEDS: INSULIN ASPART SUPPLEMENTAL SCALE SQ SCH ×2 (07:00→11:42)
[2016-10-16] MEDS: GEMFIBROZIL 600 MG TAB PO SCH (08:23)
[2016-10-16] MEDS: METHOCARBAMOL 500 MG TAB PO SCH ×2 (08:23→11:43)
[2016-10-16] MEDS: CITALOPRAM HYDROBROMIDE 20 MG TAB PO SCH (08:24)
[2016-10-16] MEDS: LISINOPRIL 5 MG TAB PO SCH (08:24)
[2016-10-16] MEDS: PHENYTOIN SODIUM 100 MG CAP PO SCH (08:24)
[2016-10-16] MEDS: GABAPENTIN 400 MG CAP PO SCH ×2 (08:24→11:43)
[2016-10-16] MEDS: INSULIN DETEMIR 100 UNITS/ML VIAL SQ SCH (08:46)
[2016-10-16] MEDS: REMOVE OLD PATCH T-DERMAL SCH (08:47)
[2016-10-16] MEDS ORDERED: METH750T PO (09:12)
[2016-10-16] MEDS ORDERED: LEVEMIR SQ (09:12)
[2016-10-16] MEDS ORDERED: ATOR40TA16 PO (09:12)
[2016-10-16] MEDS ORDERED: NICO21DI25 T-DERMAL (09:12)
[2016-10-16] MEDS ORDERED: GEMF600T PO (09:12)
[2016-10-16] MEDS ORDERED: NOVOLOGSS SQ (09:12)
[2016-10-16] MEDS ORDERED: DILA100C PO (09:12)
[2016-10-16] MEDS ORDERED: BUTATAB6 PO (09:12)
[2016-10-16] MEDS ORDERED: GABA800T PO (09:12)
[2016-10-16] MEDS ORDERED: LISI2.5T3 PO (09:12)
[2016-10-16] MEDS ORDERED: INSU-91 (09:14)
--- NOTE | 2016-10-16 10:18 | HHI.PYPN ---
Subjective Remarks Patient seen today for reevaluation, was discharged yesterday to the medical floor, but medical team medically clear him. Today patient presents in a good spirits, reports good mood, denies depressive symptoms, denies anxiety, ismael and psychosis. No paranoia, no delusions, no pressured speech, no ideas of reference, no loosening of associations are present. Patient is oriented 3. Comply with medications, no significant side effects. Review of Systems Other No somatic complaints Objective Alert: Yes [place]: Person, Place, Date Mood: Calm Affect: Appropriate Memory Intact: Comment (intact) Hallucinations: Other (denies) Delusions: No Delusion Type: Other (denies) Suicidal: Ideation (denies) Homicidal: Ideation (denies) Insight/Judgment Good Vitals/IOs Vital Signs Date Time Temp Pulse Resp B/P (MAP) Pulse Ox O2 Delivery O2 Flow Rate FiO2 10/16/16 03:21 97.4 111 16 98/54 (69) 97 Intake and Output 10/16/16 10/16/16 10/17/16 08:00 16:00 00:00 Intake Total 240 ml 480 ml Balance 240 ml 480 ml Assessment & Plan Problem List: (1) Bipolar depression ICD Codes: F31.30 - Bipolar disorder, current episode depressed, mild or moderate severity, unspecified Assessment & Plan: Patient is psychiatrically stable to be discharged back home and continue psychiatric care as an outpatient. Assessment & Plan Estimated LOS: days Justification for Cont. Inpt. Patient is discharged. Dashawn Barros MD Oct 16, 2016 10:18
--- NOTE | 2016-10-16 11:39 | HHI.PR ---
Subjective Remarks Follow-up for medical management Patient very anxious ago. He stated that he needs to go today in order to give medication. He denies any shortness of breathing, chest pain, palpitation. He stated that he has been doing very well. Patient asked if I can send his medication to the pharmacy here. He needs refills on all his medication. yunior his nurse. Objective Vitals Vital Signs Date Time Temp Pulse Resp B/P (MAP) Pulse Ox O2 Delivery O2 Flow Rate FiO2 10/16/16 03:21 97.4 111 16 98/54 (69) 97 10/15/16 18:17 97.9 104 16 97/58 (71) 98 10/15/16 17:32 18 I/O 10/15/16 10/15/16 10/15/16 10/16/16 10/16/16 10/16/16 07:00 15:00 23:00 07:00 15:00 23:00 Intake Total 720 ml 720 ml 720 ml 240 ml 480 ml Balance 720 ml 720 ml 720 ml 240 ml 480 ml Intake Oral 720 ml 720 ml 720 ml 240 ml 480 ml # Voids 1 1 8 3 Result Diagram: 10/12/16 1019 Objective Remarks GENERAL: in NAD SKIN: Warm and dry. HEAD: Normocephalic. EYES: No scleral icterus. No injection or drainage. NECK: Supple, trachea midline. No JVD or lymphadenopathy. CARDIOVASCULAR: Regular rate and rhythm without murmurs, gallops, or rubs. RESPIRATORY: Breath sounds equal bilaterally. No accessory muscle use. GASTROINTESTINAL: Abdomen soft, non-tender, nondistended. MUSCULOSKELETAL: No cyanosis, or edema. BACK: Nontender without obvious deformity. No CVA tenderness. Medications and IVs Current Medications Lorazepam (Ativan) 1 mg Q6H PRN PO MODERATE TO SEVERE ANXIETY Last administered on 10/13/16 21:51; Start 10/11/16 at 18:00 Lorazepam (Ativan Inj) 1 mg Q6H PRN IM MODERATE TO SEVERE ANXIETY; Start at 18:00 Diphenhydramine HCl (Benadryl) 50 mg Q6H PRN PO For mild anxiety and/or EPS Last administered on 10/14/16 05:10; Start 10/11/16 at 18:00 Diphenhydramine HCl (Benadryl Inj) 50 mg Q6H PRN IM For mild anxiety and/or EPS ; Start 10/11/16 at 18:00 Diphenhydramine HCl (Benadryl) 50 mg HS PRN PO INSOMNIA; Start 10/11/16 at 18:00 ; Stop 10/12/16 at 15:46; Status DC Acetaminophen (Tylenol) 650 mg Q4H PRN PO Pain 1-5 or Temp >101F Last administered on 10/14/16 09:56; Start 10/11/16 at 18:00 Magnesium Hydroxide (Milk Of Magnesia Liq) 30 ml DAILY PRN PO CONSTIPATION; Start 10/11/16 at 18:00 Al Hydrox/Mg Hydrox/Simethicone (Mag-Al Plus Susp Liq) 30 ml Q6H PRN PO DYSPEPSIA; Start 10/11/16 at 18:00 Nicotine (Habitrol 21 Mg Patch.24 Hr) 1 patch DAILY T-DERMAL ; Start 10/12/16 at 09:00 Miscellaneous Information 1 DAILY T-DERMAL ; Start 10/12/16 at 09:00 Dextrose (D50w (Vial) Inj) 50 ml UNSCH PRN IV HYPOGLYCEMIA-SEE COMMENTS; Start 10/11/16 at 18:00 Glucagon (Glucagon Inj) 1 mg UNSCH PRN OTHER HYPOGLYCEMIA-SEE COMMENTS; Start 10/11/16 at 18:00 Insulin Aspart (NovoLOG SUPPLEMENTAL SCALE) 1 ACHS SLIDING SCALE SQ Last administered on 10/13/16 11:48; Start 10/11/16 at 21:00; Stop 10/13/16 at 11:32; Status DC Atorvastatin Calcium (Lipitor) 40 mg HS PO Last administered on 10/15/16 21:32 ; Start 10/11/16 at 21:00 Citalopram Hydrobromide (CeleXA) 10 mg DAILY PO Last administered on 10/16/16 08:24; Start 10/12/16 at 09:00 Gabapentin (Neurontin) 800 mg TID PO Last administered on 10/16/16 08:24; Start 10/11/16 at 18:00 Gemfibrozil (Lopid) 600 mg BIDAC PO Last administered on 10/16/16 08:23; Start 10/12/16 at 07:00 Methocarbamol (Robaxin) 750 mg QID PO Last administered on 10/16/16 08:23; Start 10/11/16 at 18:00 Ondansetron HCl (Zofran Odt) 4 mg Q6HR PRN SL Nausea/Vomiting; Start 10/11/16 at 18:00 Phenytoin (Dilantin) 100 mg TID PO Last administered on 10/14/16 17:05; Start 10/11/16 at 18:00; Stop 10/14/16 at 18:21; Status DC Trazodone HCl (Desyrel) 100 mg HS PO Last administered on 10/11/16 20:20; Start 10/11/16 at 21:00; Stop 10/12/16 at 15:46; Status DC Lisinopril (Prinivil) 2.5 mg DAILY PO Last administered on 10/16/16 08:24; Start 10/12/16 at 09:00 Insulin Detemir (Levemir Inj) 20 units BID SQ Last administered on 10/12/16 09: 00; Start 10/11/16 at 21:00; Stop 10/12/16 at 09:33; Status DC Miscellaneous (Pill Splitter) 1 ea UNSCH PRN OTHER SEE LABEL COMMENTS; Start at 19:00 Metoclopramide HCl (Reglan Inj) 5 mg Q8HR PRN IV PUSH nausea Last administered on 10/12/16 05:31; Start 10/11/16 at 20:00 Ibuprofen (Motrin) 400 mg Q8H PRN PO pain 1-5 Last administered on 10/13/16 16: 01; Start 10/11/16 at 20:00 Acetaminophen/ Butalbital/ Caffeine (Fioricet 325-50-40) 1 tab Q8H PRN PO HEADACHES/MIGRAINES Last administered on 10/15/16 15:34; Start 10/12/16 at 08:30 Insulin Detemir (Levemir Inj) 5 units NOW ONCE SQ Last administered on 09:00; Start 10/12/16 at 09:00; Stop 10/12/16 at 09:13; Status DC Insulin Detemir (Levemir Inj) 25 units BID SQ Last administered on 10/16/16 08: 46; Start 10/12/16 at 21:00 Trazodone HCl (Desyrel) 50 mg HS PRN PO INSOMNIA Last administered on 10/15/16 21:32; Start 10/12/16 at 15:45 Aripiprazole (Abilify) 5 mg HS PO Last administered on 10/15/16 21:31; Start at 21:00 Insulin Aspart (NovoLOG SUPPLEMENTAL SCALE) 1 ACHS SLIDING SCALE SQ Last administered on 10/15/16 21:37; Start 10/13/16 at 16:00 Phenytoin (Dilantin) 200 mg BID PO Last administered on 10/16/16 08:24; Start 10/14/16 at 21:00 Phenytoin (Dilantin) 300 mg ONCE ONCE PO Last administered on 10/14/16 18:30; Start 10/14/16 at 18:30; Stop 10/14/16 at 18:31; Status DC Gadodiamide (Omniscan Pf Inj) 12 ml STK-MED ONCE IVCONTRAST Last administered on 10/15/16 10:17; Start 10/15/16 at 10:17; Stop 10/15/16 at 10:18; Status DC A/P Assessment and Plan Diabetes type II uncontrolled - improved control since admission, continue Levemir 25 units twice a day, is stable on medium dose sliding scale. Continue her current regimen. Suicidal ideation Bipolar disorder - Management per psychiatric team Diabetic peripheral neuropathy - continue on Gabapentin Muscle spasms - Continue on Robaxin Seizures - Patient on Dilantin. Unsure if patient had a true seizure during hospitalization. Patient shows no sign of being post ictal. Neurologist was consulted. Management per neurologist. Migraines, chronic - Fioricet prn DVT prophylaxis - Patient is ambulatory Discharge Planning Patient medically clear for discharge. Med list reviewed and he was given 30 day supply. Patient told he must follow with his primary care physician in regards to medication refill and his uncontrolled diabetes. Patient stated that he understood. Britni Lainez MD Oct 16, 2016 11:39
== END 2016-10-16 14:00 | disposition home or self-care (01) | DRG 885 ==
LOC: H4EA 16:06 → HCPC 10-16 08:06 → H4EA 10-16 08:12
PROVIDERS: ADMIT Psychiatry & Neurology Psychiatry; ATTEND Psychiatry & Neurology Psychiatry
DX: F31.30 Bipolar disorder, current episode depressed, mild or moderate severity, unspecified (principal); R45.851 Suicidal ideations; G40.89 Other seizures; E11.42 Type 2 diabetes mellitus with diabetic polyneuropathy; F12.90 Cannabis use, unspecified, uncomplicated; Z81.8 Family history of other mental and behavioral disorders; E78.5 Hyperlipidemia, unspecified; Z79.4 Long term (current) use of insulin; I10 Essential (primary) hypertension; E11.65 Type 2 diabetes mellitus with hyperglycemia; M62.838 Other muscle spasm; G43.909 Migraine, unspecified, not intractable, without status migrainosus; E87.6 Hypokalemia; Z87.891 Personal history of nicotine dependence; Z87.828 Personal history of other (healed) physical injury and trauma
CPT/HCPCS: 70553; 80048; 80061; 80185; 82948; 83036; 84443; 94620; 95819; A9579; J1815; J2765; Q0163

== ENCOUNTER 2016-11-03 12:39 | Emergency (ER) | payer SELFPAY ==
[~2016-11-03] VITALS: Ht 172.7 cm; Wt 60.0 kg
[~2016-11-03 12:39] MED LIST changes: +ARIP1TAB11 PO; +BUTATAB6 PO; -CELE10TA PO; +CELE20TA PO; +INSU-91; +NICO21DI25 T-DERMAL; +NOVOLOGSS SQ; -NOVORP2 SQ; -TRAZ50TA12 PO; -ZOFR4TAB3 SL
[2016-11-03 12:40] VITALS: BP 121/84; PULSE 125; RESP 17; TEMP 98.4; O2SAT 98
--- NOTE | 2016-11-03 12:44 | PD ---
Physical Exam Time Seen by Provider: 12:42 Narrative 35-year-old male with complaint of "stomach infection" he was discharged with 2 weeks ago with worsening last night. History of gastroparesis. He is taking an antibiotic that he doesn't know the name of. Says it mcallister his stomach to eat or drink anything. Denies fever, vomiting. Reports diarrhea. Patient seen in triage. Vital signs reviewed. Patient taken to medical bed. Data Data Last Documented VS Vital Signs Date Time Temp Pulse Resp B/P (MAP) Pulse Ox O2 Delivery O2 Flow Rate FiO2 11/03/16 12:40 98.4 125 17 121/84 (96) 98 MDM Supervised Visit with KATERINE: Ursula Noble Nov 03, 2016 12:44
--- NOTE | 2016-11-03 12:52 | PD ---
HPI . diffuse abdominal pain Chief Complaint: Abdominal Pain Time Seen by Provider: 12:52 Travel History International Travel<30 days: No Contact w/Intl Traveler<30days: No Traveled to known affect area: No History of Present Illness HPI 35-year-old male with history of gastroparesis here with complaints of generalized abdominal pain. Patient tells me that he had abdominal pain over the past several days. He was in the hospital 2 weeks ago and tells me that he was called recently and told he had a stomach infection. He says that antibiotic were called into the pharmacy and he is taking them, however he does not have the bottle with him nor does he know the name of the medication. He tells me was supposed to follow-up community clinic, but was told that he needs to establish with another practice because the clinic is closing. He is here telling me that his abdominal pain fluctuates from mild to severe. He ran out of his marijuana 3 days ago and his pain is now worse. PFSH Past Medical History Arthritis: Yes Asthma: No Blood Disorders: No Bipolar Disorder: Yes Anxiety: Yes Depression: Yes Heart Rhythm Problems: No Cancer: No Cardiovascular Problems: Yes High Cholesterol: Yes Chemotherapy: No Chest Pain: Yes ((2 years ago)) Congestive Heart Failure: No COPD: No Diabetes: Yes Diminished Hearing: No Endocrine: Yes Genitourinary: No Hypertension: Yes Immune Disorder: No Implanted Vascular Access Dvce: No Insomnia: Yes Musculoskeletal: Yes (muscle spasm, back pain) Neurologic: Yes Psychiatric: No Reproductive: No Respiratory: No Migraines: Yes Radiation Therapy: No Seizures: Yes (started Dilantin last week ) Sleep Apnea: No Thyroid Disease: No ?: Not Past Surgical History Abdominal Surgery: No Other Surgery: Yes (right knee ligament repaired) Social History Alcohol Use: No ( ) Tobacco Use: No ( ) Substance Use: Yes (daily marijuana) Allergies-Medications (Allergen,Severity, Reaction): Coded Allergies: metformin (Unverified Allergy, Intermediate, Hives, 10/10/16) cyclobenzaprine (Unverified Adverse Reaction, Intermediate, syncope, ) Reported Meds & Prescriptions Reported Meds & Active Scripts Active Ranitidine (Ranitidine HCl) 150 Mg Tab 150 Mg PO BID Zofran Odt (Ondansetron Odt) 4 Mg Tab 4 Mg SL Q8HR PRN Carefine Pen Ramer 31G X 6 mm 31 Gauge X 1/4" Mis Box .ROUTE DIRECTED Novolog Inj (Insulin Aspart) 100 Unit/Ml Inj 1 Unit SQ ACHS SLIDING SCALE before meals if blood sugar 150-199 give 2 units 200-249 give 4 units 250-299 give 7 units 300-349 give 10 units greater 349 12 units Levemir Inj (Insulin Detemir) 1,000 unit/ 10 ML Vial 25 Units SQ BID Do not mix with any other Insulin. Dilantin (Phenytoin Extended) 100 Mg Cap 200 Mg PO BID Cnwrzahcwq-Obxjyynhkwswz-Vqmtejwm 50-325-40 Mg Tab 1 Tab PO Q8H PRN Do not exceed 6 tablets/day. Eq Nicotine (Nicotine) 21 Mg/24 Hour Dis 1 Patch T-DERMAL DAILY Methocarbamol 750 Mg Tab 750 Mg PO QID Gabapentin 800 Mg Tab 800 Mg PO TID Atorvastatin (Atorvastatin Calcium) 40 Mg Tab 40 Mg PO HS Gemfibrozil 600 Mg Tab 600 Mg PO BIDAC Take 30 minutes prior to breakfast and dinner. Lisinopril 2.5 Mg Tab 2.5 Mg PO DAILY Celexa (Citalopram Hydrobromide) 20 Mg Tab 10 Mg PO DAILY 30 Days Aripiprazole 5 Mg Tab 5 Mg PO HS 30 Days Reported [unk muscle relaxer] QID Review of Systems General / Constitutional: No: Fever Eyes: No: Visual changes HENT: No: Headaches Cardiovascular: No: Chest Pain or Discomfort Respiratory: No: Shortness of Breath Gastrointestinal: Positive: Abdominal Pain Genitourinary: No: Dysuria Musculoskeletal: No: Pain Skin: No Rash Neurologic: No: Weakness Psychiatric: No: Depression Endocrine: No: Polydipsia Hematologic/Lymphatic: No: Easy Bruising Physical Exam Narrative GENERAL: AAO x 3, no acute distress, Well-nourished, well-developed patient. SKIN: Warm and dry. No visible rashes or bruising. HEAD: Normocephalic and atraumatic. EYES: No scleral icterus. No injection or drainage. ENT: No nasal drainage noted. Mucous membranes pink. Airway patent. NECK: Supple, trachea midline. No JVD. CARDIOVASCULAR: Regular rate and rhythm without murmurs, gallops, or rubs. HR on exam 110 RESPIRATORY: Breath sounds equal bilaterally. No accessory muscle use. No rhonchi or rales. GASTROINTESTINAL: Abdomen soft, tender throughout EXTREMITIES: No cyanosis or edema. BACK: No obvious deformity. NEURO: CN II-12 intact, student services advisor strength normal b/l, UE and LE 5/5, no focal deficits PSYCH: AAO x 3, normal affect. Data Data Last Documented VS Vital Signs Date Time Temp Pulse Resp B/P (MAP) Pulse Ox O2 Delivery O2 Flow Rate FiO2 11/03/16 15:58 99 17 119/75 (90) 98 11/03/16 15:58 Room Air 11/03/16 12:40 98.4 Orders Orders Sodium Chlor 0.9% 1000 Ml Inj (Ns 1000 M (11/03/16 13:15) Prochlorperazine Inj (Compazine Inj) (11/03/16 13:15) Diphenhydramine Inj (Benadryl Inj) (11/03/16 13:15) Sodium Chlor 0.9% 1000 Ml Inj (Ns 1000 M (11/03/16 13:30) Blood Glucose (11/03/16 13:17) Dicyclomine Inj (Bentyl Inj) (11/03/16 13:30) Basic Metabolic Panel (Bmp) (11/03/16 13:19) Labs Laboratory Tests Test 11/03/16 13:32 Blood Urea Nitrogen 18 MG/DL Creatinine 0.74 MG/DL Random Glucose 356 MG/DL Calcium Level 8.4 MG/DL Sodium Level 137 MEQ/L Potassium Level 3.5 MEQ/L Chloride Level 102 MEQ/L Carbon Dioxide Level 27.2 MEQ/L Anion Gap 8 MEQ/L Estimat Glomerular Filtration Rate 119 ML/MIN MDM Medical Decision Making Medical Screen Exam Complete: Yes Emergency Medical Condition: Yes Medical Record Reviewed: Yes Differential Diagnosis gastroparesis, less likely acute abdomen, acute on chronic abdominal pain Narrative Course 35 yr old male here with recurrent abdominal pain. I have reviewed the hospital records and do not find any note regarding infection and recent antibiotic prescription. I have discussed the case with Dr. Loco. We recommend 2 L IV fluids, compazine, benadrly and outpatient zofran and zantac. Prior to discharge patient felt better. He will f/u with Dr. Mcmahan or [facility] Diagnosis Primary Impression: Abdominal pain Qualified Codes: R10.9 - Unspecified abdominal pain Referrals: [facility] Patient Instructions: General Instructions Additional Instructions: Please return to emergency department if your symptoms return or worsen. Follow up with your primary care provider. Take medications as prescribed. Med/Other Pt SpecificInfo: Prescription(s) given Scripts Ranitidine (Ranitidine) 150 Mg Tab 150 MG PO BID for Heartburn Management, #60 TAB 0 Refills Prov: Camden Loco MD 11/03/16 Ondansetron Odt (Zofran Odt) 4 Mg Tab 4 MG SL Q8HR Y for Nausea/Vomiting, #15 TAB 0 Refills Prov: Camden Loco MD 11/03/16 Disposition: 01 DISCHARGE HOME Condition: Stable Ailyn Sullivan Nov 03, 2016 12:52
[2016-11-03] MEDS ORDERED: SODIUM CHLOR 0.9% 1000 ML INJ 1,000 ML IV ONE ×2 (13:15→13:30)
[2016-11-03] MEDS ORDERED: PROCHLORPERAZINE INJ 10 MG/2 ML VIAL IV PUSH ONE (13:15)
[2016-11-03] MEDS ORDERED: diphenhydrAMINE HCL 50 MG/ML VIAL IV PUSH ONE (13:15)
[2016-11-03] MEDS ORDERED: DICYCLOMINE HCL 20 MG/2 ML VIAL IM ONE (13:30)
[2016-11-03 14:01] LABS: BICARBONATE 27.2 MEQ/L (21.0-32.0); POTASSIUM 3.5 MEQ/L (3.5-5.1)
[2016-11-03] MEDS ORDERED: RANI150T PO (14:24)
[2016-11-03] MEDS ORDERED: ZOFR4TAB3 SL (14:24)
--- NOTE | 2016-11-03 14:37 | PD ---
Data Data Last Documented VS Vital Signs Date Time Temp Pulse Resp B/P (MAP) Pulse Ox O2 Delivery O2 Flow Rate FiO2 11/03/16 12:40 98.4 125 17 121/84 (96) 98 Orders Orders Sodium Chlor 0.9% 1000 Ml Inj (Ns 1000 M (11/03/16 13:15) Prochlorperazine Inj (Compazine Inj) (11/03/16 13:15) Diphenhydramine Inj (Benadryl Inj) (11/03/16 13:15) Sodium Chlor 0.9% 1000 Ml Inj (Ns 1000 M (11/03/16 13:30) Blood Glucose (11/03/16 13:17) Dicyclomine Inj (Bentyl Inj) (11/03/16 13:30) Basic Metabolic Panel (Bmp) (11/03/16 13:19) Labs Laboratory Tests Test 11/03/16 13:32 Blood Urea Nitrogen 18 MG/DL Creatinine 0.74 MG/DL Random Glucose 356 MG/DL Calcium Level 8.4 MG/DL Sodium Level 137 MEQ/L Potassium Level 3.5 MEQ/L Chloride Level 102 MEQ/L Carbon Dioxide Level 27.2 MEQ/L Anion Gap 8 MEQ/L Estimat Glomerular Filtration Rate 119 ML/MIN MDM Supervised Visit with KATERINE: Yes Narrative Course The history, exam, and medical decision-making in the associated mid-level provider note were completed with my assistance. I reviewed and agree with the findings presented. I attest that I had a [id number] encounter with the patient on the same day, and personally performed and documented my assessment and findings in the medical record. *My assessment and Findings: 35-year-old with recurrent gastroparesis abdominal pain nausea vomiting attributed to diabetes. Looks well. Here with similar symptoms. No evidence of DKA or HHS. Diagnosis Primary Impression: Abdominal pain Qualified Codes: R10.9 - Unspecified abdominal pain Referrals: [facility] Patient Instructions: General Instructions Departure Forms: Tests/Procedures Additional Instruction: Please return to emergency department if your symptoms return or worsen. Follow up with your primary care provider. Take medications as prescribed. Scripts Ranitidine (Ranitidine) 150 Mg Tab 150 MG PO BID for Heartburn Management, #60 TAB 0 Refills Prov: Camden Loco MD 11/03/16 Ondansetron Odt (Zofran Odt) 4 Mg Tab 4 MG SL Q8HR Y for Nausea/Vomiting, #15 TAB 0 Refills Prov: Camden Loco MD 11/03/16 Disposition: 01 DISCHARGE HOME Condition: Stable Camden Loco MD Nov 03, 2016 14:37
[2016-11-03 15:58] VITALS: BP 119/75; PULSE 99; RESP 17; O2SAT 98
== END 2016-11-03 16:16 | disposition home or self-care (01) ==
LOC: NEPD 12:39
DX: R10.9 Unspecified abdominal pain (principal); I10 Essential (primary) hypertension; E11.9 Type 2 diabetes mellitus without complications; E78.00 Pure hypercholesterolemia, unspecified
CPT/HCPCS: 80048; 96361; 96372; 96374; 96375; 99284; J0500; J0780; J1200; J7030

== ENCOUNTER 2016-11-04 18:42 | Inpatient (IN) | payer OTHER ==
[~2016-11-04] VITALS: Ht 172.7 cm; Wt 62.3 kg
[~2016-11-04 18:42] MED LIST changes: +RANI150T PO; +ZOFR4TAB3 SL
[2016-11-04] MEDS: ATORVASTATIN 40 MG TAB PO SCH (21:00)
[2016-11-04 22:15] VITALS: BP 153/86; PULSE 104; RESP 18; TEMP 97.7; O2SAT 98
[2016-11-04] MEDS ORDERED: DEXTROSE 50% IN WATER 50 ML VIAL(D50) IV PUSH PRN (23:15)
[2016-11-04] MEDS ORDERED: GLUCAGON 1 MG/ML VIAL OTHER PRN (23:15)
[2016-11-04] MEDS ORDERED: LORazepam 1 MG TAB PO PRN (23:15)
[2016-11-04] MEDS ORDERED: MAGNESIUM HYDROXIDE SUSP 30 ML CUP PO PRN (23:15)
[2016-11-04] MEDS ORDERED: diphenhydrAMINE HCL 50 MG/ML VIAL IM PRN (23:15)
[2016-11-04] MEDS ORDERED: diphenhydrAMINE HCL 50 MG/ML VIAL - HS PRN IM (23:15)
[2016-11-04] MEDS ORDERED: LORazepam 2 MG/ML VIAL IM PRN (23:15)
[2016-11-04] MEDS ORDERED: diphenhydrAMINE HCL 50 MG CAP - HS PRN PO (23:15)
[2016-11-04] MEDS ORDERED: ALUMINUM/MAGNESIUM/SIMETH 30 ML CUP PO PRN (23:15)
[2016-11-05] MEDS ORDERED: PHENYTOIN SODIUM 100 MG CAP PO SCH (00:15)
[2016-11-05] MEDS ORDERED: INSULIN DETEMIR 100 UNITS/ML VIAL SQ SCH (00:30)
[2016-11-05] MEDS ORDERED: METHOCARBAMOL 500 MG TAB PO SCH (00:30)
[2016-11-05] MEDS ORDERED: GABAPENTIN 400 MG CAP PO SCH (00:30)
[2016-11-05] MEDS: diphenhydrAMINE HCL 50 MG CAP PO PRN ×2 (02:20→20:01)
[2016-11-05 05:38] VITALS: BP 108/68; PULSE 103; RESP 15; TEMP 98.5; O2SAT 97
[2016-11-05] MEDS: GEMFIBROZIL 600 MG TAB PO SCH ×2 (06:54→16:15)
[2016-11-05] MEDS: GABAPENTIN 400 MG CAP PO SCH ×3 (08:40→17:39)
[2016-11-05] MEDS: LOW DOSE INSULIN NOVOLOG SUPPLEMENTAL SCALE SQ SCH ×4 (08:41→20:35)
[2016-11-05] MEDS: INSULIN DETEMIR 100 UNITS/ML VIAL SQ SCH ×2 (08:42→20:35)
[2016-11-05] MEDS: METHOCARBAMOL 500 MG TAB PO SCH ×4 (09:00→20:01)
[2016-11-05] MEDS: PHENYTOIN SODIUM 100 MG CAP PO SCH ×2 (09:00→20:01)
[2016-11-05] MEDS: LISINOPRIL 5 MG TAB PO SCH (09:03)
--- NOTE | 2016-11-05 09:08 | PD.CONS ---
[facility] By [facility]iatry team Reason for Consult Assist with medical management, diabetes Primary Care Physician Unknown Diagnoses: History of Present Illness Patient is a 35-year-old male with primary medical history of type 1 diabetes, HTN, high cholesterol, muscle spasm, diabetic neuropathy, seizures who came into the hospital with complaints of abdominal pain. He was seen in the ED and was sent home with Zantac however patient mentioned that he wanted to harm himself. He is now admitted to medical psychiatry unit for further evaluation. Consulted for medical management. Patient seen and examined today. Reports he continues to have abdominal pain. States he has some nausea. Abdominal pain is rated 6/10 on palpation, mid epigastric region radiating to left abdominal quadrant. Patient states that he had a history of ulceration. Denies any hematemesis, hematochezia. States that her abdominal pain is associated with burning sensation specially with eating, or drinking something. States that he was given medication for his stomach but he was not able to refill the prescription. He states that he tries to eat and drink because of his diabetes. Reports of having some diarrhea , but it has already improved. Otherwise, denies SOB/ dyspnea. Denies chest pain, palpitations, headaches, dizziness. Denies fevers, chill. Denies hematuria, dysuria. Review of Systems Except as stated in HPI: all other systems reviewed are Neg Past Family Social History Allergies: Coded Allergies: metformin (Unverified Allergy, Intermediate, Hives, 10/10/16) cyclobenzaprine (Unverified Adverse Reaction, Intermediate, syncope, ) Past Medical History DM 1 HTN Hypercholesteremia Muscle spasms Diabetic neuropathy Seizures Past Surgical History Right knee ligament surgery Reported Medications Reported Meds & Active Scripts Active Ranitidine (Ranitidine HCl) 150 Mg Tab 150 Mg PO BID Zofran Odt (Ondansetron Odt) 4 Mg Tab 4 Mg SL Q8HR PRN Carefine Pen Sabula 31G X 6 mm 31 Gauge X 1/4" Mis Box .ROUTE DIRECTED Novolog Inj (Insulin Aspart) 100 Unit/Ml Inj 1 Unit SQ ACHS SLIDING SCALE before meals if blood sugar 150-199 give 2 units 200-249 give 4 units 250-299 give 7 units 300-349 give 10 units greater 349 12 units Levemir Inj (Insulin Detemir) 1,000 unit/ 10 ML Vial 25 Units SQ BID Do not mix with any other Insulin. Dilantin (Phenytoin Extended) 100 Mg Cap 200 Mg PO BID Ogepfjairx-Qmsoalgwrxkww-Zypwfxfz 50-325-40 Mg Tab 1 Tab PO Q8H PRN Do not exceed 6 tablets/day. Eq Nicotine (Nicotine) 21 Mg/24 Hour Dis 1 Patch T-DERMAL DAILY Methocarbamol 750 Mg Tab 750 Mg PO QID Gabapentin 800 Mg Tab 800 Mg PO TID Atorvastatin (Atorvastatin Calcium) 40 Mg Tab 40 Mg PO HS Gemfibrozil 600 Mg Tab 600 Mg PO BIDAC Take 30 minutes prior to breakfast and dinner. Lisinopril 2.5 Mg Tab 2.5 Mg PO DAILY Celexa (Citalopram Hydrobromide) 20 Mg Tab 10 Mg PO DAILY 30 Days Aripiprazole 5 Mg Tab 5 Mg PO HS 30 Days Reported [unk muscle relaxer] QID Active Ordered Medications Current Medications Medications (Trade) Dose Ordered Sig/Cuauhtemoc Route Start Time Stop Time Status Last Admin (Ativan) 1 mg Q6H PRN PO 11/04/16 23:15 (Ativan Inj) 1 mg Q6H PRN IM 11/04/16 23:15 (Benadryl) 50 mg Q6H PRN PO 11/04/16 23:15 11/05/16 02:20 (Benadryl Inj) 50 mg Q6H PRN IM 11/04/16 23:15 (Benadryl) 50 mg HS PRN PO 11/04/16 23:15 (Benadryl Inj) 50 mg HS PRN IM 11/04/16 23:15 (Tylenol) 650 mg Q4H PRN PO 11/04/16 23:15 (Milk Of Magnesia Liq) 30 ml DAILY PRN PO 11/04/16 23:15 (Mag-Al Plus Susp Liq) 30 ml Q6H PRN PO 11/04/16 23:15 (D50w (Vial) Inj) 50 ml UNSCH PRN IV PUSH 11/04/16 23:15 (Glucagon Inj) 1 mg UNSCH PRN OTHER 11/04/16 23:15 (NovoLOG SUPPLEMENTAL SCALE) 1 ACHS SLIDING SCALE SQ 11/05/16 08:00 11/05/16 08:41 (Neurontin) 800 mg TID PO 11/05/16 09:00 11/05/16 08:40 (Robaxin) 750 mg QID PO 11/05/16 09:00 11/05/16 09:00 (Levemir Inj) 25 units BID SQ 11/05/16 09:00 11/05/16 08:42 (Prinivil) 2.5 mg DAILY PO 11/05/16 09:00 11/05/16 09:03 (Dilantin) 200 mg BID PO 11/05/16 09:00 11/05/16 09:00 (Lopid) 600 mg BIDAC PO 11/05/16 07:00 11/05/16 06:54 (Lipitor) 40 mg HS PO 11/04/16 21:00 (Protonix) 40 mg DAILY PO 11/05/16 09:15 11/19/16 09:14 Family History Family history of diabetes, kidney failure Brother and sister of kidney failure. Mother was 39, sister was 43 years old Social History Denies alcohol use Denies tobacco use Marijuana use Physical Exam Vital Signs Vital Signs Date Time Temp Pulse Resp B/P (MAP) Pulse Ox O2 Delivery O2 Flow Rate FiO2 11/05/16 05:38 98.5 103 15 108/68 (81) 97 11/04/16 22:15 97.7 104 18 153/86 (108) 98 Physical Exam GENERAL: This is a well-nourished, well-developed patient, in no apparent distress. SKIN: No rashes, ecchymoses or lesions. Cool and dry. HEAD: Atraumatic. Normocephalic. No temporal or scalp tenderness. EYES: Pupils equal round and reactive. Extraocular motions intact. No scleral icterus. No injection or drainage. ENT: Nose without bleeding. Throat without erythema. Airway patent. NECK: Trachea midline. Supple, nontender, no meningeal signs. CARDIOVASCULAR: Regular rate and rhythm without murmurs, gallops, or rubs. RESPIRATORY: Clear to auscultation. Breath sounds equal bilaterally. No wheezes , rales, or rhonchi. GASTROINTESTINAL: Abdomen soft,nondistended. Mid epigastric tenderness. MUSCULOSKELETAL: Extremities without clubbing, cyanosis, or edema. NEUROLOGICAL: Awake and alert. Cranial nerves II through XII intact. Motor and sensory grossly within normal limits. Normal speech. Assessment and Plan Problem List: (1) Diabetes mellitus ICD Code: E11.9 - Type 2 diabetes mellitus without complications Status: Chronic (2) Use of cannabis ICD Code: F12.90 - Cannabis use, unspecified, uncomplicated (3) HTN (hypertension) ICD Code: I10 - Essential (primary) hypertension Status: Chronic (4) Noncompliance ICD Code: Z91.19 - Noncompliance Status: Acute (5) Hyperlipidemia ICD Code: E78.5 - Hyperlipidemia, unspecified Status: Chronic Assessment and Plan Patient is a 35-year-old male with primary medical history of type 1 diabetes, HTN, high cholesterol, muscle spasm, diabetic neuropathy, seizures who came into the hospital with complaints of abdominal pain. He was seen in the ED and was sent home with Zantac however patient mentioned that he wanted to harm himself. He is now admitted to medical psychiatry unit for further evaluation. Consulted for medical management. Suicidal ideation -Management managed by psychiatry DM - Mixed Type - Continue Levemir 25 units subcutaneous twice a day, insulin sliding scale - Monitor Accu-Cheks. Monitor for hypoglycemia HTN - Continue with lisinopril 2.5 mg - Monitor BP trend HLD - Continue with Lopid, atorvastatin 40 mg - Check lipid profile Seizures - Continue Dilantin 200 mg twice a day - Check Dilantin level - Seizure precaution Abdominal pain ?Gastritis - Start pantoprazole daily DVT prop ambulatory Code Status Full code Discussed Condition With Patient, nursing, Dr. Do Problem Qualifiers (1) Diabetes mellitus: Qualified Codes: E13.65 - Other specified diabetes mellitus with hyperglycemia Flynn Magaña Nov 05, 2016 09:07
[2016-11-05] MEDS: PANTOPRAZOLE SOD 40 MG DELAYED RELEASE TAB PO SCH (09:53)
[2016-11-05] MEDS: CITALOPRAM HYDROBROMIDE 20 MG TAB PO SCH (14:40)
--- NOTE | 2016-11-05 16:05 | HHI.HP ---
Provisional Diagnosis Admission Date Nov 04, 2016 at 22:40 Russell I. Adjustment disorder with depressed mood Russell II. Deferred Russell III. Diabetes and hyperlipidemia, seizures? Russell IV. Limited social support, unemployed Russell V. 38 Certification of Person's Competence To Provide Express and Informed Consent I have personally examined Jose Messina II , a person being served at [facility] on, Nov 05, 2016 16:00. Express and informed consent means consent voluntarily given in writing, by a competent person, after sufficient explanation and disclosure of the subject matter involved to enable the person to make a knowing and willful decision without any element of force, fraud, deceit, duress, or other form of constraint or coercion. This person is 18 years of age or older, is not now known to be incompetent to consent to treatment with a guardian advocate, and does not have a health care surrogate or proxy currently making medical treatment decisions. I have found this person to be one of the following: [x] Competent to provide express and informed consent, as defined above, for voluntary admission to this facility and is competent to provide express and informed consent for treatment. He/she has the consistent capacity to make well reasoned, willful, and knowing decisions concerning his or her medical or mental health treatment. The person fully and consistently understands the purpose of the admission for examination/placement and is fully capable of personally exercising all rights assured under [place] Incompetent to provide express and informed consent to voluntary admission, and this is incompetent to provide express and informed consent to treatment. The person must be transferred to involuntary status and a petition for a guardian advocate filed with the Circuit Court. [] Refusing to provide express and informed consent to voluntary admission but is competent to provide express and informed consent for treatment. The person must be discharged or transferred to involuntary status. Form shall be completed within 24 hours of a person's arrival at the receiving facility and filed in the clinical record of each person: 1. Admitted on a voluntary basis 2. Permitted to provide express and informed consent to his/her own treatment 3. Allowed to transfer from involuntary to voluntary status 4. Prior to permitting a person to consent to his or her own treatment after having been previously found incompetent to consent to treatment. History of Present Illness Capacity: Has Capacity HPI Patient is a 35-year-old man, single, has 2 children currently do not live with him, unemployed, past psychiatric history of bipolar disorder as per patient, no psychiatric hospitalizations, reported 2 previous suicide attempts ( 1 aborted suicide attempt and other attempts to induce hyperglycemic via ingestion of large amounts of Mountain Dew), no previous self-injurious behavior , significant marijuana use processes were milligrams daily), past medical history of diabetes and hyperlipidemia was brought into the inpatient medical/ psychiatry unit after being put under [facility] act after having suicidal ideations. As per previous notes patient came to the hospital for abdominal pain and mentioned that he wanted to harm himself. Patient was found lying in hospital bed, cooperative interview stated that yesterday he woke up and realized that it was his sisters birthday (sister that ) and began having suicidal ideations with thoughts of overdosing on his medications being spur of the moment as he states was also missing his daughter and son. He states that his roommate walked in and saw him with a handful of pills which were knocked out of his hand was brought to the hospital. Patient reports that prior to be notified by his phone of his sisters birthday he was doing fine denies any depressive symptoms prior to this incident. Patient states that he continues to have suicidal ideations today as well as feeling tired of taking all those meds. Patient stated that after his last discharge from his previous hospitalization earlier this month he stated that he did not follow up with outpatient appointments. Currently this time reports feeling depressed endorsing suicidal ideations denies any HI, AVH or delusions. Past psychiatric history: Bipolar disorder as per patient, THC use disorder, no prior psychiatric hospitalizations, 2 previous suicide attempts (aborted suicide attempt after driving in a vehicle with plan to run into traffic but friend had "talked him out of it" and second as stated above) no previous suicidal and his behavior, denies previous abuse, reports outpatient psychiatrist at [facility] act will be continues to follow with. Substance use history: Marijuana use daily, about 1 g per day, last use was prior to his admission. Patient denies use of any alcohol or illicit drug use denies any previous detox rehabilitation program. Past medical history: Diabetes and hyperlipidemia Allergies: Metformin and Flexeril Legal history: Denies Social history: Single, has 2 children he has no contact with at this time, unemployed. Review of Systems Except as stated in HPI: all other systems reviewed are Neg Past Psych History Psychological trauma history Denies any history of abuse Violence risk - others (6 mos) Low Violence risk - self (6 mos) Moderate to high Substance Abuse History Drugs/Alcohol past 12 months Marijuana use daily, about 1 g per day. Patient denies use of any alcohol or illicit drug use denies any previous detox rehabilitation program. Past Family Social History Coded Allergies: metformin (Unverified Allergy, Intermediate, Hives, 10/10/16) cyclobenzaprine (Unverified Adverse Reaction, Intermediate, syncope, ) Active Scripts Ranitidine (Ranitidine) 150 Mg Tab, 150 MG PO BID for Heartburn Management, #60 TAB 0 Refills Prov:Camden Loco MD 11/03/16 Ondansetron Odt (Zofran Odt) 4 Mg Tab, 4 MG SL Q8HR Y for Nausea/Vomiting, #15 TAB 0 Refills Prov:Camden Loco MD 11/03/16 Carefine Pen [place] 31G X 6 mm (Carefine Pen [place] 31G X 6 mm) 31 Gauge X 1/4 " Mis, BOX .ROUTE DIRECTED for Blood Sugar Management, #1 0 Refills Prov:Britni Lainez MD 10/16/16 Insulin Aspart Inj (Novolog Inj) 100 Unit/Ml Inj, 1 UNIT SQ ACHS SLIDING SCALE for diabetes, #1 VIAL 0 Refills before meals if blood sugar 150-199 give 2 units 200-249 give 4 units 250-299 give 7 units 300-349 give 10 units greater 349 12 units Prov:Britni Lainez MD 10/16/16 Insulin Detemir Inj (Levemir Inj) 1,000 unit/ 10 ML Vial, 25 UNITS SQ BID for diabetes, #1 VIAL 0 Refills Do not mix with any other Insulin. Prov:Britni Lainez MD 10/16/16 Phenytoin Extended (Dilantin) 100 Mg Cap, 200 MG PO BID for seizure, #60 CAP 0 Refills Prov:Britni Lainez MD 10/16/16 Ibtxerheoe-Mxgdeqmodynic-Dvphzrro (Bwlttxheis-Zkovyvupktyrd-Pkfmikre) 50-325-40 Mg Tab, 1 TAB PO Q8H Y for HEADACHES/MIGRAINES, #10 TAB 0 Refills Do not exceed 6 tablets/day. Prov:Britni Lainez MD 10/16/16 Nicotine (Eq Nicotine) 21 Mg/24 Hour Dis, 1 PATCH T-DERMAL DAILY for nicotine dependence, #30 PATCH 0 Refills Prov:Britni Lainez MD 10/16/16 Methocarbamol (Methocarbamol) 750 Mg Tab, 750 MG PO QID for Muscle Spasm, #30 TAB 0 Refills Prov:Britni Lainez MD 10/16/16 Gabapentin (Gabapentin) 800 Mg Tab, 800 MG PO TID for neuropathy, #90 TAB 0 Refills Prov:Britni Lainez MD 10/16/16 Atorvastatin (Atorvastatin) 40 Mg Tab, 40 MG PO HS for Cholesterol Management, # 30 TAB 4 Refills Prov:Britni Lainez MD 10/16/16 Gemfibrozil (Gemfibrozil) 600 Mg Tab, 600 MG PO BIDAC for neuropathy, #60 TAB 0 Refills Take 30 minutes prior to breakfast and dinner. Prov:Britni Lainez MD 10/16/16 Lisinopril (Lisinopril) 2.5 Mg Tab, 2.5 MG PO DAILY, #30 TAB 0 Refills Prov:Britni Lainez MD 10/16/16 Citalopram (Celexa) 20 Mg Tab, 10 MG PO DAILY for health for 30 Days, #30 TAB Prov:Mark Toney MD 10/15/16 Aripiprazole (Aripiprazole) 5 Mg Tab, 5 MG PO HS for health for 30 Days, #30 TAB Prov:Mark Toney MD 10/15/16 Reported Medications [unk muscle relaxer] No Conflict Check, QID 09/21/16 Current Medications Medications (Trade) Dose Ordered Sig/Cuauhtemoc Route Start Time Stop Time Status Last Admin (Ativan) 1 mg Q6H PRN PO 11/04/16 23:15 (Ativan Inj) 1 mg Q6H PRN IM 11/04/16 23:15 (Benadryl) 50 mg Q6H PRN PO 11/04/16 23:15 11/05/16 02:20 (Benadryl Inj) 50 mg Q6H PRN IM 11/04/16 23:15 (Benadryl) 50 mg HS PRN PO 11/04/16 23:15 (Benadryl Inj) 50 mg HS PRN IM 11/04/16 23:15 (Tylenol) 650 mg Q4H PRN PO 11/04/16 23:15 (Milk Of Magnesia Liq) 30 ml DAILY PRN PO 11/04/16 23:15 (Mag-Al Plus Susp Liq) 30 ml Q6H PRN PO 11/04/16 23:15 (D50w (Vial) Inj) 50 ml UNSCH PRN IV PUSH 11/04/16 23:15 (Glucagon Inj) 1 mg UNSCH PRN OTHER 11/04/16 23:15 (NovoLOG SUPPLEMENTAL SCALE) 1 ACHS SLIDING SCALE SQ 11/05/16 08:00 11/05/16 12:02 (Neurontin) 800 mg TID PO 11/05/16 09:00 11/05/16 13:13 (Robaxin) 750 mg QID PO 11/05/16 09:00 11/05/16 13:14 (Levemir Inj) 25 units BID SQ 11/05/16 09:00 11/05/16 08:42 (Prinivil) 2.5 mg DAILY PO 11/05/16 09:00 11/05/16 09:03 (Dilantin) 200 mg BID PO 11/05/16 09:00 11/05/16 09:00 (Lopid) 600 mg BIDAC PO 11/05/16 07:00 11/05/16 06:54 (Lipitor) 40 mg HS PO 11/04/16 21:00 (Protonix) 40 mg DAILY PO 11/05/16 09:15 11/19/16 09:14 11/05/16 09:53 (CeleXA) 20 mg DAILY PO 11/05/16 12:00 11/05/16 14:40 (Abilify) 5 mg HS PO 11/05/16 21:00 Social History Single, has 2 children he has no contact with at this time, unemployed. Patient's Strengths (min. 2) Verbally communicative Physical Exam On my examination patient not noted to be in acute distress, no gross motor abnormalities, no tremor noted EPS, no psychomotor agitation or retardation. Vital Signs Vital Signs Date Time Temp Pulse Resp B/P (MAP) Pulse Ox O2 Delivery O2 Flow Rate FiO2 11/05/16 05:38 98.5 103 15 108/68 (48) 30 I/O 11/05/16 11/05/16 11/06/16 08:00 16:00 00:00 Intake Total 240 ml 2160 ml Balance 240 ml 2160 ml Mental Status Examination Appearance Appears stated age in casual clothing fair hygiene and grooming, cooperative interview fair eye contact Speech: Unremarkable Orientation: x3 Memory: Unremarkable Thought Process: Logical, Organized Thought Content: Unremarkable Language Fluent spontaneous Fund of Knowledge Average Hallucination Type: None Attention and Concentration: Good Suicidal Ideation: Yes Previous Suicide Attempts: Yes Homicidal Ideation: No Previous Homicide Attempts: No Insight: Fair Judgment: Poor Affect: Sad Mood: Sad Motor Activity: Normal gait Assessment & Plan Problem List: (1) Adjustment disorder with depressed mood ICD Codes: F43.21 - Adjustment disorder with depressed mood Assessment & Plan Patient is a 35-year-old man who carries a diagnoses of bipolar disorder as per patient and marijuana use disorder was recently discharged from [facility] earlier in October and return to the hospital due to anniversary of patient's sister which had triggered patient to have suicidal ideations after feeling he was missing his sister as well as his children whom he has no contact with at this time. Patient will be restarted on Celexa 20 mg by mouth daily and Abilify 5 mg by mouth at bedtime for mood stabilization. Continue to monitor medication response and adverse drug reactions recognitions of her primary medical team for management of medical issues. Discharge planning in progress Discharge Planning At risk for further decompensation if at lower level of care Mark Toney MD Nov 05, 2016 16:05
[2016-11-05 17:32] VITALS: BP 107/69; PULSE 95; RESP 16; TEMP 98.1; O2SAT 97
[2016-11-05] MEDS ORDERED: AMOX500C PO (18:50)
[2016-11-05] MEDS: ARIPiprazole 5 MG TAB PO SCH (20:01)
[2016-11-05] MEDS: ATORVASTATIN 40 MG TAB PO SCH (20:01)
[2016-11-06 05:00] VITALS: BP 102/54; PULSE 105; RESP 16; TEMP 98; O2SAT 97
[2016-11-06] MEDS: GEMFIBROZIL 600 MG TAB PO SCH ×2 (06:28→15:41)
[2016-11-06] MEDS: ACETAMINOPHEN 325 MG TAB PO PRN ×2 (06:32→15:41)
[2016-11-06] MEDS: LOW DOSE INSULIN NOVOLOG SUPPLEMENTAL SCALE SQ SCH ×4 (07:50→21:00)
[2016-11-06] MEDS: PHENYTOIN SODIUM 100 MG CAP PO SCH ×2 (08:56→21:18)
[2016-11-06] MEDS: GABAPENTIN 400 MG CAP PO SCH ×3 (08:56→16:54)
[2016-11-06] MEDS: PANTOPRAZOLE SOD 40 MG DELAYED RELEASE TAB PO SCH (08:56)
[2016-11-06] MEDS: CITALOPRAM HYDROBROMIDE 20 MG TAB PO SCH (08:56)
[2016-11-06] MEDS: LISINOPRIL 5 MG TAB PO SCH (08:57)
[2016-11-06] MEDS: METHOCARBAMOL 500 MG TAB PO SCH ×4 (08:57→21:17)
[2016-11-06] MEDS: INSULIN DETEMIR 100 UNITS/ML VIAL SQ SCH ×2 (08:57→21:00)
--- NOTE | 2016-11-06 09:03 | HHI.PR ---
Subjective Remarks Follow-up visit diabetes, HLD, abdominal pain. Patient seen and examined today. States his abdominal pain has improved. Able to eat and drink without nausea vomiting. As per nursing, patient has been eating 100% of meals. Patient states that he's been hydrating well if he is given fluids. Complaints of "migraine headache," unrelieved by Tylenol, aggravated by movement and light , rated 7/10. Otherwise, denies SOB/ dyspnea. Denies chest pain, palpitations , dizziness. Denies fevers, chills, n/v/d. Objective Vitals Vital Signs Date Time Temp Pulse Resp B/P (MAP) Pulse Ox O2 Delivery O2 Flow Rate FiO2 11/06/16 05:00 98.0 105 16 102/54 (70) 97 11/05/16 17:32 98.1 95 16 107/69 (82) 97 I/O 11/05/16 11/05/16 11/05/16 11/06/16 11/06/16 11/06/16 07:00 15:00 23:00 07:00 15:00 23:00 Intake Total 240 ml 720 ml 2400 ml 240 ml Balance 240 ml 720 ml 2400 ml 240 ml Intake Oral 240 ml 720 ml 2400 ml 240 ml # Voids 2 4 Objective Remarks GENERAL: This is a well-nourished, well-developed patient, in no apparent distress. SKIN: No rashes, ecchymoses or lesions. Cool and dry. HEAD: Atraumatic. Normocephalic. No temporal or scalp tenderness. EYES: Pupils equal round and reactive. Extraocular motions intact. No scleral icterus. No injection or drainage. ENT: Nose without bleeding. Throat without erythema. Airway patent. NECK: Trachea midline. Supple, nontender, no meningeal signs. CARDIOVASCULAR: Regular rate and rhythm without murmurs, gallops, or rubs. RESPIRATORY: Clear to auscultation. Breath sounds equal bilaterally. No wheezes , rales, or rhonchi. GASTROINTESTINAL: Abdomen soft,nondistended. Mid epigastric tenderness, improving. Bowel sounds active 4. MUSCULOSKELETAL: Extremities without clubbing, cyanosis, or edema. NEUROLOGICAL: Awake and alert. Cranial nerves II through XII intact. Motor and sensory grossly within normal limits. Normal speech. A/P Problem List: (1) Diabetes mellitus ICD Code: E11.9 - Type 2 diabetes mellitus without complications Status: Chronic (2) Use of cannabis ICD Code: F12.90 - Cannabis use, unspecified, uncomplicated (3) HTN (hypertension) ICD Code: I10 - Essential (primary) hypertension Status: Chronic (4) Noncompliance ICD Code: Z91.19 - Noncompliance Status: Acute (5) Hyperlipidemia ICD Code: E78.5 - Hyperlipidemia, unspecified Status: Chronic Assessment and Plan Patient is a 35-year-old male with primary medical history of type 1 diabetes/ mixed type, HTN, high cholesterol, muscle spasm, diabetic neuropathy, seizures who came into the hospital with complaints of abdominal pain. He was seen in the ED and was sent home with Zantac however patient mentioned that he wanted to harm himself. He is now admitted to medical psychiatry unit for further evaluation. Consulted for medical management. Suicidal ideation - Management managed by psychiatry DM - Mixed Type - Continue Levemir 25 units subcutaneous twice a day, insulin sliding scale - Monitor Accu-Cheks. Monitor for hypoglycemia HTN - Continue with lisinopril 2.5 mg - Monitor BP trend HLD - Continue with Lopid, atorvastatin 40 mg - Check lipid profile Seizures - Continue Dilantin 200 mg twice a day - Check Dilantin level - Seizure precaution Abdominal pain ?Gastritis - pantoprazole daily - Consult GI if continues to worsen - Reports improvement with abdominal pain Migraine headaches - Sumatriptan when necessary - Tylenol DVT prop ambulatory Discussed with patient, nursing, Dr. Do Discharge Planning May transfer to regular psychiatric unit. Problem Qualifiers (1) Diabetes mellitus: Qualified Codes: E13.65 - Other specified diabetes mellitus with hyperglycemia Flynn Magaña Nov 06, 2016 09:03
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
[2016-11-06 16:55] VITALS: BP 107/75; PULSE 97; RESP 18; TEMP 98.6; O2SAT 98
[2016-11-06] MEDS: SUMAtriptan SUCCINATE 25 MG TAB PO PRN (16:55)
[2016-11-06] MEDS: ATORVASTATIN 40 MG TAB PO SCH (21:00)
[2016-11-06] MEDS: ARIPiprazole 5 MG TAB PO SCH (21:17)
[2016-11-06] MEDS: diphenhydrAMINE HCL 50 MG CAP PO PRN (21:41)
[2016-11-07 05:56] VITALS: BP 101/66; PULSE 97; RESP 18; TEMP 99; O2SAT 98
[2016-11-07] MEDS: GEMFIBROZIL 600 MG TAB PO SCH ×2 (06:40→16:00)
[2016-11-07] MEDS: LOW DOSE INSULIN NOVOLOG SUPPLEMENTAL SCALE SQ SCH ×4 (08:00→21:00)
[2016-11-07] MEDS: METHOCARBAMOL 500 MG TAB PO SCH ×4 (09:05→21:20)
[2016-11-07] MEDS: CITALOPRAM HYDROBROMIDE 20 MG TAB PO SCH (09:08)
[2016-11-07] MEDS: PHENYTOIN SODIUM 100 MG CAP PO SCH ×2 (09:08→21:20)
[2016-11-07] MEDS: PANTOPRAZOLE SOD 40 MG DELAYED RELEASE TAB PO SCH (09:08)
[2016-11-07] MEDS: GABAPENTIN 400 MG CAP PO SCH ×3 (09:08→18:24)
[2016-11-07] MEDS: INSULIN DETEMIR 100 UNITS/ML VIAL SQ SCH ×2 (09:09→21:10)
[2016-11-07] MEDS: SUMAtriptan SUCCINATE 25 MG TAB PO PRN (09:13)
[2016-11-07 10:59] VITALS: BP 115/78; PULSE 100
[2016-11-07] MEDS: LISINOPRIL 5 MG TAB PO SCH (11:09)
--- NOTE | 2016-11-07 15:46 | HHI.PR ---
Subjective Remarks Patient reports persistent neuropathic pain. No other issues. He states he normally smoke a "Fat ..." for his pain which he cannot do here Objective Vitals Vital Signs Date Time Temp Pulse Resp B/P (MAP) Pulse Ox O2 Delivery O2 Flow Rate FiO2 11/07/16 10:59 100 115/78 (90) 11/07/16 05:56 99.0 97 18 101/66 (78) 98 11/06/16 17:56 18 11/06/16 16:55 98.6 97 18 107/75 (86) 98 11/06/16 16:54 18 I/O 11/06/16 11/06/16 11/06/16 11/07/16 11/07/16 11/07/16 07:00 15:00 23:00 07:00 15:00 23:00 Intake Total 240 ml 360 ml Balance 240 ml 360 ml Intake Oral 240 ml 360 ml Objective Remarks O. CONSTITUTIONAL/GEN: normally nourished, in NAD. LUNGS: clear A-P, respiratory effort is normal. CARDIOVASCULAR: RR without murmur or gallop. No edema. GI/ABD: soft without masses, without organomegaly. PSYCH/MENTAL STATUS: Alert and oriented x 3. A/P Problem List: (1) Diabetes mellitus ICD Code: E11.9 - Type 2 diabetes mellitus without complications Status: Chronic (2) Use of cannabis ICD Code: F12.90 - Cannabis use, unspecified, uncomplicated (3) HTN (hypertension) ICD Code: I10 - Essential (primary) hypertension Status: Chronic (4) Noncompliance ICD Code: Z91.19 - Noncompliance Status: Acute (5) Hyperlipidemia ICD Code: E78.5 - Hyperlipidemia, unspecified Status: Chronic Assessment and Plan 35-year-old male with primary medical history of type 1 diabetes/mixed type, HTN , high cholesterol, muscle spasm, diabetic neuropathy, seizures who came into the hospital with complaints of abdominal pain. He was seen in the ED and was sent home with Zantac however patient mentioned that he wanted to harm himself. He is now admitted to the psychiatric unit. Hospitalist service following for medical management Suicidal ideation - Management managed by psychiatry DM - Mixed Type - Continue Levemir 25 units subcutaneous twice a day, insulin sliding scale - Monitor Accu-Cheks. Monitor for hypoglycemia HTN - Continue with lisinopril 2.5 mg - Monitor BP trend HLD - Continue with Lopid, atorvastatin 40 mg - Check lipid profile Seizures - Continue Dilantin 200 mg twice a day - Seizure precaution Abdominal pain ?Gastritis - pantoprazole daily. Pain resolved. Neuropathic pain: Patient is already on Robaxin and high dose Gabapentin. Patient states only Marijuana works for him. He is seen ambulating the halls without issues. Migraine headaches - Sumatriptan when necessary - Tylenol DVT prop ambulatory Discharge Planning Patient is medically stable. Will sign off. Please call or reconsult as needed. Problem Qualifiers (1) Diabetes mellitus: Qualified Codes: E13.65 - Other specified diabetes mellitus with hyperglycemia Ida Garduno MD Nov 07, 2016 15:46
--- NOTE | 2016-11-07 16:15 | HHI.PYPN ---
Subjective Remarks Patient was seen and case discussed with nursing. Patient had a phone call today. Patient denies depressed mood. Affect is blunted. Denies suicidal or homicidal ideation intent or plan. Compliant with medications. Future goals include working on his disability application Objective Alert: Yes [place]: Person, Place, Date Mood: Depressed Affect: Blunted Memory Intact: Comment (intact) Hallucinations: Other Delusions: No Delusion Type: Other Suicidal: Ideation (denies today) Homicidal: Ideation (denies) Insight/Judgment Poor Vitals/IOs Vital Signs Date Time Temp Pulse Resp B/P (MAP) Pulse Ox O2 Delivery O2 Flow Rate FiO2 11/07/16 10:59 100 115/78 (90) 11/07/16 05:56 99.0 18 98 Assessment & Plan Problem List: (1) Adjustment disorder with depressed mood ICD Codes: F43.21 - Adjustment disorder with depressed mood Assessment & Plan Continue current treatment plan Justification for Cont. Inpt. Patient would decompensate in a less restrictive setting Jhonatan Gutierrez DO Nov 07, 2016 16:15
[2016-11-07] MEDS: ARIPiprazole 5 MG TAB PO SCH (21:19)
[2016-11-07] MEDS: traZODone HCL 50 MG TAB PO SCH (21:20)
[2016-11-07] MEDS: ATORVASTATIN 40 MG TAB PO SCH (21:20)
[2016-11-08] MEDS: GEMFIBROZIL 600 MG TAB PO SCH ×2 (05:21→16:09)
[2016-11-08] MEDS: ACETAMINOPHEN 325 MG TAB PO PRN ×3 (05:22→20:49)
[2016-11-08 05:39] VITALS: BP 101/90; PULSE 66; RESP 16; TEMP 97.9; O2SAT 98
[2016-11-08] MEDS: LOW DOSE INSULIN NOVOLOG SUPPLEMENTAL SCALE SQ SCH ×4 (08:00→21:38)
[2016-11-08] MEDS: SUMAtriptan SUCCINATE 25 MG TAB PO PRN (09:06)
[2016-11-08] MEDS: CITALOPRAM HYDROBROMIDE 20 MG TAB PO SCH (09:08)
[2016-11-08] MEDS: METHOCARBAMOL 500 MG TAB PO SCH ×4 (09:08→20:48)
[2016-11-08] MEDS: PANTOPRAZOLE SOD 40 MG DELAYED RELEASE TAB PO SCH (09:08)
[2016-11-08] MEDS: PHENYTOIN SODIUM 100 MG CAP PO SCH ×2 (09:09→20:47)
[2016-11-08] MEDS: GABAPENTIN 400 MG CAP PO SCH ×3 (09:09→17:28)
[2016-11-08 09:14] VITALS: BP 118/71
[2016-11-08] MEDS: LISINOPRIL 5 MG TAB PO SCH (09:15)
[2016-11-08] MEDS: INSULIN DETEMIR 100 UNITS/ML VIAL SQ SCH ×2 (09:23→20:56)
--- NOTE | 2016-11-08 10:22 | HHI.PYPN ---
Subjective Remarks Patient was seen and case discussed with nursing. Patient had an outburst with the tech overnight. Patient says he first throughout and was angry with her attitude and not being able to take a shower or brush his teeth when he wanted. He is apologetic for his actions during this interview. Tolerating his medications well. Is now sleeping well with trazodone. Denies suicidal or homicidal ideation intent or plan Objective Alert: Yes [place]: Person, Place, Date Mood: Calm Affect: Blunted Memory Intact: Comment (intact) Hallucinations: Other Delusions: No Delusion Type: Other Suicidal: Ideation (denies today) Homicidal: Ideation (denies) Insight/Judgment Improving Vitals/IOs Vital Signs Date Time Temp Pulse Resp B/P (MAP) Pulse Ox O2 Delivery O2 Flow Rate FiO2 11/08/16 09:14 118/71 (87) 11/08/16 05:39 97.9 66 16 98 Assessment & Plan Problem List: (1) Adjustment disorder with depressed mood ICD Codes: F43.21 - Adjustment disorder with depressed mood Assessment & Plan Continue current treatment plan Justification for Cont. Inpt. Patient will decompensate in a less restrictive setting Jhonatan Gutierrez DO Nov 08, 2016 10:22
[2016-11-08 17:45] VITALS: BP 111/64; PULSE 116; RESP 17; TEMP 97.7; O2SAT 99
[2016-11-08] MEDS: traZODone HCL 50 MG TAB PO SCH (20:47)
[2016-11-08] MEDS: ATORVASTATIN 40 MG TAB PO SCH (20:47)
[2016-11-08] MEDS: ARIPiprazole 5 MG TAB PO SCH (20:47)
[2016-11-09 06:29] VITALS: BP 101/59; PULSE 68; RESP 16; TEMP 98; O2SAT 97
[2016-11-09] MEDS: GEMFIBROZIL 600 MG TAB PO SCH (06:49)
[2016-11-09] MEDS: LOW DOSE INSULIN NOVOLOG SUPPLEMENTAL SCALE SQ SCH ×2 (08:00→11:27)
[2016-11-09] MEDS: METHOCARBAMOL 500 MG TAB PO SCH ×2 (08:43→13:00)
[2016-11-09] MEDS: GABAPENTIN 400 MG CAP PO SCH ×2 (08:43→13:00)
[2016-11-09] MEDS: LISINOPRIL 5 MG TAB PO SCH (08:45)
[2016-11-09] MEDS: PHENYTOIN SODIUM 100 MG CAP PO SCH (08:45)
[2016-11-09] MEDS: PANTOPRAZOLE SOD 40 MG DELAYED RELEASE TAB PO SCH (08:45)
[2016-11-09] MEDS: CITALOPRAM HYDROBROMIDE 20 MG TAB PO SCH (08:45)
[2016-11-09] MEDS: INSULIN DETEMIR 100 UNITS/ML VIAL SQ SCH (08:46)
[2016-11-09] MEDS ORDERED: CELE20TA PO (12:21)
[2016-11-09] MEDS ORDERED: GABA800T PO (12:21)
[2016-11-09] MEDS ORDERED: LISI-519 PO (12:21)
[2016-11-09] MEDS ORDERED: METH750T PO (12:21)
[2016-11-09] MEDS ORDERED: ARIP1TAB11 PO (12:21)
[2016-11-09] MEDS ORDERED: LEVEMIR SQ (12:21)
[2016-11-09] MEDS ORDERED: PHEN200C3 PO (12:21)
[2016-11-09] MEDS ORDERED: TRAZ50TA12 PO (12:21)
[2016-11-09] MEDS ORDERED: GEMF600 PO (12:21)
[2016-11-09] MEDS ORDERED: ATOR40TA16 PO (12:21)
[2016-11-09] MEDS ORDERED: PANT40TA3 PO (12:21)
--- NOTE | 2016-11-09 15:49 | HHI.DS ---
Psychiatry Discharge Summary Inpatient Psychiatric care?: Yes Advance Directive: No Reason Not Provided: does not have one Mental Health AdvanceDirective: No Health Care Proxy: No Admission Admission Date Nov 04, 2016 at 22:40 Admission Diagnosis: (1) Adjustment disorder with depressed mood ICD Code: F43.21 - Adjustment disorder with depressed mood Brief History Patient is a 35-year-old man, single, has 2 children currently do not live with him, unemployed, past psychiatric history of bipolar disorder as per patient, no psychiatric hospitalizations, reported 2 previous suicide attempts ( 1 aborted suicide attempt and other attempts to induce hyperglycemic via ingestion of large amounts of Mountain Dew), no previous self-injurious behavior , significant marijuana use processes were milligrams daily), past medical history of diabetes and hyperlipidemia was brought into the inpatient medical/ psychiatry unit after being put under [facility] act after having suicidal ideations. As per previous notes patient came to the hospital for abdominal pain and mentioned that he wanted to harm himself. Patient was found lying in hospital bed, cooperative interview stated that yesterday he woke up and realized that it was his sisters birthday (sister that ) and began having suicidal ideations with thoughts of overdosing on his medications being spur of the moment as he states was also missing his daughter and son. He states that his roommate walked in and saw him with a handful of pills which were knocked out of his hand was brought to the hospital. Patient reports that prior to be notified by his phone of his sisters birthday he was doing fine denies any depressive symptoms prior to this incident. Patient states that he continues to have suicidal ideations today as well as feeling tired of taking all those meds. Patient stated that after his last discharge from his previous hospitalization earlier this month he stated that he did not follow up with outpatient appointments. Currently this time reports feeling depressed endorsing suicidal ideations denies any HI, AVH or delusions. Past psychiatric history: Bipolar disorder as per patient, THC use disorder, no prior psychiatric hospitalizations, 2 previous suicide attempts (aborted suicide attempt after driving in a vehicle with plan to run into traffic but friend had "talked him out of it" and second as stated above) no previous suicidal and his behavior, denies previous abuse, reports outpatient psychiatrist at [facility] act will be continues to follow with. Substance use history: Marijuana use daily, about 1 g per day, last use was prior to his admission. Patient denies use of any alcohol or illicit drug use denies any previous detox rehabilitation program. Past medical history: Diabetes and hyperlipidemia Allergies: Metformin and Flexeril Legal history: Denies Social history: Single, has 2 children he has no contact with at this time, unemployed. Tobacco Use In Past 30 Days: No Tobacco Past 30 Days Alcohol Use: Never Hospital Course Patient is a 35-year-old man, single, has 2 children currently do not live with him, unemployed, past psychiatric history of bipolar disorder as per patient, no psychiatric hospitalizations, reported 2 previous suicide attempts ( 1 aborted suicide attempt and other attempts to induce hyperglycemic via ingestion of large amounts of Mountain Dew), no previous self-injurious behavior , significant marijuana use processes were milligrams daily), past medical history of diabetes and hyperlipidemia was brought into the inpatient medical/ psychiatry unit after being put under Stoner act after having suicidal ideations. Patient was restarted on aripiprazole 5mg PO HS for mood stabilization and citalopram 20mg PO daily for depression. Patient was noted to be with improved mood, participatory in groups and activities, and cooperative with staff. Upon discharge, patient stated feeling that the medication regimen is helpful denied any SI, HI, AVH or delusions. He agrees to continue treatment and outpatient follow up for continuity of care. Supportive psychotherapy provided. Patient advised to call 911 or go nearest ED in case of emergency. Patient agrees with plan. Results Blood Pressure 101 / 59 Vital Signs Date Time Temp Pulse Resp B/P (MAP) Pulse Ox O2 Delivery O2 Flow Rate FiO2 11/09/16 06:29 98.0 68 16 101/59 (73) 97 Noted with elevated blood glucose on BMP Summary of Procedures none Pending results at discharge: No Medications # of Antipsychotic meds at D/C: 1 Approp Antipsych med options 1 - Minimum of three failed multiple trials of monotherapy. 2 - Documented plan to taper to monotherapy due to previous use of multiple meds OR cross-taper in progress at D/C. 3 - Documentation of augmentation of Clozapine. 4 - Justification other than those listed in allowable values 1-3, document here : Discharge Discharge Date: Nov 09, 2016 Discharge Diagnosis: (1) Adjustment disorder with depressed mood Diagnosis: Principal ICD Code: F43.21 - Adjustment disorder with depressed mood Mental Status Exam at Disch Appearance/Behavior: appears stated age, in casual clothing, calm and cooperative with interview. Fair eye contact Speech: normal rate, tone and prosody Mood: good Affect: euthymic TP: linear, goal-directed, future oriented TC: denies SI, HI, AVH or delusions Insight/Impulse control/judgment: fair Pt Condition on Discharge: Stable Discharge Disposition: Discharge Home Discharge Instructions Diet Instructions: Diabetic Diet Activities you can perform: Regular-No Restrictions Scheduled Appointment: Jose Chan Appointment Date: Nov 09, 2016 Appointment Time: 300 Discharge Time > 30 minutes Discharge/Advance Care Plan Health Problems: (1) Adjustment disorder with depressed mood Goals to promote your health * To prevent worsening of your condition and complications * To maintain your health at the optimal level Directions to meet your goals Take your medications as prescribed Follow your dietary instruction Follow activity as directed Keep your appointments as scheduled Take your immunizations and boosters as scheduled If your symptoms worsen call your PCP, if no PCP go to Urgent Care Center or Emergency Room For 31/08 questions related to your inpatient stay or results of tests pending at discharge, please contact Dr. Mark Toney at Smoking is Dangerous to Your Health. Avoid second hand smoking Mark Toney MD Nov 09, 2016 15:49
== END 2016-11-09 13:35 | disposition home or self-care (01) | DRG 881 ==
LOC: H4EA 22:40 → H260 11-06 14:45
PROVIDERS: ADMIT Student in an Organized Health Care Education/Training Program; ATTEND Student in an Organized Health Care Education/Training Program
DX: F43.21 Adjustment disorder with depressed mood (principal); E10.40 Type 1 diabetes mellitus with diabetic neuropathy, unspecified; R45.851 Suicidal ideations; I10 Essential (primary) hypertension; E78.5 Hyperlipidemia, unspecified; F12.90 Cannabis use, unspecified, uncomplicated; F31.9 Bipolar disorder, unspecified; K29.70 Gastritis, unspecified, without bleeding; G43.909 Migraine, unspecified, not intractable, without status migrainosus; E10.65 Type 1 diabetes mellitus with hyperglycemia; Z79.4 Long term (current) use of insulin; Z91.5 Personal history of self-harm; Z91.19 Patient's noncompliance with other medical treatment and regimen
CPT/HCPCS: 82948; J1815; Q0163